=== PATIENT | female | born 1940 | race Caucasian/White ===

== ENCOUNTER 2017-06-06 07:25 | Observation (INO) ==
[2017-06-06] MEDS ORDERED: 0.9 % Sodium Chloride 1,000 ML IVC ONE (07:31)
[2017-06-06] MEDS ORDERED: Ondansetron 4 MG/2 ML VIAL IVP ONE (07:34)
--- NOTE | 2017-06-06 07:38 | Emergency Department Note ---
Disposition Clinical Impression: Seizure-like activity Vomiting Qualifiers: Vomiting type: unspecified Vomiting Intractability: non-intractable Nausea presence: unspecified Qualified Code(s): R11.10 - Vomiting, unspecified Disposition: Admitted As Inpatient Condition: Good Referrals: NONE,PCP [Primary Care Provider] - Forms: ED Satisfaction Letter Time of Disposition: 15:08 Syncope HPI - General Chief Complaint: ED Syncope Stated Complaint: fell off toilet, possible seizure Time Seen by Provider: 06/06/17 07:31 Nursing Notes Reviewed: Yes Vital Signs Reviewed: Yes - History of Present Illness HPI Narrative: Syncope this morning. Patient fell off the toilet. Check her head on the floor. Has had seizure-like activity by EMS. Episodic diarrhea today. Denies any pain. - Related Data Home Medications Medication Instructions Recorded Confirmed Cholecalciferol (Vitamin D3) 1,000 unit PO DAILY 11/05/14 06/06/17 [Vitamin D] Clopidogrel [Plavix] 75 mg PO DAILY 11/05/14 06/06/17 Magnesium Oxide [Magnesium] 400 mg PO DAILY 11/05/14 06/06/17 Carvedilol [Coreg] 25 mg PO BID 01/09/15 06/06/17 Insulin Glargine,Hum.rec.anlog 17 unit SQ HS 01/09/15 06/06/17 [Lantus Solostar] Nitroglycerin 0.4 mg SL Q5MIN PRN 01/09/15 06/06/17 Potassium Chloride [Klor-Con 10 meq PO DAILY 01/09/15 06/06/17 Sprinkle] Ropinirole HCl [Requip] 0.5 mg PO HS 01/09/15 06/06/17 TraZODone 50 mg PO HS 01/09/15 06/06/17 Acetaminophen [Pain Reliever] 500 mg PO TID PRN 06/06/17 06/06/17 CloNIDine HCl 0.3 mg PO TID 06/06/17 06/06/17 Fluticasone Propionate Nasal 1 spr NS DAILY 06/06/17 06/06/17 [Flonase] Gabapentin [Neurontin] 100 mg PO TID 06/06/17 06/06/17 Guaifenesin [Mucinex] 600 mg PO BID PRN 06/06/17 06/06/17 Insulin Glargine,Hum.rec.anlog 30 unit SQ QAM 06/06/17 06/06/17 [Lantus Solostar] Insulin LISPRO [Humalog Kwikpen 10 unit SQ TID 06/06/17 06/06/17 U-100] Lactobacillus Acidophilus 1 cap PO BID 06/06/17 06/06/17 [Acidophilus] Levothyroxine Sodium [Levoxyl] 50 mcg PO DAILY 06/06/17 06/06/17 Liothyronine Sodium [Cytomel] 25 mcg PO DAILY 06/06/17 06/06/17 Loratadine [Allergy Relief] 10 mg PO DAILY 06/06/17 06/06/17 Montelukast [Singulair] 10 mg PO DAILY 06/06/17 06/06/17 Nitroglycerin [Nitrostat] 0.4 mg SL Q5M PRN 06/06/17 06/06/17 Warfarin [Coumadin] 3.5 mg PO DAILY 06/06/17 06/06/17 hydrALAZINE [HydrALAZINE] 25 mg PO QID 06/06/17 06/06/17 Previous Rx's Medication Instructions Recorded Amlodipine [Norvasc] 10 mg PO DAILY #30 tablet 11/17/14 Atorvastatin [Lipitor] 80 mg PO HS #30 tablet 11/17/14 Furosemide [Lasix] 40 mg PO BID 30 Days tab 01/14/15 Lisinopril [Zestril] 40 mg PO DAILY tablet 01/14/15 Albuterol Sulfate [Albuterol 2 puff IH Q4HR #1 hfa.aer.ad 11/27/16 Inhaler] Allergies Allergy/AdvReac Type Severity Reaction Status Date / Time codeine Allergy Congested Verified 11/27/16 06:45 Penicillins [PCN] AdvReac Congested Verified 11/27/16 06:45 tape AdvReac Itching Uncoded 11/27/16 06:45 All systems ED: reviewed and negative except as stated. Constitutional: Reports: chills. Denies: fever Cardiovascular: Reports: syncope. Denies: chest pain, palpitations Respiratory: Denies: cough, dyspnea, wheezes Gastrointestinal: Reports: nausea, vomiting, diarrhea. Denies: abdominal pain, hematemesis, melena, hematochezia Genitourinary: Denies: urgency, dysuria, frequency Musculoskeletal: Denies: back pain, neck pain Integumentary: Denies: rash, abrasion Neurological: Denies: headache, weakness Past Medical History - Past Medical History Attestation: Yes The following information was validated with the patient. 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 - Social History Smoking Status: Never smoker Smokeless Tobacco Status: No Alcohol use: Reports: none Drug use: Reports: none Physical Exam - General General appearance: alert, other (Holding a vomit bag.) - Head Head exam: atraumatic, normocephalic, normal inspection - Eye Eye exam: Present: normal appearance, PERRL, EOMI - ENT ENT exam: normal exam, normal oropharynx, mucous membranes moist - Neck Neck exam: Present: normal inspection, full ROM, trachea midline - Chest Chest inspection: Present: normal inspection, symmetric chest wall rise - Respiratory Respiratory exam: Present: normal lung sounds bilaterally. Absent: respiratory distress, accessory muscle use - Cardiovascular Cardiovascular exam: Present: regular rate, normal rhythm, normal heart sounds - Abdominal Exam Abdominal exam: Present: soft, Non-Tender. Absent: distention, guarding, rebound, rigidity, organomegaly - Extremities Exam Extremities exam: Present: normal inspection, full ROM. Absent: tenderness, pedal edema - Back Exam Back exam: Present: normal inspection, full ROM. Absent: tenderness - Neurological Exam Neurological exam: Present: alert, oriented X3 - Psychiatric Psychiatric exam: Present: normal affect, normal mood - Skin Skin exam: Present: warm, dry, intact, normal color. Absent: rash Course Course Narrative: Female patient presenting to the emergency department by EMS. She does live at an assisted living facility. She states that she got up this morning and was going to the bathroom she began to have diarrhea. She then had a syncopal event. She fell forward off the toilet striking her head. She denies any head pain at this time. She is on Coumadin. She reports that she then began to vomit. EMS was called. EMS reports that the patient had a seizure-like activity while on their cot. They reported that his shaking all over. They reported a less than two-minute transport. Patient is not postictal on arrival here. She is mentating appropriately. She complains of some back pain. Her lung sounds are clear heart tones are normal abdomen is soft and nontender. We will get a CT of patient's head and neck due to the syncope. As well as an EKG and a basic lab workup. I do not believe that this was a seizure-like activity however I believe that she had some tremors after syncope. - Reevaluation(s) Reevaluation #1: Patient IV access is poor. PICC Was placed. After the PICC was in patient had seizure-like activity. This was consistent with staring off. Also shaking about her arms and legs. Does not appear to be a typical tonic-clonic seizure. However we will consult neurology and Keppra load her give her Ativan as well. Patient has episodic vomiting with these seizures. It was reported she also had an episode of this in the CT scanner. Time: 09:13 Reevaluation #2: We will admit patient to the hospital for seizure-like activity. We have scheduled the MRI as well as we will defer the LP until patient's INR has corrected. - Consultations Consultation #1: I spoke with Dr. Sood. I described the patient's seizure-like activity. He suggests we with 1 g of Keppra and get an MRI with and without contrast. He is also suggesting a possible LP. Patient's body habitus will be a challenge for her LP. Time: 09:23 Consultation #2: Dr ISAAC accepted Pt in stable condition. Time: 10:57 Vital Signs Temperature 97.4 F L 06/06/17 07:32 Pulse Rate 71 06/06/17 07:32 Respiratory Rate 15 06/06/17 07:32 Blood Pressure 177/57 06/06/17 07:32 O2 Sat by Pulse Oximetry 97 06/06/17 07:32 Temperature 97.4 F L 06/06/17 07:47 Pulse Rate 79 06/06/17 14:32 Respiratory Rate 15 06/06/17 14:32 Blood Pressure 195/57 06/06/17 14:32 O2 Sat by Pulse Oximetry 100 06/06/17 14:32 Oxygen Delivery Oxygen Delivery Nasal Cannula Syncope - Medical Records Medical records reviewed: Yes I reviewed the patient's medical records. - Lab Data Lab results reviewed: Yes I reviewed the patient's lab results. Result diagrams: 06/06/17 07:31 06/06/17 07:31 Lab Results 06/06/17 06/06/17 06/06/17 Range/Units 07:31 07:31 07:32 WBC 13.3 H (4.3-11.1) K/mcL RBC 3.56 L (3.82-4.97) M/mcL Hgb 10.3 L (11.5-15.4) g/dL Hct 32.1 L (35.3-44.9) % MCV 90.2 (83.0-100.0) fL MCH 28.9 (28.0-33.3) pg MCHC 32.1 (31.6-35.5) g/dL RDW 12.5 (11.5-14.5) % Plt Count 245 (140-400) K/mcL MPV 11.4 (9.4-12.4) fL Immature Gran % 0.4 (0-4) % Seg Neutrophils % 89.3 % Lymphocytes % 3.6 % Monocytes % 6.0 % Eosinophils % 0.6 % Basophils % 0.1 % Neutrophils # 11.9 H (1.6-8.9) K/mcL Lymphocytes # 0.5 L (0.6-4.6) K/mcL Monocytes # 0.8 (0.0-1.3) K/mcL Eosinophils # 0.1 (0.0-0.6) K/mcL Basophils # 0.0 (0.0-0.2) K/mcL PT (9.4-12.1) Seconds INR Sodium 142 (136-145) mEq/L Potassium 5.1 (3.5-5.1) mEq/L Chloride 108 H (98-107) mEq/L Carbon Dioxide 27 (23-29) mEq/L BUN 49 H (8-23) mg/dL Creatinine 1.31 H (0.60-1.20) mg/dL Est GFR ( Amer) 48 L (> 60) Est GFR (Non-Af Amer) 40 L (> 60) BUN/Creatinine Ratio 37 H (6-26) Glucose 163 H (70-105) mg/dL POC Glucose 130 H (58-89) mg/dL Calculated Osmolality 311 H (280-300) Lactic Acid (0.5-2.2) mmol/L Calcium 9.5 (8.6-10.3) mg/dL Total Bilirubin 0.4 (0.3-1.0) mg/dL AST 13 (13-39) Units/L ALT 12 (7-52) Units/L Alkaline Phosphatase 104 (34-104) Units/L Troponin I < 0.03 (< 0.04) ng/mL Serum Total Protein 6.7 (6.4-8.9) g/dL Albumin 3.9 (3.5-5.7) g/dL Globulin 2.8 (2.4-3.5) g/dL Albumin/Globulin Ratio 1.4 (1.1-2.2) Urine Color (Yellow) Urine Clarity (Clear) Urine pH (5.0-8.0) pH Units Ur Specific [place] (1.010-1.025) Urine Protein (Neg-Trace) mg/dL Urine Glucose (UA) (Normal) mg/dL Urine Ketones (Negative) mg/dL Urine Blood (Negative) Urine Nitrite (Negative) Urine Bilirubin (Negative) Urine Urobilinogen (Normal) mg/dL Ur Leukocyte Esterase (Negative) Urine Microscopic RBC (0-3) per hpf Urine Microscopic WBC (0-3) per hpf Ur Squamous Epith Cells (None-Few) per lpf Urine Bacteria (None-Few) per hpf Hyaline Casts (None-Few) per lpf Ur Culture Indicated? (NO) 06/06/17 06/06/17 06/06/17 Range/Units 07:34 09:15 09:40 WBC (4.3-11.1) K/mcL RBC (3.82-4.97) M/mcL Hgb (11.5-15.4) g/dL Hct (35.3-44.9) % MCV (83.0-100.0) fL MCH (28.0-33.3) pg MCHC (31.6-35.5) g/dL RDW (11.5-14.5) % Plt Count (140-400) K/mcL MPV (9.4-12.4) fL Immature Gran % (0-4) % Seg Neutrophils % % Lymphocytes % % Monocytes % % Eosinophils % % Basophils % % Neutrophils # (1.6-8.9) K/mcL Lymphocytes # (0.6-4.6) K/mcL Monocytes # (0.0-1.3) K/mcL Eosinophils # (0.0-0.6) K/mcL Basophils # (0.0-0.2) K/mcL PT 17.6 H (9.4-12.1) Seconds INR 1.6 Sodium (136-145) mEq/L Potassium (3.5-5.1) mEq/L Chloride (98-107) mEq/L Carbon Dioxide (23-29) mEq/L BUN (8-23) mg/dL Creatinine (0.60-1.20) mg/dL Est GFR ( Amer) (> 60) Est GFR (Non-Af Amer) (> 60) BUN/Creatinine Ratio (6-26) Glucose (70-105) mg/dL POC Glucose (58-89) mg/dL Calculated Osmolality (280-300) Lactic Acid 0.8 (0.5-2.2) mmol/L Calcium (8.6-10.3) mg/dL Total Bilirubin (0.3-1.0) mg/dL AST (13-39) Units/L ALT (7-52) Units/L Alkaline Phosphatase (34-104) Units/L Troponin I (< 0.04) ng/mL Serum Total Protein (6.4-8.9) g/dL Albumin (3.5-5.7) g/dL Globulin (2.4-3.5) g/dL Albumin/Globulin Ratio (1.1-2.2) Urine Color Yellow (Yellow) Urine Clarity Cloudy A (Clear) Urine pH 5.0 (5.0-8.0) pH Units Ur Specific [place] 1.026 H (1.010-1.025) Urine Protein 100 H (Neg-Trace) mg/dL Urine Glucose (UA) Normal (Normal) mg/dL Urine Ketones Negative (Negative) mg/dL Urine Blood Negative (Negative) Urine Nitrite Negative (Negative) Urine Bilirubin Negative (Negative) Urine Urobilinogen Normal (Normal) mg/dL Ur Leukocyte Esterase Negative (Negative) Urine Microscopic RBC 0-3 (0-3) per hpf Urine Microscopic WBC 0-3 (0-3) per hpf Ur Squamous Epith Cells Many H (None-Few) per lpf Urine Bacteria None Seen (None-Few) per hpf Hyaline Casts Few (None-Few) per lpf Ur Culture Indicated? NO (NO) - Radiology Data Radiology results reviewed: Yes I reviewed the patient's radiology results. Chest X-Ray 06/06/17 07:31 IMPRESSION: Probable minimal right basilar atelectasis. Slight cardiomegaly. D/ / Gwyn Tejeda MD / Gwyn Tejeda MD Interpreting Provider: Gwyn Tejeda MD Head CT 06/06/17 07:32 IMPRESSION: No acute intracranial abnormality. D/ / Van Haider MD / Van Haider MD Interpreting Provider: Van Haider MD Cervical Spine CT 06/06/17 07:43 IMPRESSION: No acute abnormality of the cervical spine. Mild cervical spondylosis. No change from the prior study. D/ / Gwyn Tejeda MD / Gwyn Tejeda MD Interpreting Provider: Gwyn Tejeda MD Brain MRI 06/06/17 09:21 IMPRESSION: 1. No evidence of acute infarct. 2. There is a large chronic infarct noted in the right frontal lobe with surrounding areas of gliosis. 3. Cerebral and cerebellar parenchymal volume loss with chronic microvascular white matter ischemic disease noted both supra- and infratentorially. 4. Small chronic infarcts are noted in the right centrum semiovale, right periventricular white matter, bilateral thalami, and left cerebellar hemisphere. D/ / 06/06/2017 14:46:24 Gary Lopez MD / [email or web address] Interpreting Provider: Gary Lopez MD - EKG Data EKG attestation: Yes I reviewed and interpreted this EKG. EKG results narrative: Normal sinus rhythm at a rate of 70. HI intervals 191. Castration is 89. QT is 371. QTC is 391. No signs of acute ischemia. No significant change from previous EKG dated 11/27/2016.
--- NOTE | 2017-06-06 07:45 | Emergency Department Note ---
Disposition Clinical Impression: Seizure-like activity Vomiting Qualifiers: Vomiting type: unspecified Vomiting Intractability: non-intractable Nausea presence: unspecified Qualified Code(s): R11.10 - Vomiting, unspecified Disposition: Admitted As Inpatient Condition: Fair Referrals: NONE,PCP [Primary Care Provider] - Forms: ED Satisfaction Letter General Adult HPI - General Chief complaint: ED Fall Stated complaint: fell off toilet, possible seizure Time Seen by Provider: 06/06/17 07:31 Source: patient Limitations: no limitations Nursing Notes Reviewed: Yes Vital Signs Reviewed: Yes - History of Present Illness Pain Scale: 0 - Related Data Home Medications Medication Instructions Recorded Confirmed Cholecalciferol (Vitamin D3) 1,000 unit PO DAILY 11/05/14 06/06/17 [Vitamin D] Clopidogrel [Plavix] 75 mg PO DAILY 11/05/14 06/06/17 Magnesium Oxide [Magnesium] 400 mg PO DAILY 11/05/14 06/06/17 Carvedilol [Coreg] 25 mg PO BID 01/09/15 06/06/17 Insulin Glargine,Hum.rec.anlog 17 unit SQ HS 01/09/15 06/06/17 [Lantus Solostar] Nitroglycerin 0.4 mg SL Q5MIN PRN 01/09/15 06/06/17 Potassium Chloride [Klor-Con 10 meq PO DAILY 01/09/15 06/06/17 Sprinkle] Ropinirole HCl [Requip] 0.5 mg PO HS 01/09/15 06/06/17 TraZODone 50 mg PO HS 01/09/15 06/06/17 Acetaminophen [Pain Reliever] 500 mg PO TID PRN 06/06/17 06/06/17 CloNIDine HCl 0.3 mg PO TID 06/06/17 06/06/17 Fluticasone Propionate Nasal 1 spr NS DAILY 06/06/17 06/06/17 [Flonase] Gabapentin [Neurontin] 100 mg PO TID 06/06/17 06/06/17 Guaifenesin [Mucinex] 600 mg PO BID PRN 06/06/17 06/06/17 Insulin Glargine,Hum.rec.anlog 30 unit SQ QAM 06/06/17 06/06/17 [Lantus Solostar] Insulin LISPRO [Humalog Kwikpen 10 unit SQ TID 06/06/17 06/06/17 U-100] Lactobacillus Acidophilus 1 cap PO BID 06/06/17 06/06/17 [Acidophilus] Levothyroxine Sodium [Levoxyl] 50 mcg PO DAILY 06/06/17 06/06/17 Liothyronine Sodium [Cytomel] 25 mcg PO DAILY 06/06/17 06/06/17 Loratadine [Allergy Relief] 10 mg PO DAILY 06/06/17 06/06/17 Montelukast [Singulair] 10 mg PO DAILY 06/06/17 06/06/17 Nitroglycerin [Nitrostat] 0.4 mg SL Q5M PRN 06/06/17 06/06/17 Warfarin [Coumadin] 3.5 mg PO DAILY 06/06/17 06/06/17 hydrALAZINE [HydrALAZINE] 25 mg PO QID 06/06/17 06/06/17 Previous Rx's Medication Instructions Recorded Amlodipine [Norvasc] 10 mg PO DAILY #30 tablet 11/17/14 Atorvastatin [Lipitor] 80 mg PO HS #30 tablet 11/17/14 Furosemide [Lasix] 40 mg PO BID 30 Days tab 01/14/15 Lisinopril [Zestril] 40 mg PO DAILY tablet 01/14/15 Albuterol Sulfate [Albuterol 2 puff IH Q4HR #1 hfa.aer.ad 11/27/16 Inhaler] Allergies Allergy/AdvReac Type Severity Reaction Status Date / Time codeine Allergy Congested Verified 11/27/16 06:45 Penicillins [PCN] AdvReac Congested Verified 11/27/16 06:45 tape AdvReac Itching Uncoded 11/27/16 06:45 Past Medical History - Past Medical History Medical history: Reports: atrial fibrillation, coronary artery disease, CVA, diabetes, hyperlipidemia, hypertension, thyroid disease, other Surgical history: Reports: , cataract, cholecystectomy, coronary bypass (CABG) Psychiatric history: Reports: depression 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 - Social History Smoking Status: Never smoker Smokeless Tobacco Status: No Alcohol use: Reports: none Drug use: Reports: none Physical Exam - General Limitations: no limitations General appearance: alert, other (Holding a vomit bag.) Course Vital Signs Temperature 97.4 F L 06/06/17 07:32 Pulse Rate 71 06/06/17 07:32 Respiratory Rate 15 06/06/17 07:32 Blood Pressure 177/57 06/06/17 07:32 O2 Sat by Pulse Oximetry 97 06/06/17 07:32 Temperature 97.4 F L 06/06/17 07:47 Pulse Rate 79 06/06/17 14:32 Respiratory Rate 15 06/06/17 15:05 Blood Pressure 213/101 06/06/17 15:05 O2 Sat by Pulse Oximetry 100 06/06/17 14:32 Oxygen Delivery Oxygen Delivery Nasal Cannula Medical Decision Making - MDM Narrative Medical decision making narrative: This documentation is done with the assistance of Dragon dictation. Despite efforts made to ensure accuracy, there may be inaccuracies in inspector poising or spelling and typographical errors. I examined this patient and my medical decision-making was reviewed with the Resident Physician. I agree with the documented findings, disposition and treatment plan as described except to the extent set forth below. patient seen and evaluate by myself and Dr. Guzman on arrival with EMS. Patient was at the nursing facility. Poor history but it sounds like she was sitting on the toilet had nausea vomiting and some diarrhea. Had a near-syncope or syncope episode fell forward struck her head crush whether she lost consciousness or not and then was shaking all over power the medics and her eyes rolled when this happened. No history of seizure. She is not postictal so I doubt she had a seizure at this time. No blood sugar was checked no IV was established we will go and start this thinks here and workup CT her head neck and reassess. She is in agreement with this plan. 0850 hrs.: Patient has no good IV access. We will do a consult to the IV access team to place the midline. 0910 hrs.: Patient did have a seizure. Was witnessed by us and she had an episode of vomiting. She was suctioned. Were in a give her some Zofran started on Keppra. And give her a dose of Ativan. And then we will discuss admission. Chest X-Ray 06/06/17 07:31 IMPRESSION: Probable minimal right basilar atelectasis. Slight cardiomegaly. D/ / Gwyn Tejeda MD / Gwyn Tejeda MD Interpreting Provider: Gwyn Tejeda MD Head CT 06/06/17 07:32 IMPRESSION: No acute intracranial abnormality. D/ / Van Haider MD / Van Haider MD Interpreting Provider: Van Haider MD Cervical Spine CT 06/06/17 07:43 IMPRESSION: No acute abnormality of the cervical spine. Mild cervical spondylosis. No change from the prior study. D/ / Gwyn Tejeda MD / Gwyn Tejeda MD Interpreting Provider: Gwyn Tejeda MD 1030 hrs.: Spoke with neurology do recommend MRI and LP. Spoke with interventional radiology because her INR is 1.6 they did not feel comfortable doing this this time. I do not think she is encephalopathic she does not have a fever. We will bring her into the hospital neurology consult N patient's got relief of her nausea and vomiting here. She has no focal neuro deficits this time no more seizure activity. She did get Ativan and Keppra here. She will be admitted. - Lab Data Result diagrams: 06/06/17 07:31 06/06/17 07:31 Lab Results 06/06/17 06/06/17 06/06/17 Range/Units 07:31 07:31 07:32 WBC 13.3 H (4.3-11.1) K/mcL RBC 3.56 L (3.82-4.97) M/mcL Hgb 10.3 L (11.5-15.4) g/dL Hct 32.1 L (35.3-44.9) % MCV 90.2 (83.0-100.0) fL MCH 28.9 (28.0-33.3) pg MCHC 32.1 (31.6-35.5) g/dL RDW 12.5 (11.5-14.5) % Plt Count 245 (140-400) K/mcL MPV 11.4 (9.4-12.4) fL Immature Gran % 0.4 (0-4) % Seg Neutrophils % 89.3 % Lymphocytes % 3.6 % Monocytes % 6.0 % Eosinophils % 0.6 % Basophils % 0.1 % Neutrophils # 11.9 H (1.6-8.9) K/mcL Lymphocytes # 0.5 L (0.6-4.6) K/mcL Monocytes # 0.8 (0.0-1.3) K/mcL Eosinophils # 0.1 (0.0-0.6) K/mcL Basophils # 0.0 (0.0-0.2) K/mcL PT (9.4-12.1) Seconds INR Sodium 142 (136-145) mEq/L Potassium 5.1 (3.5-5.1) mEq/L Chloride 108 H (98-107) mEq/L Carbon Dioxide 27 (23-29) mEq/L BUN 49 H (8-23) mg/dL Creatinine 1.31 H (0.60-1.20) mg/dL Est GFR ( Amer) 48 L (> 60) Est GFR (Non-Af Amer) 40 L (> 60) BUN/Creatinine Ratio 37 H (6-26) Glucose 163 H (70-105) mg/dL POC Glucose 130 H (58-89) mg/dL Calculated Osmolality 311 H (280-300) Lactic Acid (0.5-2.2) mmol/L Calcium 9.5 (8.6-10.3) mg/dL Total Bilirubin 0.4 (0.3-1.0) mg/dL AST 13 (13-39) Units/L ALT 12 (7-52) Units/L Alkaline Phosphatase 104 (34-104) Units/L Troponin I < 0.03 (< 0.04) ng/mL Serum Total Protein 6.7 (6.4-8.9) g/dL Albumin 3.9 (3.5-5.7) g/dL Globulin 2.8 (2.4-3.5) g/dL Albumin/Globulin Ratio 1.4 (1.1-2.2) Urine Color (Yellow) Urine Clarity (Clear) Urine pH (5.0-8.0) pH Units Ur Specific [place] (1.010-1.025) Urine Protein (Neg-Trace) mg/dL Urine Glucose (UA) (Normal) mg/dL Urine Ketones (Negative) mg/dL Urine Blood (Negative) Urine Nitrite (Negative) Urine Bilirubin (Negative) Urine Urobilinogen (Normal) mg/dL Ur Leukocyte Esterase (Negative) Urine Microscopic RBC (0-3) per hpf Urine Microscopic WBC (0-3) per hpf Ur Squamous Epith Cells (None-Few) per lpf Urine Bacteria (None-Few) per hpf Hyaline Casts (None-Few) per lpf Ur Culture Indicated? (NO) 06/06/17 06/06/17 06/06/17 Range/Units 07:34 09:15 09:40 WBC (4.3-11.1) K/mcL RBC (3.82-4.97) M/mcL Hgb (11.5-15.4) g/dL Hct (35.3-44.9) % MCV (83.0-100.0) fL MCH (28.0-33.3) pg MCHC (31.6-35.5) g/dL RDW (11.5-14.5) % Plt Count (140-400) K/mcL MPV (9.4-12.4) fL Immature Gran % (0-4) % Seg Neutrophils % % Lymphocytes % % Monocytes % % Eosinophils % % Basophils % % Neutrophils # (1.6-8.9) K/mcL Lymphocytes # (0.6-4.6) K/mcL Monocytes # (0.0-1.3) K/mcL Eosinophils # (0.0-0.6) K/mcL Basophils # (0.0-0.2) K/mcL PT 17.6 H (9.4-12.1) Seconds INR 1.6 Sodium (136-145) mEq/L Potassium (3.5-5.1) mEq/L Chloride (98-107) mEq/L Carbon Dioxide (23-29) mEq/L BUN (8-23) mg/dL Creatinine (0.60-1.20) mg/dL Est GFR ( Amer) (> 60) Est GFR (Non-Af Amer) (> 60) BUN/Creatinine Ratio (6-26) Glucose (70-105) mg/dL POC Glucose (58-89) mg/dL Calculated Osmolality (280-300) Lactic Acid 0.8 (0.5-2.2) mmol/L Calcium (8.6-10.3) mg/dL Total Bilirubin (0.3-1.0) mg/dL AST (13-39) Units/L ALT (7-52) Units/L Alkaline Phosphatase (34-104) Units/L Troponin I (< 0.04) ng/mL Serum Total Protein (6.4-8.9) g/dL Albumin (3.5-5.7) g/dL Globulin (2.4-3.5) g/dL Albumin/Globulin Ratio (1.1-2.2) Urine Color Yellow (Yellow) Urine Clarity Cloudy A (Clear) Urine pH 5.0 (5.0-8.0) pH Units Ur Specific [place] 1.026 H (1.010-1.025) Urine Protein 100 H (Neg-Trace) mg/dL Urine Glucose (UA) Normal (Normal) mg/dL Urine Ketones Negative (Negative) mg/dL Urine Blood Negative (Negative) Urine Nitrite Negative (Negative) Urine Bilirubin Negative (Negative) Urine Urobilinogen Normal (Normal) mg/dL Ur Leukocyte Esterase Negative (Negative) Urine Microscopic RBC 0-3 (0-3) per hpf Urine Microscopic WBC 0-3 (0-3) per hpf Ur Squamous Epith Cells Many H (None-Few) per lpf Urine Bacteria None Seen (None-Few) per hpf Hyaline Casts Few (None-Few) per lpf Ur Culture Indicated? NO (NO) 06/06/17 Range/Units 14:40 WBC (4.3-11.1) K/mcL RBC (3.82-4.97) M/mcL Hgb (11.5-15.4) g/dL Hct (35.3-44.9) % MCV (83.0-100.0) fL MCH (28.0-33.3) pg MCHC (31.6-35.5) g/dL RDW (11.5-14.5) % Plt Count (140-400) K/mcL MPV (9.4-12.4) fL Immature Gran % (0-4) % Seg Neutrophils % % Lymphocytes % % Monocytes % % Eosinophils % % Basophils % % Neutrophils # (1.6-8.9) K/mcL Lymphocytes # (0.6-4.6) K/mcL Monocytes # (0.0-1.3) K/mcL Eosinophils # (0.0-0.6) K/mcL Basophils # (0.0-0.2) K/mcL PT (9.4-12.1) Seconds INR Sodium (136-145) mEq/L Potassium (3.5-5.1) mEq/L Chloride (98-107) mEq/L Carbon Dioxide (23-29) mEq/L BUN (8-23) mg/dL Creatinine (0.60-1.20) mg/dL Est GFR ( Amer) (> 60) Est GFR (Non-Af Amer) (> 60) BUN/Creatinine Ratio (6-26) Glucose (70-105) mg/dL POC Glucose (58-89) mg/dL Calculated Osmolality (280-300) Lactic Acid (0.5-2.2) mmol/L Calcium (8.6-10.3) mg/dL Total Bilirubin (0.3-1.0) mg/dL AST (13-39) Units/L ALT (7-52) Units/L Alkaline Phosphatase (34-104) Units/L Troponin I < 0.03 (< 0.04) ng/mL Serum Total Protein (6.4-8.9) g/dL Albumin (3.5-5.7) g/dL Globulin (2.4-3.5) g/dL Albumin/Globulin Ratio (1.1-2.2) Urine Color (Yellow) Urine Clarity (Clear) Urine pH (5.0-8.0) pH Units Ur Specific [place] (1.010-1.025) Urine Protein (Neg-Trace) mg/dL Urine Glucose (UA) (Normal) mg/dL Urine Ketones (Negative) mg/dL Urine Blood (Negative) Urine Nitrite (Negative) Urine Bilirubin (Negative) Urine Urobilinogen (Normal) mg/dL Ur Leukocyte Esterase (Negative) Urine Microscopic RBC (0-3) per hpf Urine Microscopic WBC (0-3) per hpf Ur Squamous Epith Cells (None-Few) per lpf Urine Bacteria (None-Few) per hpf Hyaline Casts (None-Few) per lpf Ur Culture Indicated? (NO) Critical Care Time Critical Care Time: Yes Total Critical Care Time: 40 Attestation: Critical care time was done excluding any separately billable procedures
[2017-06-06] MEDS ORDERED: Ondansetron 4 MG/2 ML VIAL IVP STA (09:11)
[2017-06-06] MEDS ORDERED: *HR* LORazepam 2 MG/ML VIAL IVP ONE (09:11)
[2017-06-06] MEDS ORDERED: levETIRAcetam 1,000 MG in 0.9 % Sodium Chloride 100 ML IVPB ONE (09:12)
[2017-06-06 09:26] LABS: Basophils % 0.1 %; Eosinophils # 0.1 K/mcL (0.0-0.6); Eosinophils % 0.6 %; Hematocrit 32.1 % (35.3-44.9); Hemoglobin 10.3 g/dL (11.5-15.4); Immature Granulocytes % 0.4 % (0-4); Lymphocytes # 0.5 K/mcL (0.6-4.6); Lymphocytes % 3.6 %; Mean Corpuscular HGB Conc 32.1 g/dL (31.6-35.5); Mean Corpuscular Hemoglobin 28.9 pg (28.0-33.3); Mean Corpuscular Volume 90.2 fL (83.0-100.0); Mean Platelet Volume 11.4 fL (9.4-12.4); Monocytes # 0.8 K/mcL (0.0-1.3); Neutrophils # 11.9 K/mcL (1.6-8.9); Platelet Count 245 K/mcL (140-400); Red Blood Count 3.56 M/mcL (3.82-4.97); Red Cell Distribution Width 12.5 % (11.5-14.5); Segmented Neutrophils % 89.3 %
[2017-06-06 09:31] LABS: INR 1.6; Prothrombin Time 17.6 Seconds (9.4-12.1)
[2017-06-06 09:47] LABS: Troponin I < 0.03 ng/mL (< 0.04)
[2017-06-06 09:52] LABS: Bilirubin,Urine Negative (Negative); Blood,Urine Negative (Negative); Clarity,Urine Cloudy (Clear); Color,Urine Yellow (Yellow); Glucose,Urine (UA) Normal (Normal); Ketones,Urine Negative (Negative); Leukocyte Esterase,Urine Negative (Negative); Nitrite,Urine Negative (Negative); Protein,Urine 100 mg/dL (Neg-Trace); Specific Gravity,Urine 1.026 (1.010-1.025); Urobilinogen,Urine Normal (Normal)
[2017-06-06 09:53] LABS: Bacteria,Urine None Seen per hpf (None-Few); Hyaline Casts,Urine Few per lpf (None-Few); RBC,Urine 0-3 per hpf (0-3); Squamous Epithelial Cell,Urine Many per lpf (None-Few); WBC,Urine 0-3 per hpf (0-3)
[2017-06-06 10:30] LABS: Alanine Aminotransferase 12 Units/L (7-52); Albumin 3.9 g/dL (3.5-5.7); Albumin/Globulin Ratio 1.4 (1.1-2.2); Alkaline Phosphatase 104 Units/L (34-104); Aspartate Amino Transferase 13 Units/L (13-39); BUN/Creatinine Ratio 37 (6-26); Bilirubin,Total 0.4 mg/dL (0.3-1.0); Blood Urea Nitrogen 49 mg/dL (8-23); Calcium 9.5 mg/dL (8.6-10.3); Carbon Dioxide 27 mEq/L (23-29); Chloride 108 mEq/L (98-107); Globulin 2.8 g/dL (2.4-3.5); Glucose 163 mg/dL (70-105); Osmolality,Calculated 311 (280-300); Potassium 5.1 mEq/L (3.5-5.1); Sodium 142 mEq/L (136-145); Total Protein 6.7 g/dL (6.4-8.9); eGFR For African Americans 48 (> 60); eGFR For Non-African Americans 40 (> 60)
--- NOTE | 2017-06-06 11:52 | Internal Med History&Physical ---
Date of Encounter: 06/06/17 Time of Encounter: 11:47 Assessment and Plan (1) Syncope Current visit: Yes Status: Acute Patient is likely had episode of syncope, will place tele, consult neurologist, MRI of brain Qualifiers: Syncope type: unspecified Qualified Code(s): R55 - Syncope and collapse (2) Hypertension Current visit: Yes Status: Chronic Qualifiers: Hypertension type: essential hypertension Qualified Code(s): I10 - Essential (primary) hypertension (3) Hypothyroidism Current visit: Yes Status: Chronic Qualifiers: Hypothyroidism type: acquired Qualified Code(s): E03.9 - Hypothyroidism, unspecified (4) Hyperlipidemia Current visit: Yes Status: Chronic Qualifiers: Hyperlipidemia type: other hyperlipidemia Qualified Code(s): E78.4 - Other hyperlipidemia (5) CAD (coronary artery disease) Current visit: Yes Status: Chronic CAD state of post CABG continue home meds Qualifiers: Coronary Disease-Associated Artery/Lesion type: ione artery [place] vs. 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 use: with jail use Diabetes mellitus complication status: with kidney complications Diabetes mellitus complication detail: with chronic kidney disease Chronic kidney disease stage : stage 3 (moderate) Qualified Code(s): E11.22 - Type 2 diabetes mellitus with diabetic chronic kidney disease; N18.3 - Chronic kidney disease, stage 3 ( moderate); N18.3 - Chronic kidney disease, stage 3 (moderate); 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 She is alert oriented she understand why she is here, she understands the her medical conditions and the treatment plan. Internal Medicine - H&P: HPI Chief complaint: syncope Admitted From: Long-term Nursing Facility Plans for Post Hospital Care: [facility] History of present illness: Ms. Lala is a 76 year old female who has hx of atrial fibrillation, coronary artery disease, CVA, diabetes, hyperlipidemia, hypertension, thyroid disease an assisted living facility presneted to ER for syncope. She states that she did not feel well yesterday, had nausea and vomited a few times, this morning at 4: 00 she woke up and went to bathroom due to multiple diarrhea, she had 4 times of diarrhea since 4:00. She fell off from toilet. Staff called the EMS. Patient was a little confused at that time. She denies any head pain at this time. She is on Coumadin. When I saw the patient she is alert, oriented 3. I discussed the code a statin was her, she wants to be DNR CCA. 8 year WBC 13.3 hemoglobin 10.3 INR 1.6 creatinine 1.31, UA is negative for infections. ER physician was concerned for seizure activity. they did a head CT scan which is negative. they called neurologist Dr. Sood who started her on keppra. Patient is on Coumadin. INR is elevated. Patient is going to be admitted for syncopal episode, diarrhea nausea, will check C. difficile, give IV fluids Past Med Surg Social Fam HX - Past Medical History Medical history: atrial fibrillation, coronary artery disease, CVA, diabetes, hyperlipidemia, hypertension, thyroid disease, other Psychiatric history: depression - Past Surgical History Surgical History: , cataract, cholecystectomy, coronary bypass (CABG) - Social History Smoking Status: Never smoker Smokeless Tobacco Status: No Alcohol use: none Drug use: none - Family History Sister Living Status: Hx Family Cancer: Yes (Breast Cancer) Hx Family Endocrine Disorder: Yes (Diabetes) Brother Adopted: No Family Member Ethnicity: Non- Living Status: Still Living Hx Family Cancer: Yes (Lung Cancer) Hx Family Endocrine Disorder: Yes (Diabetes) Internal Medicine - H&P: Meds Cholecalciferol (Vitamin D3) [Vitamin D] 1,000 unit PO DAILY 11/05/14 [History] Clopidogrel [Plavix] 75 mg PO DAILY 11/05/14 [History] Magnesium Oxide [Magnesium] 400 mg PO DAILY 11/05/14 [History] Amlodipine [Norvasc] 10 mg PO DAILY #30 tablet 11/17/14 [Rx] Atorvastatin [Lipitor] 80 mg PO HS #30 tablet 11/17/14 [Rx] Carvedilol [Coreg] 25 mg PO BID 01/09/15 [History] Insulin Glargine,Hum.rec.anlog [Lantus Solostar] 17 unit SQ HS 01/09/15 [History ] Nitroglycerin 0.4 mg SL Q5MIN PRN 01/09/15 [History] Potassium Chloride [Klor-Con Sprinkle] 10 meq PO DAILY 01/09/15 [History] Ropinirole HCl [Requip] 0.5 mg PO HS 01/09/15 [History] TraZODone 50 mg PO HS 01/09/15 [History] Furosemide [Lasix] 40 mg PO BID 30 Days tab 01/14/15 [Rx] Lisinopril [Zestril] 40 mg PO DAILY tablet 01/14/15 [Rx] Albuterol Sulfate [Albuterol Inhaler] 2 puff IH Q4HR #1 hfa.aer.ad 11/27/16 [Rx] Acetaminophen [Pain Reliever] 500 mg PO TID PRN 06/06/17 [History] CloNIDine HCl 0.3 mg PO TID 06/06/17 [History] Fluticasone Propionate Nasal [Flonase] 1 spr NS DAILY 06/06/17 [History] Gabapentin [Neurontin] 100 mg PO TID 06/06/17 [History] Guaifenesin [Mucinex] 600 mg PO BID PRN 06/06/17 [History] Insulin Glargine,Hum.rec.anlog [Lantus Solostar] 30 unit SQ QAM 06/06/17 [ History] Insulin LISPRO [Humalog Kwikpen U-100] 10 unit SQ TID 06/06/17 [History] Lactobacillus Acidophilus [Acidophilus] 1 cap PO BID 06/06/17 [History] Levothyroxine Sodium [Levoxyl] 50 mcg PO DAILY 06/06/17 [History] Liothyronine Sodium [Cytomel] 25 mcg PO DAILY 06/06/17 [History] Loratadine [Allergy Relief] 10 mg PO DAILY 06/06/17 [History] Montelukast [Singulair] 10 mg PO DAILY 06/06/17 [History] Nitroglycerin [Nitrostat] 0.4 mg SL Q5M PRN 06/06/17 [History] Warfarin [Coumadin] 3.5 mg PO DAILY 06/06/17 [History] hydrALAZINE [HydrALAZINE] 25 mg PO QID 06/06/17 [History] 3 Allergy/AdvReac Type Severity Reaction Status Date / Time codeine Allergy Congested Verified 11/27/16 06:45 Penicillins [PCN] AdvReac Congested Verified 11/27/16 06:45 tape AdvReac Itching Uncoded 11/27/16 06:45 All Systems PM: A 10-system review of systems was performed and is negative for pertinent findings except as documented above in the HPI. - Constitutional Vitals: Temp Pulse Resp BP Pulse Ox 97.4 F L 71 15 139/91 98 06/06/17 07:47 06/06/17 11:02 06/06/17 11:02 06/06/17 11:02 06/06/17 11:02 General appearance: Present: cooperative, A&O X 3, pleasant Internal Med - H&P Results - Labs CBC & Chem 7: 06/06/17 07:31 06/06/17 07:31 Labs: Short CBC 06/06/17 Range/Units 07:31 WBC 13.3 H (4.3-11.1) K/mcL Hgb 10.3 L (11.5-15.4) g/dL Hct 32.1 L (35.3-44.9) % Plt Count 245 (140-400) K/mcL Neutrophils # 11.9 H (1.6-8.9) K/mcL BMP 06/06/17 07:31 Sodium 142 Potassium 5.1 Chloride 108 H Carbon Dioxide 27 BUN 49 H Creatinine 1.31 H Glucose 163 H Calcium 9.5 Cardiac Enzymes 06/06/17 Range/Units 07:31 Troponin I < 0.03 (< 0.04) ng/mL Liver Function 06/06/17 Range/Units 07:31 Total Bilirubin 0.4 (0.3-1.0) mg/dL AST 13 (13-39) Units/L ALT 12 (7-52) Units/L Alkaline Phosphatase 104 (34-104) Units/L Albumin 3.9 (3.5-5.7) g/dL Urine 06/06/17 Range/Units 09:40 Urine Color Yellow (Yellow) Urine Clarity Cloudy A (Clear) Urine pH 5.0 (5.0-8.0) pH Units Ur Specific [place] 1.026 H (1.010-1.025) Urine Protein 100 H (Neg-Trace) mg/dL Urine Glucose (UA) Normal (Normal) mg/dL - Impressions ITS Impressions Chest X-Ray 06/06/17 07:31 IMPRESSION: Probable minimal right basilar atelectasis. Slight cardiomegaly. D/ / Gwyn Tejeda MD / Gwyn Tejeda MD Interpreting Provider: Gwyn Tejeda MD Head CT 06/06/17 07:32 IMPRESSION: No acute intracranial abnormality. D/ / Van Haider MD / Van Haider MD Interpreting Provider: Van Haider MD Cervical Spine CT 06/06/17 07:43 IMPRESSION: No acute abnormality of the cervical spine. Mild cervical spondylosis. No change from the prior study. D/ / Gwyn Tejeda MD / Gwyn Tejeda MD Interpreting Provider: Gwyn Tejeda MD
[2017-06-06] MEDS ORDERED: Acetaminophen 325 MG TABLET PO ONE (12:53)
[2017-06-06] MEDS ORDERED: Naloxone 0.4 MG/ML INJ IVP PRN (13:32)
[2017-06-06] MEDS ORDERED: Nitroglycerin 0.4 MG TAB.SUBL SL PRN (13:35)
[2017-06-06] MEDS ORDERED: Dextrose Gel 15 GM/37.5 ML TUBE PO PRN ×2 (14:16)
[2017-06-06] MEDS ORDERED: *HR* Dextrose 50 % in Water (Syg) 50 ML SYRINGE IVP PRN (14:16)
[2017-06-06] MEDS ORDERED: D5% in Water 1,000 ML IVC PRN (14:16)
--- NOTE | 2017-06-06 16:02 | Neurology - Consult Note ---
Date of Encounter: 06/06/17 Time of Encounter: 15:54 Assessment and Plan (1) Vasovagal near syncope Current Visit: Yes Status: Acute It is my suspicion that this patient management experiencing near syncopal events. She did not have postictal state associated with the altered sensorium. She did not suffer any tongue trauma. She is currently alert and oriented him back to her normal baseline neurologic function. Perhaps she may have had cardiac arrhythmia associated with the GI distress or perhaps she may have become near syncopal due to volume depletion. Perhaps she may be experienced some vagal effect of the repeated Valsalva resulting in bradycardia. It is not uncommon for individuals to sometimes experience what appeared to be generalized tonic-clonic movements associated with syncope. I will obtain an EEG however I will recommend holding off on antiepileptic medications for now. I will reevaluate her tomorrow. MRI scan does reveal severe chronic deep white matter ischemic change and her blood pressure has been greater than 200 systolic at times during this admission. Recommend aggressive management of her stroke risk factors. However there is no evidence of acute ischemia associated with this admission. History of Present Illness HPI: Ms. Lala is a 76 year old female seen for neurologic consultation secondary to episodes of altered mental status with associated tremulousness questionable seizure activity. She has multiple medical problems including atrial fibrillation and coronary artery disease previous strokes diabetes hyperlipidemia and morbid obesity hypertension and currently lives in an assisted living facility because of cognitive decline. In regard she states that she did not feel well yesterday and earlier today had multiple episodes of diarrhea as well as emesis. Apparently she fell off the toilet at the nursing care facility and was noted to have been a little confused at that time. She is currently back to her normal baseline mental status. However, she has had multiple episodes consisting of altered mental status with associated tremors. She denies headache currently, denies confusion, denies any visual changes, denies any numbness tingling or weakness. Past Med Surg Social Fam HX - Past Medical History Medical history: atrial fibrillation, coronary artery disease, CVA, diabetes, hyperlipidemia, hypertension, thyroid disease, other Psychiatric history: depression - Past Surgical History Surgical History: , cataract, cholecystectomy, coronary bypass (CABG) - Social History Smoking Status: Never smoker Smokeless Tobacco Status: No Alcohol use: none Drug use: none - Family History Sister Living Status: Hx Family Cancer: Yes (Breast Cancer) Hx Family Endocrine Disorder: Yes (Diabetes) Brother Adopted: No Family Member Ethnicity: Non- Living Status: Still Living Hx Family Cancer: Yes (Lung Cancer) Hx Family Endocrine Disorder: Yes (Diabetes) Medications and Allergies Cholecalciferol (Vitamin D3) [Vitamin D] 1,000 unit PO DAILY 11/05/14 [History] Clopidogrel [Plavix] 75 mg PO DAILY 11/05/14 [History] Magnesium Oxide [Magnesium] 400 mg PO DAILY 11/05/14 [History] Amlodipine [Norvasc] 10 mg PO DAILY #30 tablet 11/17/14 [Rx] Atorvastatin [Lipitor] 80 mg PO HS #30 tablet 11/17/14 [Rx] Carvedilol [Coreg] 25 mg PO BID 01/09/15 [History] Insulin Glargine,Hum.rec.anlog [Lantus Solostar] 17 unit SQ HS 01/09/15 [History ] Nitroglycerin 0.4 mg SL Q5MIN PRN 01/09/15 [History] Potassium Chloride [Klor-Con Sprinkle] 10 meq PO DAILY 01/09/15 [History] Ropinirole HCl [Requip] 0.5 mg PO HS 01/09/15 [History] TraZODone 50 mg PO HS 01/09/15 [History] Furosemide [Lasix] 40 mg PO BID 30 Days tab 01/14/15 [Rx] Lisinopril [Zestril] 40 mg PO DAILY tablet 01/14/15 [Rx] Albuterol Sulfate [Albuterol Inhaler] 2 puff IH Q4HR #1 hfa.aer.ad 11/27/16 [Rx] Acetaminophen [Pain Reliever] 500 mg PO TID PRN 06/06/17 [History] CloNIDine HCl 0.3 mg PO TID 06/06/17 [History] Fluticasone Propionate Nasal [Flonase] 1 spr NS DAILY 06/06/17 [History] Gabapentin [Neurontin] 100 mg PO TID 06/06/17 [History] Guaifenesin [Mucinex] 600 mg PO BID PRN 06/06/17 [History] Insulin Glargine,Hum.rec.anlog [Lantus Solostar] 30 unit SQ QAM 06/06/17 [ History] Insulin LISPRO [Humalog Kwikpen U-100] 10 unit SQ TID 06/06/17 [History] Lactobacillus Acidophilus [Acidophilus] 1 cap PO BID 06/06/17 [History] Levothyroxine Sodium [Levoxyl] 50 mcg PO DAILY 06/06/17 [History] Liothyronine Sodium [Cytomel] 25 mcg PO DAILY 06/06/17 [History] Loratadine [Allergy Relief] 10 mg PO DAILY 06/06/17 [History] Montelukast [Singulair] 10 mg PO DAILY 06/06/17 [History] Nitroglycerin [Nitrostat] 0.4 mg SL Q5M PRN 06/06/17 [History] Warfarin [Coumadin] 3.5 mg PO DAILY 06/06/17 [History] hydrALAZINE [HydrALAZINE] 25 mg PO QID 06/06/17 [History] 3 Allergy/AdvReac Type Severity Reaction Status Date / Time codeine Allergy Congested Verified 11/27/16 06:45 Penicillins [PCN] AdvReac Congested Verified 11/27/16 06:45 tape AdvReac Itching Uncoded 11/27/16 06:45 All Systems: The remainder of the systems were reviewed and are negative Review of Systems: Temporal review of systems is consistent with a history of present illness and otherwise negative. Physical Examination - Vital Signs Vital Signs: Initial Vital Signs Temp Pulse Resp BP Pulse Ox 97.4 F L 71 15 177/57 97 06/06/17 07:32 06/06/17 07:32 06/06/17 07:32 06/06/17 07:32 06/06/17 07:32 - Neurologic Detailed motor examination: full strength in all major muscle groups Motor examination - right side: 5/5: deltoids, biceps, triceps, wrist flexion, wrist extension, sample patternmaker, hip flexors, tibialis Anterior, quadriceps, toe extension (EHL), plantarflexion Motor examination - left side: 5/5: deltoids, biceps, triceps, wrist flexion, wrist extension, hip flexors, sample patternmaker, quadriceps, tibialis Anterior, toe extension (EHL), plantarflexion Mental Status Examination: awake, alert, oriented to person, oriented to place, oriented to time, follows commands appropriately, answers questions appropriately, no agnosia, no aphasia, no aproxia Cranial nerve examination: PERRL, EOMI, visual rodriguez intact, corneal reflexes brisk symmetrically, sensory to face intact, mastication intact, no facial asymmetry is present, no dysarthria, hearing is intact symmetrically, soft palate elevates bilaterally upon phonation, gag reflex intact, flexes SCM and trapezius muscles symmetrically with full power, tongue protrudes midline, no atrophy or facial fasiculations present Cerebellar examination: no dysmetria, no truncal ataxia, no difficulty with rapid alternating movements Results - Laboratory Findings CBC and BMP: 06/06/17 07:31 06/06/17 07:31 Abnormal lab findings: Abnormal lab results WBC 13.3 K/mcL (4.3-11.1) H 06/06/17 07:31 RBC 3.56 M/mcL (3.82-4.97) L 06/06/17 07:31 Hgb 10.3 g/dL (11.5-15.4) L 06/06/17 07:31 Hct 32.1 % (35.3-44.9) L 06/06/17 07:31 Neutrophils # 11.9 K/mcL (1.6-8.9) H 06/06/17 07:31 Lymphocytes # 0.5 K/mcL (0.6-4.6) L 06/06/17 07:31 PT 17.6 Seconds (9.4-12.1) H 06/06/17 07:34 Chloride 108 mEq/L (98-107) H 06/06/17 07:31 BUN 49 mg/dL (8-23) H 06/06/17 07:31 Creatinine 1.31 mg/dL (0.60-1.20) H 06/06/17 07:31 Est GFR ( Amer) 48 (> 60) L 06/06/17 07:31 Est GFR (Non-Af Amer) 40 (> 60) L 06/06/17 07:31 BUN/Creatinine Ratio 37 (6-26) H 06/06/17 07:31 Glucose 163 mg/dL (70-105) H 06/06/17 07:31 POC Glucose 130 mg/dL (58-89) H 06/06/17 07:32 Calculated Osmolality 311 (280-300) H 06/06/17 07:31 Urine Clarity Cloudy (Clear) A 04/02/18 09:40 Ur Specific [place] 1.026 (1.010-1.025) H 06/06/17 09:40 Urine Protein 100 mg/dL (Neg-Trace) H 06/06/17 09:40 Ur Squamous Epith Cells Many per lpf (None-Few) H 06/06/17 09:40 Consult Discharge Plan - Plan Referrals: NONE,PCP [Primary Care Provider] -
[2017-06-06] MEDS: cloNIDine HCl 0.1 MG TABLET PO SCH ×2 (16:04→20:09)
[2017-06-06] MEDS: hydrALAZINE 25 MG TABLET PO SCH ×2 (16:05→20:10)
[2017-06-06] MEDS: Gabapentin 100 MG CAPSULE PO SCH ×2 (16:05→20:10)
[2017-06-06] MEDS: Insulin LISPRO 300 UNITS/3 ML VIAL SQ SCH (17:02)
[2017-06-06 18:34] LABS: Adenovirus F 40/41 PCR Not detected (Not detect); Astrovirus PCR Not detected (Not detect); C.difficile Toxin A/B by PCR Not detected (Not detect); Campylobacter by PCR Not detected (Not detect); Cryptosporidium by PCR Not detected (Not detect); Cyclospora cayetanensis PCR Not detected (Not detect); E. coli O157 by PCR Not detected (Not detect); Entamoeba histolytica PCR Not detected (Not detect); Enteroaggregative E.coli(EAEC) Not detected (Not detect); Enteropathogenic E.coli(EPEC) Not detected (Not detect); Enterotoxigenic E.coli (ETEC) Not detected (Not detect); Giardia lamblia PCR Not detected (Not detect); Plesiomonas shigelloides PCR Not detected (Not detect); Salmonella PCR Not detected (Not detect); Shig/EnteroinvasiveE coli EIEC Not detected (Not detect); Shigalike tox-prod E coli STEC Not detected (Not detect); Vibrio PCR Not detected (Not detect); Vibrio cholerae PCR Not detected (Not detect); Yersinia enterocolitica PCR Not detected (Not detect)
[2017-06-06 18:35] LABS: Norovirus GI/GII PCR ***DETECTED*** (Not detect); Rotavirus A PCR Not detected (Not detect); Sapovirus PCR Not detected (Not detect)
[2017-06-06] MEDS: Lactobacillus 1 EACH CAP.SPRINK PO SCH (20:07)
[2017-06-06] MEDS: rOPINIRole 0.25 MG TABLET PO SCH (20:08)
[2017-06-06] MEDS: traZODone 50 MG TABLET PO SCH (20:09)
[2017-06-06] MEDS ORDERED: Furosemide 20 MG TABLET PO SCH (21:00)
[2017-06-07] MEDS: Insulin DETEMIR 100 UNIT/ML X5UNITS SQ SCH ×2 (01:29→20:02)
[2017-06-07] MEDS: Insulin LISPRO 300 UNITS/3 ML VIAL SQ SCH ×5 (01:29→20:02)
[2017-06-07 01:45] LABS: Hematocrit 26.6 % (35.3-44.9); Hemoglobin 8.6 g/dL (11.5-15.4); Immature Platelets 3.6 % (1.1-6.1); Mean Corpuscular HGB Conc 32.3 g/dL (31.6-35.5); Mean Corpuscular Hemoglobin 29.2 pg (28.0-33.3); Mean Corpuscular Volume 90.2 fL (83.0-100.0); Mean Platelet Volume 11.7 fL (9.4-12.4); Red Blood Count 2.95 M/mcL (3.82-4.97); Red Cell Distribution Width 12.8 % (11.5-14.5)
[2017-06-07 01:52] LABS: Prothrombin Time 21.6 Seconds (9.4-12.1)
[2017-06-07 02:37] LABS: Calcium 8.4 mg/dL (8.6-10.3); Magnesium 1.8 mg/dL (1.6-2.6); Potassium 4.7 mEq/L (3.5-5.1)
--- NOTE | 2017-06-07 06:47 | Electrocardiograph Report ---
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
[2017-06-07] MEDS: Loratadine 10 MG TABLET PO SCH (08:36)
[2017-06-07] MEDS: Lactobacillus 1 EACH CAP.SPRINK PO SCH ×2 (08:36→20:00)
[2017-06-07] MEDS: amLODIPine 5 MG TABLET PO SCH (08:36)
[2017-06-07] MEDS: Gabapentin 100 MG CAPSULE PO SCH ×3 (08:36→20:00)
[2017-06-07] MEDS: Cholecalciferol (D-3) 1,000 UNIT TABLET PO SCH (08:36)
[2017-06-07] MEDS: hydrALAZINE 25 MG TABLET PO SCH ×4 (08:36→20:00)
[2017-06-07] MEDS: cloNIDine HCl 0.1 MG TABLET PO SCH ×3 (08:36→19:59)
[2017-06-07] MEDS: Magnesium Oxide 400 MG TABLET PO SCH (08:37)
[2017-06-07] MEDS: Fluticasone Propionate Nasal 50 MCG/SPRAY BOTTLE NS SCH (08:55)
[2017-06-07] MEDS ORDERED: Lisinopril 20 MG TABLET PO SCH (09:00)
--- NOTE | 2017-06-07 09:40 | EEG/EMG/Oth Biometrics Report ---
EEG Procedure Report Date of procedure: 06/07/17 EEG Procedure: Routine EEG Procedure Note: This is a report of a 21 channel bipolar and referential montage EEG. Posterior dominant rhythm of 10 Hz moderate voltage alpha frequencies identified symmetrically in the posterior head regions. This rhythm attenuates symmetrically with eye opening. Hyperventilation is not performed during the recording. Periods of drowsiness are identified as reference by dropout of posterior dominant rhythm and emergence of spindle like activity. The patient does not fully reach stage II sleep. Photic stimulation is not performed then the recording. EKG rhythm strip reveals normal sinus rhythm at 66 bpm. Impressions: This EEG recording is within normal limits. There is no evidence of epileptiform activity identified during the study. Comment: A normal EEG does not preclude a diagnosis of seizure or epilepsy. If the clinical suspicion for seizure activity is high, serial EEGs or perhaps a prolonged recording may increase the yield. Please correlate clinically.
--- NOTE | 2017-06-07 16:14 | Neurology Progress Note ---
Date of Encounter: 06/07/17 Time of Encounter: 16:12 Assessment and Plan (1) Vasovagal near syncope Current Visit: Yes Status: Acute I suspect that the patient may have had an episode of convulsive syncope. Her EEG was normal, she is back to her normal neurologic baseline. I will reevaluate her at your request. Subjective Interval history: The chart was reviewed, patient was seen and examined. EEG was interpreted by myself. The EEG was normal. Patient has had no further episodes of altered mental status. No further episodes of seizure activity. I did review the lab results and the PCR was positive for norovirus. She has no headaches no further neurologic complaints. She follows commands and answers questions appropriately. Objective - Constitutional Vitals: Temp Pulse Resp BP Pulse Ox 100.2 F H 64 17 184/72 99 06/07/17 14:23 06/07/17 14:23 06/07/17 14:23 06/07/17 14:23 06/07/17 14:23 - Neurological Exam Motor Examination: Present: full strength in all major muscle groups Motor examination - right side: 5/5: deltoids, biceps, triceps, panel machine tender, hip flexors, tibialis Anterior, quadriceps, toe extension (EHL), plantarflexion Motor examination - left side: 5/5: deltoids, biceps, triceps, hip flexors, panel machine tender , quadriceps, tibialis Anterior, toe extension (EHL), plantarflexion Sensation intact: Present: intact Mental Status Examination: Present: awake, alert, oriented to person, oriented to place, oriented to time, follows commands appropriately, answers questions appropriately, no agnosia, no aphasia, no aproxia Cranial nerve examination: Present: PERRL, EOMI, visual rodriguez intact, corneal reflexes brisk symmetrically, sensory to face intact, mastication intact, no facial asymmetry is present, no dysarthria, hearing is intact symmetrically, soft palate elevates bilaterally upon phonation, gag reflex intact, flexes SCM and trapezius muscles symmetrically with full power, tongue protrudes midline, no atrophy or facial fasiculations present Cerebellar examination: Present: no dysmetria, no truncal ataxia, no difficulty with rapid alternating movements Results - Laboratory Findings CBC and BMP: 06/07/17 01:36 06/07/17 01:36 Abnormal lab findings: Abnormal lab results RBC 2.95 M/mcL (3.82-4.97) L 06/07/17 01:36 Hgb 8.6 g/dL (11.5-15.4) L D 06/07/17 01:36 Hct 26.6 % (35.3-44.9) L 06/07/17 01:36 Neutrophils # 11.9 K/mcL (1.6-8.9) H 06/06/17 07:31 Lymphocytes # 0.5 K/mcL (0.6-4.6) L 06/06/17 07:31 PT 21.6 Seconds (9.4-12.1) H 06/07/17 01:36 Chloride 111 mEq/L (98-107) H 06/07/17 01:36 BUN 49 mg/dL (8-23) H 06/07/17 01:36 Creatinine 1.42 mg/dL (0.60-1.20) H 06/07/17 01:36 Est GFR ( Amer) 44 (> 60) L 06/07/17 01:36 Est GFR (Non-Af Amer) 36 (> 60) L 06/07/17 01:36 BUN/Creatinine Ratio 35 (6-26) H 06/07/17 01:36 Glucose 176 mg/dL (70-105) H 06/07/17 01:36 POC Glucose 233 mg/dL (58-89) H 06/06/17 19:05 Calculated Osmolality 309 (280-300) H 06/07/17 01:36 Calcium 8.4 mg/dL (8.6-10.3) L 06/07/17 01:36 B-Natriuretic Peptide 206 pg/mL (Less than 100) H 06/07/17 01:36 Urine Clarity Cloudy (Clear) A 06/06/17 09:40 Ur Specific [place] 1.026 (1.010-1.025) H 06/06/17 09:40 Urine Protein 100 mg/dL (Neg-Trace) H 06/06/17 09:40 Ur Squamous Epith Cells Many per lpf (None-Few) H 06/06/17 09:40 Stl Norovirus GI/GII PCR DETECTED (Not detect) A 06/06/17 15:35 Consult Discharge Plan - Plan Referrals: NONE,PCP [Primary Care Provider] - Aquilino Rivera DO [Non-Partnered Physician] - 06/22/17 1:15 pm
--- NOTE | 2017-06-07 16:35 | Event Note ---
Date of Encounter: 06/07/17 Time of Encounter: 10:00 Please see progress note performed by Dr. Guerrier, internal medicine resident. I am in agreement with his findings, assessment and plan we discussed the case. I suspect patient's near syncope episode was due to dehydration from diarrhea from Norovirus infection, dehydration. Patient is improved. She is now taking oral hydration. She is weak and we will continue to monitor her overnight and provide supportive care. We did dose adjust her Coumadin. Otherwise patient is hemodynamically stable. Anticipate discharge tomorrow if she continues to show improvement. Her diarrhea is resolving. All else as per note.
--- NOTE | 2017-06-07 16:50 | Internal Med Progress Note ---
Date of Encounter: 06/07/17 Time of Encounter: 16:48 - Assessment and plan (1) Norovirus Current Visit: Yes Status: Acute Assessment and plan: GI panel reveals norovirus. Patient is currently on contact precautions as his viral illness fecal-orally. Continue supportive care. (2) Hypertension Current Visit: Yes Status: Chronic Assessment and plan: Patient has a systolic blood pressure in the 180s. Patient probably has poor absorption secondary to her nor a virus. She is also not been tolerating as much by mouth intake. We will provide medications orally as patient can tolerate. We will continue to monitor her blood pressure as patient is currently on 5 medications. Qualifiers: Hypertension type: essential hypertension Qualified Code(s): I10 - Essential (primary) hypertension (3) Hypothyroidism Current Visit: Yes Status: Chronic Assessment and plan: Patient currently on Synthroid 50 g daily. Qualifiers: Hypothyroidism type: acquired Qualified Code(s): E03.9 - Hypothyroidism, unspecified (4) Hyperlipidemia Current Visit: Yes Status: Chronic Assessment and plan: Patient currently on atorvastatin 80 mg. Qualifiers: Hyperlipidemia type: other hyperlipidemia Qualified Code(s): E78.4 - Other hyperlipidemia (5) CAD (coronary artery disease) Current Visit: No Status: Chronic Qualifiers: Coronary Disease-Associated Artery/Lesion type: [place] artery [place] vs. transplanted heart: [place] heart Associated angina: without angina Qualified Code(s): I25.10 - Atherosclerotic heart disease of [place] coronary artery without angina pectoris (6) Hx of CABG Current Visit: No Status: Acute (7) DM type 2 (diabetes mellitus, type 2) Current Visit: Yes Status: Chronic Assessment and plan: Hyperglycemia currently being managed by insulin. Qualifiers: Diabetes mellitus fdc insulin use: with fdc use Diabetes mellitus complication status: with kidney complications Diabetes mellitus complication detail: with chronic kidney disease Chronic kidney disease stage : stage 3 (moderate) Qualified Code(s): E11.22 - Type 2 diabetes mellitus with diabetic chronic kidney disease; N18.3 - Chronic kidney disease, stage 3 ( moderate); N18.3 - Chronic kidney disease, stage 3 (moderate); Z79.4 - remote computer terminal operator (current) use of insulin; Z79.4 - penitentiary (current) use of insulin; Z79.4 - remote computer terminal operator (current) use of insulin; Z79.4 - penitentiary (current) use of insulin (8) CKD (chronic kidney disease) stage 3, GFR 30-59 ml/min Current Visit: Yes Status: Chronic Assessment and plan: Creatinine today of 1.42. This is within her normal range. (9) History of CVA (cerebrovascular accident) Current Visit: Yes Status: Acute Assessment and plan: Patient at risk for stroke. We will restart Coumadin today. (10) Syncope Current Visit: Yes Status: Acute Assessment and plan: Most likely secondary to dehydration as patient has normal virus. Neurology recommends strict control of high blood pressure. Qualifiers: Syncope type: unspecified Qualified Code(s): R55 - Syncope and collapse (11) DVT prophylaxis Current Visit: Yes Status: Acute Assessment and plan: We will restart Coumadin today. - Subjective Interval history: GI infection panel reveals nor virus. Patient has been evaluated by neurology. They recommended more extensive blood pressure control this patient's high risk. Patient has been hypertensive here, however, she also has not been taking all of her medications as she was having issues with nausea vomiting. - Constitutional Vitals: Temp Pulse Resp BP Pulse Ox 100.2 F H 64 18 184/72 97 06/07/17 14:23 06/07/17 14:23 06/07/17 16:39 06/07/17 14:23 06/07/17 16:39 General appearance: Present: cooperative, A&O X 3, pleasant - Head Head exam: Present: atraumatic, normal inspection - ENT ENT exam: Present: mucous membranes moist - Neck Neck exam general surgery: Present: supple, trachea midline - Respiratory Respiratory exam: Present: CTAB. Absent: rales, rhonchi - Cardiovascular Cardiovascular exam: Present: RRR, +S1, +S2. Absent: JVD - GI/Abdominal GI/Abdominal exam: Present: soft, no peritoneal signs. Absent: rebound, rigid - Extremities Exam Extremities exam: Absent: pedal edema Internal Medicine: Result - Labs CBC & Chem 7: 06/07/17 01:36 06/07/17 01:36 Labs: Short CBC 06/07/17 Range/Units 01:36 WBC 6.9 (4.3-11.1) K/mcL Hgb 8.6 L D (11.5-15.4) g/dL Hct 26.6 L (35.3-44.9) % Plt Count 181 (140-400) K/mcL BMP 06/07/17 01:36 Sodium 141 Potassium 4.7 Chloride 111 H Carbon Dioxide 23 BUN 49 H Creatinine 1.42 H Glucose 176 H Calcium 8.4 L Cardiac Enzymes 06/06/17 06/07/17 Range/Units 19:45 01:36 Troponin I < 0.03 < 0.03 (< 0.04) ng/mL - ABG Interpretation ABG results: PT/INR, D-dimer PT 21.6 Seconds (9.4-12.1) H 06/07/17 01:36 Consult Discharge Plan - Plan Referrals: NONE,PCP [Primary Care Provider] - Aquilino Rivera DO [Non-Partnered Physician] - 06/22/17 1:15 pm
[2017-06-07] MEDS: *HR* Warfarin 2 MG TABLET PO SCH (17:22)
[2017-06-07] MEDS: rOPINIRole 0.25 MG TABLET PO SCH (19:58)
[2017-06-07] MEDS: traZODone 50 MG TABLET PO SCH (20:00)
[2017-06-08 05:23] LABS: Eosinophils # 0.1 K/mcL (0.0-0.6); Eosinophils % 2.6 %; Hematocrit 26.8 % (35.3-44.9); Immature Granulocytes % 0.2 % (0-4); Lymphocytes % 23.9 %; Mean Corpuscular HGB Conc 31.7 g/dL (31.6-35.5); Mean Corpuscular Volume 91.5 fL (83.0-100.0); Mean Platelet Volume 11.8 fL (9.4-12.4); Monocytes # 0.8 K/mcL (0.0-1.3); Neutrophils # 2.2 K/mcL (1.6-8.9); Platelet Count 196 K/mcL (140-400); Red Blood Count 2.93 M/mcL (3.82-4.97); Red Cell Distribution Width 12.4 % (11.5-14.5); Segmented Neutrophils % 53.3 %
[2017-06-08 05:25] LABS: Hemoglobin 8.5 g/dL (11.5-15.4)
[2017-06-08 05:43] LABS: Potassium 4.4 mEq/L (3.5-5.1)
[2017-06-08 05:54] LABS: Platelet Estimate Normal (Normal)
[2017-06-08] MEDS: hydrALAZINE 25 MG TABLET PO SCH ×4 (07:54→22:11)
[2017-06-08] MEDS: amLODIPine 5 MG TABLET PO SCH (07:54)
[2017-06-08] MEDS: Magnesium Oxide 400 MG TABLET PO SCH (07:54)
[2017-06-08] MEDS: Lactobacillus 1 EACH CAP.SPRINK PO SCH ×2 (07:54→22:11)
[2017-06-08] MEDS: Fluticasone Propionate Nasal 50 MCG/SPRAY BOTTLE NS SCH (07:54)
[2017-06-08] MEDS: Cholecalciferol (D-3) 1,000 UNIT TABLET PO SCH (07:54)
[2017-06-08] MEDS: Gabapentin 100 MG CAPSULE PO SCH ×3 (07:54→22:11)
[2017-06-08] MEDS: cloNIDine HCl 0.1 MG TABLET PO SCH ×3 (07:54→22:11)
[2017-06-08] MEDS: Loratadine 10 MG TABLET PO SCH (07:54)
[2017-06-08] MEDS: Insulin LISPRO 300 UNITS/3 ML VIAL SQ SCH ×4 (07:55→22:12)
--- NOTE | 2017-06-08 10:37 | Internal Med Progress Note ---
<Ezekiel Adams - Last Filed: 06/08/17 14:49> Date of Encounter: 06/08/17 Time of Encounter: 09:00 - Assessment and plan (1) Norovirus Current Visit: Yes Status: Acute Assessment and plan: GI panel reveals norovirus. Patient is currently on contact precautions as his viral illness fecal-orally. Continue supportive care. Plan is for outpatient rehabilitation and either a jail facility or extended care facility. Currently awaiting bed placement at this time. Clinically, patient has improved significantly. No diarrhea today. (2) Hypertension Current Visit: Yes Status: Chronic Assessment and plan: Patient has a systolic blood pressure in the 180s. Patient probably has poor absorption secondary to her norovirus. Restarting all oral medications today. We will provide medications orally as patient can tolerate. We will continue to monitor her blood pressure as patient is currently on 5 medications. Qualifiers: Hypertension type: essential hypertension Qualified Code(s): I10 - Essential (primary) hypertension (3) Hypothyroidism Current Visit: Yes Status: Chronic Assessment and plan: Patient currently on Synthroid 50 g daily. Qualifiers: Hypothyroidism type: acquired Qualified Code(s): E03.9 - Hypothyroidism, unspecified (4) Hyperlipidemia Current Visit: Yes Status: Chronic Assessment and plan: Patient currently on atorvastatin 80 mg. Qualifiers: Hyperlipidemia type: other hyperlipidemia Qualified Code(s): E78.4 - Other hyperlipidemia (5) CAD (coronary artery disease) Current Visit: No Status: Chronic Qualifiers: Coronary Disease-Associated Artery/Lesion type: [place] artery [place] vs. transplanted heart: [place] heart Associated angina: without angina Qualified Code(s): I25.10 - Atherosclerotic heart disease of [place] coronary artery without angina pectoris (6) Hx of CABG Current Visit: No Status: Acute (7) DM type 2 (diabetes mellitus, type 2) Current Visit: Yes Status: Chronic Assessment and plan: Hyperglycemia currently being managed by insulin. Qualifiers: Diabetes mellitus intermodal dispatcher insulin use: with intermodal dispatcher use Diabetes mellitus complication status: with kidney complications Diabetes mellitus complication detail: with chronic kidney disease Chronic kidney disease stage : stage 3 (moderate) Qualified Code(s): E11.22 - Type 2 diabetes mellitus with diabetic chronic kidney disease; N18.3 - Chronic kidney disease, stage 3 ( moderate); N18.3 - Chronic kidney disease, stage 3 (moderate); Z79.4 - ad terminal makeup operator (current) use of insulin; Z79.4 - retirement (current) use of insulin; Z79.4 - ad terminal makeup operator (current) use of insulin; Z79.4 - ad terminal makeup operator (current) use of insulin (8) CKD (chronic kidney disease) stage 3, GFR 30-59 ml/min Current Visit: Yes Status: Chronic Assessment and plan: Creatinine today of 1.26. Improved from yesterday. This is within her normal range. (9) History of CVA (cerebrovascular accident) Current Visit: Yes Status: Acute Assessment and plan: Patient at risk for stroke. We will restart Coumadin today. (10) Syncope Current Visit: Yes Status: Acute Assessment and plan: Most likely secondary to dehydration as patient has normal virus. Neurology recommends strict control of high blood pressure. Qualifiers: Syncope type: unspecified Qualified Code(s): R55 - Syncope and collapse (11) DVT prophylaxis Current Visit: Yes Status: Acute Assessment and plan: continue coumadin - Subjective Interval history: Patient had no events overnight. Started to tolerate oral intake. Had episode of hypertension last night. Patient had not been administered all of her medications prior to. Diarrhea free today. Currently awaiting placement in an extended care facility or jail facility. - Constitutional Vitals: Temp Pulse Resp BP Pulse Ox 98.9 F 65 16 185/68 96 06/08/17 06:48 06/08/17 08:09 06/08/17 07:57 06/08/17 06:48 06/08/17 07:57 General appearance: Present: cooperative, A&O X 3, pleasant - Head Head exam: Present: atraumatic, normal inspection - ENT ENT exam: Present: mucous membranes moist - Neck Neck exam general surgery: Present: supple, trachea midline - Respiratory Respiratory exam: Present: CTAB. Absent: accessory muscle use, respiratory distress - Cardiovascular Cardiovascular exam: Present: RRR. Absent: JVD - GI/Abdominal GI/Abdominal exam: Present: soft, no peritoneal signs. Absent: firm, guarding, rebound, rigid - Extremities Exam Extremities exam: Absent: pedal edema Internal Medicine: Result - Labs CBC & Chem 7: 06/08/17 04:00 06/08/17 04:00 Labs: Short CBC 06/08/17 Range/Units 04:00 WBC 4.2 L (4.3-11.1) K/mcL Hgb 8.5 L (11.5-15.4) g/dL Hct 26.8 L (35.3-44.9) % Plt Count 196 (140-400) K/mcL Neutrophils # 2.2 (1.6-8.9) K/mcL BMP 06/08/17 04:00 Sodium 142 Potassium 4.4 Chloride 112 H Carbon Dioxide 25 BUN 45 H Creatinine 1.26 H Glucose 199 H Calcium 8.0 L - ABG Interpretation ABG results: PT/INR, D-dimer PT 21.6 Seconds (9.4-12.1) H 06/07/17 01:36 Consult Discharge Plan - Plan Referrals: NONE,PCP [Primary Care Provider] - Aquilino Rivera DO [Non-Partnered Physician] - 06/22/17 1:15 pm <Andrey Amin - Last Filed: 06/08/17 15:40> Date of Encounter: 06/08/17 - Constitutional Vitals: Temp Pulse Resp BP Pulse Ox 98.6 F 64 18 176/64 98 06/08/17 11:00 06/08/17 14:51 06/08/17 11:00 06/08/17 14:51 06/08/17 11:00 Internal Medicine: Result - Labs CBC & Chem 7: 06/08/17 04:00 06/08/17 04:00 Labs: Short CBC 06/08/17 Range/Units 04:00 WBC 4.2 L (4.3-11.1) K/mcL Hgb 8.5 L (11.5-15.4) g/dL Hct 26.8 L (35.3-44.9) % Plt Count 196 (140-400) K/mcL Neutrophils # 2.2 (1.6-8.9) K/mcL [facility] 06/08/17 04:00 Sodium 142 Potassium 4.4 Chloride 112 H Carbon Dioxide 25 BUN 45 H Creatinine 1.26 H Glucose 199 H Calcium 8.0 L - ABG Interpretation ABG results: PT/INR, D-dimer PT 21.6 Seconds (9.4-12.1) H 06/07/17 01:36 - Attending Attestation I performed an independent interview and examine this patient. I agree with the findings, assessment, and plan of Dr. Guerrier, internal medicine administration intern. We discussed the case in detail and my input is reflected in his note. Patient is improved but very weak and deconditioned. We are waiting possible placement. Her diarrhea is resolving and her volume status is improved. As indicated, her syncope was likely due to dehydration as a result of fluid loss from her noravirus infection. Patient will be stable for discharge when arranged. All else as outlined above. Exam: Gen. no acute distress, soft spoken Skin is warm and dry Neck is supple Lungs show diminished breath sounds at the bases Regular rate and rhythm Abdomen is soft nontender with normal active bowel sounds Extremeties show trace edema Neurological no gross focal deficits
[2017-06-08] MEDS: *HR* Warfarin 2 MG TABLET PO SCH (17:52)
[2017-06-08] MEDS: Insulin DETEMIR 100 UNIT/ML X5UNITS SQ SCH (22:10)
[2017-06-08] MEDS: traZODone 50 MG TABLET PO SCH (22:11)
[2017-06-08] MEDS: rOPINIRole 0.25 MG TABLET PO SCH (22:11)
[2017-06-09 05:25] LABS: INR 1.3; Prothrombin Time 14.6 Seconds (9.4-12.1)
[2017-06-09] MEDS: hydrALAZINE 25 MG TABLET PO SCH ×4 (08:32→20:55)
[2017-06-09] MEDS: Gabapentin 100 MG CAPSULE PO SCH ×3 (08:32→20:56)
[2017-06-09] MEDS: Loratadine 10 MG TABLET PO SCH (08:32)
[2017-06-09] MEDS: Magnesium Oxide 400 MG TABLET PO SCH (08:32)
[2017-06-09] MEDS: Cholecalciferol (D-3) 1,000 UNIT TABLET PO SCH (08:32)
[2017-06-09] MEDS: Lactobacillus 1 EACH CAP.SPRINK PO SCH ×2 (08:32→20:56)
[2017-06-09] MEDS: amLODIPine 5 MG TABLET PO SCH (08:32)
[2017-06-09] MEDS: cloNIDine HCl 0.1 MG TABLET PO SCH ×3 (08:32→20:53)
[2017-06-09] MEDS: Insulin LISPRO 300 UNITS/3 ML VIAL SQ SCH ×4 (08:33→21:06)
[2017-06-09] MEDS: Fluticasone Propionate Nasal 50 MCG/SPRAY BOTTLE NS SCH (08:33)
--- NOTE | 2017-06-09 14:50 | Internal Med Progress Note ---
<Maggie Adamsd - Last Filed: 06/09/17 15:02> Date of Encounter: 06/09/17 Time of Encounter: 10:15 - Assessment and plan (1) Norovirus Current Visit: Yes Status: Acute Assessment and plan: GI panel reveals norovirus. Patient is currently on contact precautions as his viral illness fecal-orally. Continue supportive care. Plan is for outpatient rehabilitation and either a [facility] facility or extended care facility. Currently awaiting bed placement at this time. Clinically, patient has improved significantly. No diarrhea for the last 2 days. Will transfer patient to a lesser acuity unit with no requirement for telemetry. (2) Hypertension Current Visit: Yes Status: Chronic Assessment and plan: Patient has a systolic blood pressure in the 170s. Continue home medications today. Lisinopril has been held secondary to the patient's diarrhea. We will restart that tomorrow. Patient will need outpatient follow-up for more strict blood pressure management. Qualifiers: Hypertension type: essential hypertension Qualified Code(s): I10 - Essential (primary) hypertension (3) Hypothyroidism Current Visit: Yes Status: Chronic Assessment and plan: Patient currently on Synthroid 50 g daily. Qualifiers: Hypothyroidism type: acquired Qualified Code(s): E03.9 - Hypothyroidism, unspecified (4) Hyperlipidemia Current Visit: Yes Status: Chronic Assessment and plan: Patient currently on atorvastatin 80 mg. Qualifiers: Hyperlipidemia type: other hyperlipidemia Qualified Code(s): E78.4 - Other hyperlipidemia (5) CAD (coronary artery disease) Current Visit: No Status: Chronic Qualifiers: Coronary Disease-Associated Artery/Lesion type: [place] artery [place] vs. transplanted heart: [place] heart Associated angina: without angina Qualified Code(s): I25.10 - Atherosclerotic heart disease of [place] coronary artery without angina pectoris (6) Hx of CABG Current Visit: No Status: Acute (7) DM type 2 (diabetes mellitus, type 2) Current Visit: Yes Status: Chronic Assessment and plan: Hyperglycemia currently being managed by insulin. Qualifiers: Diabetes mellitus retirement insulin use: with retirement use Diabetes mellitus complication status: with kidney complications Diabetes mellitus complication detail: with chronic kidney disease Chronic kidney disease stage : stage 3 (moderate) Qualified Code(s): E11.22 - Type 2 diabetes mellitus with diabetic chronic kidney disease; N18.3 - Chronic kidney disease, stage 3 ( moderate); N18.3 - Chronic kidney disease, stage 3 (moderate); Z79.4 - nursing home (current) use of insulin; Z79.4 - ct mri technologist (current) use of insulin; Z79.4 - ct mri technologist (current) use of insulin; Z79.4 - ct mri technologist (current) use of insulin (8) CKD (chronic kidney disease) stage 3, GFR 30-59 ml/min Current Visit: Yes Status: Chronic Assessment and plan: Creatinine improved to 1.26 on 06/08/2017. (9) History of CVA (cerebrovascular accident) Current Visit: Yes Status: Acute Assessment and plan: Patient at risk for stroke. Patient currently on Coumadin. We will have pharmacy to dose. (10) Syncope Current Visit: Yes Status: Acute Assessment and plan: Most likely secondary to dehydration as patient has normal virus. Neurology recommends strict control of high blood pressure. Qualifiers: Syncope type: unspecified Qualified Code(s): R55 - Syncope and collapse (11) DVT prophylaxis Current Visit: Yes Status: Acute Assessment and plan: continue coumadin - Subjective Interval history: Patient had no events overnight. Has been taking all of her oral medications and eating well. No episodes of diarrhea for the last 2 days. Currently awaiting placement in a facility with a swing bed. Patient has no complaints at this time. - Constitutional Vitals: Temp Pulse Resp BP Pulse Ox 97.8 F 64 18 173/63 99 06/09/17 11:46 06/09/17 12:38 06/09/17 11:46 06/09/17 11:46 06/09/17 11:46 General appearance: Present: cooperative, A&O X 3, pleasant - Head Head exam: Present: atraumatic, normal inspection - ENT ENT exam: Present: mucous membranes moist - Neck Neck exam general surgery: Present: supple, trachea midline - Respiratory Respiratory exam: Present: CTAB - Cardiovascular Cardiovascular exam: Present: RRR, +S1, +S2. Absent: JVD - GI/Abdominal GI/Abdominal exam: Present: soft, no peritoneal signs. Absent: rigid, tenderness - Extremities Exam Extremities exam: Absent: calf tenderness, pedal edema Internal Medicine: Result - Labs CBC & Chem 7: 06/08/17 04:00 06/08/17 04:00 - ABG Interpretation ABG results: PT/INR, D-dimer PT 14.6 Seconds (9.4-12.1) H 06/09/17 05:07 Consult Discharge Plan - Plan Referrals: NONE,PCP [Primary Care Provider] - Aquilino Rivera DO [Non-Partnered Physician] - 06/22/17 1:15 pm <Andrey Amin - Last Filed: 06/09/17 16:51> Date of Encounter: 06/09/17 - Constitutional Vitals: Temp Pulse Resp BP Pulse Ox 97.8 F 66 16 173/63 100 06/09/17 11:46 06/09/17 15:35 06/09/17 15:55 06/09/17 11:46 06/09/17 15:55 Internal Medicine: Result - Labs CBC & Chem 7: 06/08/17 04:00 06/08/17 04:00 - ABG Interpretation ABG results: PT/INR, D-dimer PT 14.6 Seconds (9.4-12.1) H 06/09/17 05:07 - Attending Attestation I performed an independent interview and exam of this patient. I agree with the findings, assessment, and plan of Dr. Giordano, internal medicine general internist and physician leader. Patient is improved. We are basically waiting placement. We will check with infection control regarding any restrictions for placement. All else as outlined above. Pt is doing well.
[2017-06-09] MEDS ORDERED: Warfarin perPT PO PRN (18:00)
[2017-06-09] MEDS: rOPINIRole 0.25 MG TABLET PO SCH (20:54)
[2017-06-09] MEDS: traZODone 50 MG TABLET PO SCH (20:55)
[2017-06-09] MEDS: Insulin DETEMIR 100 UNIT/ML X5UNITS SQ SCH (23:15)
[2017-06-10 04:43] LABS: INR 1.4; Prothrombin Time 14.9 Seconds (9.4-12.1)
[2017-06-10] MEDS: Loratadine 10 MG TABLET PO SCH (07:45)
[2017-06-10] MEDS: Gabapentin 100 MG CAPSULE PO SCH ×2 (07:45→14:06)
[2017-06-10] MEDS: hydrALAZINE 25 MG TABLET PO SCH ×3 (07:46→16:46)
[2017-06-10] MEDS: Lactobacillus 1 EACH CAP.SPRINK PO SCH (07:46)
[2017-06-10] MEDS: Fluticasone Propionate Nasal 50 MCG/SPRAY BOTTLE NS SCH (07:46)
[2017-06-10] MEDS: cloNIDine HCl 0.1 MG TABLET PO SCH ×2 (07:46→14:06)
[2017-06-10] MEDS: Magnesium Oxide 400 MG TABLET PO SCH (07:46)
[2017-06-10] MEDS: Cholecalciferol (D-3) 1,000 UNIT TABLET PO SCH (07:47)
[2017-06-10] MEDS: amLODIPine 5 MG TABLET PO SCH (07:47)
[2017-06-10] MEDS: Insulin LISPRO 300 UNITS/3 ML VIAL SQ SCH ×3 (07:57→16:45)
[2017-06-10] MEDS ORDERED: Lisinopril 20 MG TABLET PO SCH (09:00)
[2017-06-10 11:24] VITALS: BP 166/68
--- NOTE | 2017-06-10 13:57 | Discharge Summary ---
<Ezekiel Adams - Last Filed: 06/10/17 14:42> Orders not resulted at time of discharge: Pending orders 06/11/17 04:00 INR/PT [Prothrombin Time INR] [COAG] AM 0400 06/12/17 04:00 INR/PT [Prothrombin Time INR] [COAG] AM 0400 06/13/17 04:00 INR/PT [Prothrombin Time INR] [COAG] AM 0400 Date of Encounter: 06/10/17 Time of Encounter: 13:53 - Discharge Diagnosis (1) Norovirus Priority: Primary Status: Acute (2) Hypertension Priority: Secondary Status: Chronic Qualifiers: Hypertension type: essential hypertension Qualified Code(s): I10 - Essential (primary) hypertension (3) Hypothyroidism Priority: Secondary Status: Chronic Qualifiers: Hypothyroidism type: acquired Qualified Code(s): E03.9 - Hypothyroidism, unspecified (4) Hyperlipidemia Priority: Secondary Status: Chronic Qualifiers: Hyperlipidemia type: other hyperlipidemia Qualified Code(s): E78.4 - Other hyperlipidemia (5) CAD (coronary artery disease) Priority: Secondary Status: Chronic Qualifiers: Coronary Disease-Associated Artery/Lesion type: [place] artery [place] vs. transplanted heart: [place] heart Associated angina: without angina Qualified Code(s): I25.10 - Atherosclerotic heart disease of [place] coronary artery without angina pectoris (6) Hx of CABG Priority: Secondary Status: Acute (7) DM type 2 (diabetes mellitus, type 2) Priority: Secondary Status: Chronic Qualifiers: Diabetes mellitus water purifier operator insulin use: with senior living use Diabetes mellitus complication status: with kidney complications Diabetes mellitus complication detail: with chronic kidney disease Chronic kidney disease stage : stage 3 (moderate) Qualified Code(s): E11.22 - Type 2 diabetes mellitus with diabetic chronic kidney disease; N18.3 - Chronic kidney disease, stage 3 ( moderate); N18.3 - Chronic kidney disease, stage 3 (moderate); Z79.4 - conduit helper (current) use of insulin; Z79.4 - penitentiary (current) use of insulin; Z79.4 - penitentiary (current) use of insulin; Z79.4 - conduit helper (current) use of insulin (8) CKD (chronic kidney disease) stage 3, GFR 30-59 ml/min Priority: Secondary Status: Chronic (9) History of CVA (cerebrovascular accident) Priority: Secondary Status: Acute (10) Syncope Priority: Secondary Status: Acute Qualifiers: Syncope type: unspecified Qualified Code(s): R55 - Syncope and collapse (11) DVT prophylaxis Priority: Secondary Status: Acute Hospital course: Ms. Lala is a 76 year old female who presented to the emergency department with nausea, vomiting, diarrhea. Patient was diagnosed with Norovirus. Patient was having syncopal episodes. This is probably all secondary to dehydration. However, patient received a neurologic evaluation here. Brain MRI that was obtained revealed chronic microvascular white matter ischemic disease. There are also small chronic infarcts that was noted throughout as well. Neurology recommended strict control of blood pressure medication. Patient was restarted on all of her home medications here when she could start tolerating more oral intake for control of her high blood pressure as patient was held nothing by mouth initially. Patient has had resolution of her symptoms of diarrhea for the last 72 hours. Social work has seen patient and has helped with placement into an extended care facility as patient needs more rehabilitation. CDC recommends keeping contact precautions at a minimum of 48 hours post diarrhea. I have placed in the discharge instructions recommendations to both keep a close eye on her high blood pressure as well as to keep contact precautions for the next couple days to prevent spread of Norovirus. Patient not in any acute distress and hemodynamically stable at time of discharge. Patient agreed with plan for placement in extent a care facility. Chest X-Ray 06/06/17 07:31 IMPRESSION: Probable minimal right basilar atelectasis. Slight cardiomegaly. D/ / Gwyn Tejeda MD / Gwyn Tejeda MD Interpreting Provider: Gwyn Tejeda MD Head CT 06/06/17 07:32 IMPRESSION: No acute intracranial abnormality. D/ / Van Haider MD / Van Haider MD Interpreting Provider: Van Haider MD Cervical Spine CT 06/06/17 07:43 IMPRESSION: No acute abnormality of the cervical spine. Mild cervical spondylosis. No change from the prior study. D/ / Gwyn Tejeda MD / Gwyn Tejeda MD Interpreting Provider: Gwyn Tejeda MD Brain MRI 06/06/17 09:21 IMPRESSION: 1. No evidence of acute infarct. 2. There is a large chronic infarct noted in the right frontal lobe with surrounding areas of gliosis. 3. Cerebral and cerebellar parenchymal volume loss with chronic microvascular white matter ischemic disease noted both supra- and infratentorially. 4. Small chronic infarcts are noted in the right centrum semiovale, right periventricular white matter, bilateral thalami, and left cerebellar hemisphere. D/ / 06/06/2017 14:46:24 Gary Lopez MD / [email or web address] Interpreting Provider: Gary Lopez MD - Time Spent with Patient Total time spent providing and/or coordinating discharge services: - Discharge Medications Prescriptions: Gabapentin [Neurontin] 100 mg PO TID #42 capsule Home Medications: Cholecalciferol (Vitamin D3) [Vitamin D] 1,000 unit PO DAILY 11/05/14 [History] Clopidogrel [Plavix] 75 mg PO DAILY 11/05/14 [History] Magnesium Oxide [Magnesium] 400 mg PO DAILY 11/05/14 [History] Amlodipine [Norvasc] 10 mg PO DAILY #30 tablet 11/17/14 [Rx] Atorvastatin [Lipitor] 80 mg PO HS #30 tablet 11/17/14 [Rx] Carvedilol [Coreg] 25 mg PO BID 01/09/15 [History] Insulin Glargine,Hum.rec.anlog [Lantus Solostar] 17 unit SQ HS 01/09/15 [History ] Nitroglycerin 0.4 mg SL Q5MIN PRN 01/09/15 [History] Potassium Chloride [Klor-Con Sprinkle] 10 meq PO DAILY 01/09/15 [History] Ropinirole HCl [Requip] 0.5 mg PO HS 01/09/15 [History] TraZODone 50 mg PO HS 01/09/15 [History] Furosemide [Lasix] 40 mg PO BID 30 Days tab 01/14/15 [Rx] Lisinopril [Zestril] 40 mg PO DAILY tablet 01/14/15 [Rx] Albuterol Sulfate [Albuterol Inhaler] 2 puff IH Q4HR #1 hfa.aer.ad 11/27/16 [Rx] Acetaminophen [Pain Reliever] 500 mg PO TID PRN 06/06/17 [History] CloNIDine HCl 0.3 mg PO TID 06/06/17 [History] Fluticasone Propionate Nasal [Flonase] 1 spr NS DAILY 06/06/17 [History] Gabapentin [Neurontin] 100 mg PO TID 06/06/17 [History] Guaifenesin [Mucinex] 600 mg PO BID PRN 06/06/17 [History] Insulin Glargine,Hum.rec.anlog [Lantus Solostar] 30 unit SQ QAM 06/06/17 [ History] Insulin LISPRO [Humalog Kwikpen U-100] 10 unit SQ TID 06/06/17 [History] Lactobacillus Acidophilus [Acidophilus] 1 cap PO BID 06/06/17 [History] Levothyroxine Sodium [Levoxyl] 50 mcg PO DAILY 06/06/17 [History] Liothyronine Sodium [Cytomel] 25 mcg PO DAILY 06/06/17 [History] Loratadine [Allergy Relief] 10 mg PO DAILY 06/06/17 [History] Montelukast [Singulair] 10 mg PO DAILY 06/06/17 [History] Nitroglycerin [Nitrostat] 0.4 mg SL Q5M PRN 06/06/17 [History] Warfarin [Coumadin] 3.5 mg PO DAILY 06/06/17 [History] hydrALAZINE [HydrALAZINE] 25 mg PO QID 06/06/17 [History] Gabapentin [Neurontin] 100 mg PO TID #42 capsule 06/10/17 [Rx] Allergies/Adverse Reactions: 3 Allergy/AdvReac Type Severity Reaction Status Date / Time codeine Allergy Congested Verified 11/27/16 06:45 Penicillins [PCN] AdvReac Congested Verified 11/27/16 06:45 tape AdvReac Itching Uncoded 11/27/16 06:45 Date of admission: 06/06/17 15:38 Primary care physician: PCP NONE Consults: 06/06/17 15:59 Consult to Jewelry Cutter [CONS] Routine Reason for SW Consult: d/c planning, pt resides at [facility] 06/07/17 10:24 Consult to Interpret Exam [CONS] Routine Consulting Provider: Valente Sood Consult to Interpret Exam: Interpret EEG 06/08/17 09:19 OT [Consult to Occupational Therapy] [CONS] Routine Comment: Evaluate, develop and implement POC Reason for Consult: Discharge planning Does patient have active BEDREST order?: No Is patient medically & hemodynamically stable?: Yes Patient assessed for mobility or mobilized this visit?: Yes - Constitutional Vitals: Temp Pulse Resp BP Pulse Ox 98.2 F 62 18 166/68 96 06/10/17 11:23 06/10/17 11:23 06/10/17 11:23 06/10/17 11:23 06/10/17 11:23 General appearance: Present: cooperative, A&O X 3, pleasant - Neck Neck exam general surgery: Present: supple, trachea midline - Respiratory Respiratory exam: Present: CTAB. Absent: accessory muscle use, respiratory distress, rhonchi - Cardiovascular Cardiovascular exam: Present: RRR, +S1, +S2. Absent: JVD - GI/Abdominal GI/Abdominal exam: Present: soft. Absent: rebound, rigid - Extremities Exam Extremities exam: Absent: pedal edema, tenderness - Patient Status Disposition: Transfer Other Condition: Fair Overall status at discharge: patient is progressing back to baseline - Discharge Instructions Instructions: Syncope (GEN), Gastroenteritis (DC), Chronic Hypertension (DC) Follow Up With: Aquilino Rivera DO [Non-Partnered Physician] - Additional Instructions: CDC recommends resolution of diarrhea for at least 48 hours prior to not being on contact precautions. Patient has been diarrhea free for 72 hours. I would recommend continuing this for at least 2 more days prior to stopping contact precautions for prevention of spread of Norovirus. Return to the emergency department if your current symptoms worsen or if you develop any new symptoms. Follow-up with your outpatient primary care physician regarding strict control of your high blood pressure. Continue all of your home medications as prescribed. Take your Coumadin 3.5 mg tablet orally today at 1800 (6PM). - Diet and Activity Activity: increase activity as tolerated Diet: diabetic diet <Andrey Amin - Last Filed: 06/10/17 16:13> Orders not resulted at time of discharge: Pending orders 06/11/17 04:00 INR/PT [Prothrombin Time INR] [COAG] AM 0400 06/12/17 04:00 INR/PT [Prothrombin Time INR] [COAG] AM 0400 06/13/17 04:00 INR/PT [Prothrombin Time INR] [COAG] AM 0400 Date of Encounter: 06/10/17 Hospital course: Ms. Lala is a 76 year old female - Time Spent with Patient Total time spent providing and/or coordinating discharge services: Date of admission: 06/06/17 15:38 Primary care physician: PCP NONE Consults: 06/06/17 15:59 Consult to Jewelry Cutter [CONS] Routine Reason for SW Consult: d/c planning, pt resides at [facility] 06/07/17 10:24 Consult to Interpret Exam [CONS] Routine Consulting Provider: Valente Sood Consult to Interpret Exam: Interpret EEG 06/08/17 09:19 OT [Consult to Occupational Therapy] [CONS] Routine Comment: Evaluate, develop and implement POC Reason for Consult: Discharge planning Does patient have active BEDREST order?: No Is patient medically & hemodynamically stable?: Yes Patient assessed for mobility or mobilized this visit?: Yes - Constitutional Vitals: Temp Pulse Resp BP Pulse Ox 98.2 F 62 18 166/68 96 06/10/17 11:23 06/10/17 11:23 06/10/17 11:23 06/10/17 11:23 06/10/17 11:23 - Attending Attestation I performed an independent interview and examine this patient. I agree with the findings, assessment, and plan of Dr. Adams, internal medicine human resource internship. Patient has improved. Symptoms likely the result of normal virus infection and subsequent hypovolemia. Management as outlined. My input is reflected in his note. Patient is stable for discharge. 32 minutes spent on discharge and coordination of care.
--- NOTE | 2017-06-10 16:29 | Physician Discharge Referral ---
ExtendedCare Referral Info Transfer To: ECF/SNF [facility] - Diagnosis (1) Norovirus Priority: Primary Status: Acute (2) Hypertension Priority: Primary Status: Chronic (3) Hypothyroidism Priority: Secondary Status: Chronic (4) Hyperlipidemia Priority: Secondary Status: Chronic (5) CAD (coronary artery disease) Priority: Secondary Status: Chronic (6) Hx of CABG Priority: Secondary Status: Acute (7) DM type 2 (diabetes mellitus, type 2) Priority: Secondary Status: Chronic (8) CKD (chronic kidney disease) stage 3, GFR 30-59 ml/min Priority: Secondary Status: Chronic (9) History of CVA (cerebrovascular accident) Priority: Secondary Status: Acute (10) Syncope Priority: Secondary Status: Acute (11) DVT prophylaxis Priority: Secondary Status: Acute - Transfer Medications Prescriptions: Gabapentin [Neurontin] 100 mg PO TID #42 capsule Home Medications: Cholecalciferol (Vitamin D3) [Vitamin D] 1,000 unit PO DAILY 11/05/14 [History] Clopidogrel [Plavix] 75 mg PO DAILY 11/05/14 [History] Magnesium Oxide [Magnesium] 400 mg PO DAILY 11/05/14 [History] Amlodipine [Norvasc] 10 mg PO DAILY #30 tablet 11/17/14 [Rx] Atorvastatin [Lipitor] 80 mg PO HS #30 tablet 11/17/14 [Rx] Carvedilol [Coreg] 25 mg PO BID 01/09/15 [History] Insulin Glargine,Hum.rec.anlog [Lantus Solostar] 17 unit SQ HS 01/09/15 [History ] Nitroglycerin 0.4 mg SL Q5MIN PRN 01/09/15 [History] Potassium Chloride [Klor-Con Sprinkle] 10 meq PO DAILY 01/09/15 [History] Ropinirole HCl [Requip] 0.5 mg PO HS 01/09/15 [History] TraZODone 50 mg PO HS 01/09/15 [History] Furosemide [Lasix] 40 mg PO BID 30 Days tab 01/14/15 [Rx] Lisinopril [Zestril] 40 mg PO DAILY tablet 01/14/15 [Rx] Albuterol Sulfate [Albuterol Inhaler] 2 puff IH Q4HR #1 hfa.aer.ad 11/27/16 [Rx] Acetaminophen [Pain Reliever] 500 mg PO TID PRN 06/06/17 [History] CloNIDine HCl 0.3 mg PO TID 06/06/17 [History] Fluticasone Propionate Nasal [Flonase] 1 spr NS DAILY 06/06/17 [History] Gabapentin [Neurontin] 100 mg PO TID 06/06/17 [History] Guaifenesin [Mucinex] 600 mg PO BID PRN 06/06/17 [History] Insulin Glargine,Hum.rec.anlog [Lantus Solostar] 30 unit SQ QAM 06/06/17 [ History] Insulin LISPRO [Humalog Kwikpen U-100] 10 unit SQ TID 06/06/17 [History] Lactobacillus Acidophilus [Acidophilus] 1 cap PO BID 06/06/17 [History] Levothyroxine Sodium [Levoxyl] 50 mcg PO DAILY 06/06/17 [History] Liothyronine Sodium [Cytomel] 25 mcg PO DAILY 06/06/17 [History] Loratadine [Allergy Relief] 10 mg PO DAILY 06/06/17 [History] Montelukast [Singulair] 10 mg PO DAILY 06/06/17 [History] Nitroglycerin [Nitrostat] 0.4 mg SL Q5M PRN 06/06/17 [History] Warfarin [Coumadin] 3.5 mg PO DAILY 06/06/17 [History] hydrALAZINE [HydrALAZINE] 25 mg PO QID 06/06/17 [History] Gabapentin [Neurontin] 100 mg PO TID #42 capsule 06/10/17 [Rx] Allergies/Adverse Reactions: 3 Allergy/AdvReac Type Severity Reaction Status Date / Time codeine Allergy Congested Verified 11/27/16 06:45 Penicillins [PCN] AdvReac Congested Verified 11/27/16 06:45 tape AdvReac Itching Uncoded 11/27/16 06:45 - Respiratory Orders Smoking Cessation: Smoking cessation has been advised. For more information, call the [place] Tobacco Quit Line at 2-303-XUKJ-NOW. - Lab Orders Lab Orders: Other (include drug levels w/frequency) (Monitor PT and INR as patient is on Coumadin.) - Mobility Orders Other (As tolerated) - Rehabiliation Orders Rehab Potential: Fair - Diet Orders No Concentrated Sweets CERTIFICATION: I certify that the transfer of the above named patient to an Extended Care Facility is necessary for the continuing treatment of the diagnosis listed. The above information is true and accurate reflection of patient's current condition. Confidential - Redisclosure prohibited without a patient's written consent.
== END 2017-06-10 17:15 | disposition other institution (70) ==
LOC: 2NNU 07:25 → EMEROO 07:25 → 2NNU 15:06 → 3ANU 06-09 18:07
PROVIDERS: ADMIT Hospitalist; ATTEND Internal Medicine

== ENCOUNTER 2018-10-07 11:07 | Inpatient (IN) ==
[2018-10-07] MEDS ORDERED: 0.9 % Sodium Chloride 1,000 ML IVC ONE (11:31)
[2018-10-07 11:42] LABS: Basophils % 0.2 %; Eosinophils # 0.2 K/mcL (0.0-0.6); Eosinophils % 2.7 %; Hematocrit 28.5 % (35.3-44.9); Immature Granulocytes % 0.2 % (0-4); Lymphocytes # 0.9 K/mcL (0.6-4.6); Lymphocytes % 10.3 %; Mean Corpuscular HGB Conc 31.6 g/dL (31.6-35.5); Mean Corpuscular Hemoglobin 29.9 pg (28.0-33.3); Mean Corpuscular Volume 94.7 fL (83.0-100.0); Mean Platelet Volume 11.7 fL (9.4-12.4); Monocytes # 0.7 K/mcL (0.0-1.3); Monocytes % 8.5 %; Neutrophils # 6.7 K/mcL (1.6-8.9); Platelet Count 235 K/mcL (140-400); Red Blood Count 3.01 M/mcL (3.82-4.97); Red Cell Distribution Width 13.9 % (11.5-14.5); Segmented Neutrophils % 78.1 %; White Blood Count 8.6 K/mcL (4.3-11.1)
[2018-10-07 11:52] LABS: INR 2.2; Prothrombin Time 24.8 Seconds (9.4-12.1)
--- NOTE | 2018-10-07 11:55 | Emergency Department Note ---
Disposition Clinical Impression: Ventricular tachycardia, Near syncope, CKD (chronic kidney disease) stage 3, GFR 30-59 ml/min Hypothyroidism Qualifiers: Hypothyroidism type: unspecified Qualified Code(s): E03.9 - Hypothyroidism, unspecified Disposition: Admitted As Inpatient Condition: Fair Time of Disposition: 19:50 General Adult HPI - General Chief complaint: ED Weakness Stated complaint: Not feeling well Time Seen by Provider: 10/07/18 11:10 Source: EMS Nursing Notes Reviewed: Yes Vital Signs Reviewed: Yes - History of Present Illness Pain Scale: 0 - Related Data Home Medications Medication Instructions Recorded Confirmed Cholecalciferol (Vitamin D3) 1,000 unit PO DAILY 11/05/14 10/07/18 [Vitamin D] Clopidogrel [Plavix] 75 mg PO DAILY 11/05/14 10/07/18 Magnesium Oxide [Magnesium] 400 mg PO DAILY 11/05/14 10/07/18 Carvedilol [Coreg] 25 mg PO BID 01/09/15 10/07/18 Insulin Glargine,Hum.rec.anlog 17 unit SQ HS 01/09/15 10/07/18 [Lantus Solostar] Nitroglycerin 0.4 mg SL Q5MIN PRN 01/09/15 10/07/18 Potassium Chloride [Klor-Con 10 meq PO DAILY 01/09/15 10/07/18 Sprinkle] Ropinirole HCl [Requip] 0.5 mg PO HS 01/09/15 10/07/18 TraZODone 50 mg PO HS 01/09/15 10/07/18 Acetaminophen [Pain Reliever] 500 mg PO TID PRN 06/06/17 10/07/18 CloNIDine HCl 0.3 mg PO TID 06/06/17 10/07/18 Fluticasone Propionate Nasal 1 spr NS DAILY 06/06/17 10/07/18 [Flonase] Gabapentin [Neurontin] 100 mg PO TID 06/06/17 10/07/18 Guaifenesin [Mucinex] 600 mg PO BID PRN 06/06/17 10/07/18 Insulin Glargine,Hum.rec.anlog 30 unit SQ QAM 06/06/17 10/07/18 [Lantus Solostar] Insulin LISPRO [Humalog Kwikpen 10 unit SQ TID 06/06/17 10/07/18 U-100] Lactobacillus Acidophilus 1 cap PO BID 06/06/17 10/07/18 [Acidophilus] Levothyroxine Sodium [Levoxyl] 50 mcg PO DAILY 06/06/17 10/07/18 Liothyronine Sodium [Cytomel] 25 mcg PO DAILY 06/06/17 10/07/18 Montelukast [Singulair] 10 mg PO DAILY 06/06/17 10/07/18 hydrALAZINE [HydrALAZINE] 25 mg PO QID 06/06/17 10/07/18 Warfarin [Coumadin] 6 mg PO 1800 10/07/18 10/07/18 Previous Rx's Medication Instructions Recorded Amlodipine [Norvasc] 10 mg PO DAILY #30 tablet 11/17/14 Atorvastatin [Lipitor] 80 mg PO HS #30 tablet 11/17/14 Furosemide [Lasix] 40 mg PO BID 30 Days tab 01/14/15 Lisinopril [Zestril] 40 mg PO DAILY tablet 01/14/15 Allopurinol [Zyloprim 100 MG] 100 mg PO DAILY #30 tablet 06/16/17 Loratadine [Allergy Relief] 10 mg PO DAILY PRN #0 06/16/17 Ondansetron ODT [Zofran ODT] 4 mg SL Q6HR PRN #10 tab.rapdis 02/14/18 Allergies Allergy/AdvReac Type Severity Reaction Status Date / Time codeine Allergy Congested Verified 11/27/16 06:45 Penicillins [PCN] AdvReac Congested Verified 11/27/16 06:45 tape AdvReac Itching Uncoded 11/27/16 06:45 Past Medical History - Past Medical History Medical history: Reports: atrial fibrillation, coronary artery disease, CVA, diabetes, hyperlipidemia, hypertension, thyroid disease, other Surgical history: Reports: , cataract, cholecystectomy, coronary bypass (CABG) Psychiatric history: Reports: depression [employer] history: Reports: bilateral tubal ligation - Social History Smoking Status: Never smoker Smokeless Tobacco Status: No Alcohol use: Reports: none Drug use: Reports: none Physical Exam - General General appearance: alert Course Vital Signs Temperature 98.6 F 10/07/18 11:09 Pulse Rate 65 10/07/18 11:09 Respiratory Rate 13 10/07/18 11:09 Blood Pressure 196/73 10/07/18 11:09 O2 Sat by Pulse Oximetry 95 10/07/18 11:09 Temperature 98.6 F 10/07/18 11:09 Pulse Rate 63 10/07/18 15:00 Respiratory Rate 14 10/07/18 15:00 Blood Pressure 185/57 10/07/18 15:00 O2 Sat by Pulse Oximetry 99 10/07/18 15:00 Oxygen Delivery Oxygen Delivery Room Air Medical Decision Making - MDM Narrative Medical decision making narrative: Chest X-Ray 10/07/18 11:12 IMPRESSION: Stable cardiomegaly, without acute airspace consolidation or CHF. D/ / Faheem Howell MD / Faheem Howell MD Interpreting Provider: Faheem Howell MD 1257 hrs.: Patient's labs are back she does have a CK-MB. Her TSH is elevated. Nothing new on chest x-ray. Because of her episode of near-syncope and V. tach. We will bring her into the hospital. She is in agreement with plan. 1334 hrs.: Spoke with Dr. Miranda, he is on for cardiology, he said no difference in treatment at this time. Just monitor, follow her trops and would appreciate an inpatient echocardiogram and we will consult them. We will update hospitalist. And they accept admission. - Lab Data Result diagrams: 10/07/18 11:18 10/07/18 11:18 Lab Results 10/07/18 10/07/18 10/07/18 Range/Units 11:18 11:18 11:18 WBC 8.6 (4.3-11.1) K/mcL RBC 3.01 L (3.82-4.97) M/mcL Hgb 9.0 L (11.5-15.4) g/dL Hct 28.5 L (35.3-44.9) % MCV 94.7 (83.0-100.0) fL MCH 29.9 (28.0-33.3) pg MCHC 31.6 (31.6-35.5) g/dL RDW 13.9 (11.5-14.5) % Plt Count 235 (140-400) K/mcL MPV 11.7 (9.4-12.4) fL Immature Gran % 0.2 (0-4) % Seg Neutrophils % 78.1 % Lymphocytes % 10.3 % Monocytes % 8.5 % Eosinophils % 2.7 % Basophils % 0.2 % Neutrophils # 6.7 (1.6-8.9) K/mcL Lymphocytes # 0.9 (0.6-4.6) K/mcL Monocytes # 0.7 (0.0-1.3) K/mcL Eosinophils # 0.2 (0.0-0.6) K/mcL Basophils # 0.0 (0.0-0.2) K/mcL PT 24.8 H (9.4-12.1) Seconds INR 2.2 APTT 39.0 H (26.0-36.0) Seconds Sodium 140 (136-145) mEq/L Potassium 5.3 H (3.5-5.1) mEq/L Chloride 104 (98-107) mEq/L Carbon Dioxide 27 (23-29) mEq/L BUN 49 H (8-23) mg/dL Creatinine 1.78 H (0.60-1.20) mg/dL Est GFR ( Amer) 34 L (> 60) Est GFR (Non-Af Amer) 28 L (> 60) BUN/Creatinine Ratio 28 H (6-26) Glucose 278 H (70-105) mg/dL Calculated Osmolality 313 H (280-300) Calcium 8.9 (8.6-10.3) mg/dL Magnesium 1.9 (1.6-2.6) mg/dL Total Bilirubin 0.3 (0.3-1.0) mg/dL AST 13 (13-39) Units/L ALT 12 (7-52) Units/L Alkaline Phosphatase 116 H (34-104) Units/L Troponin I < 0.03 (< 0.04) ng/mL Serum Total Protein 6.1 L (6.4-8.9) g/dL Albumin 3.6 (3.5-5.7) g/dL Globulin 2.5 (2.4-3.5) g/dL Albumin/Globulin Ratio 1.4 (1.1-2.2) TSH 7.985 H (0.340-5.600) mcIU/mL Urine Color (Yellow) Urine Clarity (Clear) Urine pH (5.0-8.0) pH Units Ur Specific Jacobson (1.010-1.025) Urine Protein (Neg-Trace) mg/dL Urine Glucose (UA) (Normal) mg/dL Urine Ketones (Negative) mg/dL Urine Blood (Negative) Urine Nitrite (Negative) Urine Bilirubin (Negative) Urine Urobilinogen (Normal) mg/dL Ur Leukocyte Esterase (Negative) Urine Microscopic RBC (0-3) per hpf Urine Microscopic WBC (0-3) per hpf Ur Squamous Epith Cells (None-Few) per lpf Urine Bacteria (None-Few) per hpf Hyaline Casts (None-Few) per lpf Ur Culture Indicated? (NO) Blood Type Antibody Screen 10/07/18 10/07/18 Range/Units 11:40 11:50 WBC (4.3-11.1) K/mcL RBC (3.82-4.97) M/mcL Hgb (11.5-15.4) g/dL Hct (35.3-44.9) % MCV (83.0-100.0) fL MCH (28.0-33.3) pg MCHC (31.6-35.5) g/dL RDW (11.5-14.5) % Plt Count (140-400) K/mcL MPV (9.4-12.4) fL Immature Gran % (0-4) % Seg Neutrophils % % Lymphocytes % % Monocytes % % Eosinophils % % Basophils % % Neutrophils # (1.6-8.9) K/mcL Lymphocytes # (0.6-4.6) K/mcL Monocytes # (0.0-1.3) K/mcL Eosinophils # (0.0-0.6) K/mcL Basophils # (0.0-0.2) K/mcL PT (9.4-12.1) Seconds INR APTT (26.0-36.0) Seconds Sodium (136-145) mEq/L Potassium (3.5-5.1) mEq/L Chloride (98-107) mEq/L Carbon Dioxide (23-29) mEq/L BUN (8-23) mg/dL Creatinine (0.60-1.20) mg/dL Est GFR ( Amer) (> 60) Est GFR (Non-Af Amer) (> 60) BUN/Creatinine Ratio (6-26) Glucose (70-105) mg/dL Calculated Osmolality (280-300) Calcium (8.6-10.3) mg/dL Magnesium (1.6-2.6) mg/dL Total Bilirubin (0.3-1.0) mg/dL AST (13-39) Units/L ALT (7-52) Units/L Alkaline Phosphatase (34-104) Units/L Troponin I (< 0.04) ng/mL Serum Total Protein (6.4-8.9) g/dL Albumin (3.5-5.7) g/dL Globulin (2.4-3.5) g/dL Albumin/Globulin Ratio (1.1-2.2) TSH (0.340-5.600) mcIU/mL Urine Color Yellow (Yellow) Urine Clarity Cloudy A (Clear) Urine pH 6.5 (5.0-8.0) pH Units Ur Specific Jacobson 1.012 (1.010-1.025) Urine Protein 100 H (Neg-Trace) mg/dL Urine Glucose (UA) Normal (Normal) mg/dL Urine Ketones Negative (Negative) mg/dL Urine Blood Negative (Negative) Urine Nitrite Negative (Negative) Urine Bilirubin Negative (Negative) Urine Urobilinogen Normal (Normal) mg/dL Ur Leukocyte Esterase Small H (Negative) Urine Microscopic RBC 0-3 (0-3) per hpf Urine Microscopic WBC 5-15 H (0-3) per hpf Ur Squamous Epith Cells Many H (None-Few) per lpf Urine Bacteria Moderate H (None-Few) per hpf Hyaline Casts None Seen (None-Few) per lpf Ur Culture Indicated? YES A (NO) Blood Type O POSITIVE Antibody Screen NEGATIVE Attestation Statement - Attestation Attestation: This documentation is done with the assistance of Dragon dictation. Despite efforts made to ensure accuracy, there may be inaccuracies in machine grainer or spelling and typographical errors. I examined this patient and my medical decision-making was reviewed with the Resident Physician. I agree with the documented findings, disposition and treatment plan as described except to the extent set forth below. Patient was seen and evaluated by Dr. Guzman, I agree with their evaluation and management plan, I supervised care the patient's stay. Patient presents today with feeling faint at the nursing facility. She said she gets my and felt okay, walked to breakfast, ate her breakfast, and then she felt very faint coming back to her room. She states she had no chest pain shortness of breath or weakness. She did not have a syncopal episode. When she was here she had she had on the monitor strip about 6 beats of V. tach. She has never had that before but she has had a history of CAD with stents. We will order a workup on her and reassess. She has no pain at this time. No neuro deficits. She is in agreement with plan. I reviewed the residents documentation and agree with the residents assessment and plan of care. I have personally had face to face time with the patient. (Brief History, Brief Exam, and MDM) I personally supervised and was present for the dean/critical portions of the following procedures completed by the resident: EKG was interpreted by the resident under my supervision, I agree with their interpretation.
[2018-10-07 12:20] LABS: Bilirubin,Urine Negative (Negative); Blood,Urine Negative (Negative); Clarity,Urine Cloudy (Clear); Color,Urine Yellow (Yellow); Glucose,Urine (UA) Normal (Normal); Ketones,Urine Negative (Negative); Leukocyte Esterase,Urine Small (Negative); Nitrite,Urine Negative (Negative); PH,Urine 6.5 pH Units (5.0-8.0); Protein,Urine 100 mg/dL (Neg-Trace); Specific Gravity,Urine 1.012 (1.010-1.025); Urobilinogen,Urine Normal (Normal)
[2018-10-07 12:22] LABS: Thyroid Stimulating Hormone 7.985 mcIU/mL (0.340-5.600)
[2018-10-07 12:23] LABS: Bacteria,Urine Moderate per hpf (None-Few); Hyaline Casts,Urine None Seen per lpf (None-Few); Squamous Epithelial Cell,Urine Many per lpf (None-Few)
[2018-10-07 12:33] LABS: RBC,Urine 0-3 per hpf (0-3)
[2018-10-07 12:48] LABS: Alanine Aminotransferase 12 Units/L (7-52); Albumin 3.6 g/dL (3.5-5.7); Albumin/Globulin Ratio 1.4 (1.1-2.2); Alkaline Phosphatase 116 Units/L (34-104); Aspartate Amino Transferase 13 Units/L (13-39); BUN/Creatinine Ratio 28 (6-26); Bilirubin,Total 0.3 mg/dL (0.3-1.0); Blood Urea Nitrogen 49 mg/dL (8-23); Calcium 8.9 mg/dL (8.6-10.3); Carbon Dioxide 27 mEq/L (23-29); Chloride 104 mEq/L (98-107); Globulin 2.5 g/dL (2.4-3.5); Glucose 278 mg/dL (70-105); Osmolality,Calculated 313 (280-300); Potassium 5.3 mEq/L (3.5-5.1); Sodium 140 mEq/L (136-145); Total Protein 6.1 g/dL (6.4-8.9); eGFR For African Americans 34 (> 60); eGFR For Non-African Americans 28 (> 60)
--- NOTE | 2018-10-07 13:03 | Emergency Department Note ---
Disposition Clinical Impression: Ventricular tachycardia, Near syncope, CKD (chronic kidney disease) stage 3, GFR 30-59 ml/min Hypothyroidism Qualifiers: Hypothyroidism type: unspecified Qualified Code(s): E03.9 - Hypothyroidism, unspecified Disposition: Admitted As Inpatient Condition: Fair Referrals: Aquilino Rivera DO [Primary Care Provider] - Forms: ED Satisfaction Letter Time of Disposition: 13:13 General Adult HPI - General Chief complaint: ED Weakness Stated complaint: Not feeling well Time Seen by Provider: 10/07/18 11:10 Source: EMS - History of Present Illness HPI Narrative: Patient with a past medical history of coronary artery bypass as well as diabetes, CVA, CKD, hypothyroidism presenting to the emergency department complaining of generalized weakness. She does reside at a [facility]. She states that she has felt dizzy which she describes as feeling like she may pass out. She denies any chest pain or shortness of breath. She has no other complaints to me at this time. Has not tried anything to make this better or worse. No alleviating factors. She states that she does stand up and walks around it gets worse. Pain Scale: 0 - Related Data Home Medications Medication Instructions Recorded Confirmed Cholecalciferol (Vitamin D3) 1,000 unit PO DAILY 11/05/14 10/07/18 [Vitamin D] Clopidogrel [Plavix] 75 mg PO DAILY 11/05/14 10/07/18 Magnesium Oxide [Magnesium] 400 mg PO DAILY 11/05/14 10/07/18 Carvedilol [Coreg] 25 mg PO BID 01/09/15 10/07/18 Insulin Glargine,Hum.rec.anlog 17 unit SQ HS 01/09/15 10/07/18 [Lantus Solostar] Nitroglycerin 0.4 mg SL Q5MIN PRN 01/09/15 10/07/18 Potassium Chloride [Klor-Con 10 meq PO DAILY 01/09/15 10/07/18 Sprinkle] Ropinirole HCl [Requip] 0.5 mg PO HS 01/09/15 10/07/18 TraZODone 50 mg PO HS 01/09/15 10/07/18 Acetaminophen [Pain Reliever] 500 mg PO TID PRN 06/06/17 10/07/18 CloNIDine HCl 0.3 mg PO TID 06/06/17 10/07/18 Fluticasone Propionate Nasal 1 spr NS DAILY 06/06/17 10/07/18 [Flonase] Gabapentin [Neurontin] 100 mg PO TID 06/06/17 10/07/18 Guaifenesin [Mucinex] 600 mg PO BID PRN 06/06/17 10/07/18 Insulin Glargine,Hum.rec.anlog 30 unit SQ QAM 06/06/17 10/07/18 [Lantus Solostar] Insulin LISPRO [Humalog Kwikpen 10 unit SQ TID 06/06/17 10/07/18 U-100] Lactobacillus Acidophilus 1 cap PO BID 06/06/17 10/07/18 [Acidophilus] Levothyroxine Sodium [Levoxyl] 50 mcg PO DAILY 06/06/17 10/07/18 Liothyronine Sodium [Cytomel] 25 mcg PO DAILY 06/06/17 10/07/18 Montelukast [Singulair] 10 mg PO DAILY 06/06/17 10/07/18 hydrALAZINE [HydrALAZINE] 25 mg PO QID 06/06/17 10/07/18 Warfarin [Coumadin] 6 mg PO 1800 10/07/18 10/07/18 Previous Rx's Medication Instructions Recorded Amlodipine [Norvasc] 10 mg PO DAILY #30 tablet 11/17/14 Atorvastatin [Lipitor] 80 mg PO HS #30 tablet 11/17/14 Furosemide [Lasix] 40 mg PO BID 30 Days tab 01/14/15 Lisinopril [Zestril] 40 mg PO DAILY tablet 01/14/15 Allopurinol [Zyloprim 100 MG] 100 mg PO DAILY #30 tablet 06/16/17 Loratadine [Allergy Relief] 10 mg PO DAILY PRN #0 06/16/17 Ondansetron ODT [Zofran ODT] 4 mg SL Q6HR PRN #10 tab.rapdis 02/14/18 Allergies Allergy/AdvReac Type Severity Reaction Status Date / Time codeine Allergy Congested Verified 11/27/16 06:45 Penicillins [PCN] AdvReac Congested Verified 11/27/16 06:45 tape AdvReac Itching Uncoded 11/27/16 06:45 All systems ED: reviewed and negative except as stated. Review of Systems: As Per HPI Constitutional: Denies: fever, chills Cardiovascular: Denies: chest pain, syncope Respiratory: Denies: cough, dyspnea Gastrointestinal: Denies: abdominal pain, nausea, vomiting, diarrhea Genitourinary: Denies: urgency, dysuria, frequency, hematuria Musculoskeletal: Denies: back pain, neck pain Integumentary: Denies: rash Neurological: Reports: weakness. Denies: headache Past Medical History - Past Medical History Attestation: Yes The following information was validated with the patient. Source: patient Medical history: Reports: atrial fibrillation, coronary artery disease, CVA, diabetes, hyperlipidemia, hypertension, thyroid disease, other Surgical history: Reports: , cataract, cholecystectomy, coronary bypass (CABG) Psychiatric history: Reports: depression MASS SPEC history: Reports: bilateral tubal ligation - Social History Smoking Status: Never smoker Smokeless Tobacco Status: No Alcohol use: Reports: none Drug use: Reports: none Physical Exam - General Limitations: no limitations General appearance: alert, in no apparent distress - Head Head exam: atraumatic, normocephalic, normal inspection - Eye Eye exam: Present: normal appearance, PERRL, EOMI - ENT ENT exam: normal exam, normal oropharynx, mucous membranes moist - Neck Neck exam: Present: normal inspection, full ROM, trachea midline - Chest Chest inspection: Present: normal inspection, symmetric chest wall rise - Respiratory Respiratory exam: Present: normal lung sounds bilaterally. Absent: respiratory distress, accessory muscle use - Cardiovascular Cardiovascular exam: Present: regular rate, normal rhythm, normal heart sounds - Abdominal Exam Abdominal exam: Present: soft, Non-Tender. Absent: tenderness, distention, guarding, rebound, rigidity, organomegaly, Rae's sign, Rovsing's sign, tenderness at McBurney's Point - Extremities Exam Extremities exam: Present: normal inspection, full ROM, normal capillary refill. Absent: tenderness, pedal edema, calf tenderness - Back Exam Back exam: Present: normal inspection, full ROM. Absent: tenderness - Neurological Exam Neurological exam: Present: alert, oriented X3, CN II-XII intact, normal gait. Absent: motor sensory deficit - Psychiatric Psychiatric exam: Present: normal affect, normal mood - Skin Skin exam: Present: warm, dry, intact, normal color Course Course Narrative: Patient appears well and in no distress at this time. Lung sounds are clear heart tones are normal abdomen is soft nontender nondistended. No fluid wave appreciated. She is mentating appropriately. Her only complaint is that she feels weak. Feels like she may pass out whenever she stands up. Patient's lab workup is unremarkable. She does have a history of CAD and her creatinine appears to be at baseline. Her hemoglobin was also 9 which also appears to be at her baseline. No signs of acute ischemia on her EKG. She did however have a run of V. tach while she was here. She denies any chest pain or palpitations. States that this did reproduce the feeling she had at the [facility] This could be the reason for her generalized weakness and feeling like she may pass out however. She is hypertensive while here. We will admit patient to the hospital for further cardiac evaluation. - Reevaluation(s) Reevaluation #1: Patient had a pulse throughout the whole episode she was here. No previous episodes like this before. No history of any type of arrhythmias before. She was given no medication for the V. tach. Time: 13:12 - Consultations Consultation #1: Dr Michel accepted Pt in stable condition. Time: 13:12 Vital Signs Temperature 98.6 F 10/07/18 11:09 Pulse Rate 65 10/07/18 11:09 Respiratory Rate 13 10/07/18 11:09 Blood Pressure 196/73 10/07/18 11:09 O2 Sat by Pulse Oximetry 95 10/07/18 11:09 Temperature 98.6 F 10/07/18 11:09 Pulse Rate 63 10/07/18 12:54 Respiratory Rate 17 10/07/18 12:54 Blood Pressure 177/92 10/07/18 12:54 O2 Sat by Pulse Oximetry 98 10/07/18 12:54 Oxygen Delivery Oxygen Delivery Nasal Cannula Medical Decision Making - Medical Records Medical records reviewed: Yes I reviewed the patient's medical records. - Lab Data Lab results reviewed: Yes I reviewed the patient's lab results. Result diagrams: 10/07/18 11:18 10/07/18 11:18 Lab Results 10/07/18 10/07/18 10/07/18 Range/Units 11:18 11:18 11:18 WBC 8.6 (4.3-11.1) K/mcL RBC 3.01 L (3.82-4.97) M/mcL Hgb 9.0 L (11.5-15.4) g/dL Hct 28.5 L (35.3-44.9) % MCV 94.7 (83.0-100.0) fL MCH 29.9 (28.0-33.3) pg MCHC 31.6 (31.6-35.5) g/dL RDW 13.9 (11.5-14.5) % Plt Count 235 (140-400) K/mcL MPV 11.7 (9.4-12.4) fL Immature Gran % 0.2 (0-4) % Seg Neutrophils % 78.1 % Lymphocytes % 10.3 % Monocytes % 8.5 % Eosinophils % 2.7 % Basophils % 0.2 % Neutrophils # 6.7 (1.6-8.9) K/mcL Lymphocytes # 0.9 (0.6-4.6) K/mcL Monocytes # 0.7 (0.0-1.3) K/mcL Eosinophils # 0.2 (0.0-0.6) K/mcL Basophils # 0.0 (0.0-0.2) K/mcL PT 24.8 H (9.4-12.1) Seconds INR 2.2 APTT 39.0 H (26.0-36.0) Seconds Sodium 140 (136-145) mEq/L Potassium 5.3 H (3.5-5.1) mEq/L Chloride 104 (98-107) mEq/L Carbon Dioxide 27 (23-29) mEq/L BUN 49 H (8-23) mg/dL Creatinine 1.78 H (0.60-1.20) mg/dL Est GFR ( Amer) 34 L (> 60) Est GFR (Non-Af Amer) 28 L (> 60) BUN/Creatinine Ratio 28 H (6-26) Glucose 278 H (70-105) mg/dL Calculated Osmolality 313 H (280-300) Calcium 8.9 (8.6-10.3) mg/dL Total Bilirubin 0.3 (0.3-1.0) mg/dL AST 13 (13-39) Units/L ALT 12 (7-52) Units/L Alkaline Phosphatase 116 H (34-104) Units/L Serum Total Protein 6.1 L (6.4-8.9) g/dL Albumin 3.6 (3.5-5.7) g/dL Globulin 2.5 (2.4-3.5) g/dL Albumin/Globulin Ratio 1.4 (1.1-2.2) TSH 7.985 H (0.340-5.600) mcIU/mL Urine Color (Yellow) Urine Clarity (Clear) Urine pH (5.0-8.0) pH Units Ur Specific [place] (1.010-1.025) Urine Protein (Neg-Trace) mg/dL Urine Glucose (UA) (Normal) mg/dL Urine Ketones (Negative) mg/dL Urine Blood (Negative) Urine Nitrite (Negative) Urine Bilirubin (Negative) Urine Urobilinogen (Normal) mg/dL Ur Leukocyte Esterase (Negative) Urine Microscopic RBC (0-3) per hpf Urine Microscopic WBC (0-3) per hpf Ur Squamous Epith Cells (None-Few) per lpf Urine Bacteria (None-Few) per hpf Hyaline Casts (None-Few) per lpf Ur Culture Indicated? (NO) Blood Type Antibody Screen 10/07/18 10/07/18 Range/Units 11:40 11:50 WBC (4.3-11.1) K/mcL RBC (3.82-4.97) M/mcL Hgb (11.5-15.4) g/dL Hct (35.3-44.9) % MCV (83.0-100.0) fL MCH (28.0-33.3) pg MCHC (31.6-35.5) g/dL RDW (11.5-14.5) % Plt Count (140-400) K/mcL MPV (9.4-12.4) fL Immature Gran % (0-4) % Seg Neutrophils % % Lymphocytes % % Monocytes % % Eosinophils % % Basophils % % Neutrophils # (1.6-8.9) K/mcL Lymphocytes # (0.6-4.6) K/mcL Monocytes # (0.0-1.3) K/mcL Eosinophils # (0.0-0.6) K/mcL Basophils # (0.0-0.2) K/mcL PT (9.4-12.1) Seconds INR APTT (26.0-36.0) Seconds Sodium (136-145) mEq/L Potassium (3.5-5.1) mEq/L Chloride (98-107) mEq/L Carbon Dioxide (23-29) mEq/L BUN (8-23) mg/dL Creatinine (0.60-1.20) mg/dL Est GFR ( Amer) (> 60) Est GFR (Non-Af Amer) (> 60) BUN/Creatinine Ratio (6-26) Glucose (70-105) mg/dL Calculated Osmolality (280-300) Calcium (8.6-10.3) mg/dL Total Bilirubin (0.3-1.0) mg/dL AST (13-39) Units/L ALT (7-52) Units/L Alkaline Phosphatase (34-104) Units/L Serum Total Protein (6.4-8.9) g/dL Albumin (3.5-5.7) g/dL Globulin (2.4-3.5) g/dL Albumin/Globulin Ratio (1.1-2.2) TSH (0.340-5.600) mcIU/mL Urine Color Yellow (Yellow) Urine Clarity Cloudy A (Clear) Urine pH 6.5 (5.0-8.0) pH Units Ur Specific [place] 1.012 (1.010-1.025) Urine Protein 100 H (Neg-Trace) mg/dL Urine Glucose (UA) Normal (Normal) mg/dL Urine Ketones Negative (Negative) mg/dL Urine Blood Negative (Negative) Urine Nitrite Negative (Negative) Urine Bilirubin Negative (Negative) Urine Urobilinogen Normal (Normal) mg/dL Ur Leukocyte Esterase Small H (Negative) Urine Microscopic RBC 0-3 (0-3) per hpf Urine Microscopic WBC 5-15 H (0-3) per hpf Ur Squamous Epith Cells Many H (None-Few) per lpf Urine Bacteria Moderate H (None-Few) per hpf Hyaline Casts None Seen (None-Few) per lpf Ur Culture Indicated? YES A (NO) Blood Type O POSITIVE Antibody Screen NEGATIVE - Radiology Data Radiology results reviewed: Yes I reviewed the patient's radiology results. Normal sinus rhythm at a rate of 65. OK interval is 189. Your's duration is 96. QT is 394. QTC is 410. No signs of acute ischemia. Poor R-wave progression. Fine T waves throughout. No significant change from previous EKG dated 02/15/2018.
[2018-10-07 14:04] LABS: Magnesium 1.9 mg/dL (1.6-2.6)
[2018-10-07] MEDS ORDERED: Naloxone 0.4 MG/ML INJ IVP PRN (15:42)
--- NOTE | 2018-10-07 16:47 | Internal Med History&Physical ---
Date of Encounter: 10/07/18 Time of Encounter: 16:00 Internal Medicine - H&P: HPI Chief complaint: Weakness, lethargy and fatigue History of present illness: Ms. Lala is a 77 year old female with pmh of diabetes, hypertension, CAD, CVA presenting with complaints of weakness and fatigue of about a week's duration. Patient says she has been feeling dizzy like she is going to pass out for the past week and symptoms have gotten worse in the last 24hrs and that's why she was sent to the hospital from assisted living. She says the dizziness is particularly after activity and she felt fatigued after walking from the cafeteria home. She denies any fevers, chill,abdominal pain, coughing or any other acute symptoms. She also denies any palpitations In the ER, she had a run of v tach which was non sustained and also had a urinalysis showing multiple WBC and moderate bacteria and she is being admitted for further management Past Med Surg Social Fam HX - Past Medical History Medical history: atrial fibrillation, coronary artery disease, CVA, diabetes, hyperlipidemia, hypertension, thyroid disease, other Psychiatric history: depression - Past Surgical History Surgical History: , cataract, cholecystectomy, coronary bypass (CABG) Additional surgical history: 3 vessel CABG 10 years ago - Social History Smoking Status: Never smoker Smokeless Tobacco Status: No Alcohol use: none Drug use: none - Family History Sister Living Status: Hx Family Cancer: Yes (Breast Cancer) Hx Family Endocrine Disorder: Yes (Diabetes) Brother Adopted: No Family Member Ethnicity: Non- Living Status: Still Living Hx Family Cancer: Yes (Lung Cancer) Hx Family Endocrine Disorder: Yes (Diabetes) Internal Medicine - H&P: Meds Cholecalciferol (Vitamin D3) [Vitamin D] 1,000 unit PO DAILY 11/05/14 [History] Clopidogrel [Plavix] 75 mg PO DAILY 11/05/14 [History] Magnesium Oxide [Magnesium] 400 mg PO DAILY 11/05/14 [History] Amlodipine [Norvasc] 10 mg PO DAILY #30 tablet 11/17/14 [Rx] Atorvastatin [Lipitor] 80 mg PO HS #30 tablet 11/17/14 [Rx] Carvedilol [Coreg] 25 mg PO BID 01/09/15 [History] Insulin Glargine,Hum.rec.anlog [Lantus Solostar] 17 unit SQ HS 01/09/15 [History] Nitroglycerin 0.4 mg SL Q5MIN PRN 01/09/15 [History] Potassium Chloride [Klor-Con Sprinkle] 10 meq PO DAILY 01/09/15 [History] Ropinirole HCl [Requip] 0.5 mg PO HS 01/09/15 [History] TraZODone 50 mg PO HS 01/09/15 [History] Furosemide [Lasix] 40 mg PO BID 30 Days tab 01/14/15 [Rx] Lisinopril [Zestril] 40 mg PO DAILY tablet 01/14/15 [Rx] Acetaminophen [Pain Reliever] 500 mg PO TID PRN 06/06/17 [History] CloNIDine HCl 0.3 mg PO TID 06/06/17 [History] Fluticasone Propionate Nasal [Flonase] 1 spr NS DAILY 06/06/17 [History] Gabapentin [Neurontin] 100 mg PO TID 06/06/17 [History] Guaifenesin [Mucinex] 600 mg PO BID PRN 06/06/17 [History] Insulin Glargine,Hum.rec.anlog [Lantus Solostar] 30 unit SQ QAM 06/06/17 [History] Insulin LISPRO [Humalog Kwikpen U-100] 10 unit SQ TID 06/06/17 [History] Lactobacillus Acidophilus [Acidophilus] 1 cap PO BID 06/06/17 [History] Levothyroxine Sodium [Levoxyl] 50 mcg PO DAILY 06/06/17 [History] Liothyronine Sodium [Cytomel] 25 mcg PO DAILY 06/06/17 [History] Montelukast [Singulair] 10 mg PO DAILY 06/06/17 [History] hydrALAZINE [HydrALAZINE] 25 mg PO QID 06/06/17 [History] Allopurinol [Zyloprim 100 MG] 100 mg PO DAILY #30 tablet 06/16/17 [Rx] Loratadine [Allergy Relief] 10 mg PO DAILY PRN #0 06/16/17 [Rx] Ondansetron ODT [Zofran ODT] 4 mg SL Q6HR PRN #10 tab.rapdis 02/14/18 [Rx] Warfarin [Coumadin] 6 mg PO 1800 10/07/18 [History] Allergy/AdvReac Type Severity Reaction Status Date / Time codeine Allergy Congested Verified 11/27/16 06:45 Penicillins [PCN] AdvReac Congested Verified 11/27/16 06:45 tape AdvReac Itching Uncoded 11/27/16 06:45 All Systems PM: A 10-system review of systems was performed and is negative for pertinent findings except as documented above in the HPI. - Constitutional Constitutional: no chills, no fever(s), no night sweats - EENT Eyes: no change in vision, no discharge, no pain, no photophobia Ears: no ear discharge, no ear pain, no tinnitus Nose, mouth and throat: no dysphagia, no nasal discharge, no neck pain, no sore throat - Cardiovascular Cardiovascular ROS IM: no chest pain, no diaphoresis, no dyspnea, no lightheadedness, no palpitations, no syncope - Respiratory Respiratory: no cough, no dyspnea, no wheezing, no excessive phlegm production - Gastrointestinal Gastrointestinal: no abdominal pain, no diarrhea, no hematemesis, no hematochezia, no melena, no nausea, no vomiting - Genitourinary Genitourinary: no change in urinary stream, no dysuria, no flank pain, no hematuria - Musculoskeletal Musculoskeletal ROS IM: no numbness, no tingling - Integumentary Integumentary IM: no rash, no unusual bruising - Neurological Neurological ROS: dizziness, no confusion, no convulsions, no focal weakness, no numbness, no tingling, no tremor(s) - Hematologic/Lymphatic Hematologic/Lymphatic: no easy bruising - Constitutional Vitals: Temp Pulse Resp BP Pulse Ox 98.6 F 63 14 185/57 99 10/07/18 11:09 10/07/18 15:00 10/07/18 15:00 10/07/18 15:00 10/07/18 15:00 Exam: Morbidly obese elderly female NAD - Head Head exam: Present: atraumatic, normocephalic - Eye Eye exam: Present: PERRL, conjuntiva pink, sclera anicteric Pupils: Present: PERRL - Neck Neck exam general surgery: Present: supple, trachea midline. Absent: lymphadenopathy - Respiratory Respiratory exam: Present: CTAB. Absent: accessory muscle use, rales, rhonchi, wheezes - Cardiovascular Cardiovascular exam: Present: RRR, +S1, +S2. Absent: diastolic murmur, gallop, rubs, systolic murmur - GI/Abdominal GI/Abdominal exam: Present: normal bowel sounds, soft, no peritoneal signs. Absent: distended, tenderness - Extremities Exam Extremities exam: Present: warm, radial pulses palpable and symmetrical. Absent: calf tenderness, cyanotic, pedal edema - Neurological Exam Neurological exam: Present: CN II-XII intact, oriented X3, no focal deficits. Absent: pronater drift, facial droop, speech deficit - Skin Skin exam: Present: dry, intact Internal Med - H&P Results - Labs CBC & Chem 7: 10/07/18 11:18 10/07/18 11:18 Labs: Short CBC 10/07/18 Range/Units 11:18 WBC 8.6 (4.3-11.1) K/mcL Hgb 9.0 L (11.5-15.4) g/dL Hct 28.5 L (35.3-44.9) % Plt Count 235 (140-400) K/mcL Neutrophils # 6.7 (1.6-8.9) K/mcL BMP 10/07/18 11:18 Sodium 140 Potassium 5.3 H Chloride 104 Carbon Dioxide 27 BUN 49 H Creatinine 1.78 H Glucose 278 H Calcium 8.9 Liver Function 10/07/18 Range/Units 11:18 Total Bilirubin 0.3 (0.3-1.0) mg/dL AST 13 (13-39) Units/L ALT 12 (7-52) Units/L Alkaline Phosphatase 116 H (34-104) Units/L Albumin 3.6 (3.5-5.7) g/dL Urine 10/07/18 Range/Units 11:50 Urine Color Yellow (Yellow) Urine Clarity Cloudy A (Clear) Urine pH 6.5 (5.0-8.0) pH Units Ur Specific [place] 1.012 (1.010-1.025) Urine Protein 100 H (Neg-Trace) mg/dL Urine Glucose (UA) Normal (Normal) mg/dL - Impressions ITS Impressions Chest X-Ray 10/07/18 11:12 IMPRESSION: Stable cardiomegaly, without acute airspace consolidation or CHF. D/ / 10/07/2018 11:59:50 Faheem Howell MD / Emerald Mckenna Interpreting Provider: Faheem Howell MD - Assessment and Plan (1) Urinary tract infection Current Visit: Yes Status: Acute Assessment and plan: Pt comes in with vague symptoms of weakness and dizziness for a week. Will cover empirically for UTi with ceftriaxone. Obtain urine cultures. Urinalysis shows bacteria and WBC Qualifiers: Qualified Code(s): N39.0 - Urinary tract infection, site not specified (2) Near syncope Current Visit: Yes Status: Acute Assessment and plan: Possibly 2/2 to dehydration, UTI and arrhythmia Continue fluids and antibiotics. Had non sustained v tach in ER. (3) Ventricular tachycardia Current Visit: Yes Status: Acute Assessment and plan: She had a run of non sustained v tach in the ER. Discussed with cardiology , no acute intervention Continue beta blockers, monitor and correct electrolytes, IV fluid hydration Obtain echo and troponins, cardiology to evaluate in am (4) Hypothyroidism Current Visit: Yes Status: Chronic Assessment and plan: Continue levothyroxine Qualifiers: Hypothyroidism type: unspecified Qualified Code(s): E03.9 - Hypothyroidism, unspecified (5) CKD (chronic kidney disease) stage 3, GFR 30-59 ml/min Current Visit: Yes Status: Chronic Assessment and plan: Continue IV fluids (6) Uncontrolled hypertension Current Visit: Yes Status: Acute Assessment and plan: Resume home meds (7) Diabetes Current Visit: Yes Status: Acute Assessment and plan: Continue insulin and monitor fingersticks Qualifiers: Qualified Code(s): E11.9 - Type 2 diabetes mellitus without complications (8) Atrial fibrillation Current Visit: Yes Status: Acute Assessment and plan: Rate controlled. continue coreg and coumadin Qualifiers: Qualified Code(s): I48.91 - Unspecified atrial fibrillation (9) DVT prophylaxis Current Visit: Yes Status: Acute Assessment and plan: On coumadin - Time Spent With Patient Total time spent is greater than 50% in coordination of care (as documented) at patient's floor/unit and/or counseling patient:
[2018-10-07 17:00] LABS: Troponin I < 0.03 ng/mL (< 0.04)
[2018-10-07] MEDS: 0.9 % Sodium Chloride 1,000 ML IVC SCH (18:51)
[2018-10-07] MEDS: cefTRIAXone 1,000 MG in Water for inj. (sterile) 10 ML IVP SCH (18:51)
[2018-10-07] MEDS: *HR* Warfarin 3 MG TABLET PO SCH (18:53)
[2018-10-07] MEDS: hydrALAZINE 25 MG TABLET PO SCH ×3 (18:53→22:51)
[2018-10-07] MEDS: Lactobacillus 1 EACH CAP.SPRINK PO SCH (20:43)
[2018-10-07] MEDS: cloNIDine HCl 0.1 MG TABLET PO SCH (20:43)
[2018-10-07] MEDS: rOPINIRole 0.25 MG TABLET PO SCH (20:43)
[2018-10-07] MEDS: traZODone 50 MG TABLET PO SCH (20:43)
[2018-10-07] MEDS: Insulin DETEMIR 100 UNIT/ML X5UNITS SQ SCH (20:46)
[2018-10-08 00:54] LABS: Basophils % 0.1 %; Eosinophils # 0.3 K/mcL (0.0-0.6); Eosinophils % 2.9 %; Hematocrit 27.3 % (35.3-44.9); Hemoglobin 8.5 g/dL (11.5-15.4); Immature Granulocytes % 0.1 % (0-4); Lymphocytes # 1.8 K/mcL (0.6-4.6); Lymphocytes % 19.7 %; Mean Corpuscular HGB Conc 31.1 g/dL (31.6-35.5); Mean Corpuscular Hemoglobin 29.5 pg (28.0-33.3); Mean Corpuscular Volume 94.8 fL (83.0-100.0); Monocytes % 11.4 %; Neutrophils # 5.9 K/mcL (1.6-8.9); Platelet Count 227 K/mcL (140-400); Red Blood Count 2.88 M/mcL (3.82-4.97); Red Cell Distribution Width 13.8 % (11.5-14.5); Segmented Neutrophils % 65.8 %
[2018-10-08 01:14] LABS: Calcium 9.1 mg/dL (8.6-10.3); Magnesium 1.8 mg/dL (1.6-2.6); Phosphorous 3.8 mg/dL (2.7-4.5); Potassium 4.2 mEq/L (3.5-5.1)
--- NOTE | 2018-10-08 07:20 | Internal Med Progress Note ---
Hospitalist Progress Note - Encounter Date of Encounter: 10/08/18 Time of Encounter: 09:00 - Subjective Interval History: No acute events overnight - Exam Vitals: Temp Pulse Resp BP Pulse Ox 98.2 F 71 20 196/62 96 10/08/18 03:34 10/08/18 03:34 10/08/18 03:34 10/08/18 03:34 10/08/18 03:34 Exam: Gen. Morbidly obese elderly female.NAD CVS. S1 S2 WNL. Resp. CTAB Abd. 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 GCs 15/15 - Assessment and Plan (1) Uncontrolled hypertension Current Visit: Yes Status: Acute Assessment and Plan: Patient is on clonidine, coreg, lisinorpil, hydralazine and amlodipine BP still in the 190s. Will increase dose of hydralazine and monitor BP. Other antihypertensives at max doses (2) Urinary tract infection Current Visit: Yes Status: Acute Assessment and Plan: Pt comes in with vague symptoms of weakness and dizziness for a week. Will cover empirically for UTI with ceftriaxone. Obtain urine cultures. Urinalysis shows bacteria and WBC Continute Iv fluids. Obtain physical therapy (3) Near syncope Current Visit: Yes Status: Acute Assessment and Plan: Possibly 2/2 to dehydration, UTI and arrhythmia Continue fluids and antibiotics. Had non sustained v tach in ER. (4) Ventricular tachycardia Current Visit: Yes Status: Acute Assessment and Plan: She had a run of non sustained v tach in the ER. Discussed with cardiology , no acute intervention Continue beta blockers, monitor and correct electrolytes, IV fluid hydration Telemetry overnight showed no arrhythmia. Follow echo and troponins, cardiology on board (5) Hypothyroidism Current Visit: Yes Status: Chronic Assessment and Plan: Continue levothyroxine (6) CKD (chronic kidney disease) stage 3, GFR 30-59 ml/min Current Visit: Yes Status: Chronic Assessment and Plan: Continue IV fluids (7) Diabetes Current Visit: Yes Status: Acute Assessment and Plan: Continue insulin and monitor fingersticks (8) Atrial fibrillation Current Visit: Yes Status: Acute Assessment and Plan: Rate controlled. continue coreg and coumadin (9) DVT prophylaxis Current Visit: Yes Status: Acute Assessment and Plan: On coumadin - Time Spent with Patient Total time spent is greater than 50% in coordination of care (as documented) at patient's floor/unit and/or counseling patient: Internal Medicine: Result - Labs CBC & Chem 7: 10/08/18 00:10 10/08/18 00:10 Labs: Short CBC 10/07/18 10/08/18 Range/Units 11:18 00:10 WBC 8.6 9.0 (4.3-11.1) K/mcL Hgb 9.0 L 8.5 L (11.5-15.4) g/dL Hct 28.5 L 27.3 L (35.3-44.9) % Plt Count 235 227 (140-400) K/mcL Neutrophils # 6.7 5.9 (1.6-8.9) K/mcL BMP 10/07/18 10/08/18 11:18 00:10 Sodium 140 142 Potassium 5.3 H 4.2 Chloride 104 109 H Carbon Dioxide 27 30 H BUN 49 H 43 H Creatinine 1.78 H 1.64 H Glucose 278 H 206 H Calcium 8.9 9.1 Cardiac Enzymes 10/07/18 10/08/18 Range/Units 11:18 00:10 Troponin I < 0.03 < 0.03 (< 0.04) ng/mL Liver Function 10/07/18 Range/Units 11:18 Total Bilirubin 0.3 (0.3-1.0) mg/dL AST 13 (13-39) Units/L ALT 12 (7-52) Units/L Alkaline Phosphatase 116 H (34-104) Units/L Albumin 3.6 (3.5-5.7) g/dL Urine 10/07/18 Range/Units 11:50 Urine Color Yellow (Yellow) Urine Clarity Cloudy A (Clear) Urine pH 6.5 (5.0-8.0) pH Units Ur Specific [place] 1.012 (1.010-1.025) Urine Protein 100 H (Neg-Trace) mg/dL Urine Glucose (UA) Normal (Normal) mg/dL - ABG Interpretation ABG results: PT/INR, D-dimer PT 24.8 Seconds (9.4-12.1) H 10/07/18 11:18 - Impressions Impressions Chest X-Ray 10/07/18 11:12 IMPRESSION: Stable cardiomegaly, without acute airspace consolidation or CHF. D/ / 10/07/2018 11:59:50 Faheem Howell MD / Emerald thompson Interpreting Provider: Faheem Howell MD Consult Discharge Plan - Plan Referrals: Aquilino Rivera, DO [Primary Care Provider] - __ (2) Urinary tract infection Qualifiers: Qualified Code(s): N39.0 - Urinary tract infection, site not specified (5) Hypothyroidism Qualifiers: Hypothyroidism type: unspecified Qualified Code(s): E03.9 - Hypothyroidism, unspecified (7) Diabetes Qualifiers: Qualified Code(s): E11.9 - Type 2 diabetes mellitus without complications (8) Atrial fibrillation Qualifiers: Qualified Code(s): I48.91 - Unspecified atrial fibrillation
[2018-10-08] MEDS: 0.9 % Sodium Chloride 1,000 ML IVC SCH (08:17)
[2018-10-08] MEDS: cefTRIAXone 1,000 MG in Water for inj. (sterile) 10 ML IVP SCH (08:20)
[2018-10-08] MEDS: cloNIDine HCl 0.1 MG TABLET PO SCH ×3 (08:21→22:06)
[2018-10-08] MEDS: Lisinopril 20 MG TABLET PO SCH (08:21)
[2018-10-08] MEDS: Cholecalciferol (D-3) 1,000 UNIT (25MCG) TABLET PO SCH (08:22)
[2018-10-08] MEDS: hydrALAZINE 25 MG TABLET PO SCH ×4 (08:22→22:08)
[2018-10-08] MEDS: Lactobacillus 1 EACH CAP.SPRINK PO SCH ×2 (08:22→22:07)
[2018-10-08] MEDS: amLODIPine 5 MG TABLET PO SCH (08:22)
[2018-10-08] MEDS: Fluticasone Propionate Nasal 50 MCG/SPRAY BOTTLE NS SCH (08:23)
[2018-10-08] MEDS: Insulin DETEMIR 100 UNIT/ML X5UNITS SQ SCH ×2 (08:29→22:08)
[2018-10-08] MEDS ORDERED: Perflutren Lipid Microsphere 1.3 ML in 0.9 % Sodium Chloride 8.7 ML IVP ONE (08:58)
--- NOTE | 2018-10-08 09:19 | Cardiology Consult Note ---
Date of Encounter: 10/08/18 Time of Encounter: 09:13 Assessment and Plan (1) Lightheadedness Current Visit: Yes Status: Acute Patient reports having lightheadedness of unclear etiology. She denies syncope or near syncopal symptoms. In the ER, there was a reported brief episode of nonsustained ventricular tachycardia. Telemetry strip is not available. ECG from ER is not available. Since admission, telemetry demonstrates sinus rhythm, no PVCs, no ventricular arrhythmias. Recommend continue to monitor telemetry. Recommend repeat ECG. Recommend 2-D echocardiogram. Further recommendations to follow results of testing. (2) CAD in [place] artery Current Visit: Yes Status: Acute Patient reports a history of CAD, prior PCI. Currently, she is on Plavix, statin, beta maryam, and a standard therapy. Given time since last PCI, okay to change Plavix to low-dose aspirin. Of note, patient has chronic anemia, which seems stable. Patient denies recent or current chest pain or discomfort. Further recommendations pending results of TTE. (3) Uncontrolled hypertension Current Visit: Yes Status: Acute Blood pressure appears to be poorly controlled. We will defer management to internal medicine service. Low sodium diet and encouraged. Daily exercise and weight loss emphasized. Discussion w patient/family: The assessment and plan as outlined above was discussed with the patient and/or family members who expressed understanding and agreement. All questions were answered. Thank you for involving us in the care of your patient. Please call with any questions. History of Present Illness Consult date: 10/08/18 Requesting physician: Wale Woody Consult reason: Arrhythmia concern Chief complaint: Dizziness History of present illness: Ms. Lala is a 77 year old female with a reported history of essential hypertension, diabetes, and CAD. Patient states she has a total of 2 coronary stents, most recent 7 years ago. She reported to the ER with complaints of dizziness from an assisted living facility. She states she has had intermittent dizziness for the last week. She states it typically occurs upon standing. In the ER, lab work demonstrated anemia with hemoglobin levels similar to previous. CKD also noted. Mild elevation of potassium, which has improved since yesterday. She was diagnosed with a UTI. While being monitored in the ER, she reportedly had a brief episode of NSVT. Unfortunately, that rhythm strip is not available in the computer system or on the floor. Telemetry reviewed from overnight. Sinus rhythm noted. No events. No PVCs. Currently, heart rate 60s. Overnight, patient reports that she is feeling better. No further lightheadedness, near-syncope, or syncope reported. Previous cardiovascular testing reviewed. Carotid duplex 11/2014: Minimal plaque formation. TTE 11/10/2014: LVEF 65%. Normal LV, RV size and function. Mild to moderate aortic regurgitation. No pulmonary hypertension. Past Med Surg Social Fam HX - Past Medical History Medical history: atrial fibrillation, coronary artery disease, CVA, diabetes, hyperlipidemia, hypertension, thyroid disease, other Psychiatric history: depression - Past Surgical History Surgical History: , cataract, cholecystectomy, coronary bypass (CABG) Additional surgical history: 3 vessel CABG 10 years ago - Social History Smoking Status: Never smoker Smokeless Tobacco Status: No Alcohol use: none Drug use: none - Family History Sister Living Status: Hx Family Cancer: Yes (Breast Cancer) Hx Family Endocrine Disorder: Yes (Diabetes) Brother Adopted: No Family Member Ethnicity: Non- Living Status: Still Living Hx Family Cancer: Yes (Lung Cancer) Hx Family Endocrine Disorder: Yes (Diabetes) Medications and Allergies Cholecalciferol (Vitamin D3) [Vitamin D] 1,000 unit PO DAILY 11/05/14 [History] Clopidogrel [Plavix] 75 mg PO DAILY 11/05/14 [History] Magnesium Oxide [Magnesium] 400 mg PO DAILY 11/05/14 [History] Amlodipine [Norvasc] 10 mg PO DAILY #30 tablet 11/17/14 [Rx] Atorvastatin [Lipitor] 80 mg PO HS #30 tablet 11/17/14 [Rx] Carvedilol [Coreg] 25 mg PO BID 01/09/15 [History] Insulin Glargine,Hum.rec.anlog [Lantus Solostar] 17 unit SQ HS 01/09/15 [History] Nitroglycerin 0.4 mg SL Q5MIN PRN 01/09/15 [History] Potassium Chloride [Klor-Con Sprinkle] 10 meq PO DAILY 01/09/15 [History] Ropinirole HCl [Requip] 0.5 mg PO HS 01/09/15 [History] TraZODone 50 mg PO HS 01/09/15 [History] Furosemide [Lasix] 40 mg PO BID 30 Days tab 11/10/15 [Rx] Lisinopril [Zestril] 40 mg PO DAILY tablet 01/14/15 [Rx] Acetaminophen [Pain Reliever] 500 mg PO TID PRN 06/06/17 [History] CloNIDine HCl 0.3 mg PO TID 06/06/17 [History] Fluticasone Propionate Nasal [Flonase] 1 spr NS DAILY 06/06/17 [History] Gabapentin [Neurontin] 100 mg PO TID 06/06/17 [History] Guaifenesin [Mucinex] 600 mg PO BID PRN 06/06/17 [History] Insulin Glargine,Hum.rec.anlog [Lantus Solostar] 30 unit SQ QAM 06/06/17 [History] Insulin LISPRO [Humalog Kwikpen U-100] 10 unit SQ TID 06/06/17 [History] Lactobacillus Acidophilus [Acidophilus] 1 cap PO BID 06/06/17 [History] Levothyroxine Sodium [Levoxyl] 50 mcg PO DAILY 06/06/17 [History] Liothyronine Sodium [Cytomel] 25 mcg PO DAILY 06/06/17 [History] Montelukast [Singulair] 10 mg PO DAILY 06/06/17 [History] hydrALAZINE [HydrALAZINE] 25 mg PO QID 06/06/17 [History] Allopurinol [Zyloprim 100 MG] 100 mg PO DAILY #30 tablet 06/16/17 [Rx] Loratadine [Allergy Relief] 10 mg PO DAILY PRN #0 06/16/17 [Rx] Ondansetron ODT [Zofran ODT] 4 mg SL Q6HR PRN #10 tab.rapdis 02/14/18 [Rx] Warfarin [Coumadin] 6 mg PO 1800 10/07/18 [History] Allergy/AdvReac Type Severity Reaction Status Date / Time codeine Allergy Congested Verified 11/27/16 06:45 Penicillins [PCN] AdvReac Congested Verified 11/27/16 06:45 tape AdvReac Itching Uncoded 11/27/16 06:45 All Systems Review: The remainder of the systems were reviewed and are negative - Cardiovascular Cardiovascular: as per HPI Physical Examination Vital Signs, Last 4 Hours Temp Pulse Resp BP Pulse Ox 10/08/18 07:26 98.6 F 71 19 192/51 95 General: Conversant, No Apparent Distress, Other (somewhat disheveled.) HEENT: Atraumatic, Normocephaly, Mucus Membranes Moist Neck: No JVD, Normal carotid pulses Cardiac: Other (Distant, appears regular. No appreciable murmurs gallops or rubs.) Lungs: Normal Breath Sounds, Other (Shallow, but otherwise clear. No obvious rales or rhonchi. No wheezing appreciated.) Neuro: Alert and responsive, No focal deficits noted Abdomen: Soft, Non-Tender Skin: No rashes noted on visualized skin Musculoskeletal: No Chest Wall Tenderness Extremities: No Clubbing, No Cyanosis, Other (Mild edema bilaterally.) Results 10/08/18 00:10 10/08/18 00:10 Lab Results 10/07/18 10/07/18 10/07/18 11:18 11:18 11:18 WBC 8.6 Hgb 9.0 L Hct 28.5 L Plt Count 235 INR 2.2 APTT 39.0 H Sodium 140 Potassium 5.3 H Chloride 104 Carbon Dioxide 27 BUN 49 H Creatinine 1.78 H Glucose 278 H Calcium 8.9 Magnesium 1.9 Total Bilirubin 0.3 AST 13 ALT 12 Alkaline Phosphatase 116 H Troponin I < 0.03 TSH 7.985 H 10/08/18 10/08/18 10/08/18 00:10 00:10 00:10 WBC 9.0 Hgb 8.5 L Hct 27.3 L Plt Count 227 INR APTT Sodium 142 Potassium 4.2 Chloride 109 H Carbon Dioxide 30 H BUN 43 H Creatinine 1.64 H Glucose 206 H Calcium 9.1 Magnesium 1.8 Total Bilirubin AST ALT Alkaline Phosphatase Troponin I < 0.03 TSH 10/08/18 08:35 WBC Hgb Hct Plt Count INR APTT Sodium Potassium Chloride Carbon Dioxide BUN Creatinine Glucose Calcium Magnesium Total Bilirubin AST ALT Alkaline Phosphatase Troponin I < 0.03 TSH - Imaging and Cardiology Echo: report reviewed (ECG from 10/04 reviewed. Sinus rhythm. ECG from 's ER visit is not in [facility] nor is it on the floor.) Consult Discharge Plan - Plan Referrals: Aquilino Rivera DO [Primary Care Provider] -
[2018-10-08] MEDS: *HR* Warfarin 3 MG TABLET PO SCH (16:39)
[2018-10-08] MEDS: traZODone 50 MG TABLET PO SCH (22:06)
[2018-10-08] MEDS: rOPINIRole 0.25 MG TABLET PO SCH (22:07)
[2018-10-09 04:14] LABS: Basophils % 0.1 %; Eosinophils # 0.3 K/mcL (0.0-0.6); Eosinophils % 3.5 %; Hematocrit 27.1 % (35.3-44.9); Hemoglobin 8.2 g/dL (11.5-15.4); Immature Granulocytes % 0.2 % (0-4); Lymphocytes # 1.5 K/mcL (0.6-4.6); Lymphocytes % 17.5 %; Mean Corpuscular HGB Conc 30.3 g/dL (31.6-35.5); Mean Corpuscular Hemoglobin 29.2 pg (28.0-33.3); Mean Corpuscular Volume 96.4 fL (83.0-100.0); Mean Platelet Volume 11.6 fL (9.4-12.4); Monocytes % 11.8 %; Neutrophils # 5.5 K/mcL (1.6-8.9); Platelet Count 212 K/mcL (140-400); Red Blood Count 2.81 M/mcL (3.82-4.97); Segmented Neutrophils % 66.9 %; White Blood Count 8.3 K/mcL (4.3-11.1)
[2018-10-09 04:35] LABS: Magnesium 1.9 mg/dL (1.6-2.6); Potassium 3.9 mEq/L (3.5-5.1)
[2018-10-09] MEDS ORDERED: D5% in Water 1,000 ML IVC PRN (08:00)
[2018-10-09] MEDS ORDERED: *HR* Dextrose 50 % in Water (Syg) 50 ML SYRINGE IVP PRN (08:00)
[2018-10-09] MEDS ORDERED: Dextrose Gel 15 GM/37.5 ML TUBE PO PRN ×2 (08:00)
[2018-10-09 08:23] LABS: INR 2.7; Prothrombin Time 30.4 Seconds (9.4-12.1)
[2018-10-09] MEDS: cefTRIAXone 1,000 MG in Water for inj. (sterile) 10 ML IVP SCH (08:25)
[2018-10-09] MEDS: Insulin DETEMIR 100 UNIT/ML X5UNITS SQ SCH ×2 (08:25→21:33)
[2018-10-09] MEDS: amLODIPine 5 MG TABLET PO SCH (08:26)
[2018-10-09] MEDS: Cholecalciferol (D-3) 1,000 UNIT (25MCG) TABLET PO SCH (08:26)
[2018-10-09] MEDS: Lisinopril 20 MG TABLET PO SCH (08:26)
[2018-10-09] MEDS: Lactobacillus 1 EACH CAP.SPRINK PO SCH ×2 (08:26→20:22)
[2018-10-09] MEDS: cloNIDine HCl 0.1 MG TABLET PO SCH ×3 (08:26→20:23)
[2018-10-09] MEDS: Fluticasone Propionate Nasal 50 MCG/SPRAY BOTTLE NS SCH (08:27)
[2018-10-09] MEDS: hydrALAZINE 25 MG TABLET PO SCH ×4 (09:14→20:22)
--- NOTE | 2018-10-09 09:40 | Cardiology Progress Note ---
Date of Encounter: 10/09/18 Time of Encounter: 09:30 Assessment and Plan (1) Lightheadedness Current Visit: Yes Status: Acute Patient reports having lightheadedness of unclear etiology. She denies syncope or near syncopal symptoms. In the ER, there was a reported brief episode of nonsustained ventricular tachycardia. Telemetry strip is not available. ECG from ER is not available. Isolated episode of NSVT overnight, 4 beats. This is not a significant finding. Asymptomatic. Keep Mg >2.0, K >4.0 TTE shows preserved LVEF, 60-65%. NITISH improved this AM. Of note, positive orthostatics this AM from laying to standing. No further inpt recommendations; close follow-up with PCP. (2) Uncontrolled hypertension Current Visit: Yes Status: Acute Blood pressure appears to be poorly controlled; positive orthostatics. We will defer management to internal medicine service. Low sodium diet and encouraged. Daily exercise and weight loss emphasized. (3) CAD in [place] artery Current Visit: Yes Status: Acute Patient reports a history of CAD, prior PCI. Currently, she is on Plavix, statin, beta maryam, and a standard therapy. Given time since last PCI, okay to change Plavix to low-dose aspirin. Of note, patient has chronic anemia, which seems stable. On Coumadin for hx of recurrent CVA. Patient denies recent or current chest pain or discomfort. TTE shows preserved LVEF, 60-65% with normal wall motion. No further inpt. recommendations; Cardiology will sign-off. Discussion w patient/family: The assessment and plan as outlined above was discussed with the patient and/or family members who expressed understanding and agreement. All questions were answered. Thank you for involving us in the care of your patient. Please call with any questions. The patient will be discussed and reviewed with Dr. Pena; changes to be made accordingly. Subjective Principal diagnosis: UTI, lightheadedness Interval history: Seen and examined. No new CV complaints overnight. No chest pain/discomfort reported. No syncope. Reports episode of dizziness this AM with PT from laying to standing; orthostatics positive. Objective Vital Signs, Last 4 Hours Temp Pulse Resp BP Pulse Ox 10/09/18 06:42 98.2 F 66 16 174/51 96 General: Conversant, Other (morbidly obese) HEENT: Atraumatic, Normocephaly Cardiac: Reg Rate and Rhythm, Normal S1 and S2 Lungs: Normal Breath Sounds Neuro: Alert and responsive Abdomen: Soft Skin: No rashes noted on visualized skin Musculoskeletal: No Chest Wall Tenderness Extremities: Other (large extremities, no significant pitting edema) Results 10/09/18 03:37 10/09/18 03:37 Lab Results 10/09/18 10/09/18 10/09/18 03:37 03:37 08:01 WBC 8.3 Hgb 8.2 L Hct 27.1 L Plt Count 212 INR 2.7 Sodium 142 Potassium 3.9 Chloride 110 H Carbon Dioxide 27 BUN 41 H Creatinine 1.59 H Glucose 148 H Calcium 9.0 Magnesium 1.9 Active Medications Acetaminophen (Tylenol) 500 mg PO TID PRN PRN Reason: Pain Stop: 04/08/19 15:50 Allopurinol (Zyloprim) 100 mg PO DAILY [facility] Stop: 04/09/19 09:01 Last Admin: 10/09/18 08:26 Dose: 100 mg Documented by: Amlodipine Besylate (Norvasc) 10 mg PO DAILY [facility]; Protocol Stop: 04/09/19 09:01 Last Admin: 10/09/18 08:26 Dose: 10 mg Documented by: Atorvastatin Calcium (Lipitor) 80 mg PO HS [facility] Stop: 04/08/19 21:01 Last Admin: 10/08/18 22:08 Dose: 80 mg Documented by: Carvedilol (Coreg) 50 mg PO BIDWM [facility]; Protocol Stop: 04/10/19 17:01 Carvedilol (Coreg) 25 mg PO ONCE ONE; Protocol Stop: 10/09/18 09:46 Clonidine HCl (Clonidine Hcl) 0.3 mg PO TID [facility] Stop: 04/08/19 21:01 Last Admin: 10/09/18 08:26 Dose: 0.3 mg Documented by: Clopidogrel Bisulfate (Plavix) 75 mg PO DAILY [facility] Stop: 04/09/19 09:01 Last Admin: 10/09/18 08:25 Dose: 75 mg Documented by: Dextrose/Water (Dextrose 50% (Syg)) 25 ml IVP AD PRN PRN Reason: Hypoglycemia Stop: 04/10/19 08:01 Fluticasone Propionate (Flonase) 50 mcg NS DAILY [facility]; Protocol Stop: 04/09/19 09:01 Last Admin: 10/09/18 08:27 Dose: 50 mcg Documented by: Glucagon (Glucagen) 1 mg IM ONCE PRN PRN Reason: Hypoglycemia Stop: 04/10/19 08:01 Glucose (Gluctose) 15 gm PO ONCE PRN PRN Reason: Hypoglycemia Stop: 04/10/19 08:01 Glucose (Gluctose) 30 gm PO ONCE PRN PRN Reason: Hypoglycemia Stop: 04/10/19 08:01 Guaifenesin (Mucinex) 600 mg PO BID PRN PRN Reason: Congestion Stop: 04/08/19 15:50 Hydralazine HCl (Hydralazine) 75 mg PO QID [facility] Stop: 04/10/19 09:01 Last Admin: 10/09/18 09:14 Dose: 75 mg Documented by: Ceftriaxone Sodium 1,000 mg/ (Sterile Water) 10 mls @ 600 mls/hr IVP DAILY [facility] Stop: 04/08/19 16:34 Last Admin: 10/09/18 08:25 Dose: 600 mls/hr Documented by: Dextrose (Dextrose 5%) 1,000 mls @ 100 mls/hr IVC .Q10H PRN PRN Reason: HYPOGLYCEMIA Stop: 04/10/19 08:01 Insulin Detemir (Levemir) 30 unit SQ QAM [facility] Stop: 04/09/19 09:01 Last Admin: 10/09/18 08:25 Dose: 30 unit Documented by: Insulin Detemir (Levemir) 17 unit SQ HS [facility] Stop: 04/08/19 21:01 Last Admin: 10/08/18 22:08 Dose: 17 unit Documented by: Lactobacillus Acidophilus/Rhamnosus (Culturelle) 1 each PO BID [facility] Stop: 04/08/19 21:01 Last Admin: 10/09/18 08:26 Dose: 1 each Documented by: Levothyroxine Sodium (Synthroid) 50 mcg PO 0630 [facility] Stop: 04/09/19 06:31 Last Admin: 10/09/18 05:16 Dose: 50 mcg Documented by: Liothyronine Sodium (Cytomel) 25 mcg PO DAILY [facility] Stop: 04/09/19 09:01 Last Admin: 10/09/18 09:14 Dose: 25 mcg Documented by: Lisinopril (Zestril) 40 mg PO DAILY [facility]; Protocol Stop: 04/09/19 09:01 Last Admin: 10/09/18 08:26 Dose: 40 mg Documented by: Montelukast Sodium (Singulair) 10 mg PO QPM [facility] Stop: 04/09/19 18:01 Last Admin: 10/08/18 17:26 Dose: 10 mg Documented by: Naloxone HCl (Narcan) 0.4 mg IVP Q2MPRN PRN PRN Reason: SEE COMMENTS Stop: 04/08/19 15:43 Ropinirole HCl (Requip) 0.5 mg PO HS [facility] Stop: 04/08/19 21:01 Last Admin: 10/08/18 22:07 Dose: 0.5 mg Documented by: Trazodone HCl (Trazodone) 50 mg PO HS [facility] Stop: 04/08/19 21:01 Last Admin: 10/08/18 22:06 Dose: 50 mg Documented by: Vitamin D (Vitamin D) 1,000 unit PO DAILY [facility] Stop: 04/09/19 09:01 Last Admin: 10/09/18 08:26 Dose: 1,000 unit Documented by: Warfarin Sodium (Coumadin Perpt) 1 each PO DAILY@1800 PRN; Protocol PRN Reason: SEE COMMENTS Stop: 04/10/19 18:01 Warfarin Sodium (Coumadin) 2 mg PO 1800 ONE; Protocol Stop: 10/09/18 18:01 - Imaging and Cardiology Echo: report reviewed - EKG Interpretation EKG results cardiology: personally reviewed Consult Discharge Plan - Plan Referrals: Aquilino Rivera DO [Primary Care Provider] - HAS-BLED Score - Score Hypertension: Uncontrolled,>160 mmhg systolic Stroke: Prior history of stroke Elderly: Age>65 years Medication usage predisposing to bleeding: Antiplatelet agents, NSAIDs Score: 4
--- NOTE | 2018-10-09 13:28 | Internal Med Progress Note ---
Hospitalist Progress Note - Encounter Date of Encounter: 10/09/18 Time of Encounter: 13:00 - Subjective Interval History: No acute events overnight - Exam Vitals: Temp Pulse Resp BP Pulse Ox 98.9 F 75 18 163/52 97 10/09/18 11:23 10/09/18 11:23 10/09/18 11:23 10/09/18 11:23 10/09/18 11:23 Exam: Gen. Morbidly obese elderly female.NAD CVS. S1 S2 WNL. Resp. CTAB Abd. 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 2+ pulses [employer]. GCs 15/15 - Assessment and Plan (1) Uncontrolled hypertension Current Visit: Yes Status: Acute Assessment and Plan: Patient is on clonidine, coreg, lisinorpil, hydralazine and amlodipine BP still in the 190s. Will increase dose of hydralazine and monitor BP. Increase creg to 50mg BID. Other antihypertensives at max doses Discharge to SNF (2) Urinary tract infection Current Visit: Yes Status: Acute Assessment and Plan: Pt comes in with vague symptoms of weakness and dizziness for a week. Will cover empirically for UTI with ceftriaxone. Obtain urine cultures. Urinalysis shows bacteria and WBC Continute Iv fluids. Obtain physical therapy (3) Near syncope Current Visit: Yes Status: Acute Assessment and Plan: Possibly 2/2 to dehydration, UTI and arrhythmia Continue fluids and antibiotics. Had non sustained v tach in ER. (4) Ventricular tachycardia Current Visit: Yes Status: Acute Assessment and Plan: She had a run of non sustained v tach in the ER. Discussed with cardiology , no acute intervention Continue beta blockers, monitor and correct electrolytes, IV fluid hydration Telemetry overnight showed no arrhythmia. Follow echo and troponins, cardiology on board (5) Hypothyroidism Current Visit: Yes Status: Chronic Assessment and Plan: Continue levothyroxine (6) CKD (chronic kidney disease) stage 3, GFR 30-59 ml/min Current Visit: Yes Status: Chronic Assessment and Plan: Continue IV fluids (7) Diabetes Current Visit: Yes Status: Acute Assessment and Plan: Continue insulin and monitor fingersticks (8) Atrial fibrillation Current Visit: Yes Status: Acute Assessment and Plan: Rate controlled. continue coreg and coumadin (9) DVT prophylaxis Current Visit: Yes Status: Acute Assessment and Plan: On coumadin - Time Spent with Patient Total time spent is greater than 50% in coordination of care (as documented) at patient's floor/unit and/or counseling patient: Internal Medicine: Result - Labs CBC & Chem 7: 10/09/18 03:37 10/09/18 03:37 Labs: Short CBC 10/09/18 Range/Units 03:37 WBC 8.3 (4.3-11.1) K/mcL Hgb 8.2 L (11.5-15.4) g/dL Hct 27.1 L (35.3-44.9) % Plt Count 212 (140-400) K/mcL Neutrophils # 5.5 (1.6-8.9) K/mcL BMP 10/09/18 03:37 Sodium 142 Potassium 3.9 Chloride 110 H Carbon Dioxide 27 BUN 41 H Creatinine 1.59 H Glucose 148 H Calcium 9.0 - ABG Interpretation ABG results: PT/INR, D-dimer PT 30.4 Seconds (9.4-12.1) H 10/09/18 08:01 - Impressions Impressions Echocardiogram 10/07/18 15:53 Impressions: LVEF 60-65%. Normal LV chamber size and function. Asymmetric hypertrophy of the basal septum. Mild left ventricular diastolic dysfunction. Grossly normal right ventricular structure and function. Mild aortic regurgitation. Unable to estimate RVSP due to lack of TR jet. Left Ventricular Wall Motion: Rest Echo Findings All wall segments showed normal motion. Findings: Study Quality * Technically sub-optimal due to poor echocardiographic windows. ECG Findings * Normal sinus rhythm. Left Ventricle * LVEF 60-65%. * Normal LV chamber size and function. * Asymmetric hypertrophy of the basal septum. * Mild left ventricular diastolic dysfunction. Right Ventricle * Grossly normal right ventricular structure and function. Left Atrium * Moderately dilated left atrium. Right Atrium * Normal right atrial size. Interatrial Septum * Interatrial septum not well evaluated. Aortic Valve * Aortic valve not well visualized. * Mild aortic regurgitation. * No aortic stenosis. Mitral Valve * Mild mitral annular calcification * No mitral stenosis. * No mitral regurgitation. Tricuspid Valve * Normal tricuspid valve structure and function. * No tricuspid regurgitation. * Unable to estimate RVSP due to lack of TR jet. Pulmonic Valve * Pulmonic valve not well visualized. * No pulmonic regurgitation. Aorta * Normally sized aortic root. Pericardium * The pericardium appears normal. IVC * Normal IVC dimensions and inspiratory collapse. Pulmonary Artery * Pulmonary artery not well visualized. Consult Discharge Plan - Plan Referrals: Aquilino Rivera, DO [Primary Care Provider] - (2) Urinary tract infection Qualifiers: Qualified Code(s): N39.0 - Urinary tract infection, site not specified (5) Hypothyroidism Qualifiers: Hypothyroidism type: unspecified Qualified Code(s): E03.9 - Hypothyroidism, unspecified (7) Diabetes Qualifiers: Qualified Code(s): E11.9 - Type 2 diabetes mellitus without complications (8) Atrial fibrillation Qualifiers: Qualified Code(s): I48.91 - Unspecified atrial fibrillation
[2018-10-09] MEDS ORDERED: Warfarin perPT PO PRN (18:00)
[2018-10-09] MEDS ORDERED: *HR* Warfarin 2 MG TABLET PO ONE (18:00)
[2018-10-09] MEDS: rOPINIRole 0.25 MG TABLET PO SCH (20:22)
[2018-10-09] MEDS: traZODone 50 MG TABLET PO SCH (20:23)
[2018-10-10 06:18] LABS: Basophils % 0.2 %; Eosinophils # 0.2 K/mcL (0.0-0.6); Eosinophils % 1.9 %; Hemoglobin 8.4 g/dL (11.5-15.4); Immature Granulocytes % 0.4 % (0-4); Lymphocytes # 0.7 K/mcL (0.6-4.6); Lymphocytes % 6.4 %; Mean Corpuscular HGB Conc 31.1 g/dL (31.6-35.5); Mean Corpuscular Hemoglobin 29.7 pg (28.0-33.3); Mean Corpuscular Volume 95.4 fL (83.0-100.0); Mean Platelet Volume 11.7 fL (9.4-12.4); Monocytes # 1.1 K/mcL (0.0-1.3); Monocytes % 10.2 %; Neutrophils # 8.5 K/mcL (1.6-8.9); Platelet Count 201 K/mcL (140-400); Red Blood Count 2.83 M/mcL (3.82-4.97); Red Cell Distribution Width 13.6 % (11.5-14.5); Segmented Neutrophils % 80.9 %; White Blood Count 10.5 K/mcL (4.3-11.1)
--- NOTE | 2018-10-10 06:24 | Electrocardiograph Report ---
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
[2018-10-10 06:27] LABS: INR 2.8; Prothrombin Time 31.9 Seconds (9.4-12.1)
[2018-10-10 06:33] LABS: Calcium 8.9 mg/dL (8.6-10.3); Magnesium 1.9 mg/dL (1.6-2.6); Phosphorous 3.7 mg/dL (2.7-4.5); Potassium 4.1 mEq/L (3.5-5.1)
--- NOTE | 2018-10-10 08:34 | Internal Med Progress Note ---
Hospitalist Progress Note - Encounter Date of Encounter: 10/10/18 Time of Encounter: 08:00 - Subjective Interval History: No acute events overnight - Exam Vitals: Temp Pulse Resp BP Pulse Ox 98.6 F 73 20 180/63 96 10/10/18 06:42 10/10/18 06:42 10/10/18 06:42 10/10/18 06:42 10/10/18 06:42 Exam: Gen. Morbidly obese elderly female. Mild resp distress CVS. S1 S2 WNL. Resp. diminished lung sounds Abd. 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 monitor creatinine CXR showed worsening vascular congestion (2) Uncontrolled hypertension Current Visit: Yes Status: Acute Assessment and Plan: Patient is on clonidine, coreg, lisinorpil, hydralazine and amlodipine BP still in the 190s. Will increase dose of hydralazine and monitor BP. Increase creg to 50mg BID. Other antihypertensives at max doses (3) Urinary tract infection Current Visit: Yes Status: Acute Assessment and Plan: Pt comes in with vague symptoms of weakness and dizziness for a week. Will cover empirically for UTI with ceftriaxone. Obtain urine cultures. Urinalysis shows bacteria and WBC Continute Iv fluids. Obtain physical therapy (4) Near syncope Current Visit: Yes Status: Acute Assessment and Plan: Possibly 2/2 to dehydration, UTI and arrhythmia Continue fluids and antibiotics. Had non sustained v tach in ER. (5) Ventricular tachycardia Current Visit: Yes Status: Acute Assessment and Plan: She had a run of non sustained v tach in the ER. Discussed with cardiology , no acute intervention Continue beta blockers, monitor and correct electrolytes, IV fluid hydration Telemetry overnight showed no arrhythmia. Follow echo and troponins, cardiology on board (6) Hypothyroidism Current Visit: Yes Status: Chronic Assessment and Plan: Continue levothyroxine (7) CKD (chronic kidney disease) stage 3, GFR 30-59 ml/min Current Visit: Yes Status: Chronic Assessment and Plan: Continue IV fluids (8) Diabetes Current Visit: Yes Status: Acute Assessment and Plan: Continue insulin and monitor fingersticks (9) Atrial fibrillation Current Visit: Yes Status: Acute Assessment and Plan: Rate controlled. continue coreg and coumadin (10) DVT prophylaxis Current Visit: Yes Status: Acute Assessment and Plan: On coumadin - Time Spent with Patient Total time spent is greater than 50% in coordination of care (as documented) at patient's floor/unit and/or counseling patient: Internal Medicine: Result - Labs CBC & Chem 7: 10/10/18 05:55 10/10/18 05:55 Labs: Short CBC 10/10/18 Range/Units 05:55 WBC 10.5 (4.3-11.1) K/mcL Hgb 8.4 L (11.5-15.4) g/dL Hct 27.0 L (35.3-44.9) % Plt Count 201 (140-400) K/mcL Neutrophils # 8.5 (1.6-8.9) K/mcL BMP 10/10/18 05:55 Sodium 140 Potassium 4.1 Chloride 105 Carbon Dioxide 28 BUN 44 H Creatinine 1.55 H Glucose 183 H Calcium 8.9 - ABG Interpretation ABG results: PT/INR, D-dimer PT 31.9 Seconds (9.4-12.1) H 10/10/18 05:55 Consult Discharge Plan - Plan Referrals: Aquilino Rivera, [Primary Care Provider] - (3) Urinary tract infection Qualifiers: Qualified Code(s): N39.0 - Urinary tract infection, site not specified (6) Hypothyroidism Qualifiers: Hypothyroidism type: unspecified Qualified Code(s): E03.9 - Hypothyroidism, unspecified (8) Diabetes Qualifiers: Qualified Code(s): E11.9 - Type 2 diabetes mellitus without complications (9) Atrial fibrillation Qualifiers: Qualified Code(s): I48.91 - Unspecified atrial fibrillation
[2018-10-10] MEDS: hydrALAZINE 25 MG TABLET PO SCH ×4 (09:33→20:58)
[2018-10-10] MEDS: Cholecalciferol (D-3) 1,000 UNIT (25MCG) TABLET PO SCH (09:34)
[2018-10-10] MEDS: cefTRIAXone 1,000 MG in Water for inj. (sterile) 10 ML IVP SCH (09:34)
[2018-10-10] MEDS: Lisinopril 20 MG TABLET PO SCH (09:34)
[2018-10-10] MEDS: cloNIDine HCl 0.1 MG TABLET PO SCH ×3 (09:34→20:35)
[2018-10-10] MEDS: Lactobacillus 1 EACH CAP.SPRINK PO SCH ×2 (09:34→20:37)
[2018-10-10] MEDS: amLODIPine 5 MG TABLET PO SCH (09:34)
[2018-10-10] MEDS: Fluticasone Propionate Nasal 50 MCG/SPRAY BOTTLE NS SCH (09:35)
[2018-10-10] MEDS: Ondansetron 4 MG/2 ML VIAL IVP PRN ×2 (11:35→19:05)
[2018-10-10] MEDS: Insulin DETEMIR 100 UNIT/ML X5UNITS SQ SCH ×2 (11:36→20:56)
[2018-10-10] MEDS: Furosemide 20 MG/2 ML VIAL IVP SCH ×2 (13:37→19:05)
[2018-10-10] MEDS ORDERED: *HR* Warfarin 2 MG TABLET PO ONE (18:00)
[2018-10-10] MEDS: traZODone 50 MG TABLET PO SCH (20:58)
[2018-10-10] MEDS: rOPINIRole 0.25 MG TABLET PO SCH (20:58)
--- NOTE | 2018-10-11 08:16 | Internal Med Progress Note ---
Hospitalist Progress Note - Encounter Date of Encounter: 10/11/18 Time of Encounter: 13:30 - Subjective Interval History: Patient seen and examined today. She is not feeling well. She denies any burning urination. She denies any diarrhea or abdominal pain. There is no chest pain or shortness of breath. She does have a cough for the last few days with colored sputum.. - Exam Vitals: Temp Pulse Resp BP Pulse Ox 99.5 F 73 18 158/62 97 10/11/18 06:43 10/11/18 06:43 10/11/18 06:43 10/11/18 06:43 10/11/18 06:43 Exam: Gen. Morbidly obese elderly female. No resp distress CVS. S1 S2 WNL. Resp. diminished lung sounds Abd. Soft, NT, ND, +BS. Negative CVA tenderness. Ext. trace edema. 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 Pt had worsening shortness of breath this am s/p hydration for NITISH Will start on gentle diuresis with lasix 20mg IV BID. monitor creatinine. (2) Uncontrolled hypertension Current Visit: Yes Status: Acute Assessment and Plan: Better controlled. Patient is on clonidine, coreg, lisinorpil, hydralazine and amlodipine monitor BP. Increased creg to 50mg BID. (3) Urinary tract infection Current Visit: Yes Status: Acute Assessment and Plan: Patient currently on ceftriaxone. Urine culture showed mixed chaya. Patient still has leukocytosis and would like to repeat the urine culture and a urine analysis. Would consider CT of the abdomen if the urinalysis still shows pyuria. (4) Near syncope Current Visit: Yes Status: Acute Assessment and Plan: Possibly 2/2 to dehydration, UTI and arrhythmia Continue fluids and antibiotics. Had non sustained v tach in ER. (5) Ventricular tachycardia Current Visit: Yes Status: Acute Assessment and Plan: She had a run of non sustained v tach in the ER. Discussed with cardiology , no acute intervention Continue beta blockers, monitor and correct electrolytes, IV fluid hydration Telemetry overnight showed no arrhythmia. Follow echo and troponins, cardiology on board (6) Hypothyroidism Current Visit: Yes Status: Chronic Assessment and Plan: Continue levothyroxine (7) CKD (chronic kidney disease) stage 3, GFR 30-59 ml/min Current Visit: Yes Status: Chronic Assessment and Plan: Continue IV fluids (8) Diabetes Current Visit: Yes Status: Acute Assessment and Plan: Continue insulin and monitor fingersticks (9) Atrial fibrillation Current Visit: Yes Status: Acute Assessment and Plan: Rate controlled. continue coreg and coumadin (10) DVT prophylaxis Current Visit: Yes Status: Acute Assessment and Plan: On coumadin - Summary of Assessment and Plan Summary of Assessment and Plan: (1) Acute on chronic diastolic (congestive) heart failure Current Visit: Yes Status: Acute Assessment and Plan: Pt had worsening shortness of breath this am s/p hydration for NITISH Will start on gentle diuresis with lasix 20mg IV BID. monitor creatinine CXR showed worsening vascular congestion (2) Uncontrolled hypertension Current Visit: Yes Status: Acute Assessment and Plan: Patient is on clonidine, coreg, lisinorpil, hydralazine and amlodipine BP still in the 190s. Will increase dose of hydralazine and monitor BP. Increase creg to 50mg BID. Other antihypertensives at max doses (3) Urinary tract infection Current Visit: Yes Status: Acute Assessment and Plan: Pt comes in with vague symptoms of weakness and dizziness for a week. Will cover empirically for UTI with ceftriaxone. Obtain urine cultures. Urinalysis shows bacteria and WBC Continute Iv fluids. Obtain physical therapy (4) Near syncope Current Visit: Yes Status: Acute Assessment and Plan: Possibly 2/2 to dehydration, UTI and arrhythmia Continue fluids and antibiotics. Had non sustained v tach in ER. (5) Ventricular tachycardia Current Visit: Yes Status: Acute Assessment and Plan: She had a run of non sustained v tach in the ER. Discussed with cardiology , no acute intervention Continue beta blockers, monitor and correct electrolytes, IV fluid hydration Telemetry overnight showed no arrhythmia. Follow echo and troponins, cardiology on board (6) Hypothyroidism Current Visit: Yes Status: Chronic Assessment and Plan: Continue levothyroxine (7) CKD (chronic kidney disease) stage 3, GFR 30-59 ml/min Current Visit: Yes Status: Chronic Assessment and Plan: Continue IV fluids (8) Diabetes Current Visit: Yes Status: Acute Assessment and Plan: Continue insulin and monitor fingersticks (9) Atrial fibrillation Current Visit: Yes Status: Acute Assessment and Plan: Rate controlled. continue coreg and coumadin (10) DVT prophylaxis Current Visit: Yes Status: Acute Assessment and Plan: On coumadin - Time Spent with Patient Total time spent is greater than 50% in coordination of care (as documented) at patient's floor/unit and/or counseling patient: 25 - 35 minutes Plan of Care Discussed with: patient Internal Medicine: Result - Labs CBC & Chem 7: 10/12/18 04:10 10/12/18 04:10 - ABG Interpretation ABG results: PT/INR, D-dimer PT 31.9 Seconds (9.4-12.1) H 10/10/18 05:55 - Impressions Impressions Chest X-Ray 10/10/18 08:27 IMPRESSION: 1. Increased pulmonary vascular congestion. 2. Low lung volumes. D/ / 10/10/2018 13:01:40 Gary Lopez MD / Emerald Mckenna Interpreting Provider: Gary Lopez MD Consult Discharge Plan - Plan Referrals: Aquilino Rivera DO [Primary Care Provider] -
[2018-10-11] MEDS: Furosemide 20 MG/2 ML VIAL IVP SCH ×2 (08:44→16:03)
[2018-10-11] MEDS: amLODIPine 5 MG TABLET PO SCH (08:44)
[2018-10-11] MEDS: Cholecalciferol (D-3) 1,000 UNIT (25MCG) TABLET PO SCH (08:44)
[2018-10-11] MEDS: cloNIDine HCl 0.1 MG TABLET PO SCH ×3 (08:45→21:51)
[2018-10-11] MEDS: Lactobacillus 1 EACH CAP.SPRINK PO SCH ×2 (08:45→21:50)
[2018-10-11] MEDS: Lisinopril 20 MG TABLET PO SCH (08:46)
[2018-10-11] MEDS: cefTRIAXone 1,000 MG in Water for inj. (sterile) 10 ML IVP SCH (08:49)
[2018-10-11] MEDS: Insulin DETEMIR 100 UNIT/ML X5UNITS SQ SCH ×2 (08:53→21:51)
[2018-10-11] MEDS: hydrALAZINE 25 MG TABLET PO SCH ×4 (08:54→21:50)
[2018-10-11] MEDS: Fluticasone Propionate Nasal 50 MCG/SPRAY BOTTLE NS SCH (08:55)
[2018-10-11 09:20] LABS: Basophils % 0.1 %; Eosinophils # 0.1 K/mcL (0.0-0.6); Eosinophils % 0.4 %; Hematocrit 28.2 % (35.3-44.9); Hemoglobin 8.6 g/dL (11.5-15.4); Immature Granulocytes % 0.7 % (0-4); Lymphocytes # 0.7 K/mcL (0.6-4.6); Lymphocytes % 5.2 %; Mean Corpuscular HGB Conc 30.5 g/dL (31.6-35.5); Mean Corpuscular Hemoglobin 28.9 pg (28.0-33.3); Mean Corpuscular Volume 94.6 fL (83.0-100.0); Mean Platelet Volume 11.3 fL (9.4-12.4); Monocytes # 1.2 K/mcL (0.0-1.3); Monocytes % 8.5 %; Neutrophils # 11.7 K/mcL (1.6-8.9); Platelet Count 195 K/mcL (140-400); Red Blood Count 2.98 M/mcL (3.82-4.97); Red Cell Distribution Width 13.7 % (11.5-14.5); Segmented Neutrophils % 85.1 %; White Blood Count 13.7 K/mcL (4.3-11.1)
[2018-10-11 09:30] LABS: INR 2.2; Prothrombin Time 24.8 Seconds (9.4-12.1)
[2018-10-11 09:36] LABS: Magnesium 1.8 mg/dL (1.6-2.6); Phosphorous 3.4 mg/dL (2.7-4.5)
[2018-10-11] MEDS ORDERED: *HR* Warfarin 4 MG TABLET PO ONE (18:00)
[2018-10-11] MEDS: traZODone 50 MG TABLET PO SCH (21:51)
[2018-10-11] MEDS: rOPINIRole 0.25 MG TABLET PO SCH (21:51)
[2018-10-12 04:46] LABS: Basophils % 0.1 %; Eosinophils # 0.1 K/mcL (0.0-0.6); Eosinophils % 0.8 %; Hematocrit 24.1 % (35.3-44.9); Hemoglobin 7.6 g/dL (11.5-15.4); Immature Granulocytes % 0.4 % (0-4); Lymphocytes # 0.8 K/mcL (0.6-4.6); Lymphocytes % 6.7 %; Mean Corpuscular HGB Conc 31.5 g/dL (31.6-35.5); Mean Corpuscular Hemoglobin 29.7 pg (28.0-33.3); Mean Corpuscular Volume 94.1 fL (83.0-100.0); Mean Platelet Volume 12.1 fL (9.4-12.4); Monocytes # 1.4 K/mcL (0.0-1.3); Monocytes % 12.6 %; Platelet Count 177 K/mcL (140-400); Red Blood Count 2.56 M/mcL (3.82-4.97); Red Cell Distribution Width 13.6 % (11.5-14.5); Segmented Neutrophils % 79.4 %; White Blood Count 11.3 K/mcL (4.3-11.1)
[2018-10-12 04:55] LABS: INR 2.5; Prothrombin Time 28.7 Seconds (9.4-12.1)
[2018-10-12 05:05] LABS: Calcium 8.4 mg/dL (8.6-10.3); Magnesium 1.9 mg/dL (1.6-2.6); Phosphorous 3.3 mg/dL (2.7-4.5); Potassium 3.8 mEq/L (3.5-5.1)
[2018-10-12] MEDS: Lactobacillus 1 EACH CAP.SPRINK PO SCH ×2 (09:06→21:48)
[2018-10-12] MEDS: Lisinopril 20 MG TABLET PO SCH (09:06)
[2018-10-12] MEDS: Cholecalciferol (D-3) 1,000 UNIT (25MCG) TABLET PO SCH (09:06)
[2018-10-12] MEDS: hydrALAZINE 25 MG TABLET PO SCH ×4 (09:07→21:48)
[2018-10-12] MEDS: cloNIDine HCl 0.1 MG TABLET PO SCH ×3 (09:07→21:48)
[2018-10-12] MEDS: amLODIPine 5 MG TABLET PO SCH (09:07)
[2018-10-12] MEDS: cefTRIAXone 1,000 MG in Water for inj. (sterile) 10 ML IVP SCH (09:08)
[2018-10-12] MEDS: Fluticasone Propionate Nasal 50 MCG/SPRAY BOTTLE NS SCH (09:10)
[2018-10-12] MEDS: Furosemide 20 MG/2 ML VIAL IVP SCH ×2 (09:10→17:26)
[2018-10-12] MEDS: Insulin DETEMIR 100 UNIT/ML X5UNITS SQ SCH ×2 (09:30→21:48)
[2018-10-12] MEDS ORDERED: cefTRIAXone 1,000 MG in Water for inj. (sterile) 10 ML IVP ONE (16:40)
--- NOTE | 2018-10-12 17:11 | Internal Med Progress Note ---
Hospitalist Progress Note - Encounter Date of Encounter: 10/12/18 Time of Encounter: 11:00 - Subjective Interval History: Patient seen and examined today. She feels a little better. Leukocytosis has improved but white count is still high. She is not able to provide a urine sample so far due to contamination with pieces. I will go ahead and order the CT of the abdomen. - Exam Vitals: Temp Pulse Resp BP Pulse Ox 99.1 F 65 22 179/53 98 10/12/18 15:33 10/12/18 15:33 10/12/18 15:33 10/12/18 15:33 10/12/18 15:33 Exam: Gen. Morbidly obese elderly female. No resp distress CVS. S1 S2 WNL. Resp. diminished lung sounds Abd. Soft, NT, ND, +BS. Negative CVA tenderness. 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 Pt had worsening shortness of breath this am s/p hydration for NITISH Will start on gentle diuresis with lasix 20mg IV BID. monitor creatinine. (2) Uncontrolled hypertension Current Visit: Yes Status: Acute Assessment and Plan: Better controlled. Patient is on clonidine, coreg, lisinorpil, hydralazine and amlodipine monitor BP. Increased creg to 50mg BID. (3) Urinary tract infection Current Visit: Yes Status: Acute Assessment and Plan: Patient currently on ceftriaxone. Urine culture showed mixed chaya. Patient s till has leukocytosis and would like to repeat the urine culture and a urine analysis. Would consider CT of the abdomen if the urinalysis still shows pyuria. (4) Acute Diverticulitis Current Visit: Yes Status: Acute Assessment and Plan: Increase and continue ceftriaxone at 2 g IV to 24 hours. Add metronidazole IV. Monitor CBC.. (5) Ventricular tachycardia Current Visit: Yes Status: Acute Assessment and Plan: She had a run of non sustained v tach in the ER. Discussed with cardiology , no acute intervention Continue beta blockers, monitor and correct electrolytes, IV fluid hydration Telemetry overnight showed no arrhythmia. Follow echo and troponins, cardiology on board (6) Hypothyroidism Current Visit: Yes Status: Chronic Assessment and Plan: Continue levothyroxine (7) CKD (chronic kidney disease) stage 3, GFR 30-59 ml/min Current Visit: Yes Status: Chronic Assessment and Plan: Continue IV fluids (8) Diabetes Current Visit: Yes Status: Acute Assessment and Plan: Continue insulin and monitor fingersticks (9) Atrial fibrillation Current Visit: Yes Status: Acute Assessment and Plan: Rate controlled. continue coreg and coumadin (10) DVT prophylaxis Current Visit: Yes Status: Acute Assessment and Plan: On coumadin - Time Spent with Patient Total time spent is greater than 50% in coordination of care (as documented) at patient's floor/unit and/or counseling patient: Internal Medicine: Result - Labs CBC & Chem 7: 10/12/18 04:10 10/12/18 04:10 Labs: Short CBC 10/12/18 Range/Units 04:10 WBC 11.3 H (4.3-11.1) K/mcL Hgb 7.6 L (11.5-15.4) g/dL Hct 24.1 L (35.3-44.9) % Plt Count 177 (140-400) K/mcL Neutrophils # 9.0 H (1.6-8.9) K/mcL BMP 10/12/18 04:10 Sodium 140 Potassium 3.8 Chloride 107 Carbon Dioxide 27 BUN 53 H Creatinine 1.69 H Glucose 160 H Calcium 8.4 L - ABG Interpretation ABG results: PT/INR, D-dimer PT 28.7 Seconds (9.4-12.1) H 10/12/18 04:10 - Impressions Impressions Chest X-Ray 10/11/18 15:30 IMPRESSION: Mild central pulmonary edema and bilateral pleural effusions with cardiomegaly suggesting CHF. D/ / Brenton Busch MD / Brenton Busch MD Interpreting Provider: Brenton Busch MD Abdomen/Pelvis CT 10/12/18 00:00 IMPRESSION: No evidence of acute obstructive uropathy. No evidence of hydronephrosis. No specific evidence of pyelonephritis. Mild left perinephric asymmetric fat stranding is stable since 2018 examination. Extensive diverticulosis of the sigmoid colon with mild wall thickening and surrounding inflammatory changes suggesting mild acute diverticulitis. No abscess or free air. Inflammatory fluid noted in the left pelvis and left lower quadrant and also in the bilateral retroperitoneum. Bilateral pleural effusions with bibasilar atelectasis. D/ / 10/12/2018 16:57:42 Brenton Busch MD / donato Interpreting Provider: Brenton Busch MD Consult Discharge Plan - Plan Referrals: Aquilino Rivera DO [Primary Care Provider] -
[2018-10-12] MEDS: MetroNIDAZOLE 500 MG/100 ML 500 MG/100 ML BAG IVPB SCH ×2 (17:26→23:44)
[2018-10-12] MEDS ORDERED: *HR* Warfarin 2 MG TABLET PO ONE (18:00)
[2018-10-12] MEDS ORDERED: *HR* Warfarin 4 MG TABLET PO ONE (18:00)
[2018-10-12 18:08] LABS: Bilirubin,Urine Negative (Negative); Blood,Urine Negative (Negative); Clarity,Urine Cloudy (Clear); Color,Urine Yellow (Yellow); Glucose,Urine (UA) Normal (Normal); Ketones,Urine Negative (Negative); Leukocyte Esterase,Urine Large (Negative); Nitrite,Urine Negative (Negative); PH,Urine 5.5 pH Units (5.0-8.0); Protein,Urine 100 mg/dL (Neg-Trace); Specific Gravity,Urine 1.016 (1.010-1.025); Urobilinogen,Urine Normal (Normal)
[2018-10-12] MEDS: traZODone 50 MG TABLET PO SCH (21:48)
[2018-10-12] MEDS: rOPINIRole 0.25 MG TABLET PO SCH (21:48)
[2018-10-13 05:02] LABS: Basophils % 0.1 %; Eosinophils # 0.3 K/mcL (0.0-0.6); Eosinophils % 2.7 %; Hematocrit 24.7 % (35.3-44.9); Hemoglobin 7.8 g/dL (11.5-15.4); Immature Granulocytes % 0.6 % (0-4); Lymphocytes # 0.9 K/mcL (0.6-4.6); Lymphocytes % 9.2 %; Mean Corpuscular HGB Conc 31.6 g/dL (31.6-35.5); Mean Corpuscular Hemoglobin 29.7 pg (28.0-33.3); Mean Corpuscular Volume 93.9 fL (83.0-100.0); Mean Platelet Volume 11.5 fL (9.4-12.4); Monocytes # 1.3 K/mcL (0.0-1.3); Monocytes % 12.6 %; Neutrophils # 7.5 K/mcL (1.6-8.9); Platelet Count 188 K/mcL (140-400); Red Blood Count 2.63 M/mcL (3.82-4.97); Red Cell Distribution Width 13.5 % (11.5-14.5); Segmented Neutrophils % 74.8 %; White Blood Count 10.1 K/mcL (4.3-11.1)
[2018-10-13 05:19] LABS: Prothrombin Time 33.9 Seconds (9.4-12.1)
[2018-10-13 05:21] LABS: Calcium 8.6 mg/dL (8.6-10.3); Magnesium 1.9 mg/dL (1.6-2.6); Phosphorous 3.3 mg/dL (2.7-4.5); Potassium 3.3 mEq/L (3.5-5.1)
[2018-10-13] MEDS: MetroNIDAZOLE 500 MG/100 ML 500 MG/100 ML BAG IVPB SCH ×2 (06:21→11:08)
[2018-10-13] MEDS: Furosemide 20 MG/2 ML VIAL IVP SCH (07:43)
[2018-10-13] MEDS: Lisinopril 20 MG TABLET PO SCH (07:43)
[2018-10-13] MEDS: Fluticasone Propionate Nasal 50 MCG/SPRAY BOTTLE NS SCH (07:43)
[2018-10-13] MEDS: hydrALAZINE 25 MG TABLET PO SCH ×2 (07:44→12:33)
[2018-10-13] MEDS: cloNIDine HCl 0.1 MG TABLET PO SCH (07:44)
[2018-10-13] MEDS: Cholecalciferol (D-3) 1,000 UNIT (25MCG) TABLET PO SCH (07:44)
[2018-10-13] MEDS: Lactobacillus 1 EACH CAP.SPRINK PO SCH (07:44)
[2018-10-13] MEDS: amLODIPine 5 MG TABLET PO SCH (07:44)
[2018-10-13] MEDS: Insulin DETEMIR 100 UNIT/ML X5UNITS SQ SCH (07:52)
[2018-10-13] MEDS ORDERED: cefTRIAXone 2,000 MG in 0.9 % Sodium Chloride Mini Bag 100 ML IVPB SCH (09:00)
[2018-10-13 11:07] VITALS: BP 160/65
[2018-10-13] MEDS: Ondansetron 4 MG/2 ML VIAL IVP PRN (11:08)
--- NOTE | 2018-10-13 11:13 | Discharge Summary ---
- NOTES TO OUTPATIENT PROVIDER Notes to Outpatient Provider: Mild acute diverticulits and UTI. Orders not resulted at time of discharge: Pending orders 10/11/18 17:40 Culture,Urine [RM] Stat Date of Encounter: 10/13/18 Time of Encounter: 09:45 - Discharge Diagnosis (1) Urinary tract infection Priority: Primary Status: Acute Qualifiers: Urinary tract infection type: acute cystitis Qualified Code(s): N30.00 - Acute cystitis without hematuria (2) Hypothyroidism Priority: Secondary Status: Chronic Qualifiers: Hypothyroidism type: unspecified Qualified Code(s): E03.9 - Hypothyroidism, unspecified (3) CKD (chronic kidney disease) stage 3, GFR 30-59 ml/min Priority: Secondary Status: Chronic (4) Ventricular tachycardia Priority: Primary Status: Resolved (5) Near syncope Priority: Primary Status: Acute (6) Uncontrolled hypertension Priority: Primary Status: Acute (7) Diabetes Priority: Secondary Status: Chronic Qualifiers: Diabetes mellitus type: type 2 Qualified Code(s): E11.9 - Type 2 diabetes mellitus without complications (8) Atrial fibrillation Priority: Secondary Status: Chronic Qualifiers: Qualified Code(s): I48.91 - Unspecified atrial fibrillation (9) Acute on chronic diastolic (congestive) heart failure Priority: Primary Status: Acute Hospital course: History of present illness: Ms. Lala is a 77 year old female with pmh of diabetes, hypertension, CAD, CVA presenting with complaints of weakness and fatigue of about a week's duration. Patient says she has been feeling dizzy like she is going to pass out for the past week and symptoms have gotten worse in the last 24hrs and that's why she was sent to the hospital from assisted living. She says the dizziness is particularly after activity and she felt fatigued after walking from the cafeteria home. She denies any fevers, chill,abdominal pain, coughing or any other acute symptoms. She also denies any palpitations In the ER, she had a run of v tach which was non sustained and also had a urinalysis showing multiple WBC and moderate bacteria and she is being admitted for further management Hospital Course: Patient was admitted and treated with IV ceftriaxone as a UTI. She seemed to improve initially but then had onset of leukocytosis as high as 13.7 K. The urine culture was inconclusive. The patient did not feel well. An abdominal CT was performed and showed mild acute diverticulitis. The patient was started on IV Flagyl in addition to IV ceftriaxone and improved. The patient was also treated for acute on chronic diastolic congestive heart failure, uncontrolled hypertension and a run of nonsustained V. tach. For chronic conditions her chronic medications were continued and titrated as needed. Her A. fib remained stable and she was continued on Coreg and Coumadin. Once patient was stable and improved, she was discharged on a regimen of Omnicef and metronidazole. Discharge discussed with: patient, social work - Time Spent with Patient Total time spent providing and/or coordinating discharge services: - Discharge Medications Prescriptions: New metroNIDAZOLE [Metronidazole] 500 mg PO TID #27 tablet Cefdinir [Omnicef] 300 mg PO BID 9 Days #18 capsule No Action Ropinirole HCl [Requip] 0.5 mg PO HS Insulin Glargine,Hum.rec.anlog [Lantus Solostar] 17 unit SQ HS Furosemide [Lasix] 40 mg PO BID 30 Days tab Levothyroxine Sodium [Levoxyl] 50 mcg PO DAILY Montelukast [Singulair] 10 mg PO DAILY Gabapentin [Neurontin] 100 mg PO TID hydrALAZINE [HydrALAZINE] 75 mg PO QID Liothyronine Sodium [Cytomel] 25 mcg PO DAILY Insulin LISPRO [Humalog Kwikpen U-100] 10 unit SQ TID Acetaminophen [Pain Reliever] 500 mg PO TID PRN PRN Reason: Pain Fluticasone Propionate Nasal [Flonase] 1 spr NS DAILY Guaifenesin [Mucinex] 600 mg PO BID PRN PRN Reason: Congestion Insulin Glargine,Hum.rec.anlog [Lantus Solostar] 30 unit SQ QAM Lactobacillus Acidophilus [Acidophilus] 1 cap PO BID Ondansetron ODT [Zofran ODT] 4 mg SL Q6HR PRN #10 tab.rapdis PRN Reason: Nausea And Vomiting Albuterol Sulfate [Proair Hfa] 2 puff IH Q6H PRN PRN Reason: Shortness Of Breath Amlodipine Besylate 10 mg PO DAILY Atorvastatin Calcium [Lipitor] 80 mg PO DAILY Carvedilol [Coreg] 25 mg PO BID Celecoxib [Celebrex] 200 mg PO DAILY Cholecalciferol (D-3) [Vitamin D] 1,000 unit PO DAILY cloNIDine HCl [Clonidine HCl] 0.3 mg PO TID Clopidogrel Bisulfate [Plavix] 75 mg PO DAILY HYDROcodone/Acet 5/325 mg [[place] 5-325 mg] 1 tab PO Q6H PRN PRN Reason: Pain Lisinopril [Zestril] 40 mg PO DAILY Nitroglycerin [Nitrostat] 0.4 mg SL Q5MIN PRN MDD 3x PRN Reason: Chest Pain Potassium Chloride [Klor-Con 10] 10 meq PO DAILY traZODone [TraZODone] 50 mg PO 2100 Warfarin [Coumadin] 2 mg PO MOWEFR Warfarin [Coumadin] 4 mg PO SUTUTHSA Magnesium Oxide [Magnesium] 400 mg PO DAILY Allopurinol [Zyloprim 100 MG] 100 mg PO DAILY #30 tablet Loratadine [Allergy Relief] 10 mg PO DAILY PRN #0 PRN Reason: Allergy Symptoms Home Medications: Magnesium Oxide [Magnesium] 400 mg PO DAILY 11/05/14 [History] Insulin Glargine,Hum.rec.anlog [Lantus Solostar] 17 unit SQ HS 01/09/15 [History] Ropinirole HCl [Requip] 0.5 mg PO HS 01/09/15 [History] Furosemide [Lasix] 40 mg PO BID 30 Days tab 01/14/15 [Rx] Acetaminophen [Pain Reliever] 500 mg PO TID PRN 06/06/17 [History] Fluticasone Propionate Nasal [Flonase] 1 spr NS DAILY 06/06/17 [History] Gabapentin [Neurontin] 100 mg PO TID 06/06/17 [History] Guaifenesin [Mucinex] 600 mg PO BID PRN 06/06/17 [History] Insulin Glargine,Hum.rec.anlog [Lantus Solostar] 30 unit SQ QAM 06/06/17 [History] Insulin LISPRO [Humalog Kwikpen U-100] 10 unit SQ TID 06/06/17 [History] Lactobacillus Acidophilus [Acidophilus] 1 cap PO BID 06/06/17 [History] Levothyroxine Sodium [Levoxyl] 50 mcg PO DAILY 06/06/17 [History] Liothyronine Sodium [Cytomel] 25 mcg PO DAILY 06/06/17 [History] Montelukast [Singulair] 10 mg PO DAILY 06/06/17 [History] hydrALAZINE [HydrALAZINE] 75 mg PO QID 06/06/17 [History] Allopurinol [Zyloprim 100 MG] 100 mg PO DAILY #30 tablet 06/16/17 [Rx] Loratadine [Allergy Relief] 10 mg PO DAILY PRN #0 06/16/17 [Rx] Ondansetron ODT [Zofran ODT] 4 mg SL Q6HR PRN #10 tab.rapdis 02/14/18 [Rx] Albuterol Sulfate [Proair Hfa] 2 puff IH Q6H PRN 10/08/18 [History] Amlodipine Besylate 10 mg PO DAILY 10/08/18 [History] Atorvastatin Calcium [Lipitor] 80 mg PO DAILY 10/08/18 [History] Carvedilol [Coreg] 25 mg PO BID 10/08/18 [History] Celecoxib [Celebrex] 200 mg PO DAILY 10/08/18 [History] Cholecalciferol (D-3) [Vitamin D] 1,000 unit PO DAILY 10/08/18 [History] Clopidogrel Bisulfate [Plavix] 75 mg PO DAILY 10/08/18 [History] HYDROcodone/Acet 5/325 mg [[place] 5-325 mg] 1 tab PO Q6H PRN 10/08/18 [History] Lisinopril [Zestril] 40 mg PO DAILY 10/08/18 [History] Nitroglycerin [Nitrostat] 0.4 mg SL Q5MIN PRN MDD 3x 10/08/18 [History] Potassium Chloride [Klor-Con 10] 10 meq PO DAILY 10/08/18 [History] Warfarin [Coumadin] 2 mg PO MOWEFR 10/08/18 [History] Warfarin [Coumadin] 4 mg PO SUTUTHSA 10/08/18 [History] cloNIDine HCl [Clonidine HCl] 0.3 mg PO TID 10/08/18 [History] traZODone [TraZODone] 50 mg PO 2100 10/08/18 [History] Cefdinir [Omnicef] 300 mg PO BID 9 Days #18 capsule 10/13/18 [Rx] metroNIDAZOLE [Metronidazole] 500 mg PO TID #27 tablet 10/13/18 [Rx] Allergies/Adverse Reactions: Allergy/AdvReac Type Severity Reaction Status Date / Time codeine Allergy Congested Verified 11/27/16 06:45 Penicillins [PCN] AdvReac Congested Verified 11/27/16 06:45 tape AdvReac Itching Uncoded 11/27/16 06:45 Date of admission: 10/08/18 11:45 Primary care physician: Aquilino Rivera DO Consults: 10/07/18 13:36 Consult to Cardiology [CONS] Stat Comment: Consulting Provider: Cardiology Julianne Reason for Consult: V-tach Call Completed: Yes 10/08/18 10:58 Consult to Occupational Therapy [CONS] Routine Comment: Evaluate, develop and implement POC Reason for Consult: weakness Does patient have active BEDREST order?: No Is patient medically & hemodynamically stable?: Yes Patient assessed for mobility or mobilized this visit?: No Consult to Physical Therapy [CONS] Routine Comment: Evaluate, develop and implement POC Reason for Consult: weakness Does patient have active BEDREST order?: No Is patient medically & hemodynamically stable?: Yes Patient assessed for mobility or mobilized this visit?: No 10/09/18 15:36 Consult to Export Documents Clerk [CONS] Routine Reason for SW Consult: pt needs ECF 10/10/18 18:54 Consult to Speech Therapy [CONS] Routine Comment: Evaluate, develop and implement POC Reason for Consult: Coughing and choking on food. Call Completed: No Discharging clinician: Sergio Glynn Anticipated date of discharge: 10/14/18 - Constitutional Vitals: Temp Pulse Resp BP Pulse Ox 98.7 F 65 16 160/65 99 10/13/18 11:06 10/13/18 11:06 10/13/18 11:06 10/13/18 11:06 10/13/18 11:06 Exam: Patient lying in bed in no acute distress. - Head Head exam: Present: atraumatic, normocephalic - Eye Eye exam: Present: PERRL, conjuntiva pink, sclera anicteric Pupils: Present: PERRL - Neck Neck exam general surgery: Present: supple, trachea midline. Absent: lymphadenopathy - Respiratory Respiratory exam: Present: CTAB. Absent: accessory muscle use, rales, rhonchi, wheezes - Cardiovascular Cardiovascular exam: Present: RRR, +S1, +S2. Absent: diastolic murmur, gallop, rubs, systolic murmur - GI/Abdominal GI/Abdominal exam: Present: normal bowel sounds, soft, no peritoneal signs. Absent: distended, tenderness - Extremities Exam Extremities exam: Present: warm, radial pulses palpable and symmetrical. Absent: calf tenderness, cyanotic, pedal edema - Neurological Exam Neurological exam: Present: CN II-XII intact, oriented X3, no focal deficits. Absent: pronater drift, facial droop, speech deficit - Skin Skin exam: Present: dry, intact - Patient Status Disposition: Transfer SNF Condition: Fair Overall status at discharge: patient is progressing back to baseline - Discharge Instructions Follow Up With: Aquilino Rivera DO [Primary Care Provider] - (ecf) Edson Lee MD [Partnered Physician] - (Web requested) - Diet and Activity Activity: increase activity as tolerated Diet: advance to your usual diet
--- NOTE | 2018-10-13 12:10 | Physician Discharge Referral ---
ExtendedCare Referral Info Transfer To: [facility] Provider in Charge after Transfer: PCP Institutional Level of Care: Skilled - Diagnosis (1) Urinary tract infection Status: Acute (2) Hypothyroidism Status: Chronic (3) CKD (chronic kidney disease) stage 3, GFR 30-59 ml/min Status: Chronic (4) Ventricular tachycardia Status: Resolved (5) Near syncope Status: Acute (6) Uncontrolled hypertension Status: Acute (7) Diabetes Status: Chronic (8) Atrial fibrillation Status: Chronic (9) Acute on chronic diastolic (congestive) heart failure Status: Acute - Transfer Medications Prescriptions: metroNIDAZOLE [Metronidazole] 500 mg PO TID #27 tablet Cefdinir [Omnicef] 300 mg PO BID 9 Days #18 capsule Home Medications: Magnesium Oxide [Magnesium] 400 mg PO DAILY 11/05/14 [History] Insulin Glargine,Hum.rec.anlog [Lantus Solostar] 17 unit SQ HS 01/09/15 [History] Ropinirole HCl [Requip] 0.5 mg PO HS 01/09/15 [History] Furosemide [Lasix] 40 mg PO BID 30 Days tab 01/14/15 [Rx] Acetaminophen [Pain Reliever] 500 mg PO TID PRN 06/06/17 [History] Fluticasone Propionate Nasal [Flonase] 1 spr NS DAILY 06/06/17 [History] Gabapentin [Neurontin] 100 mg PO TID 06/06/17 [History] Guaifenesin [Mucinex] 600 mg PO BID PRN 06/06/17 [History] Insulin Glargine,Hum.rec.anlog [Lantus Solostar] 30 unit SQ QAM 06/06/17 [History] Insulin LISPRO [Humalog Kwikpen U-100] 10 unit SQ TID 06/06/17 [History] Lactobacillus Acidophilus [Acidophilus] 1 cap PO BID 06/06/17 [History] Levothyroxine Sodium [Levoxyl] 50 mcg PO DAILY 06/06/17 [History] Liothyronine Sodium [Cytomel] 25 mcg PO DAILY 06/06/17 [History] Montelukast [Singulair] 10 mg PO DAILY 06/06/17 [History] hydrALAZINE [HydrALAZINE] 75 mg PO QID 06/06/17 [History] Allopurinol [Zyloprim 100 MG] 100 mg PO DAILY #30 tablet 06/16/17 [Rx] Loratadine [Allergy Relief] 10 mg PO DAILY PRN #0 06/16/17 [Rx] Ondansetron ODT [Zofran ODT] 4 mg SL Q6HR PRN #10 tab.rapdis 02/14/18 [Rx] Albuterol Sulfate [Proair Hfa] 2 puff IH Q6H PRN 10/08/18 [History] Amlodipine Besylate 10 mg PO DAILY 10/08/18 [History] Atorvastatin Calcium [Lipitor] 80 mg PO DAILY 10/08/18 [History] Carvedilol [Coreg] 25 mg PO BID 10/08/18 [History] Celecoxib [Celebrex] 200 mg PO DAILY 10/08/18 [History] Cholecalciferol (D-3) [Vitamin D] 1,000 unit PO DAILY 10/08/18 [History] Clopidogrel Bisulfate [Plavix] 75 mg PO DAILY 10/08/18 [History] HYDROcodone/Acet 5/325 mg [[place] 5-325 mg] 1 tab PO Q6H PRN 10/08/18 [History] Lisinopril [Zestril] 40 mg PO DAILY 10/08/18 [History] Nitroglycerin [Nitrostat] 0.4 mg SL Q5MIN PRN MDD 3x 10/08/18 [History] Potassium Chloride [Klor-Con 10] 10 meq PO DAILY 10/08/18 [History] Warfarin [Coumadin] 2 mg PO MOWEFR 10/08/18 [History] Warfarin [Coumadin] 4 mg PO SUTUTHSA 10/08/18 [History] cloNIDine HCl [Clonidine HCl] 0.3 mg PO TID 10/08/18 [History] traZODone [TraZODone] 50 mg PO 2100 10/08/18 [History] Cefdinir [Omnicef] 300 mg PO BID 9 Days #18 capsule 10/13/18 [Rx] metroNIDAZOLE [Metronidazole] 500 mg PO TID #27 tablet 10/13/18 [Rx] Allergies/Adverse Reactions: Allergy/AdvReac Type Severity Reaction Status Date / Time codeine Allergy Congested Verified 11/27/16 06:45 Penicillins [PCN] AdvReac Congested Verified 11/27/16 06:45 tape AdvReac Itching Uncoded 11/27/16 06:45 - Respiratory Orders Smoking Cessation: Smoking cessation has been advised. For more information, call the [place] Tobacco Quit Line at 2-374-EBDQ-NOW. - Rehabiliation Orders Rehab Potential: Fair Rehab Orders: Evaluation for Physical Therapy, Evaluation for Occupational Therapy Other: see PT noteds from [place] - Diet Orders No Concentrated Sweets CERTIFICATION: I certify that the transfer of the above named patient to an Extended Care Facility is necessary for the continuing treatment of the diagnosis listed. The above information is true and accurate reflection of patient's current condition. Confidential - Redisclosure prohibited without a patient's written consent.
--- NOTE | 2018-10-13 13:27 | Event Note ---
Date of Encounter: 10/13/18 Time of Encounter: 13:[address] Lee. Will schedule patient for follow up of diverticulitis as outpatient.
[2018-10-13] MEDS ORDERED: *HR* Warfarin 1 MG TABLET PO ONE (18:00)
== END 2018-10-13 14:20 | DRG 689 ==
LOC: 2ANU 11:07 → EMEROOARM 11:07 → 2ANU 16:52
PROVIDERS: ADMIT Student in an Organized Health Care Education/Training Program; ATTEND Student in an Organized Health Care Education/Training Program

== ENCOUNTER 2018-10-20 14:47 | Inpatient (IN) ==
[2018-10-20] MEDS ORDERED: Ipratropium/Albuterol Neb 3 ML IH ONE (14:57)
[2018-10-20 15:19] LABS: White Blood Count 10.8 K/mcL (4.3-11.1)
[2018-10-20 15:20] LABS: Basophils % 0.2 %; Eosinophils # 0.3 K/mcL (0.0-0.6); Eosinophils % 3.1 %; Hematocrit 27.5 % (35.3-44.9); Hemoglobin 8.4 g/dL (11.5-15.4); Immature Granulocytes % 0.7 % (0-4); Lymphocytes # 1.2 K/mcL (0.6-4.6); Lymphocytes % 10.8 %; Mean Corpuscular HGB Conc 30.5 g/dL (31.6-35.5); Mean Corpuscular Hemoglobin 29.5 pg (28.0-33.3); Mean Corpuscular Volume 96.5 fL (83.0-100.0); Mean Platelet Volume 11.6 fL (9.4-12.4); Monocytes # 0.9 K/mcL (0.0-1.3); Monocytes % 8.2 %; Neutrophils # 8.3 K/mcL (1.6-8.9); Platelet Count 252 K/mcL (140-400); Red Blood Count 2.85 M/mcL (3.82-4.97); Red Cell Distribution Width 13.8 % (11.5-14.5)
--- NOTE | 2018-10-20 15:33 | Emergency Department Note ---
Disposition Clinical Impression: Hyperkalemia, Supratherapeutic INR Congestive heart failure Qualifiers: Heart failure type: other Qualified Code(s): I50.9 - Heart failure, unspecified Disposition: Admitted As Inpatient Condition: Fair Referrals: Aquilino Rivera DO [Primary Care Provider] - Forms: ED Satisfaction Letter Time of Disposition: 17:46 SOB HPI - General Chief Complaint: ED Shortness of Breath/Dyspnea Stated Complaint: SOB Time Seen by Provider: 10/20/18 14:51 Source: patient, EMS Mode of arrival: EMS Limitations: no limitations Nursing Notes Reviewed: Yes Vital Signs Reviewed: Yes - History of Present Illness The history, physical exam, and medical decision making was performed by the medical student either while I was physically present and actively involved or I personally re-performed the exam and medical decision making. I have verified the accuracy of the medical student's documentation with regards to the history, physical exam findings, and medical decision making. - Related Data Home Medications Medication Instructions Recorded Confirmed Magnesium Oxide [Magnesium] 400 mg PO DAILY 11/05/14 10/08/18 Insulin Glargine,Hum.rec.anlog 17 unit SQ HS 01/09/15 10/08/18 [Lantus Solostar] Ropinirole HCl [Requip] 0.5 mg PO HS 01/09/15 10/08/18 Acetaminophen [Pain Reliever] 500 mg PO TID PRN 06/06/17 10/08/18 Fluticasone Propionate Nasal 1 spr NS DAILY 06/06/17 10/08/18 [Flonase] Gabapentin [Neurontin] 100 mg PO TID 06/06/17 10/08/18 Guaifenesin [Mucinex] 600 mg PO BID PRN 06/06/17 10/08/18 Insulin Glargine,Hum.rec.anlog 30 unit SQ QAM 06/06/17 10/08/18 [Lantus Solostar] Insulin LISPRO [Humalog Kwikpen 10 unit SQ TID 06/06/17 10/08/18 U-100] Lactobacillus Acidophilus 1 cap PO BID 06/06/17 10/08/18 [Acidophilus] Levothyroxine Sodium [Levoxyl] 50 mcg PO DAILY 06/06/17 10/08/18 Liothyronine Sodium [Cytomel] 25 mcg PO DAILY 06/06/17 10/08/18 Montelukast [Singulair] 10 mg PO DAILY 06/06/17 10/08/18 hydrALAZINE [HydrALAZINE] 75 mg PO QID 06/06/17 10/13/18 Albuterol Sulfate [Proair Hfa] 2 puff IH Q6H PRN 10/08/18 10/08/18 Amlodipine Besylate 10 mg PO DAILY 10/08/18 10/08/18 Atorvastatin Calcium [Lipitor] 80 mg PO DAILY 10/08/18 10/08/18 Carvedilol [Coreg] 25 mg PO BID 10/08/18 10/08/18 Celecoxib [Celebrex] 200 mg PO DAILY 10/08/18 10/08/18 Cholecalciferol (D-3) [Vitamin D] 1,000 unit PO DAILY 10/08/18 10/08/18 Clopidogrel Bisulfate [Plavix] 75 mg PO DAILY 10/08/18 10/08/18 HYDROcodone/Acet 5/325 mg [[place] 1 tab PO Q6H PRN 10/08/18 10/08/18 5-325 mg] Lisinopril [Zestril] 40 mg PO DAILY 10/08/18 10/08/18 Nitroglycerin [Nitrostat] 0.4 mg SL Q5MIN PRN MDD 3x 10/08/18 10/08/18 Potassium Chloride [Klor-Con 10] 10 meq PO DAILY 10/08/18 10/08/18 Warfarin [Coumadin] 2 mg PO MOWEFR 10/08/18 10/08/18 Warfarin [Coumadin] 4 mg PO SUTUTHSA 10/08/18 10/08/18 cloNIDine HCl [Clonidine HCl] 0.3 mg PO TID 10/08/18 10/08/18 traZODone [TraZODone] 50 mg PO 2100 10/08/18 10/08/18 Previous Rx's Medication Instructions Recorded Furosemide [Lasix] 40 mg PO BID 30 Days tab 01/14/15 Allopurinol [Zyloprim 100 MG] 100 mg PO DAILY #30 tablet 06/16/17 Loratadine [Allergy Relief] 10 mg PO DAILY PRN #0 06/16/17 Ondansetron ODT [Zofran ODT] 4 mg SL Q6HR PRN #10 tab.rapdis 02/14/18 Cefdinir [Omnicef] 300 mg PO BID 9 Days #18 capsule 10/13/18 metroNIDAZOLE [Metronidazole] 500 mg PO TID #27 tablet 10/13/18 Allergies Allergy/AdvReac Type Severity Reaction Status Date / Time codeine Allergy Congested Verified 11/27/16 06:45 Penicillins [PCN] AdvReac Congested Verified 11/27/16 06:45 tape AdvReac Itching Uncoded 11/27/16 06:45 Past Medical History - Past Medical History Medical history: Reports: atrial fibrillation, CHF, coronary artery disease, CVA, diabetes, hyperlipidemia, hypertension, renal disease, thyroid disease, other Surgical history: Reports: , cataract, cholecystectomy, coronary bypass (CABG) Psychiatric history: Reports: depression [employer] history: Reports: bilateral tubal ligation - Social History Smoking Status: Never smoker Smokeless Tobacco Status: No Alcohol use: Reports: none Drug use: Reports: none Physical Exam - General Limitations: no limitations General appearance: alert, in no apparent distress - Head Head exam: atraumatic, normocephalic, normal inspection - Eye Eye exam: Present: normal appearance, PERRL, EOMI - ENT ENT exam: normal exam, normal oropharynx, mucous membranes moist - Neck Neck exam: Present: normal inspection, full ROM, trachea midline - Chest Chest inspection: Present: normal inspection, symmetric chest wall rise - Respiratory Respiratory exam: Present: prolonged expiratory phase ( crackles at bases, no wheezing) - Cardiovascular Cardiovascular exam: Present: regular rate, normal rhythm, normal heart sounds - Abdominal Exam Abdominal exam: Present: soft, Non-Tender. Absent: tenderness, distention, guarding, rebound, rigidity - Extremities Exam Extremities exam: Present: normal capillary refill, pedal edema (1+ pitting edema to the bilateral lower extremities). Absent: calf tenderness - Expanded Lower Extremity Exam Neurovascular/Tendon exam: Absent: motor deficit, sensory deficit, tendon deficit - Neurological Exam Neurological exam: Present: alert, oriented X3 - Psychiatric Psychiatric exam: Present: normal affect, normal mood - Skin Skin exam: Present: warm, dry, intact, normal color Course Vital Signs Temperature 98.7 F 10/20/18 14:53 Pulse Rate 60 10/20/18 14:53 Respiratory Rate 24 10/20/18 14:53 Blood Pressure 168/78 10/20/18 14:53 O2 Sat by Pulse Oximetry 99 10/20/18 14:53 Temperature 98.7 F 10/20/18 14:53 Pulse Rate 60 10/20/18 14:53 Respiratory Rate 20 10/20/18 15:31 Blood Pressure 168/78 10/20/18 14:53 O2 Sat by Pulse Oximetry 97 10/20/18 15:31 Oxygen Delivery Oxygen Delivery Nasal Cannula Shortness of Breath/Dyspnea - [facility] Narrative Medical decision making narrative: Patient is a 77-year-old female presenting with shortness of breath. Patient with known history of diabetes type 2, hypertension, hyperlipidemia, CVA, CAD status post CABG and CHF. On arrival, patient is in no acute distress, she does have decreased breath sounds throughout with crackles to the bases, otherwise vital signs are within normal limits. Patient is chronically on 2 L nasal cannula at [facility]. Patient was discharged from the hospital on 10/13/2018 for urinary tract infection as well as mild diverticulitis, she was treated with IV Rocephin as well as IV Flagyl. Patient was given a DuoNeb as well as Lasix on arrival, patient does appear fluid overloaded at this time. Unknown if this is patient's baseline. CBC is unremarkable. Hemoglobin is patient's baseline. No active bleeding per patient. As patient is on Coumadin and PT INR as well as PTT was monitored and evaluated, her INR is currently supratherapeutic at 4.7, we will hold off on Coumadin for 2 days at this time. BMP does reveal that the patient is hyperkalemic, she is on a potassium supplementation, denies any recent increase in use, as her no EKG changes, we will just give the patient Kayexalate. Do not feel as though further medication management is required at this time. Laboratory work including troponin is unremarkable, EKG shows no acute ischemic changes. Chest x-ray is unchanged from baseline. BNP is in the low 200s, appears to be at patient's baseline. Serum creatinine is slightly elevated at 1.7, patient's baseline appears to be 1.3-1.5. As the patient has continued shortness of breath, as well as hyperkalemia and supratherapeutic INR and the patient will be admitted for further evaluation and treatment. Patient has been admitted by the hospitalist, Dr. Michel. Patient agrees with di sposition of admission. - Medical Records Medical records reviewed: Yes I reviewed the patient's medical records. - Lab Data Lab results reviewed: Yes I reviewed the patient's lab results. Result diagrams: 10/20/18 15:10 10/20/18 15:10 Lab Results 10/20/18 10/20/18 10/20/18 Range/Units 15:10 15:10 15:28 WBC 10.8 (4.3-11.1) K/mcL RBC 2.85 L (3.82-4.97) M/mcL Hgb 8.4 L (11.5-15.4) g/dL Hct 27.5 L (35.3-44.9) % MCV 96.5 (83.0-100.0) fL MCH 29.5 (28.0-33.3) pg MCHC 30.5 L (31.6-35.5) g/dL RDW 13.8 (11.5-14.5) % Plt Count 252 (140-400) K/mcL MPV 11.6 (9.4-12.4) fL Immature Gran % 0.7 (0-4) % Seg Neutrophils % 77.0 % Lymphocytes % 10.8 % Monocytes % 8.2 % Eosinophils % 3.1 % Basophils % 0.2 % Neutrophils # 8.3 (1.6-8.9) K/mcL Lymphocytes # 1.2 (0.6-4.6) K/mcL Monocytes # 0.9 (0.0-1.3) K/mcL Eosinophils # 0.3 (0.0-0.6) K/mcL Basophils # 0.0 (0.0-0.2) K/mcL PT (9.4-12.1) Seconds INR APTT (26.0-36.0) Seconds Sodium 137 (136-145) mEq/L Potassium 5.9 H (3.5-5.1) mEq/L Chloride 104 (98-107) mEq/L Carbon Dioxide 28 (23-29) mEq/L BUN 52 H (8-23) mg/dL Creatinine 1.70 H (0.60-1.20) mg/dL Est GFR ( Amer) 36 L (> 60) Est GFR (Non-Af Amer) 29 L (> 60) BUN/Creatinine Ratio 31 H (6-26) Glucose 325 H (70-105) mg/dL Calculated Osmolality 311 H (280-300) Calcium 8.6 (8.6-10.3) mg/dL Troponin I < 0.03 (< 0.04) ng/mL B-Natriuretic Peptide (Less than 100) pg/mL 10/20/18 10/20/18 Range/Units 15:28 15:28 WBC (4.3-11.1) K/mcL RBC (3.82-4.97) M/mcL Hgb (11.5-15.4) g/dL Hct (35.3-44.9) % MCV (83.0-100.0) fL MCH (28.0-33.3) pg MCHC (31.6-35.5) g/dL RDW (11.5-14.5) % Plt Count (140-400) K/mcL MPV (9.4-12.4) fL Immature Gran % (0-4) % Seg Neutrophils % % Lymphocytes % % Monocytes % % Eosinophils % % Basophils % % Neutrophils # (1.6-8.9) K/mcL Lymphocytes # (0.6-4.6) K/mcL Monocytes # (0.0-1.3) K/mcL Eosinophils # (0.0-0.6) K/mcL Basophils # (0.0-0.2) K/mcL PT 52.8 H* D (9.4-12.1) Seconds INR 4.6 H* D APTT 51.4 H (26.0-36.0) Seconds Sodium (136-145) mEq/L Potassium (3.5-5.1) mEq/L Chloride (98-107) mEq/L Carbon Dioxide (23-29) mEq/L BUN (8-23) mg/dL Creatinine (0.60-1.20) mg/dL Est GFR ( Amer) (> 60) Est GFR (Non-Af Amer) (> 60) BUN/Creatinine Ratio (6-26) Glucose (70-105) mg/dL Calculated Osmolality (280-300) Calcium (8.6-10.3) mg/dL Troponin I (< 0.04) ng/mL B-Natriuretic Peptide 219 H (Less than 100) pg/mL - Radiology Data Radiology results reviewed: Yes I reviewed the patient's radiology results. Chest X-Ray 10/20/18 00:00 IMPRESSION: No change. D/ / Van Haider MD / Van Haider MD Interpreting Provider: Van Haider MD - EKG Data EKG attestation: Yes I reviewed and interpreted this EKG. EKG results narrative: EKG performed at 1456 with ventricular rate of 59, regular rhythm, left axis deviation without ST segment elevation or depression, there is T-wave changes in the lead V5 and V6, when compared to old EKG performed on 2018, T-wave inversion in V6 is new.
[2018-10-20 15:39] LABS: Calcium 8.6 mg/dL (8.6-10.3); Potassium 5.9 mEq/L (3.5-5.1)
[2018-10-20] MEDS ORDERED: Furosemide 40 MG/4 ML VIAL IVP ONE (15:48)
--- NOTE | 2018-10-20 15:52 | Emergency Department Note ---
Disposition Clinical Impression: Congestive heart failure Qualifiers: Heart failure type: other Qualified Code(s): I50.9 - Heart failure, unspecified Disposition: Still a Patient Forms: ED Satisfaction Letter Time of Disposition: 15:51 General Adult HPI - General Chief complaint: ED Shortness of Breath/Dyspnea Stated complaint: SOB Time Seen by Provider: 10/20/18 14:51 Source: patient, EMS Mode of arrival: EMS Limitations: no limitations Nursing Notes Reviewed: Yes Vital Signs Reviewed: Yes - History of Present Illness HPI Narrative: ED attending attestation note: I examined this patient and my medical decision-making was reviewed with the emergency medicine resident DANIEL CABRERA. I agree with the documented findings, disposition and treatment plan as described except to the extent set forth below. For any procedures performed I was present for the critical portions, and for any EKGs performed and reviewed I have looked over the EKG and interpretations and discussed with provider Briefly: 77-year-old female history of CHF consume increasing shortness of breath not home O2 dependent. He has bibasilar crackles and edema. EKG shows nonspecific ST-T changes patient will get 2 nebs as well as parenteral diuretics chest x-ray screening labs. Disposition pending. Pain Scale: 0 - Related Data Home Medications Medication Instructions Recorded Confirmed Magnesium Oxide [Magnesium] 400 mg PO DAILY 11/05/14 10/08/18 Insulin Glargine,Hum.rec.anlog 17 unit SQ HS 01/09/15 10/08/18 [Lantus Solostar] Ropinirole HCl [Requip] 0.5 mg PO HS 01/09/15 10/08/18 Acetaminophen [Pain Reliever] 500 mg PO TID PRN 06/06/17 10/08/18 Fluticasone Propionate Nasal 1 spr NS DAILY 06/06/17 10/08/18 [Flonase] Gabapentin [Neurontin] 100 mg PO TID 06/06/17 10/08/18 Guaifenesin [Mucinex] 600 mg PO BID PRN 06/06/17 10/08/18 Insulin Glargine,Hum.rec.anlog 30 unit SQ QAM 06/06/17 10/08/18 [Lantus Solostar] Insulin LISPRO [Humalog Kwikpen 10 unit SQ TID 06/06/17 10/08/18 U-100] Lactobacillus Acidophilus 1 cap PO BID 06/06/17 10/08/18 [Acidophilus] Levothyroxine Sodium [Levoxyl] 50 mcg PO DAILY 06/06/17 10/08/18 Liothyronine Sodium [Cytomel] 25 mcg PO DAILY 06/06/17 10/08/18 Montelukast [Singulair] 10 mg PO DAILY 06/06/17 10/08/18 hydrALAZINE [HydrALAZINE] 75 mg PO QID 06/06/17 10/13/18 Albuterol Sulfate [Proair Hfa] 2 puff IH Q6H PRN 10/08/18 10/08/18 Amlodipine Besylate 10 mg PO DAILY 10/08/18 10/08/18 Atorvastatin Calcium [Lipitor] 80 mg PO DAILY 10/08/18 10/08/18 Carvedilol [Coreg] 25 mg PO BID 10/08/18 10/08/18 Celecoxib [Celebrex] 200 mg PO DAILY 10/08/18 10/08/18 Cholecalciferol (D-3) [Vitamin D] 1,000 unit PO DAILY 10/08/18 10/08/18 Clopidogrel Bisulfate [Plavix] 75 mg PO DAILY 10/08/18 10/08/18 HYDROcodone/Acet 5/325 mg [[place] 1 tab PO Q6H PRN 10/08/18 10/08/18 5-325 mg] Lisinopril [Zestril] 40 mg PO DAILY 10/08/18 10/08/18 Nitroglycerin [Nitrostat] 0.4 mg SL Q5MIN PRN MDD 3x 10/08/18 10/08/18 Potassium Chloride [Klor-Con 10] 10 meq PO DAILY 10/08/18 10/08/18 Warfarin [Coumadin] 2 mg PO MOWEFR 10/08/18 10/08/18 Warfarin [Coumadin] 4 mg PO SUTUTHSA 10/08/18 10/08/18 cloNIDine HCl [Clonidine HCl] 0.3 mg PO TID 10/08/18 10/08/18 traZODone [TraZODone] 50 mg PO 2100 10/08/18 10/08/18 Previous Rx's Medication Instructions Recorded Furosemide [Lasix] 40 mg PO BID 30 Days tab 01/14/15 Allopurinol [Zyloprim 100 MG] 100 mg PO DAILY #30 tablet 06/16/17 Loratadine [Allergy Relief] 10 mg PO DAILY PRN #0 06/16/17 Ondansetron ODT [Zofran ODT] 4 mg SL Q6HR PRN #10 tab.rapdis 02/14/18 Cefdinir [Omnicef] 300 mg PO BID 9 Days #18 capsule 10/13/18 metroNIDAZOLE [Metronidazole] 500 mg PO TID #27 tablet 10/13/18 Allergies Allergy/AdvReac Type Severity Reaction Status Date / Time codeine Allergy Congested Verified 11/27/16 06:45 Penicillins [PCN] AdvReac Congested Verified 11/27/16 06:45 tape AdvReac Itching Uncoded 11/27/16 06:45 Past Medical History - Past Medical History Medical history: Reports: atrial fibrillation, CHF, coronary artery disease, CVA, diabetes, hyperlipidemia, hypertension, renal disease, thyroid disease, other Surgical history: Reports: , cataract, cholecystectomy, coronary bypass (CABG) Psychiatric history: Reports: depression [employer] history: Reports: bilateral tubal ligation - Social History Smoking Status: Never smoker Smokeless Tobacco Status: No Alcohol use: Reports: none Drug use: Reports: none Physical Exam - General Limitations: no limitations General appearance: alert, in no apparent distress Course Vital Signs Temperature 98.7 F 10/20/18 14:53 Pulse Rate 60 10/20/18 14:53 Respiratory Rate 24 10/20/18 14:53 Blood Pressure 168/78 10/20/18 14:53 O2 Sat by Pulse Oximetry 99 10/20/18 14:53 Temperature 98.7 F 10/20/18 14:53 Pulse Rate 60 10/20/18 14:53 Respiratory Rate 20 10/20/18 15:31 Blood Pressure 168/78 10/20/18 14:53 O2 Sat by Pulse Oximetry 97 10/20/18 15:31 Oxygen Delivery Oxygen Delivery Nasal Cannula Medical Decision Making - Lab Data Result diagrams: 10/20/18 15:10 10/20/18 15:10 Lab Results 10/20/18 10/20/18 Range/Units 15:10 15:10 WBC 10.8 (4.3-11.1) K/mcL RBC 2.85 L (3.82-4.97) M/mcL Hgb 8.4 L (11.5-15.4) g/dL Hct 27.5 L (35.3-44.9) % MCV 96.5 (83.0-100.0) fL MCH 29.5 (28.0-33.3) pg MCHC 30.5 L (31.6-35.5) g/dL RDW 13.8 (11.5-14.5) % Plt Count 252 (140-400) K/mcL MPV 11.6 (9.4-12.4) fL Immature Gran % 0.7 (0-4) % Seg Neutrophils % 77.0 % Lymphocytes % 10.8 % Monocytes % 8.2 % Eosinophils % 3.1 % Basophils % 0.2 % Neutrophils # 8.3 (1.6-8.9) K/mcL Lymphocytes # 1.2 (0.6-4.6) K/mcL Monocytes # 0.9 (0.0-1.3) K/mcL Eosinophils # 0.3 (0.0-0.6) K/mcL Basophils # 0.0 (0.0-0.2) K/mcL Sodium 137 (136-145) mEq/L Potassium 5.9 H (3.5-5.1) mEq/L Chloride 104 (98-107) mEq/L Carbon Dioxide 28 (23-29) mEq/L BUN 52 H (8-23) mg/dL Creatinine 1.70 H (0.60-1.20) mg/dL Est GFR ( Amer) 36 L (> 60) Est GFR (Non-Af Amer) 29 L (> 60) BUN/Creatinine Ratio 31 H (6-26) Glucose 325 H (70-105) mg/dL Calculated Osmolality 311 H (280-300) Calcium 8.6 (8.6-10.3) mg/dL
[2018-10-20 16:12] LABS: Activated Partial Thrombo Time 51.4 Seconds (26.0-36.0)
--- NOTE | 2018-10-20 16:17 | Emergency Department Note ---
Disposition Clinical Impression: Congestive heart failure, Hyperkalemia, Supratherapeutic INR Disposition: Admitted As Inpatient Condition: Fair Time of Disposition: 21:45 SOB HPI - General Chief Complaint: ED Shortness of Breath/Dyspnea Stated Complaint: SOB Time Seen by Provider: 10/20/18 14:51 Source: patient, EMS Mode of arrival: EMS Limitations: no limitations Nursing Notes Reviewed: Yes Vital Signs Reviewed: Yes - History of Present Illness Pt is a 77 yr old female with hx of CAD, CHF, COPD, A-fib currently on coumadin who presents to ED complaining of dyspnea x 2 days. Pt states she has been short of breath even while at rest which is a change from her baseline. Previously, pt would require activity around the house prior to feeling sob. She does report increasing orthopnea as well as a feeling of fullness in her abdomen and increased pedal edema. Pt does also report productive cough of yellow/greenish sputum which has increased over past couple days. She currently resides at [facility] rehab facility and wears 2L O2 at home. Pt denies any chest pain, abdominal brewster, nausea vomiting, hematuria, dysuria Pt Subjective Complaint: shortness of breath Onset (ago): day(s) Context: occurred during exertion Severity: moderate Consistency/Duration: constant Worsens with: lying flat, other (sitting upright) Known history of: COPD, congestive heart failure, diabetes Associated symptoms: Reports: cough, sputum production, orthopnea Treatment prior to arrival: oxygen Cough present: Yes Cough Description: Productive Cough Frequency: Intermittent Sputum production: Yes Sputum Amount: Moderate Sputum Color: Yellow, Green - Related Data Home oxygen amount: 2 liters Home Medications Medication Instructions Recorded Confirmed Magnesium Oxide [Magnesium] 400 mg PO DAILY 11/05/14 10/20/18 Insulin Glargine,Hum.rec.anlog 17 unit SQ HS 01/09/15 10/20/18 [Lantus Solostar] Ropinirole HCl [Requip] 0.5 mg PO HS 01/09/15 10/20/18 Acetaminophen [Pain Reliever] 500 mg PO TID PRN 06/06/17 10/20/18 Fluticasone Propionate Nasal 1 spr NS DAILY 06/06/17 10/20/18 [Flonase] Gabapentin [Neurontin] 100 mg PO TID 06/06/17 10/20/18 Guaifenesin [Mucinex] 600 mg PO BID PRN 06/06/17 10/20/18 Insulin Glargine,Hum.rec.anlog 30 unit SQ QAM 06/06/17 10/20/18 [Lantus Solostar] Insulin LISPRO [Humalog Kwikpen 10 unit SQ TIDWM 06/06/17 10/20/18 U-100] Lactobacillus Acidophilus 1 cap PO BID 06/06/17 10/20/18 [Acidophilus] Levothyroxine Sodium [Levoxyl] 75 mcg PO DAILY 06/06/17 10/20/18 Liothyronine Sodium [Cytomel] 25 mcg PO DAILY 06/06/17 10/20/18 Montelukast [Singulair] 10 mg PO DAILY 06/06/17 10/20/18 hydrALAZINE [HydrALAZINE] 75 mg PO QID 06/06/17 10/20/18 Albuterol Sulfate [Proair Hfa] 2 puff IH Q6H PRN 10/08/18 10/20/18 Amlodipine Besylate 10 mg PO DAILY 10/08/18 10/20/18 Atorvastatin Calcium [Lipitor] 80 mg PO HS 10/08/18 10/20/18 Carvedilol [Coreg] 25 mg PO BID 10/08/18 10/20/18 Celecoxib [Celebrex] 200 mg PO DAILY 10/08/18 10/20/18 Cholecalciferol (D-3) [Vitamin D] 1,000 unit PO DAILY 10/08/18 10/20/18 Clopidogrel Bisulfate [Plavix] 75 mg PO DAILY 10/08/18 10/20/18 HYDROcodone/Acet 5/325 mg [[place] 1 tab PO Q6H PRN 10/08/18 10/20/18 5-325 mg] Lisinopril [Zestril] 40 mg PO DAILY 10/08/18 10/20/18 Nitroglycerin [Nitrostat] 0.4 mg SL Q5MIN PRN MDD 3x 10/08/18 10/20/18 Potassium Chloride [Klor-Con 10] 10 meq PO DAILY 10/08/18 10/20/18 Warfarin [Coumadin] 2 mg PO MOWE 10/08/18 10/20/18 Warfarin [Coumadin] 4 mg PO SUTUTHFRSA 10/08/18 10/20/18 cloNIDine HCl [Clonidine HCl] 0.3 mg PO TID 10/08/18 10/20/18 traZODone [TraZODone] 50 mg PO 2100 10/08/18 10/20/18 Previous Rx's Medication Instructions Recorded Furosemide [Lasix] 40 mg PO BID 30 Days tab 01/14/15 Allopurinol [Zyloprim 100 MG] 100 mg PO DAILY #30 tablet 06/16/17 Loratadine [Allergy Relief] 10 mg PO DAILY PRN #0 06/16/17 Ondansetron ODT [Zofran ODT] 4 mg SL Q6HR PRN #10 tab.rapdis 02/14/18 Cefdinir [Omnicef] 300 mg PO BID 9 Days #18 capsule 10/13/18 metroNIDAZOLE [Metronidazole] 500 mg PO TID #27 tablet 10/13/18 Allergies Allergy/AdvReac Type Severity Reaction Status Date / Time codeine Allergy Congested Verified 11/27/16 06:45 Penicillins [PCN] AdvReac Congested Verified 11/27/16 06:45 tape AdvReac Itching Uncoded 11/27/16 06:45 Constitutional: Denies: fever, chills Eyes: Denies: vision change ENT ED: Denies: congestion, dysphagia Cardiovascular: Reports: dyspnea on exertion, orthopnea. Denies: chest pain, s yncope Respiratory: Reports: cough, sputum production Gastrointestinal: Denies: abdominal pain, nausea, vomiting Genitourinary: Denies: urgency, dysuria, frequency Musculoskeletal: Denies: back pain, neck pain Integumentary: Denies: rash, abrasion Neurological: Denies: headache, numbness, paresthesias Endocrine: Denies: fatigue Hematological/Lymphatic: Denies: easy bleeding, easy bruising Past Medical History - Past Medical History Medical history: Reports: atrial fibrillation, CHF, coronary artery disease, CVA, diabetes, hyperlipidemia, hypertension, renal disease, thyroid disease, other Surgical history: Reports: , cataract, cholecystectomy, coronary bypass (CABG) Psychiatric history: Reports: depression 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: bilateral tubal ligation - Social History Smoking Status: Never smoker Smokeless Tobacco Status: No Alcohol use: Reports: none Drug use: Reports: none Physical Exam - General Limitations: physical limitation General appearance: alert, in no apparent distress - Head Head exam: atraumatic, normocephalic - Eye Eye exam: Present: normal appearance, PERRL, EOMI - ENT ENT exam: mucous membranes moist - Neck Neck exam: Absent: lymphadenopathy - Chest Chest inspection: Present: normal inspection, symmetric chest wall rise - Expanded Respiratory Exam Location: rales: Left, Right, Lower - Cardiovascular Cardiovascular exam: Present: regular rate, normal rhythm, +S1, +S2 - Abdominal Exam Abdominal exam: Present: soft, distention. Absent: tenderness, guarding, rebound - Extremities Exam Extremities exam: Present: tenderness, pedal edema - Neurological Exam Neurological exam: Present: alert, oriented X3 - Psychiatric Psychiatric exam: Present: normal affect, normal mood - Skin Skin exam: Present: warm, dry, normal color Course Vital Signs Temperature 98.7 F 10/20/18 14:53 Pulse Rate 60 10/20/18 14:53 Respiratory Rate 24 10/20/18 14:53 Blood Pressure 168/78 10/20/18 14:53 O2 Sat by Pulse Oximetry 99 10/20/18 14:53 Temperature 98.4 F 10/20/18 20:41 Pulse Rate 63 10/20/18 20:41 Respiratory Rate 14 10/20/18 20:41 Blood Pressure 184/64 10/20/18 21:18 O2 Sat by Pulse Oximetry 96 10/20/18 20:41 Oxygen Delivery Oxygen Delivery Nasal Cannula Shortness of Breath/Dyspnea - Lab Data Result diagrams: 10/20/18 15:10 10/20/18 15:10 Lab Results 10/20/18 10/20/18 10/20/18 Range/Units 15:10 15:10 15:28 WBC 10.8 (4.3-11.1) K/mcL RBC 2.85 L (3.82-4.97) M/mcL Hgb 8.4 L (11.5-15.4) g/dL Hct 27.5 L (35.3-44.9) % MCV 96.5 (83.0-100.0) fL MCH 29.5 (28.0-33.3) pg MCHC 30.5 L (31.6-35.5) g/dL RDW 13.8 (11.5-14.5) % Plt Count 252 (140-400) K/mcL MPV 11.6 (9.4-12.4) fL Immature Gran % 0.7 (0-4) % Seg Neutrophils % 77.0 % Lymphocytes % 10.8 % Monocytes % 8.2 % Eosinophils % 3.1 % Basophils % 0.2 % Neutrophils # 8.3 (1.6-8.9) K/mcL Lymphocytes # 1.2 (0.6-4.6) K/mcL Monocytes # 0.9 (0.0-1.3) K/mcL Eosinophils # 0.3 (0.0-0.6) K/mcL Basophils # 0.0 (0.0-0.2) K/mcL PT (9.4-12.1) Seconds INR APTT (26.0-36.0) Seconds Sodium 137 (136-145) mEq/L Potassium 5.9 H (3.5-5.1) mEq/L Chloride 104 (98-107) mEq/L Carbon Dioxide 28 (23-29) mEq/L BUN 52 H (8-23) mg/dL Creatinine 1.70 H (0.60-1.20) mg/dL Est GFR ( Amer) 36 L (> 60) Est GFR (Non-Af Amer) 29 L (> 60) BUN/Creatinine Ratio 31 H (6-26) Glucose 325 H (70-105) mg/dL Calculated Osmolality 311 H (280-300) Calcium 8.6 (8.6-10.3) mg/dL Troponin I < 0.03 (< 0.04) ng/mL B-Natriuretic Peptide (Less than 100) pg/mL 10/20/18 10/20/18 Range/Units 15:28 15:28 WBC (4.3-11.1) K/mcL RBC (3.82-4.97) M/mcL Hgb (11.5-15.4) g/dL Hct (35.3-44.9) % MCV (83.0-100.0) fL MCH (28.0-33.3) pg MCHC (31.6-35.5) g/dL RDW (11.5-14.5) % Plt Count (140-400) K/mcL MPV (9.4-12.4) fL Immature Gran % (0-4) % Seg Neutrophils % % Lymphocytes % % Monocytes % % Eosinophils % % Basophils % % Neutrophils # (1.6-8.9) K/mcL Lymphocytes # (0.6-4.6) K/mcL Monocytes # (0.0-1.3) K/mcL Eosinophils # (0.0-0.6) K/mcL Basophils # (0.0-0.2) K/mcL PT 52.8 H* D (9.4-12.1) Seconds INR 4.6 H* D APTT 51.4 H (26.0-36.0) Seconds Sodium (136-145) mEq/L Potassium (3.5-5.1) mEq/L Chloride (98-107) mEq/L Carbon Dioxide (23-29) mEq/L BUN (8-23) mg/dL Creatinine (0.60-1.20) mg/dL Est GFR ( Amer) (> 60) Est GFR (Non-Af Amer) (> 60) BUN/Creatinine Ratio (6-26) Glucose (70-105) mg/dL Calculated Osmolality (280-300) Calcium (8.6-10.3) mg/dL Troponin I (< 0.04) ng/mL B-Natriuretic Peptide 219 H (Less than 100) pg/mL
[2018-10-20 16:20] LABS: INR 4.6; Prothrombin Time 52.8 Seconds (9.4-12.1)
[2018-10-20] MEDS ORDERED: Ondansetron 4 MG/2 ML VIAL IVP PRN (17:25)
[2018-10-20] MEDS ORDERED: Naloxone 0.4 MG/ML INJ IVP PRN (17:25)
--- NOTE | 2018-10-20 17:41 | Internal Med History&Physical ---
Date of Encounter: 10/20/18 Time of Encounter: 17:20 Internal Medicine - H&P: HPI Chief complaint: SOB Admitted From: Long-term Nursing Facility History of present illness: Ms. Lala is a 77 year old female with PMHx of afib on Coumadin, HFpEF, chronic respiratory failure, diabetes, hypertension, CAD s/p CABG, CKD, who presented to the ED with progressive worsening SOB over the last 2 days. OF note, pt was recently discharged on 10/13 after being treated for UTI and uncomplicated diverticulitis. She also reports increasing orthopnea, abdominal distension, and increased LE edema. She also endorses intermittent cough but no significant sputum production. Pt denies any chest pain, palpitation, fever/chills, or N/V. No abdominal pain, change in bowel habits, dysuria, or hematuria. No joint pain or rash. Patient is not sure how much Lasix she is taking at the nursing facility but denies missing any doses. In the ED, she was afebrile and hemodynamically stable. Saturating well on 1.5L of O2. Labwork showed normal WBC and troponin, BNP 219, INR elevated at 4.3, and potassium of 5.9. Cr 1.7 which is at her baseline. Although CXR was reported as unchanged from 10/08, it does seem to show more prominent pulmonary vascular congestion at the hilar regions. She was given 1 dose of Lasix, duoneb, Kayexalate, and admitted for further management. Past Med Surg Social Fam HX - Past Medical History Attestation: Yes The following information was validated with the patient. Medical history: atrial fibrillation, CHF, coronary artery disease, CVA, abigail betes, hyperlipidemia, hypertension, renal disease, thyroid disease, other Psychiatric history: depression - Past Surgical History Surgical History: , cataract, cholecystectomy, coronary bypass (CABG) Additional surgical history: 3 vessel CABG 10 years ago - Social History Smoking Status: Never smoker Smokeless Tobacco Status: No Alcohol use: none Drug use: none - Family History Sister Living Status: Hx Family Cancer: Yes (Breast Cancer) Hx Family Endocrine Disorder: Yes (Diabetes) Brother Adopted: No Family Member Ethnicity: Non- Living Status: Still Living Hx Family Cancer: Yes (Lung Cancer) Hx Family Endocrine Disorder: Yes (Diabetes) Internal Medicine - H&P: Meds Magnesium Oxide [Magnesium] 400 mg PO DAILY 11/05/14 [History] Insulin Glargine,Hum.rec.anlog [Lantus Solostar] 17 unit SQ HS 01/09/15 [History] Ropinirole HCl [Requip] 0.5 mg PO HS 01/09/15 [History] Furosemide [Lasix] 40 mg PO BID 30 Days tab 01/14/15 [Rx] Acetaminophen [Pain Reliever] 500 mg PO TID PRN 06/06/17 [History] Fluticasone Propionate Nasal [Flonase] 1 spr NS DAILY 06/06/17 [History] Gabapentin [Neurontin] 100 mg PO TID 06/06/17 [History] Guaifenesin [Mucinex] 600 mg PO BID PRN 06/06/17 [History] Insulin Glargine,Hum.rec.anlog [Lantus Solostar] 30 unit SQ QAM 06/06/17 [History] Insulin LISPRO [Humalog Kwikpen U-100] 10 unit SQ TID 06/06/17 [History] Lactobacillus Acidophilus [Acidophilus] 1 cap PO BID 06/06/17 [History] Levothyroxine Sodium [Levoxyl] 50 mcg PO DAILY 06/06/17 [History] Liothyronine Sodium [Cytomel] 25 mcg PO DAILY 06/06/17 [History] Montelukast [Singulair] 10 mg PO DAILY 06/06/17 [History] hydrALAZINE [HydrALAZINE] 75 mg PO QID 06/06/17 [History] Allopurinol [Zyloprim 100 MG] 100 mg PO DAILY #30 tablet 06/16/17 [Rx] Loratadine [Allergy Relief] 10 mg PO DAILY PRN #0 06/16/17 [Rx] Ondansetron ODT [Zofran ODT] 4 mg SL Q6HR PRN #10 tab.rapdis 02/14/18 [Rx] Albuterol Sulfate [Proair Hfa] 2 puff IH Q6H PRN 10/08/18 [History] Amlodipine Besylate 10 mg PO DAILY 10/08/18 [History] Atorvastatin Calcium [Lipitor] 80 mg PO DAILY 10/08/18 [History] Carvedilol [Coreg] 25 mg PO BID 10/08/18 [History] Celecoxib [Celebrex] 200 mg PO DAILY 10/08/18 [History] Cholecalciferol (D-3) [Vitamin D] 1,000 unit PO DAILY 10/08/18 [History] Clopidogrel Bisulfate [Plavix] 75 mg PO DAILY 10/08/18 [History] HYDROcodone/Acet 5/325 mg [[place] 5-325 mg] 1 tab PO Q6H PRN 10/08/18 [History] Lisinopril [Zestril] 40 mg PO DAILY 10/08/18 [History] Nitroglycerin [Nitrostat] 0.4 mg SL Q5MIN PRN MDD 3x 10/08/18 [History] Potassium Chloride [Klor-Con 10] 10 meq PO DAILY 10/08/18 [History] Warfarin [Coumadin] 2 mg PO MOWEFR 10/08/18 [History] Warfarin [Coumadin] 4 mg PO SUTUTHSA 10/08/18 [History] cloNIDine HCl [Clonidine HCl] 0.3 mg PO TID 10/08/18 [History] traZODone [TraZODone] 50 mg PO 2100 10/08/18 [History] Cefdinir [Omnicef] 300 mg PO BID 9 Days #18 capsule 10/13/18 [Rx] metroNIDAZOLE [Metronidazole] 500 mg PO TID #27 tablet 10/13/18 [Rx] Allergy/AdvReac Type Severity Reaction Status Date / Time codeine Allergy Congested Verified 11/27/16 06:45 Penicillins [PCN] AdvReac Congested Verified 11/27/16 06:45 tape AdvReac Itching Uncoded 11/27/16 06:45 All Systems PM: A 10-system review of systems was performed and is negative for pertinent findings except as documented above in the HPI. - Constitutional Vitals: Temp Pulse Resp BP Pulse Ox 98.7 F 60 20 168/78 97 10/20/18 14:53 10/20/18 14:53 10/20/18 15:31 10/20/18 14:53 10/20/18 15:31 Exam: General: Alert and oriented, not in acute distress. HEENT:EOMI, pupils equal, round and reactive. Cardiovascular:Normal S1 & S2, No JVD. Pulse regular. Pitting edema up to mids hins bilaterally Lungs: Bibasilar crackles Abdomen:Soft, non-tender, no rigidity. Extremities:No joint deformity or effusion Neurological:Normal cognition and motor skills. Non-focal Skin:Normal color, no rash, no lesions. Pulses:Carotid and radial pulses normal +2. Rest of the physical exam is non contributory Internal Med - H&P Results - Labs CBC & Chem 7: 10/20/18 15:10 10/20/18 15:10 Labs: Short CBC 10/20/18 Range/Units 15:10 WBC 10.8 (4.3-11.1) K/mcL Hgb 8.4 L (11.5-15.4) g/dL Hct 27.5 L (35.3-44.9) % Plt Count 252 (140-400) K/mcL Neutrophils # 8.3 (1.6-8.9) K/mcL BMP 10/20/18 15:10 Sodium 137 Potassium 5.9 H Chloride 104 Carbon Dioxide 28 BUN 52 H Creatinine 1.70 H Glucose 325 H Calcium 8.6 Cardiac Enzymes 10/20/18 Range/Units 15:28 Troponin I < 0.03 (< 0.04) ng/mL - Impressions ITS Impressions Chest X-Ray 10/20/18 00:00 IMPRESSION: No change. D/ / Van Haider MD / Van Haider MD Interpreting Provider: Van Haider MD - Assessment and Plan (1) Acute on chronic diastolic (congestive) heart failure Current Visit: Yes Status: Acute Assessment and plan: Presented with progressive dyspnea associated with orthopnea and leg swelling. CXR showing more prominent pulmonary vascular congestion. BNP elevated at 219 troponin -ve, EKG showing NSR without ischemic changes. given IV lasix 40mg in the ED, continue 40mg BID monitor I&O and electrolytes while on IV diuresis keep on telemetry, trend troponin echocardiogram was done recently on 10/08 which showed preserved EF and mild diastolic dysfunction. Will not repeat another one unless troponin is elevated (2) Hyperkalemia Current Visit: Yes Status: Acute Assessment and plan: ?Represents ineffective diuresis, no EKG changes 1 dose of Kayexalate given in the ED Daily BMP (3) Supratherapeutic INR Current Visit: Yes Status: Acute Assessment and plan: INR 4.3, no signs and symptoms of bleeding. Hb also stable hold off on coumadin daily INR (4) CAD in [place] artery Current Visit: Yes Status: Chronic Assessment and plan: resume home meds once reconciled (5) Atrial fibrillation Current Visit: No Status: Chronic Assessment and plan: INR is supratherapeutic, hold off on Coumadin resume home meds once reconciled Qualifiers: Atrial fibrillation type: paroxysmal Qualified Code(s): I48.0 - Paroxysmal atrial fibrillation (6) CKD (chronic kidney disease) stage 3, GFR 30-59 ml/min Current Visit: No Status: Chronic Assessment and plan: Cr close to her baseline, monitor while on diuresis (7) DM type 2 (diabetes mellitus, type 2) Current Visit: No Status: Chronic Assessment and plan: Medium dose sliding scale Qualifiers: 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 insulin use: with prison use Diabetes mellitus complication status: with kidney complications Diabetes mellitus complication detail: with chronic kidney disease Chronic kidney disease stage: stage 3 (moderate) Qualified Code(s): E11.22 - Type 2 diabetes mellitus with diabetic chronic kidney disease; N18.3 - Chronic kidney disease, stage 3 (moderate); N18.3 - Chronic kidney disease, stage 3 (moderate); Z79.4 - extermination supervisor (current) use of insulin; Z79.4 - extermination supervisor (current) use of insulin; Z79.4 - assisted (current) use of insulin; Z79.4 - assisted (current) use of insulin (8) Hypertension Current Visit: No Status: Chronic Assessment and plan: resume home meds once reconciled PRN labetalol for BP > 180/110 Qualifiers: Hypertension type: essential hypertension Qualified Code(s): I10 - Essential (primary) hypertension (9) Hypothyroidism Current Visit: No Status: Chronic Assessment and plan: resume home meds once reconciled Qualifiers: Hypothyroidism type: unspecified Qualified Code(s): E03.9 - Hypothyroidism, unspecified (10) MALATHI (obstructive sleep apnea) Current Visit: No Status: Chronic Assessment and plan: CPAP at HS (11) DVT prophylaxis Current Visit: No Status: Chronic Assessment and plan: supratherapeutic INR - Time Spent With Patient Total time spent is greater than 50% in coordination of care (as documented) at patient's floor/unit and/or counseling patient: Greater than 35 minutes
[2018-10-20] MEDS ORDERED: Dextrose Gel 15 GM/37.5 ML TUBE PO PRN ×2 (17:47)
[2018-10-20] MEDS ORDERED: D5% in Water 1,000 ML IVC PRN (17:47)
[2018-10-20] MEDS ORDERED: *HR* Dextrose 50 % in Water (Syg) 50 ML SYRINGE IVP PRN (17:47)
[2018-10-20] MEDS ORDERED: *HR* Labetalol 20 MG/4 ML SYRINGE IVP PRN (17:48)
[2018-10-20] MEDS: Ipratropium/Albuterol Neb 3 ML IH SCH ×2 (19:31→23:54)
[2018-10-20] MEDS: cloNIDine HCl 0.1 MG TABLET PO SCH ×2 (19:35→22:03)
[2018-10-20] MEDS ORDERED: Furosemide 40 MG/4 ML VIAL IVP SCH (21:00)
[2018-10-20] MEDS: Insulin LISPRO 300 UNITS/3 ML VIAL SQ SCH (22:02)
[2018-10-20] MEDS ORDERED: Furosemide 20 MG/2 ML VIAL IVP ONE (22:05)
[2018-10-21] MEDS: Ipratropium/Albuterol Neb 3 ML IH SCH ×6 (04:09→23:03)
[2018-10-21] MEDS ORDERED: *HR* HYDROcodone/Acet 5/325 mg TABLET PO PRN (08:02)
[2018-10-21] MEDS ORDERED: Nitroglycerin 0.4 MG TAB.SUBL SL PRN (08:02)
[2018-10-21] MEDS ORDERED: Celecoxib 200 MG CAPSULE PO SCH (09:00)
[2018-10-21] MEDS: Insulin LISPRO 300 UNITS/3 ML VIAL SQ SCH ×4 (10:27→20:25)
[2018-10-21] MEDS: amLODIPine 5 MG TABLET PO SCH (10:38)
[2018-10-21] MEDS: Gabapentin 100 MG CAPSULE PO SCH ×3 (10:38→19:59)
[2018-10-21] MEDS: Magnesium Oxide 400 MG TABLET PO SCH (10:39)
[2018-10-21] MEDS: cloNIDine HCl 0.1 MG TABLET PO SCH ×3 (10:39→19:59)
[2018-10-21] MEDS: Lisinopril 20 MG TABLET PO SCH (10:39)
[2018-10-21] MEDS: Cefdinir 300 MG CAPSULE PO SCH ×2 (10:41→19:59)
[2018-10-21 10:52] LABS: Basophils % 0.2 %; Eosinophils # 0.3 K/mcL (0.0-0.6); Eosinophils % 2.3 %; Hematocrit 25.8 % (35.3-44.9); Hemoglobin 7.9 g/dL (11.5-15.4); Immature Granulocytes % 0.6 % (0-4); Lymphocytes % 8.2 %; Mean Corpuscular HGB Conc 30.6 g/dL (31.6-35.5); Mean Corpuscular Hemoglobin 28.9 pg (28.0-33.3); Mean Corpuscular Volume 94.5 fL (83.0-100.0); Neutrophils # 9.9 K/mcL (1.6-8.9); Platelet Count 248 K/mcL (140-400); Red Blood Count 2.73 M/mcL (3.82-4.97); Red Cell Distribution Width 13.9 % (11.5-14.5); Segmented Neutrophils % 80.7 %; White Blood Count 12.3 K/mcL (4.3-11.1)
[2018-10-21 11:08] LABS: Calcium 8.7 mg/dL (8.6-10.3); Magnesium 1.8 mg/dL (1.6-2.6); Potassium 5.6 mEq/L (3.5-5.1)
[2018-10-21 11:09] LABS: INR 4.7; Prothrombin Time 53.3 Seconds (9.4-12.1)
--- NOTE | 2018-10-21 11:40 | Internal Med Progress Note ---
Hospitalist Progress Note - Encounter Date of Encounter: 10/21/18 Time of Encounter: 10:00 - Subjective Interval History: Noticed mild improvement in her symptoms but continues to remain dyspneic. Denies any cough, sputum production, or fever/chills. Continues to have significant leg swelling. - Exam Vitals: Temp Pulse Resp BP Pulse Ox 97.9 F 71 16 191/64 94 10/21/18 11:04 10/21/18 11:04 10/21/18 11:04 10/21/18 11:04 10/21/18 11:04 Exam: General: Alert and oriented, not in acute distress. Cardiovascular:Normal S1 & S2, No JVD. Pulse regular. Pitting edema up to midshins bilaterally Lungs: Bibasilar crackles Abdomen:Soft, non-tender, no rigidity. Extremities:No joint deformity or effusion Neurological:Normal cognition and motor skills. Non-focal - Assessment and Plan (1) Acute on chronic diastolic (congestive) heart failure Current Visit: Yes Status: Acute Assessment and Plan: Presented with progressive dyspnea associated with orthopnea and leg swelling. CXR showing more prominent pulmonary vascular congestion. BNP elevated at 219 serial troponins -ve, EKG showing NSR without ischemic changes. continue IV lasix 40mg BID, Cr improving as well as downtrending potassium monitor I&O and electrolytes echocardiogram was done recently on 10/08 which showed preserved EF and mild diastolic dysfunction. (2) Hyperkalemia Current Visit: Yes Status: Acute Assessment and Plan: ?Represents ineffective diuresis, no EKG changes 1 dose of Kayexalate given in the ED, improved from 5.9 - 5.6 monitor on IV diuretics today (3) Supratherapeutic INR Current Visit: Yes Status: Acute Assessment and Plan: INR 4.6-4.7, no signs and symptoms of bleeding. Hb also stable hold off on coumadin daily INR (4) CAD in [place] artery Current Visit: Yes Status: Chronic Assessment and Plan: resume home meds (5) Atrial fibrillation Current Visit: No Status: Chronic Assessment and Plan: INR is supratherapeutic, hold off on Coumadin resume coreg (6) CKD (chronic kidney disease) stage 3, GFR 30-59 ml/min Current Visit: No Status: Chronic Assessment and Plan: Cr close to her baseline, monitor while on diuresis (7) DM type 2 (diabetes mellitus, type 2) Current Visit: No Status: Chronic Assessment and Plan: Medium dose sliding scale (8) Hypertension Current Visit: No Status: Chronic Assessment and Plan: resume home meds PRN labetalol (9) Hypothyroidism Current Visit: No Status: Chronic Assessment and Plan: resume home medS (10) MALATHI (obstructive sleep apnea) Current Visit: No Status: Chronic Assessment and Plan: CPAP at HS (11) Hx of diverticulitis of colon Current Visit: Yes Status: Acute Assessment and Plan: Was discharged on 10/13 on 9 additional days of Omnicef and Flagyl complete abx tomorrow (12) DVT prophylaxis Current Visit: No Status: Chronic Assessment and Plan: supratherapeutic INR - Time Spent with Patient Total time spent is greater than 50% in coordination of care (as documented) at patient's floor/unit and/or counseling patient: 25 - 35 minutes Plan of Care Discussed with: patient Internal Medicine: Result - Labs CBC & Chem 7: 10/21/18 10:33 10/21/18 10:33 Labs: Short CBC 10/20/18 10/21/18 Range/Units 15:10 10:33 WBC 10.8 12.3 H (4.3-11.1) K/mcL Hgb 8.4 L 7.9 L (11.5-15.4) g/dL Hct 27.5 L 25.8 L (35.3-44.9) % Plt Count 252 248 (140-400) K/mcL Neutrophils # 8.3 9.9 H (1.6-8.9) K/mcL BMP 10/20/18 10/21/18 15:10 10:33 Sodium 137 140 Potassium 5.9 H 5.6 H Chloride 104 105 Carbon Dioxide 28 30 H BUN 52 H 45 H Creatinine 1.70 H 1.56 H Glucose 325 H 223 H Calcium 8.6 8.7 Cardiac Enzymes 10/20/18 10/20/18 Range/Units 15:28 20:36 Troponin I < 0.03 < 0.03 (< 0.04) ng/mL - ABG Interpretation ABG results: PT/INR, D-dimer PT 53.3 Seconds (9.4-12.1) H* 10/21/18 10:33 - Impressions Impressions Chest X-Ray 10/20/18 00:00 IMPRESSION: No change. D/ / Van Haider MD / Van Haider MD Interpreting Provider: Van Haider MD Consult Discharge Plan - Plan Referrals: Aquilino Rivera, DO [Primary Care Provider] - (5) Atrial fibrillation Qualifiers: Atrial fibrillation type: paroxysmal Qualified Code(s): I48.0 - Paroxysmal atrial fibrillation (7) DM type 2 (diabetes mellitus, type 2) Qualifiers: Diabetes mellitus buttermaker continuous churn insulin use: with buttermaker continuous churn use Diabetes mellitus complication status: with kidney complications Diabetes mellitus complication detail: with chronic kidney disease Chronic kidney disease stage: stage 3 (moderate) Qualified Code(s): E11.22 - Type 2 diabetes mellitus with diabetic chronic kidney disease; N18.3 - Chronic kidney disease, stage 3 (moderate); N18.3 - Chronic kidney disease, stage 3 (moderate); Z79.4 - custodial (current) use of insulin; Z79.4 - custodial (current) use of insulin; Z79.4 - custodial (current) use of insulin; Z79.4 - tank terminal gauger (current) use of insulin (8) Hypertension Qualifiers: Hypertension type: essential hypertension Qualified Code(s): I10 - Essential (primary) hypertension (9) Hypothyroidism Qualifiers: Hypothyroidism type: unspecified Qualified Code(s): E03.9 - Hypothyroidism, u nspecified
[2018-10-21] MEDS: hydrALAZINE 25 MG TABLET PO SCH ×4 (12:47→19:59)
[2018-10-21] MEDS: metroNIDAZOLE 500 MG TABLET PO SCH ×3 (12:53→19:59)
[2018-10-21] MEDS: Fluticasone Propionate Nasal 50 MCG/SPRAY BOTTLE NS SCH (12:53)
[2018-10-21] MEDS: traZODone 50 MG TABLET PO SCH (19:59)
[2018-10-21] MEDS: rOPINIRole 0.25 MG TABLET PO SCH (19:59)
[2018-10-21] MEDS: Furosemide 40 MG/4 ML VIAL IVP SCH (20:25)
[2018-10-22 03:00] LABS: Basophils % 0.1 %; Eosinophils # 0.3 K/mcL (0.0-0.6); Eosinophils % 2.5 %; Hematocrit 25.2 % (35.3-44.9); Hemoglobin 7.5 g/dL (11.5-15.4); Immature Granulocytes % 0.6 % (0-4); Lymphocytes # 1.2 K/mcL (0.6-4.6); Lymphocytes % 11.8 %; Mean Corpuscular HGB Conc 29.8 g/dL (31.6-35.5); Mean Corpuscular Hemoglobin 28.5 pg (28.0-33.3); Mean Corpuscular Volume 95.8 fL (83.0-100.0); Mean Platelet Volume 12.1 fL (9.4-12.4); Monocytes # 1.1 K/mcL (0.0-1.3); Monocytes % 10.7 %; Neutrophils # 7.6 K/mcL (1.6-8.9); Platelet Count 242 K/mcL (140-400); Red Blood Count 2.63 M/mcL (3.82-4.97); Red Cell Distribution Width 13.9 % (11.5-14.5); Segmented Neutrophils % 74.3 %; White Blood Count 10.2 K/mcL (4.3-11.1)
[2018-10-22 03:13] LABS: INR 3.8; Prothrombin Time 42.8 Seconds (9.4-12.1)
[2018-10-22 03:20] LABS: Calcium 8.9 mg/dL (8.6-10.3); Potassium 5.8 mEq/L (3.5-5.1)
[2018-10-22] MEDS: Ipratropium/Albuterol Neb 3 ML IH SCH ×6 (03:49→23:45)
[2018-10-22] MEDS: metroNIDAZOLE 500 MG TABLET PO SCH ×3 (08:28→21:09)
[2018-10-22] MEDS: Magnesium Oxide 400 MG TABLET PO SCH (08:28)
[2018-10-22] MEDS: amLODIPine 5 MG TABLET PO SCH (08:28)
[2018-10-22] MEDS: hydrALAZINE 25 MG TABLET PO SCH ×4 (08:28→21:09)
[2018-10-22] MEDS: Lisinopril 20 MG TABLET PO SCH (08:29)
[2018-10-22] MEDS: cloNIDine HCl 0.1 MG TABLET PO SCH ×3 (08:29→21:09)
[2018-10-22] MEDS: Gabapentin 100 MG CAPSULE PO SCH ×3 (08:29→21:09)
[2018-10-22] MEDS: Cefdinir 300 MG CAPSULE PO SCH ×2 (08:29→21:09)
[2018-10-22] MEDS: Furosemide 40 MG/4 ML VIAL IVP SCH ×2 (08:38→17:02)
[2018-10-22] MEDS: Insulin LISPRO 300 UNITS/3 ML VIAL SQ SCH ×4 (08:38→21:05)
[2018-10-22] MEDS: Insulin DETEMIR 100 UNIT/ML X5UNITS SQ SCH ×2 (10:04→21:10)
[2018-10-22] MEDS: Fluticasone Propionate Nasal 50 MCG/SPRAY BOTTLE NS SCH (11:02)
--- NOTE | 2018-10-22 11:14 | Internal Med Progress Note ---
Hospitalist Progress Note - Encounter Date of Encounter: 10/22/18 Time of Encounter: 10:00 - Subjective Interval History: Continues to report significant leg swelling but orthopnea improved. Denies any chest pain, palpitation, abdominal pain, diarrhea, or lightheadedness. No fever overnight. - Exam Vitals: Temp Pulse Resp BP Pulse Ox 97.9 F 61 16 169/58 100 10/22/18 07:46 10/22/18 07:46 10/22/18 07:46 10/22/18 07:46 10/22/18 07:46 Exam: General: Alert and oriented, not in acute distress. Cardiovascular:Normal S1 & S2, No JVD. Pulse regular. Pitting edema up to midshins bilaterally Lungs: Scattered crackles Abdomen:Soft, non-tender, no rigidity. Extremities:No joint deformity or effusion Neurological:Normal cognition and motor skills. Non-focal - Assessment and Plan (1) Acute on chronic diastolic (congestive) heart failure Current Visit: Yes Status: Acute Assessment and Plan: Presented with progressive dyspnea associated with orthopnea and leg swelling. CXR showing more prominent pulmonary vascular congestion. BNP elevated at 219 serial troponins -ve, EKG showing NSR without ischemic changes. there was an issue with obtaining IV access and she only received 1 dose of IV lasix will give IV lasix 40mg BID while monitoring her Cr and K echocardiogram was done recently on 10/08 which showed preserved EF and mild diastolic dysfunction. (2) Hyperkalemia Current Visit: Yes Status: Acute Assessment and Plan: ?Represents ineffective diuresis, no EKG changes 1 dose of Kayexalate given in the ED on presentation, continues to remain elevated at 5.8 1 more dose of Kayexalate today monitor on IV diuretics (3) Supratherapeutic INR Current Visit: Yes Status: Acute Assessment and Plan: INR 4.6-4.7-3.8, no signs and symptoms of bleeding. Hb is 7.5 which is within her usual range hold off on coumadin daily INR (4) CAD in [place] artery Current Visit: Yes Status: Chronic Assessment and Plan: resume home meds (5) Atrial fibrillation Current Visit: No Status: Chronic Assessment and Plan: INR is supratherapeutic, hold off on Coumadin resume coreg (6) CKD (chronic kidney disease) stage 3, GFR 30-59 ml/min Current Visit: No Status: Chronic Assessment and Plan: Cr close to her baseline, monitor while on diuresis (7) DM type 2 (diabetes mellitus, type 2) Current Visit: No Status: Chronic Assessment and Plan: Medium dose sliding scale, will add basal insulin (8) Hypertension Current Visit: No Status: Chronic Assessment and Plan: resume home meds PRN labetalol (9) Hypothyroidism Current Visit: No Status: Chronic Assessment and Plan: resume home medS (10) MALATHI (obstructive sleep apnea) Current Visit: No Status: Chronic Assessment and Plan: CPAP at HS (11) Hx of diverticulitis of colon Current Visit: Yes Status: Acute Assessment and Plan: Was discharged on 10/13 on 9 additional days of Omnicef and Flagyl complete abx today (12) DVT prophylaxis Current Visit: No Status: Chronic Assessment and Plan: supratherapeutic INR - Time Spent with Patient Total time spent is greater than 50% in coordination of care (as documented) at patient's floor/unit and/or counseling patient: 25 - 35 minutes Plan of Care Discussed with: patient Internal Medicine: Result - Labs CBC & Chem 7: 10/22/18 01:32 10/22/18 01:32 Labs: Short CBC 10/22/18 Range/Units 01:32 WBC 10.2 (4.3-11.1) K/mcL Hgb 7.5 L (11.5-15.4) g/dL Hct 25.2 L (35.3-44.9) % Plt Count 242 (140-400) K/mcL Neutrophils # 7.6 (1.6-8.9) K/mcL BMP 10/22/18 01:32 Sodium 142 Potassium 5.8 H Chloride 104 Carbon Dioxide 33 H BUN 48 H Creatinine 1.66 H Glucose 132 H Calcium 8.9 - ABG Interpretation ABG results: PT/INR, D-dimer PT 42.8 Seconds (9.4-12.1) H 10/22/18 01:32 Consult Discharge Plan - Plan Referrals: Aquilino Rivera, DO [Primary Care Provider] - (5) Atrial fibrillation Qualifiers: Atrial fibrillation type: paroxysmal Qualified Code(s): I48.0 - Paroxysmal atrial fibrillation (7) DM type 2 (diabetes mellitus, type 2) Qualifiers: Diabetes mellitus snf insulin use: with roasterman use Diabetes mellitus complication status: with kidney complications Diabetes mellitus complication detail: with chronic kidney disease Chronic kidney disease stage: stage 3 (moderate) Qualified Code(s): E11.22 - Type 2 diabetes mellitus with diabetic chronic kidney disease; N18.3 - Chronic kidney disease, stage 3 (moderate); N18.3 - Chronic kidney disease, stage 3 (moderate); Z79.4 - ocean transportation intermediary (current) use of insulin; Z79.4 - senior care (current) use of insulin; Z79.4 - senior care (current) use of insulin; Z79.4 - ocean transportation intermediary (current) use of insulin (8) Hypertension Qualifiers: Hypertension type: essential hypertension Qualified Code(s): I10 - Essential (primary) hypertension (9) Hypothyroidism Qualifiers: Hypothyroidism type: unspecified Qualified Code(s): E03.9 - Hypothyroidism, unspecified
[2018-10-22] MEDS: traZODone 50 MG TABLET PO SCH (21:09)
[2018-10-22] MEDS: rOPINIRole 0.25 MG TABLET PO SCH (21:09)
[2018-10-23] MEDS: Ipratropium/Albuterol Neb 3 ML IH SCH ×5 (04:38→20:27)
[2018-10-23 05:10] LABS: Basophils % 0.1 %; Eosinophils # 0.3 K/mcL (0.0-0.6); Eosinophils % 3.8 %; Hemoglobin 7.3 g/dL (11.5-15.4); Immature Granulocytes % 0.3 % (0-4); Lymphocytes % 13.5 %; Mean Corpuscular HGB Conc 30.4 g/dL (31.6-35.5); Mean Corpuscular Hemoglobin 29.3 pg (28.0-33.3); Mean Corpuscular Volume 96.4 fL (83.0-100.0); Mean Platelet Volume 11.5 fL (9.4-12.4); Monocytes # 0.9 K/mcL (0.0-1.3); Monocytes % 12.1 %; Neutrophils # 5.2 K/mcL (1.6-8.9); Platelet Count 223 K/mcL (140-400); Red Blood Count 2.49 M/mcL (3.82-4.97); Red Cell Distribution Width 13.9 % (11.5-14.5); Segmented Neutrophils % 70.2 %; White Blood Count 7.3 K/mcL (4.3-11.1)
[2018-10-23 05:32] LABS: Calcium 8.6 mg/dL (8.6-10.3); Potassium 5.2 mEq/L (3.5-5.1)
[2018-10-23] MEDS: cloNIDine HCl 0.1 MG TABLET PO SCH ×3 (07:47→20:37)
[2018-10-23] MEDS: amLODIPine 5 MG TABLET PO SCH (07:47)
[2018-10-23] MEDS: hydrALAZINE 25 MG TABLET PO SCH ×4 (07:47→20:37)
[2018-10-23] MEDS: Gabapentin 100 MG CAPSULE PO SCH ×3 (07:48→20:42)
[2018-10-23] MEDS: Lisinopril 20 MG TABLET PO SCH (07:48)
[2018-10-23] MEDS: Magnesium Oxide 400 MG TABLET PO SCH (07:48)
[2018-10-23] MEDS: Insulin DETEMIR 100 UNIT/ML X5UNITS SQ SCH ×2 (07:48→20:42)
[2018-10-23] MEDS: Furosemide 40 MG/4 ML VIAL IVP SCH ×2 (07:48→17:24)
[2018-10-23] MEDS: Fluticasone Propionate Nasal 50 MCG/SPRAY BOTTLE NS SCH (07:49)
[2018-10-23] MEDS: Insulin LISPRO 300 UNITS/3 ML VIAL SQ SCH ×4 (07:49→20:43)
[2018-10-23 08:49] LABS: INR 2.5; Prothrombin Time 28.6 Seconds (9.4-12.1)
--- NOTE | 2018-10-23 11:30 | Internal Med Progress Note ---
Hospitalist Progress Note - Encounter Date of Encounter: 10/23/18 Time of Encounter: 10:00 - Subjective Interval History: States that her leg swelling started to improve. Denies any chest pain, worsening SOB, palpitation, abdominal pain, diarrhea, or lightheadedness. No fever overnight. - Exam Vitals: Temp Pulse Resp BP Pulse Ox 98.3 F 64 18 176/70 96 10/23/18 07:40 10/23/18 07:40 10/23/18 07:47 10/23/18 07:40 10/23/18 07:47 Exam: General: Alert and oriented, not in acute distress. Cardiovascular:Normal S1 & S2, No JVD. Pulse regular. Pitting edema up to midshins bilaterally but less prominent Lungs: Scattered crackles Abdomen:Soft, non-tender, no rigidity. Extremities:No joint deformity or effusion Neurological:Normal cognition and motor skills. Non-focal - Assessment and Plan (1) Acute on chronic diastolic (congestive) heart failure Current Visit: Yes Status: Acute Assessment and Plan: Presented with progressive dyspnea associated with orthopnea and leg swelling. CXR showing more prominent pulmonary vascular congestion. BNP elevated at 219 serial troponins -ve, EKG showing NSR without ischemic changes. continue IV lasix 40mg BID while monitoring her Cr and K which are trending down echocardiogram was done recently on 10/08 which showed preserved EF and mild diastolic dysfunction. (2) Hyperkalemia Current Visit: Yes Status: Acute Assessment and Plan: ?Represents ineffective diuresis, no EKG changes 1 dose of Kayexalate given in the ED on presentation, continues to remain elevated at 5.8 yesterday and required another dose of Kayexalate 5.2 today, continue to monitor on IV diuretics (3) Supratherapeutic INR Current Visit: Yes Status: Acute Assessment and Plan: INR 2.5 today, no signs and symptoms of bleeding. Had been off Coumadin since the admission will resume today, pharmacy to dose daily INR (4) CAD in [place] artery Current Visit: Yes Status: Chronic Assessment and Plan: resume home meds (5) Atrial fibrillation Current Visit: No Status: Chronic Assessment and Plan: INR is therapeutic today, resume Coumadin (pharmacy to dose) resume coreg (6) CKD (chronic kidney disease) stage 3, GFR 30-59 ml/min Current Visit: No Status: Chronic Assessment and Plan: Cr close to her baseline, monitor while on diuresis (7) DM type 2 (diabetes mellitus, type 2) Current Visit: No Status: Chronic Assessment and Plan: continue basal bolus insulin with medium dose sliding scale (8) Hypertension Current Visit: No Status: Chronic Assessment and Plan: continues to remain elevated despite resuming her home meds including norvasc, coreg, clonidine, hydralazine, and lisinopril Will add 25 mg of Aldactone PRN labetalol (9) Hypothyroidism Current Visit: No Status: Chronic Assessment and Plan: resume home medS (10) MALATHI (obstructive sleep apnea) Current Visit: No Status: Chronic (11) Hx of diverticulitis of colon Current Visit: Yes Status: Acute Assessment and Plan: Was discharged on 10/13 on 9 additional days of Omnicef and Flagyl completed abx on 10/22 (12) DVT prophylaxis Current Visit: No Status: Chronic Assessment and Plan: therapeutic INR - Time Spent with Patient Total time spent is greater than 50% in coordination of care (as documented) at patient's floor/unit and/or counseling patient: 25 - 35 minutes Plan of Care Discussed with: patient (discussed with social media manager and case management) Internal Medicine: Result - Labs CBC & Chem 7: 10/23/18 04:13 10/23/18 04:13 Labs: Short CBC 10/23/18 Range/Units 04:13 WBC 7.3 (4.3-11.1) K/mcL Hgb 7.3 L (11.5-15.4) g/dL Hct 24.0 L (35.3-44.9) % Plt Count 223 (140-400) K/mcL Neutrophils # 5.2 (1.6-8.9) K/mcL BMP 10/23/18 04:13 Sodium 143 Potassium 5.2 H Chloride 104 Carbon Dioxide 31 H BUN 42 H Creatinine 1.51 H Glucose 114 H Calcium 8.6 - ABG Interpretation ABG results: PT/INR, D-dimer PT 28.6 Seconds (9.4-12.1) H 10/23/18 08:19 Consult Discharge Plan - Plan Referrals: Aquilino Rivera, DO [Primary Care Provider] - (5) Atrial fibrillation Qualifiers: Atrial fibrillation type: paroxysmal Qualified Code(s): I48.0 - Paroxysmal atrial fibrillation (7) DM type 2 (diabetes mellitus, type 2) Qualifiers: Diabetes mellitus longterm insulin use: with superintendent container terminal use Diabetes mellitus complication status: with kidney complications Diabetes mellitus complication detail: with chronic kidney disease Chronic kidney disease stage: stage 3 (moderate) Qualified Code(s): E11.22 - Type 2 diabetes mellitus with diabetic chronic kidney disease; N18.3 - Chronic kidney disease, stage 3 (moderate); N18.3 - Chronic kidney disease, stage 3 (moderate); Z79.4 - penitentiary (current) use of insulin; Z79.4 - penitentiary (current) use of insulin; Z79.4 - adjunct faculty for medical terminology (c urrent) use of insulin; Z79.4 - adjunct faculty for medical terminology (current) use of insulin (8) Hypertension Qualifiers: Hypertension type: essential hypertension Qualified Code(s): I10 - Essential (primary) hypertension (9) Hypothyroidism Qualifiers: Hypothyroidism type: unspecified Qualified Code(s): E03.9 - Hypothyroidism, unspecified
[2018-10-23] MEDS: Spironolactone 25 MG TABLET PO SCH (12:59)
[2018-10-23] MEDS ORDERED: *HR* Warfarin 2 MG TABLET PO ONE (18:00)
[2018-10-23] MEDS ORDERED: Warfarin perPT PO PRN (18:00)
[2018-10-23] MEDS: rOPINIRole 0.25 MG TABLET PO SCH (20:42)
[2018-10-23] MEDS: traZODone 50 MG TABLET PO SCH (20:42)
[2018-10-24] MEDS: Ipratropium/Albuterol Neb 3 ML IH SCH ×6 (00:34→20:10)
[2018-10-24 05:25] LABS: Calcium 8.7 mg/dL (8.6-10.3); Magnesium 1.8 mg/dL (1.6-2.6); Potassium 5.9 mEq/L (3.5-5.1)
[2018-10-24 06:00] LABS: Prothrombin Time 22.5 Seconds (9.4-12.1)
--- NOTE | 2018-10-24 07:32 | Electrocardiograph Report ---
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
[2018-10-24] MEDS: Furosemide 40 MG/4 ML VIAL IVP SCH ×2 (07:43→16:10)
[2018-10-24] MEDS: Insulin DETEMIR 100 UNIT/ML X5UNITS SQ SCH ×2 (07:43→21:12)
[2018-10-24] MEDS: hydrALAZINE 25 MG TABLET PO SCH ×4 (07:44→21:10)
[2018-10-24] MEDS: Magnesium Oxide 400 MG TABLET PO SCH (07:44)
[2018-10-24] MEDS: Spironolactone 25 MG TABLET PO SCH (07:44)
[2018-10-24] MEDS: cloNIDine HCl 0.1 MG TABLET PO SCH ×3 (07:44→21:09)
[2018-10-24] MEDS: Gabapentin 100 MG CAPSULE PO SCH ×3 (07:44→21:10)
[2018-10-24] MEDS: Lisinopril 20 MG TABLET PO SCH (07:44)
[2018-10-24] MEDS: amLODIPine 5 MG TABLET PO SCH (07:44)
[2018-10-24] MEDS: Fluticasone Propionate Nasal 50 MCG/SPRAY BOTTLE NS SCH (07:45)
[2018-10-24] MEDS: Insulin LISPRO 300 UNITS/3 ML VIAL SQ SCH ×4 (07:45→21:14)
--- NOTE | 2018-10-24 12:23 | Internal Med Progress Note ---
Hospitalist Progress Note - Encounter Date of Encounter: 10/24/18 Time of Encounter: 09:45 - Subjective Interval History: Reports improvement in her breathing and leg swelling. Denies any chest pain or palpitation. No fever overnight. Potassium continues to remain elevated at 5.9 however. - Exam Vitals: Temp Pulse Resp BP Pulse Ox 98.2 F 61 18 190/68 98 10/24/18 07:16 10/24/18 07:16 10/24/18 11:52 10/24/18 07:16 10/24/18 11:52 Exam: General: Alert and oriented, not in acute distress. Cardiovascular:Normal S1 & S2, No JVD. Pulse regular. Pitting edema up to midshins bilaterally which is improving Lungs: Scattered crackles Abdomen:Soft, non-tender, no rigidity. Extremities:No joint deformity or effusion Neurological:Normal cognition and motor skills. Non-focal - Assessment and Plan (1) Acute on chronic diastolic (congestive) heart failure Current Visit: Yes Status: Acute Assessment and Plan: Presented with progressive dyspnea associated with orthopnea and leg swelling. CXR showing more prominent pulmonary vascular congestion. BNP elevated at 219 serial troponins -ve, EKG showing NSR without ischemic changes. diuresing well on IV lasix 40mg BID but potassium continues to remain elevated Nephrology consult. echocardiogram was done recently on 10/08 which showed preserved EF and mild diastolic dysfunction. (2) Hyperkalemia Current Visit: Yes Status: Acute Assessment and Plan: ?Represents ineffective diuresis, no EKG changes 2 doses of Kayexalate given so far and also diuresing well on IV lasix 40mg BID. Cr remains stable but potassium persistently elevated at 5.9 on lisinopril 40mg at home which I initially considered discontinuing. However, pt was on the medications for a long period of time and BP continues to remain poorly controlled nephrology consulted (3) Supratherapeutic INR Current Visit: Yes Status: Resolved Assessment and Plan: INR 2.0 today, coumadin resumed yesterday. Pharmacy to dose daily INR (4) Hypertension Current Visit: No Status: Chronic Assessment and Plan: continues to remain elevated despite resuming her home meds including norvasc, coreg, clonidine, hydralazine, and lisinopril unable to do aldactone due to persistent hyperkalemia nephrology consult ?may consider minoxidil PRN labetalol (5) CAD in [place] artery Current Visit: Yes Status: Chronic Assessment and Plan: resume home meds (6) Atrial fibrillation Current Visit: No Status: Chronic Assessment and Plan: INR is therapeutic x 2 days, Coumadin resumed (pharmacy to dose) resume coreg (7) CKD (chronic kidney disease) stage 3, GFR 30-59 ml/min Current Visit: No Status: Chronic Assessment and Plan: Cr close to her baseline, monitor while on diuresis (8) DM type 2 (diabetes mellitus, type 2) Current Visit: No Status: Chronic Assessment and Plan: continue basal bolus insulin with medium dose sliding scale (9) Hypothyroidism Current Visit: No Status: Chronic Assessment and Plan: resume home medS (10) MALATHI (obstructive sleep apnea) Current Visit: No Status: Chronic Assessment and Plan: CPAP at HS (11) Hx of diverticulitis of colon Current Visit: Yes Status: Acute Assessment and Plan: Was discharged on 10/13 on 9 additional days of Omnicef and Flagyl completed abx on 10/22 (12) DVT prophylaxis Current Visit: No Status: Chronic Assessment and Plan: therapeutic INR - Time Spent with Patient Total time spent is greater than 50% in coordination of care (as documented) at patient's floor/unit and/or counseling patient: 25 - 35 minutes Plan of Care Discussed with: sustainability consultant Internal Medicine: Result - Labs CBC & Chem 7: 10/23/18 04:13 10/24/18 04:53 Labs: BMP 10/24/18 04:53 Sodium 139 Potassium 5.9 H Chloride 105 Carbon Dioxide 31 H BUN 42 H Creatinine 1.52 H Glucose 141 H Calcium 8.7 - ABG Interpretation ABG results: PT/INR, D-dimer PT 22.5 Seconds (9.4-12.1) H 10/24/18 04:59 Consult Discharge Plan - Plan Referrals: Aquilino Rivera, DO [Primary Care Provider] - (4) Hypertension Qualifiers: Hypertension type: essential hypertension Qualified Code(s): I10 - Essential (primary) hypertension (6) Atrial fibrillation Qualifiers: Atrial fibrillation type: paroxysmal Qualified Code(s): I48.0 - Paroxysmal atrial fibrillation (8) DM type 2 (diabetes mellitus, type 2) Qualifiers: Diabetes mellitus skilled nursing insulin use: with skilled nursing use Diabetes mellitus complication status: with kidney complications Diabetes mellitus complication detail: with chronic kidney disease Chronic kidney disease stage: stage 3 (moderate) Qualified Code(s): E11.22 - Type 2 diabetes mellitus with diabetic chronic kidney disease; N18.3 - Chronic kidney disease, stage 3 (moderate); N18.3 - Chronic kidney disease, stage 3 (moderate); Z79.4 - terminologist (current) use of insulin; Z79.4 - jail (current) use of insulin; Z79.4 - terminologist (current) use of insulin; Z79.4 - jail (current) use of insulin (9) Hypothyroidism Qualifiers: Hypothyroidism type: unspecified Qualified Code(s): E03.9 - Hypothyroidism, unspecified
--- NOTE | 2018-10-24 13:25 | Nephrology Consult Note ---
Date of Encounter: 10/24/18 Time of Encounter: 13:23 Assessment and Plan (1) CKD (chronic kidney disease) stage 3, GFR 30-59 ml/min Current Visit: Yes Status: Acute Appears to be CKD 3, not seen a launch steward in the past. Referred to Dr. Dai in 2015, but did not show up for appointment. GFR is 33 today, stable. D/C celebrex upon discharge. Avoid nephrotoxins and renal dose. Strict I/O Hyperkalemia K is 5.9, 15 mg PO Kayexalate ordered for a total of 30 mg. Renal diet ordered. Lisinopril d/batool, Diovan started, less likely to cause Hyperkalemia. PO Potassium held on admission, consider holding on discharge, depending on how it trends inpatient. (2) Congestive heart failure Current Visit: Yes Status: Acute Strict I/O 1.5 liter fluid restriction. Low sodium/renal diet. Qualifiers: Qualified Code(s): I50.9 - Heart failure, unspecified (3) Hyperkalemia Current Visit: Yes Status: Acute see above. History of Present Illness - Reason for Consult Consult date: 10/24/18 Chronic Kidney Disease, hyperkalemia Requesting physician: Stiven Michel - Chief Complaint difficulty in breathing, abdominal bloating - History of Present Illness Ms. Lala is a 77 year old female who presented to ED with difficulty in breathing and abdominal bloating that started yesterday. PMH: atrial fibrillation, CHF, coronary artery disease, CVA, diabetes, hyperlipidemia, hypertension, and CKD. Patient has never seen a launch steward in the past. It appears she is CKD 3, however when asked about kidney function, she is unsure what I am talking about. Denies nausea, vomiting, diarrhea. Admit to shortness of breath, is currently on supplemental oxygen, does not wear oxygen at home. She currently resides at [facility] for rehab, and would like to return there. She denies etoh, illicit drug use, or tobacco use. Per EMR home medications include scheduled Celbrex daily, this should be discontinued. Pt's Potassium is 5.9 today. She states she has never had trouble with her electrolytes in the past. She is unsure of FH of CKD or HD, again she is a poor historian, most information was obtained from medical records. 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, 3 c-sections - Social History Smoking Status: Never smoker Smokeless Tobacco Status: No Alcohol use: none Drug use: none - Family History Mother Living Status: Cause of : COPD Hx Family Cardiac Disorders: No Hx Family Respiratory Disorders: Yes (COPD) Hx Family Cancer: Yes (Lung Cancer) Father Living Status: Hx Family Cancer: Yes ("Mouth cancer") Hx Family Endocrine Disorder: Yes (Diabetes) Sister Living Status: Hx Family Cardiac Disorders: No Hx Family Respiratory Disorders: No Hx Family Cancer: Yes (Breast Cancer) Hx Family Endocrine Disorder: Yes (Diabetes) Brother Adopted: No Family Member Ethnicity: Non- Living Status: Hx Family Cardiac Disorders: No Hx Family Respiratory Disorders: No Hx Family Cancer: Yes (Lung Cancer) Hx Family Endocrine Disorder: Yes (Diabetes) Hx Family Neurologic Disorders: Yes (CVA) Medications and Allergies Magnesium Oxide [Magnesium] 400 mg PO DAILY 11/05/14 [History] Insulin Glargine,Hum.rec.anlog [Lantus Solostar] 17 unit SQ HS 01/09/15 [History] Ropinirole HCl [Requip] 0.5 mg PO HS 01/09/15 [History] Furosemide [Lasix] 40 mg PO BID 30 Days tab 01/14/15 [Rx] Acetaminophen [Pain Reliever] 500 mg PO TID PRN 06/06/17 [History] Fluticasone Propionate Nasal [Flonase] 1 spr NS DAILY 06/06/17 [History] Gabapentin [Neurontin] 100 mg PO TID 06/06/17 [History] Guaifenesin [Mucinex] 600 mg PO BID PRN 06/06/17 [History] Insulin Glargine,Hum.rec.anlog [Lantus Solostar] 30 unit SQ QAM 06/06/17 [History] Insulin LISPRO [Humalog Kwikpen U-100] 10 unit SQ TIDWM 06/06/17 [History] Lactobacillus Acidophilus [Acidophilus] 1 cap PO BID 06/06/17 [History] Levothyroxine Sodium [Levoxyl] 75 mcg PO DAILY 06/06/17 [History] Liothyronine Sodium [Cytomel] 25 mcg PO DAILY 06/06/17 [History] Montelukast [Singulair] 10 mg PO DAILY 06/06/17 [History] hydrALAZINE [HydrALAZINE] 75 mg PO QID 06/06/17 [History] Allopurinol [Zyloprim 100 MG] 100 mg PO DAILY #30 tablet 06/16/17 [Rx] Loratadine [Allergy Relief] 10 mg PO DAILY PRN #0 06/16/17 [Rx] Ondansetron ODT [Zofran ODT] 4 mg SL Q6HR PRN #10 tab.rapdis 02/14/18 [Rx] Albuterol Sulfate [Proair Hfa] 2 puff IH Q6H PRN 10/08/18 [History] Amlodipine Besylate 10 mg PO DAILY 10/08/18 [History] Atorvastatin Calcium [Lipitor] 80 mg PO HS 10/08/18 [History] Carvedilol [Coreg] 25 mg PO BID 10/08/18 [History] Celecoxib [Celebrex] 200 mg PO DAILY 10/08/18 [History] Cholecalciferol (D-3) [Vitamin D] 1,000 unit PO DAILY 10/08/18 [History] Clopidogrel Bisulfate [Plavix] 75 mg PO DAILY 10/08/18 [History] HYDROcodone/Acet 5/325 mg [[place] 5-325 mg] 1 tab PO Q6H PRN 10/08/18 [History] Lisinopril [Zestril] 40 mg PO DAILY 10/08/18 [History] Nitroglycerin [Nitrostat] 0.4 mg SL Q5MIN PRN MDD 3x 10/08/18 [History] Potassium Chloride [Klor-Con 10] 10 meq PO DAILY 10/08/18 [History] Warfarin [Coumadin] 2 mg PO MOWE 10/08/18 [History] Warfarin [Coumadin] 4 mg PO SUTUTHFRSA 10/08/18 [History] cloNIDine HCl [Clonidine HCl] 0.3 mg PO TID 10/08/18 [History] traZODone [TraZODone] 50 mg PO 2100 10/08/18 [History] Cefdinir [Omnicef] 300 mg PO BID 9 Days #18 capsule 10/13/18 [Rx] metroNIDAZOLE [Metronidazole] 500 mg PO TID #27 tablet 10/13/18 [Rx] Allergy/AdvReac Type Severity Reaction Status Date / Time codeine Allergy Congested Verified 11/27/16 06:45 Penicillins [PCN] AdvReac Congested Verified 11/27/16 06:45 tape AdvReac Itching Uncoded 11/27/16 06:45 Review of Systems All Systems review (narrative): The remainder of the systems are negative. Constitutional: fatigue, no chills, no fever(s) Cardiovascular: dyspnea, dyspnea on exertion, no chest pain at rest, no edema Respiratory: dyspnea, dyspnea on exertion, no hemoptysis, no wheezing Gastrointestinal: diarrhea, nausea, vomiting Genitourinary Female: no hematuria, no urinary frequency, no urinary hesitancy, no urinary urgency Exam - Vital Signs Vital signs: Initial Vital Signs Temp Pulse Resp BP Pulse Ox 98.7 F 60 24 168/78 99 10/20/18 14:53 10/20/18 14:53 10/20/18 14:53 10/20/18 14:53 10/20/18 14:53 Vital Signs - Last 8 Hours Temp Pulse Resp BP Pulse Ox 10/24/18 12:36 98.1 F 59 16 171/62 96 10/24/18 11:52 18 98 10/24/18 07:29 16 96 10/24/18 07:16 98.2 F 61 16 190/68 96 Intake and Output 10/23/18 10/24/18 10/24/18 23:59 07:59 15:59 Intake Total 480 / 480 Output Total 400 / 1500 800 / 1200 400 / 1200 Balance -400 / -1260 -800 / -720 80 / -720 Intake: Oral 480 / 480 Output: Urine 400 / 1500 800 / 1200 400 / 1200 Other: # Voids 0 # Urine Diapers 1 Blood Glucose* 169 139 293 - General Appearance General appearance: well-developed, well-nourished EENT: ATNC, hearing intact, vision intact Neck: supple Respiratory: clear Cardiology: edema (+1 pitting edema noted to bilat lower extremities.), normal S1, normal S2 Gastrointestinal: normoactive bowel sounds, no tenderness, no guarding Integumentary: no rash, warm and dry Neurologic: alert and oriented x3 Musculoskeletal: no deformities, no erythema Psychiatric: mood/affect appropriate, cooperative Results - Lab Results 10/23/18 04:13 10/24/18 04:53 Most recent lab results 10/24/18 04:53 Calcium 8.7 Magnesium 1.8 Consult Discharge Plan - Plan Referrals: Aquilino Rivera DO [Primary Care Provider] -
[2018-10-24] MEDS: Valsartan 160 MG TABLET PO SCH (13:34)
[2018-10-24] MEDS ORDERED: *HR* Warfarin 4 MG TABLET PO ONE (18:00)
[2018-10-24] MEDS: traZODone 50 MG TABLET PO SCH (21:09)
[2018-10-24] MEDS: rOPINIRole 0.25 MG TABLET PO SCH (21:09)
[2018-10-25] MEDS: Ipratropium/Albuterol Neb 3 ML IH SCH ×6 (00:11→20:07)
[2018-10-25 04:20] LABS: INR 1.5; Prothrombin Time 17.1 Seconds (9.4-12.1)
[2018-10-25] MEDS: amLODIPine 5 MG TABLET PO SCH (07:27)
[2018-10-25] MEDS: Furosemide 40 MG/4 ML VIAL IVP SCH ×2 (07:27→17:33)
[2018-10-25] MEDS: Valsartan 160 MG TABLET PO SCH (07:28)
[2018-10-25] MEDS: Gabapentin 100 MG CAPSULE PO SCH ×3 (07:28→21:39)
[2018-10-25] MEDS: cloNIDine HCl 0.1 MG TABLET PO SCH ×3 (07:28→21:38)
[2018-10-25] MEDS: Magnesium Oxide 400 MG TABLET PO SCH (07:28)
[2018-10-25] MEDS: hydrALAZINE 25 MG TABLET PO SCH ×4 (07:28→21:39)
[2018-10-25] MEDS: Fluticasone Propionate Nasal 50 MCG/SPRAY BOTTLE NS SCH (07:29)
[2018-10-25] MEDS: Insulin LISPRO 300 UNITS/3 ML VIAL SQ SCH ×5 (07:29→21:39)
[2018-10-25] MEDS: Insulin DETEMIR 100 UNIT/ML X5UNITS SQ SCH ×2 (07:30→21:40)
[2018-10-25 09:05] LABS: Calcium 8.8 mg/dL (8.6-10.3); Potassium 5.2 mEq/L (3.5-5.1)
--- NOTE | 2018-10-25 12:07 | Nephrology Progress Note ---
Date of Encounter: 10/25/18 Time of Encounter: 12:05 - Assessment and Plan (1) CKD (chronic kidney disease) stage 3, GFR 30-59 ml/min Current Visit: Yes Status: Acute Continue IV lasix for today, check Scr and GFR tomorrow, if continues to decline, consider holding. Appears to be CKD 3, not seen a state highway police officer in the past. Referred to Dr. Dai in 2015, but did not show up for appointment. GFR is 29 today, stable. D/C celebrex upon discharge. Avoid nephrotoxins and renal dose. Strict I/O Hyperkalemia K is 5.2,improved, 15 mg PO Kayexalate ordered for today. Renal diet ordered. Continue Diovan. PO Potassium held on admission, consider holding on discharge, depending on how it trends inpatient. Consider manager flight operations to career guidance counselor low k diet for discharge. (2) Congestive heart failure Current Visit: Yes Status: Acute Strict I/O 1.5 liter fluid restriction. Low sodium/renal diet. Qualifiers: Qualified Code(s): I50.9 - Heart failure, unspecified (3) Hyperkalemia Current Visit: Yes Status: Acute see above. Subjective Principal diagnosis: difficulty in breathing Interval history: Seen and examined. Denies chest pain. Admits to feeling chronically short of breath. Denies nausea vomiting or diarrhea. Objective - Vital Signs Vital signs: Vital Signs Temp Pulse Resp BP Pulse Ox 10/25/18 11:56 98.2 F 61 16 170/61 100 10/25/18 11:18 18 95 10/25/18 07:47 18 96 10/25/18 07:17 97.9 F 63 16 172/60 97 10/25/18 04:00 15 179/67 97 10/25/18 03:56 97.6 F 63 16 179/67 97 10/25/18 00:12 16 191/70 98 10/24/18 20:10 16 98 10/24/18 18:36 98.2 F 63 14 191/70 97 10/24/18 15:56 18 97 10/24/18 14:56 97.9 F 61 16 159/59 99 10/24/18 12:36 98.1 F 59 16 171/62 96 Intake and Output 10/24/18 10/25/18 10/25/18 23:59 07:59 15:59 Intake Total 120 / 600 840 / 840 Output Total 1500 / 2700 650 / 950 300 / 950 Balance -1380 / -2100 -650 / -110 540 / -110 Intake: Oral 120 / 600 840 / 840 Output: Urine 1500 / 2700 650 / 950 300 / 950 Other: Meal Dinner Breakfast Percent of Meal Consumed 50% 100% Stool Size Moderate Stool Consistency loose Stool Color Brown Black # Voids 1 # Urine Diapers 1 # Bowel Movements 1 Weight 104 kg Blood Glucose* 252 61 304 Patient Weight 10/25/18 23:59 Weight 104 kg - General Appearance General appearance: Present: well-developed, well-nourished EENT: Present: ATNC, hearing intact, vision intact Neck: Present: supple Respiratory: Present: clear Cardiology: Present: edema, normal S1, normal S2 Gastrointestinal: Present: normoactive bowel sounds, no tenderness, no guarding Integumentary: Present: no rash, warm and dry Neurologic: Present: alert and oriented x3 Musculoskeletal: Present: no deformities, no erythema Psychiatric: Present: mood/affect appropriate, cooperative - Lab 10/23/18 04:13 10/25/18 08:29 Most recent lab results 10/25/18 08:29 Calcium 8.8 Consult Discharge Plan - Plan Referrals: Aquilino Rivera DO [Primary Care Provider] -
--- NOTE | 2018-10-25 13:46 | Internal Med Progress Note ---
Hospitalist Progress Note - Encounter Date of Encounter: 10/25/18 Time of Encounter: 10:30 - Subjective Interval History: She was seen at bedside. Denies chest pain, shortness of breath, palpitations, dyspnea. Feeling better than yesterday. Denies any pain. Is feeling comfortable. No acute overnight events. - Exam Vitals: Temp Pulse Resp BP Pulse Ox 98.2 F 61 16 170/61 100 10/25/18 11:56 10/25/18 11:56 10/25/18 11:56 10/25/18 11:56 10/25/18 11:56 Exam: General: Alert and oriented, not in acute distress. Cardiovascular:Normal S1 & S2, No JVD. Pulse regular. Pitting edema appreciated on both sides. Lungs: Scattered crackles Abdomen:Soft, non-tender, no rigidity. Extremities:No joint deformity or effusion Neurological:Normal cognition and motor skills. Non-focal - Assessment and Plan (1) Acute on chronic diastolic (congestive) heart failure Current Visit: Yes Status: Acute Assessment and Plan: -Presented with progressive dyspnea associated with orthopnea and leg swelling. -CXR showing more prominent pulmonary vascular congestion. BNP elevated at 219 -serial troponins -ve, EKG showing NSR without ischemic changes. -diuresing well on IV lasix 40mg BID but potassium continues to remain elevated -Nephrology on board, defer diuretic management to surgery -Echocardiogram was done recently on 10/08 which showed preserved EF and mild abigail stolic dysfunction. (2) Hypertension Current Visit: No Status: Chronic Assessment and Plan: -continues to remain elevated despite resuming her home meds including norvasc, coreg, clonidine, hydralazine, and lisinopril -unable to do aldactone due to persistent hyperkalemia -nephrology consult -PRN labetalol (3) Hypothyroidism Current Visit: No Status: Chronic Assessment and Plan: -resume home medS (4) MALATHI (obstructive sleep apnea) Current Visit: No Status: Chronic Assessment and Plan: -CPAP at HS (5) DM type 2 (diabetes mellitus, type 2) Current Visit: No Status: Chronic Assessment and Plan: -BG levels have been variable -Will add insulin lispro with meals. -Continue detemir at the curent dose -COntinue medium dose sliding scale (6) CKD (chronic kidney disease) stage 3, GFR 30-59 ml/min Current Visit: No Status: Chronic Assessment and Plan: Cr increased today -Renal on baord -Defer diuretoc management to renal, (7) DVT prophylaxis Current Visit: No Status: Chronic Assessment and Plan: -on coumadin (8) Atrial fibrillation Current Visit: No Status: Chronic Assessment and Plan: -INR subtherapeutic -Pharmact adjusting warfarin dose resume coreg (9) CAD in [place] artery Current Visit: Yes Status: Chronic Assessment and Plan: resume home meds (10) Hyperkalemia Current Visit: Yes Status: Acute Assessment and Plan: -K continues to imprve -5.2 today -Lisinopril stopped by the renal services -Kexylate stopped -COntinue to monitor (11) Supratherapeutic INR Current Visit: Yes Status: Resolved Assessment and Plan: -INT subtherapeutic now -Phrmacy adjusting warfarin dose (12) Hx of diverticulitis of colon Current Visit: Yes Status: Acute Assessment and Plan: Was discharged on 10/13 on 9 additional days of Omnicef and Flagyl completed abx on 10/22 - Time Spent with Patient Total time spent is greater than 50% in coordination of care (as documented) at patient's floor/unit and/or counseling patient: Internal Medicine: Result - Labs CBC & Chem 7: 10/23/18 04:13 10/25/18 08:29 Labs: BMP 10/25/18 08:29 Sodium 142 Potassium 5.2 H Chloride 103 Carbon Dioxide 31 H BUN 38 H Creatinine 1.70 H Glucose 155 H Calcium 8.8 - ABG Interpretation ABG results: PT/INR, D-dimer PT 17.1 Seconds (9.4-12.1) H 10/25/18 03:27 Consult Discharge Plan - Plan Referrals: Aquilino Rivera, DO [Primary Care Provider] - _ (2) Hypertension Qualifiers: Hypertension type: essential hypertension Qualified Code(s): I10 - Essential (primary) hypertension (3) Hypothyroidism Qualifiers: Hypothyroidism type: unspecified Qualified Code(s): E03.9 - Hypothyroidism, unspecified (5) DM type 2 (diabetes mellitus, type 2) Qualifiers: Diabetes mellitus [facility] insulin use: with buttermaker helper use Diabetes mellitus complication status: with kidney complications Diabetes mellitus complication detail: with chronic kidney disease Chronic kidney disease stage: stage 3 (moderate) Qualified Code(s): E11.22 - Type 2 diabetes mellitus with diabetic chronic kidney disease; N18.3 - Chronic kidney disease, stage 3 (moderate); N18.3 - Chronic kidney disease, stage 3 (moderate); Z79.4 - [facility] (current) use of insulin; Z79.4 - exterminator helper termite (current) use of insulin; Z79.4 - exterminator helper termite (current) use of insulin; Z79.4 - exterminator helper termite (current) use of insulin (8) Atrial fibrillation Qualifiers: Atrial fibrillation type: paroxysmal Qualified Code(s): I48.0 - Paroxysmal atrial fibrillation
[2018-10-25] MEDS ORDERED: *HR* Warfarin 4 MG TABLET PO ONE (18:00)
[2018-10-25] MEDS: traZODone 50 MG TABLET PO SCH (21:39)
[2018-10-25] MEDS: rOPINIRole 0.25 MG TABLET PO SCH (21:39)
[2018-10-26] MEDS: Ipratropium/Albuterol Neb 3 ML IH SCH ×4 (00:12→11:20)
[2018-10-26 02:13] LABS: Basophils % 0.1 %; Eosinophils # 0.2 K/mcL (0.0-0.6); Eosinophils % 2.4 %; Hematocrit 24.3 % (35.3-44.9); Hemoglobin 7.6 g/dL (11.5-15.4); Immature Granulocytes % 0.3 % (0-4); Lymphocytes # 1.2 K/mcL (0.6-4.6); Lymphocytes % 12.7 %; Mean Corpuscular HGB Conc 31.3 g/dL (31.6-35.5); Mean Corpuscular Hemoglobin 29.2 pg (28.0-33.3); Mean Corpuscular Volume 93.5 fL (83.0-100.0); Mean Platelet Volume 11.6 fL (9.4-12.4); Monocytes # 0.8 K/mcL (0.0-1.3); Monocytes % 8.5 %; Neutrophils # 7.3 K/mcL (1.6-8.9); Platelet Count 238 K/mcL (140-400); Red Cell Distribution Width 13.6 % (11.5-14.5); White Blood Count 9.6 K/mcL (4.3-11.1)
[2018-10-26 02:25] LABS: INR 1.6; Prothrombin Time 18.5 Seconds (9.4-12.1)
[2018-10-26 02:32] LABS: Albumin 3.1 g/dL (3.5-5.7); Calcium 8.4 mg/dL (8.6-10.3); Phosphorous 4.2 mg/dL (2.7-4.5); Potassium 4.7 mEq/L (3.5-5.1)
[2018-10-26 07:55] VITALS: BP 172/69
[2018-10-26] MEDS: Furosemide 40 MG/4 ML VIAL IVP SCH (08:14)
[2018-10-26] MEDS: Insulin LISPRO 300 UNITS/3 ML VIAL SQ SCH ×2 (08:15)
[2018-10-26] MEDS: hydrALAZINE 25 MG TABLET PO SCH (08:16)
[2018-10-26] MEDS: Magnesium Oxide 400 MG TABLET PO SCH (08:16)
[2018-10-26] MEDS: Gabapentin 100 MG CAPSULE PO SCH (08:16)
[2018-10-26] MEDS: cloNIDine HCl 0.1 MG TABLET PO SCH (08:16)
[2018-10-26] MEDS: amLODIPine 5 MG TABLET PO SCH (08:16)
[2018-10-26] MEDS: Valsartan 160 MG TABLET PO SCH (08:16)
[2018-10-26] MEDS: Fluticasone Propionate Nasal 50 MCG/SPRAY BOTTLE NS SCH (08:21)
[2018-10-26] MEDS: Insulin DETEMIR 100 UNIT/ML X5UNITS SQ SCH (08:25)
[2018-10-26] MEDS ORDERED: Valsartan 160 MG TABLET PO SCH (09:00)
--- NOTE | 2018-10-26 09:59 | Discharge Summary ---
- NOTES TO OUTPATIENT PROVIDER Notes to Outpatient Provider: Came with the SOB, found to be in diastolic heart failure, and hyperkalemia. Srarted on diuretics and improved. Changed the lisinopril to diovan as casues less hyperkalemia. Please repeat labs in 1 week for the potassium levels. Date of Encounter: 10/26/18 Time of Encounter: 08:10 - Discharge Diagnosis (1) Acute on chronic diastolic (congestive) heart failure Priority: Primary Status: Acute (2) Hypertension Priority: Secondary Status: Chronic Qualifiers: Hypertension type: essential hypertension Qualified Code(s): I10 - Essential (primary) hypertension (3) Hypothyroidism Priority: Secondary Status: Chronic Qualifiers: Hypothyroidism type: unspecified Qualified Code(s): E03.9 - Hypothyroidism, unspecified (4) MALATHI (obstructive sleep apnea) Priority: Secondary Status: Chronic (5) DM type 2 (diabetes mellitus, type 2) Priority: Secondary Status: Chronic Qualifiers: Diabetes mellitus prison insulin use: with terminal make up operator use Diabetes mellitus complication status: with kidney complications Diabetes mellitus complication detail: with chronic kidney disease Chronic kidney disease stage: stage 3 (moderate) Qualified Code(s): E11.22 - Type 2 diabetes mellitus with diabetic chronic kidney disease; N18.3 - Chronic kidney disease, stage 3 (moderate); N18.3 - Chronic kidney disease, stage 3 (moderate); Z79.4 - penitentiary (current) use of insulin; Z79.4 - penitentiary (current) use of insulin; Z79.4 - terminal superintendent (current) use of insulin; Z79.4 - penitentiary (current) use of insulin (6) CKD (chronic kidney disease) stage 3, GFR 30-59 ml/min Priority: Secondary Status: Chronic (7) DVT prophylaxis Priority: Secondary Status: Chronic (8) Atrial fibrillation Priority: Secondary Status: Chronic Qualifiers: Atrial fibrillation type: paroxysmal Qualified Code(s): I48.0 - Paroxysmal atrial fibrillation (9) CAD in [place] artery Priority: Secondary Status: Chronic (10) Hyperkalemia Priority: Secondary Status: Acute (11) Supratherapeutic INR Priority: Secondary Status: Resolved (12) Hx of diverticulitis of colon Priority: Secondary Status: Acute Hospital course: Ms. Lala is a 77 year old female with a past medical history significant for atrial fibrillation, heart failure with preserved ejection fraction, respiratory failure, diabetes mellitus, hypertension, CAD, presented to the emergency department because of the progressive worsening shortness of breath for the last 2-3 days. Patient was found to have increased lower leg extremity edema, orthopnea. Patient was diagnosed with acute congestive diastolic heart failure and started on IV Lasix. Shortness of breath improved with IV Lasix and she got better. Likely etiology for the shortness of breath and heart failure seems to be uncontrolled blood pressure. Patient's blood pressure still remains to be on the higher side but she is getting better today. Denies chest pain, increased shortness of breath, fever, chills, rigors today. Of note, lisinopril was switched to Diovan because of the concern of hyperkalemia. Patient potassium levels levels were elevated when she presented. She was given kexylate and potassium levels came down to normal. At 4.7 today. As mentioned above lisinopril was switched to Diovan. Patient was taking potassium chloride at home which was stopped. She was also taking Celexa which was also stopped because of kidney functions. Patient is advised to be compliant with the medications and allow for diet. Note left for the PCP to repeat potassium level in one week. Patient INR was also supratherapeutic when she presented. INR is subtherapeutic today, she will be discharged back on her home dose of Coumadin. INR will be monitored at the nursing facility where she is going. Patient is being discharged in stable condition. - Time Spent with Patient Total time spent providing and/or coordinating discharge services: 40 minutes - Discharge Medications Prescriptions: New Valsartan [Diovan] 320 mg PO DAILY tablet Continued Ropinirole HCl [Requip] 0.5 mg PO HS Insulin Glargine,Hum.rec.anlog [Lantus Solostar] 17 unit SQ HS Furosemide [Lasix] 40 mg PO BID 30 Days tab Levothyroxine Sodium [Levoxyl] 75 mcg PO DAILY Montelukast [Singulair] 10 mg PO DAILY Gabapentin [Neurontin] 100 mg PO TID hydrALAZINE [HydrALAZINE] 75 mg PO QID Liothyronine Sodium [Cytomel] 25 mcg PO DAILY Insulin LISPRO [Humalog Kwikpen U-100] 10 unit SQ TIDWM Acetaminophen [Pain Reliever] 500 mg PO TID PRN PRN Reason: Pain Fluticasone Propionate Nasal [Flonase] 1 spr NS DAILY Guaifenesin [Mucinex] 600 mg PO BID PRN PRN Reason: Congestion Insulin Glargine,Hum.rec.anlog [Lantus Solostar] 30 unit SQ QAM Lactobacillus Acidophilus [Acidophilus] 1 cap PO BID Ondansetron ODT [Zofran ODT] 4 mg SL Q6HR PRN #10 tab.rapdis PRN Reason: Nausea And Vomiting Albuterol Sulfate [Proair Hfa] 2 puff IH Q6H PRN PRN Reason: Shortness Of Breath Amlodipine Besylate 10 mg PO DAILY Atorvastatin Calcium [Lipitor] 80 mg PO HS Carvedilol [Coreg] 25 mg PO BID Cholecalciferol (D-3) [Vitamin D] 1,000 unit PO DAILY cloNIDine HCl [Clonidine HCl] 0.3 mg PO TID Clopidogrel Bisulfate [Plavix] 75 mg PO DAILY HYDROcodone/Acet 5/325 mg [[place] 5-325 mg] 1 tab PO Q6H PRN PRN Reason: Pain Nitroglycerin [Nitrostat] 0.4 mg SL Q5MIN PRN MDD 3x PRN Reason: Chest Pain traZODone [TraZODone] 50 mg PO 2100 Warfarin [Coumadin] 2 mg PO MOWE Warfarin [Coumadin] 4 mg PO SUTUTHFR Magnesium Oxide [Magnesium] 400 mg PO DAILY Allopurinol [Zyloprim 100 MG] 100 mg PO DAILY #30 tablet Loratadine [Allergy Relief] 10 mg PO DAILY PRN #0 PRN Reason: Allergy Symptoms Discontinued Celecoxib [Celebrex] 200 mg PO DAILY Lisinopril [Zestril] 40 mg PO DAILY Potassium Chloride [Klor-Con 10] 10 meq PO DAILY metroNIDAZOLE [Metronidazole] 500 mg PO TID #27 tablet Cefdinir [Omnicef] 300 mg PO BID 9 Days #18 capsule Home Medications: Magnesium Oxide [Magnesium] 400 mg PO DAILY 11/05/14 [History] Insulin Glargine,Hum.rec.anlog [Lantus Solostar] 17 unit SQ HS 01/09/15 [History] Ropinirole HCl [Requip] 0.5 mg PO HS 01/09/15 [History] Furosemide [Lasix] 40 mg PO BID 30 Days tab 01/14/15 [Rx] Acetaminophen [Pain Reliever] 500 mg PO TID PRN 06/06/17 [History] Fluticasone Propionate Nasal [Flonase] 1 spr NS DAILY 06/06/17 [History] Gabapentin [Neurontin] 100 mg PO TID 06/06/17 [History] Guaifenesin [Mucinex] 600 mg PO BID PRN 06/06/17 [History] Insulin Glargine,Hum.rec.anlog [Lantus Solostar] 30 unit SQ QAM 06/06/17 [History] Insulin LISPRO [Humalog Kwikpen U-100] 10 unit SQ TIDWM 06/06/17 [History] Lactobacillus Acidophilus [Acidophilus] 1 cap PO BID 06/06/17 [History] Levothyroxine Sodium [Levoxyl] 75 mcg PO DAILY 06/06/17 [History] Liothyronine Sodium [Cytomel] 25 mcg PO DAILY 06/06/17 [History] Montelukast [Singulair] 10 mg PO DAILY 06/06/17 [History] hydrALAZINE [HydrALAZINE] 75 mg PO QID 06/06/17 [History] Allopurinol [Zyloprim 100 MG] 100 mg PO DAILY #30 tablet 06/16/17 [Rx] Loratadine [Allergy Relief] 10 mg PO DAILY PRN #0 06/16/17 [Rx] Ondansetron ODT [Zofran ODT] 4 mg SL Q6HR PRN #10 tab.rapdis 02/14/18 [Rx] Albuterol Sulfate [Proair Hfa] 2 puff IH Q6H PRN 10/08/18 [History] Amlodipine Besylate 10 mg PO DAILY 10/08/18 [History] Atorvastatin Calcium [Lipitor] 80 mg PO HS 10/08/18 [History] Carvedilol [Coreg] 25 mg PO BID 10/08/18 [History] Cholecalciferol (D-3) [Vitamin D] 1,000 unit PO DAILY 10/08/18 [History] Clopidogrel Bisulfate [Plavix] 75 mg PO DAILY 10/08/18 [History] HYDROcodone/Acet 5/325 mg [[place] 5-325 mg] 1 tab PO Q6H PRN 10/08/18 [History] Nitroglycerin [Nitrostat] 0.4 mg SL Q5MIN PRN MDD 3x 10/08/18 [History] Warfarin [Coumadin] 2 mg PO MOWE 10/08/18 [History] Warfarin [Coumadin] 4 mg PO SUTUTHFRSA 10/08/18 [History] cloNIDine HCl [Clonidine HCl] 0.3 mg PO TID 10/08/18 [History] traZODone [TraZODone] 50 mg PO 2100 10/08/18 [History] Valsartan [Diovan] 320 mg PO DAILY tablet 10/26/18 [Rx] Allergies/Adverse Reactions: Allergy/AdvReac Type Severity Reaction Status Date / Time codeine Allergy Congested Verified 11/27/16 06:45 Penicillins [PCN] AdvReac Congested Verified 11/27/16 06:45 tape AdvReac Itching Uncoded 11/27/16 06:45 Date of admission: 10/21/18 15:51 Primary care physician: Aquilino Rivera DO Consults: 10/23/18 07:46 Consult to Nurse Navigator [CONS] Routine Comment: CHF 10/23/18 07:47 Consult to [employer] [CONS] Routine Reason for SW Consult: PATIENT FROM [facility] 10/24/18 09:30 Consult to Nephrology [CONS] Routine Consulting Provider: Kidney Julianne/GRAEME/JAY JAY/JOSE FRANCISCO Reason for Consult: persistent hyperkalemia and poorly controlled HTN Call Completed: Yes - Constitutional Vitals: Temp Pulse Resp BP Pulse Ox 98.2 F 59 16 172/69 98 10/26/18 07:54 10/26/18 07:54 10/26/18 07:54 10/26/18 07:54 10/26/18 07:54 Exam: General: Alert and oriented, not in acute distress. Cardiovascular:Normal S1 & S2, No JVD. Pulse regular. Pitting edema appreciated on both sides. Lungs: Lungs clear to auscultation, no wheezing no crackles appreciated today. Abdomen:Soft, non-tender, no rigidity. Extremities:No joint deformity or effusion Neurological:Normal cognition and motor skills. Non-focal - Patient Status Disposition: Transfer SNF Condition: Fair Functional capacity at discharge: uses cane/walker Overall status at discharge: patient is progressing back to baseline - Discharge Instructions Follow Up With: Aquilino Rivera, DO [Primary Care Provider] - 11/02/18 1:15 pm (You will see Will Avila) - Diet and Activity Activity: as per physical therapy, increase activity as tolerated Diet: advance to your usual diet, low salt diet
--- NOTE | 2018-10-26 10:12 | Physician Discharge Referral ---
ExtendedCare Referral Info Institutional Level of Care: Skilled - Diagnosis (1) Acute on chronic diastolic (congestive) heart failure Priority: Primary Status: Acute (2) Hypertension Priority: Secondary Status: Chronic (3) Hypothyroidism Priority: Secondary Status: Chronic (4) MALATHI (obstructive sleep apnea) Priority: Secondary Status: Chronic (5) DM type 2 (diabetes mellitus, type 2) Priority: Secondary Status: Chronic (6) CKD (chronic kidney disease) stage 3, GFR 30-59 ml/min Priority: Secondary Status: Chronic (7) DVT prophylaxis Priority: Secondary Status: Chronic (8) Atrial fibrillation Priority: Secondary Status: Chronic (9) CAD in [place] artery Priority: Secondary Status: Chronic (10) Hyperkalemia Priority: Secondary Status: Acute (11) Supratherapeutic INR Priority: Secondary Status: Resolved (12) Hx of diverticulitis of colon Priority: Secondary Status: Acute - Transfer Medications Home Medications: Magnesium Oxide [Magnesium] 400 mg PO DAILY 11/05/14 [History] Insulin Glargine,Hum.rec.anlog [Lantus Solostar] 17 unit SQ HS 01/09/15 [History] Ropinirole HCl [Requip] 0.5 mg PO HS 01/09/15 [History] Furosemide [Lasix] 40 mg PO BID 30 Days tab 01/14/15 [Rx] Acetaminophen [Pain Reliever] 500 mg PO TID PRN 06/06/17 [History] Fluticasone Propionate Nasal [Flonase] 1 spr NS DAILY 06/06/17 [History] Gabapentin [Neurontin] 100 mg PO TID 06/06/17 [History] Guaifenesin [Mucinex] 600 mg PO BID PRN 06/06/17 [History] Insulin Glargine,Hum.rec.anlog [Lantus Solostar] 30 unit SQ QAM 06/06/17 [History] Insulin LISPRO [Humalog Kwikpen U-100] 10 unit SQ TIDWM 06/06/17 [History] Lactobacillus Acidophilus [Acidophilus] 1 cap PO BID 06/06/17 [History] Levothyroxine Sodium [Levoxyl] 75 mcg PO DAILY 06/06/17 [History] Liothyronine Sodium [Cytomel] 25 mcg PO DAILY 06/06/17 [History] Montelukast [Singulair] 10 mg PO DAILY 06/06/17 [History] hydrALAZINE [HydrALAZINE] 75 mg PO QID 06/06/17 [History] Allopurinol [Zyloprim 100 MG] 100 mg PO DAILY #30 tablet 06/16/17 [Rx] Loratadine [Allergy Relief] 10 mg PO DAILY PRN #0 06/16/17 [Rx] Ondansetron ODT [Zofran ODT] 4 mg SL Q6HR PRN #10 tab.rapdis 02/14/18 [Rx] Albuterol Sulfate [Proair Hfa] 2 puff IH Q6H PRN 10/08/18 [History] Amlodipine Besylate 10 mg PO DAILY 10/08/18 [History] Atorvastatin Calcium [Lipitor] 80 mg PO HS 10/08/18 [History] Carvedilol [Coreg] 25 mg PO BID 10/08/18 [History] Cholecalciferol (D-3) [Vitamin D] 1,000 unit PO DAILY 10/08/18 [History] Clopidogrel Bisulfate [Plavix] 75 mg PO DAILY 10/08/18 [History] HYDROcodone/Acet 5/325 mg [[place] 5-325 mg] 1 tab PO Q6H PRN 10/08/18 [History] Nitroglycerin [Nitrostat] 0.4 mg SL Q5MIN PRN MDD 3x 10/08/18 [History] Warfarin [Coumadin] 2 mg PO MOWE 10/08/18 [History] Warfarin [Coumadin] 4 mg PO SUTUTHFRSA 10/08/18 [History] cloNIDine HCl [Clonidine HCl] 0.3 mg PO TID 10/08/18 [History] traZODone [TraZODone] 50 mg PO 2100 10/08/18 [History] Valsartan [Diovan] 320 mg PO DAILY tablet 10/26/18 [Rx] Allergies/Adverse Reactions: Allergy/AdvReac Type Severity Reaction Status Date / Time codeine Allergy Congested Verified 11/27/16 06:45 Penicillins [PCN] AdvReac Congested Verified 11/27/16 06:45 tape AdvReac Itching Uncoded 11/27/16 06:45 - Respiratory Orders Smoking Cessation: Smoking cessation has been advised. For more information, call the [place] Tobacco Quit Line at 9-785-KIXO-NOW. CERTIFICATION: I certify that the transfer of the above named patient to an Extended Care Facility is necessary for the continuing treatment of the diagnosis listed. The above information is true and accurate reflection of patient's current condition. Confidential - Redisclosure prohibited without a patient's written consent.
== END 2018-10-26 12:08 | DRG 291 ==
LOC: 3BNU 14:47 → EMEROOARM 14:47 → 3BNU 20:08 → SUATTDRO 10-21 15:51
PROVIDERS: ADMIT Internal Medicine; ATTEND Internal Medicine

== ENCOUNTER 2018-10-29 16:47 | Inpatient (IN) ==
--- NOTE | 2018-10-29 16:58 | Emergency Department Note ---
Disposition Clinical Impression: Healthcare-associated pneumonia Disposition: Admitted As Inpatient Condition: Fair Time of Disposition: 19:45 General Adult HPI - General Stated complaint: fever, weakness Time Seen by Provider: 10/29/18 16:52 - Related Data Home Medications Medication Instructions Recorded Confirmed Magnesium Oxide [Magnesium] 400 mg PO DAILY 11/05/14 10/20/18 Insulin Glargine,Hum.rec.anlog 17 unit SQ HS 01/09/15 10/20/18 [Lantus Solostar] Ropinirole HCl [Requip] 0.5 mg PO HS 01/09/15 10/20/18 Acetaminophen [Pain Reliever] 500 mg PO TID PRN 06/06/17 10/20/18 Fluticasone Propionate Nasal 1 spr NS DAILY 06/06/17 10/20/18 [Flonase] Guaifenesin [Mucinex] 600 mg PO BID PRN 06/06/17 10/20/18 Insulin Glargine,Hum.rec.anlog 30 unit SQ QAM 06/06/17 10/20/18 [Lantus Solostar] Insulin LISPRO [Humalog Kwikpen 10 unit SQ TIDWM 06/06/17 10/20/18 U-100] Lactobacillus Acidophilus 1 cap PO BID 06/06/17 10/20/18 [Acidophilus] Levothyroxine Sodium [Levoxyl] 75 mcg PO DAILY 06/06/17 10/20/18 Liothyronine Sodium [Cytomel] 25 mcg PO DAILY 06/06/17 10/20/18 Montelukast [Singulair] 10 mg PO DAILY 06/06/17 10/20/18 hydrALAZINE [HydrALAZINE] 75 mg PO QID 06/06/17 10/20/18 Albuterol Sulfate [Proair Hfa] 2 puff IH Q6H PRN 10/08/18 10/20/18 Amlodipine Besylate 10 mg PO DAILY 10/08/18 10/20/18 Atorvastatin Calcium [Lipitor] 80 mg PO HS 10/08/18 10/20/18 Carvedilol [Coreg] 25 mg PO BID 10/08/18 10/20/18 Cholecalciferol (D-3) [Vitamin D] 1,000 unit PO DAILY 10/08/18 10/20/18 Clopidogrel Bisulfate [Plavix] 75 mg PO DAILY 10/08/18 10/20/18 Nitroglycerin [Nitrostat] 0.4 mg SL Q5MIN PRN MDD 3x 10/08/18 10/20/18 Warfarin [Coumadin] 2 mg PO MOWE 10/08/18 10/20/18 Warfarin [Coumadin] 4 mg PO SUTUTHFRSA 10/08/18 10/20/18 cloNIDine HCl [Clonidine HCl] 0.3 mg PO TID 10/08/18 10/20/18 traZODone [TraZODone] 50 mg PO 2100 10/08/18 10/20/18 Previous Rx's Medication Instructions Recorded Furosemide [Lasix] 40 mg PO BID 30 Days tab 01/14/15 Allopurinol [Zyloprim 100 MG] 100 mg PO DAILY #30 tablet 06/16/17 Loratadine [Allergy Relief] 10 mg PO DAILY PRN #0 06/16/17 Ondansetron ODT [Zofran ODT] 4 mg SL Q6HR PRN #10 tab.rapdis 02/14/18 Gabapentin [Neurontin] 100 mg PO TID #21 capsule 10/26/18 HYDROcodone/Acet 5/325 mg [[place] 1 tab PO Q6H PRN 7 Days #20 tablet 10/26/18 5-325 mg] Valsartan [Diovan] 320 mg PO DAILY tablet 10/26/18 Allergies Allergy/AdvReac Type Severity Reaction Status Date / Time codeine Allergy Congested Verified 11/27/16 06:45 Penicillins [PCN] AdvReac Congested Verified 11/27/16 06:45 tape AdvReac Itching Uncoded 11/27/16 06:45 Past Medical History - Past Medical History Medical history: Reports: atrial fibrillation, CHF, coronary artery disease, CVA, diabetes, hyperlipidemia, hypertension, thyroid disease Surgical history: Reports: , cholecystectomy Psychiatric history: Reports: no psych 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 - Social History Smoking Status: Never smoker Smokeless Tobacco Status: No Alcohol use: Reports: none Drug use: Reports: none Course Vital Signs Temperature 99.5 F 10/29/18 16:56 Pulse Rate 76 10/29/18 16:56 Respiratory Rate 22 10/29/18 16:56 Blood Pressure 182/58 10/29/18 16:56 O2 Sat by Pulse Oximetry 97 10/29/18 16:56 Temperature 99.5 F 10/29/18 16:56 Pulse Rate 78 10/29/18 19:29 Respiratory Rate 22 10/29/18 19:29 Blood Pressure 184/96 10/29/18 19:29 O2 Sat by Pulse Oximetry 98 10/29/18 19:29 Oxygen Delivery Oxygen Delivery Room Air Medical Decision Making - Lab Data Result diagrams: 10/29/18 17:21 10/29/18 17:21 Lab Results 10/29/18 10/29/18 10/29/18 Range/Units 17:21 17:21 17:21 WBC 11.6 H D (4.3-11.1) K/mcL RBC 2.55 L (3.82-4.97) M/mcL Hgb 7.5 L (11.5-15.4) g/dL Hct 24.1 L (35.3-44.9) % MCV 94.5 (83.0-100.0) fL MCH 29.4 (28.0-33.3) pg MCHC 31.1 L (31.6-35.5) g/dL RDW 13.6 (11.5-14.5) % Plt Count 224 (140-400) K/mcL MPV 11.2 (9.4-12.4) fL Immature Gran % 0.5 (0-4) % Seg Neutrophils % 78.5 % Lymphocytes % 6.3 % Monocytes % 14.3 % Eosinophils % 0.3 % Basophils % 0.1 % Neutrophils # 9.1 H (1.6-8.9) K/mcL Lymphocytes # 0.7 (0.6-4.6) K/mcL Monocytes # 1.7 H (0.0-1.3) K/mcL Eosinophils # 0.0 (0.0-0.6) K/mcL Basophils # 0.0 (0.0-0.2) K/mcL Sodium 138 (136-145) mEq/L Potassium 4.0 (3.5-5.1) mEq/L Chloride 100 (98-107) mEq/L Carbon Dioxide 31 H (23-29) mEq/L BUN 38 H (8-23) mg/dL Creatinine 1.69 H (0.60-1.20) mg/dL Est GFR ( Amer) 36 L (> 60) Est GFR (Non-Af Amer) 30 L (> 60) BUN/Creatinine Ratio 22 (6-26) Glucose 105 (70-105) mg/dL Calculated Osmolality 295 (280-300) Lactic Acid 0.7 (0.5-2.2) mmol/L Calcium 8.6 (8.6-10.3) mg/dL Phosphorus 2.7 (2.7-4.5) mg/dL Magnesium 1.7 (1.6-2.6) mg/dL Total Bilirubin 0.3 (0.3-1.0) mg/dL Direct Bilirubin 0.0 (0.0-0.2) mg/dL Indirect Bilirubin 0.3 (0.0-1.2) mg/dL AST 12 L (13-39) Units/L ALT 12 (7-52) Units/L Alkaline Phosphatase 85 (34-104) Units/L Troponin I < 0.03 (< 0.04) ng/mL Serum Total Protein 6.1 L (6.4-8.9) g/dL Albumin 3.3 L (3.5-5.7) g/dL Globulin 2.8 (2.4-3.5) g/dL Albumin/Globulin Ratio 1.2 (1.1-2.2) Lipase 12 (11-82) Units/L Urine Color (Yellow) Urine Clarity (Clear) Urine pH (5.0-8.0) pH Units Ur Specific [place] (1.010-1.025) Urine Protein (Neg-Trace) mg/dL Urine Glucose (UA) (Normal) mg/dL Urine Ketones (Negative) mg/dL Urine Blood (Negative) Urine Nitrite (Negative) Urine Bilirubin (Negative) Urine Urobilinogen (Normal) mg/dL Ur Leukocyte Esterase (Negative) Urine Microscopic RBC (0-3) per hpf Urine Microscopic WBC (0-3) per hpf Ur Squamous Epith Cells (None-Few) per lpf Ur Renal Epithelial Cell (None-Few) per hpf Urine Bacteria (None-Few) per hpf Hyaline Casts (None-Few) per lpf Ur Culture Indicated? (NO) 10/29/18 Range/Units 18:15 WBC (4.3-11.1) K/mcL RBC (3.82-4.97) M/mcL Hgb (11.5-15.4) g/dL Hct (35.3-44.9) % MCV (83.0-100.0) fL MCH (28.0-33.3) pg MCHC (31.6-35.5) g/dL RDW (11.5-14.5) % Plt Count (140-400) K/mcL MPV (9.4-12.4) fL Immature Gran % (0-4) % Seg Neutrophils % % Lymphocytes % % Monocytes % % Eosinophils % % Basophils % % Neutrophils # (1.6-8.9) K/mcL Lymphocytes # (0.6-4.6) K/mcL Monocytes # (0.0-1.3) K/mcL Eosinophils # (0.0-0.6) K/mcL Basophils # (0.0-0.2) K/mcL Sodium (136-145) mEq/L Potassium (3.5-5.1) mEq/L Chloride (98-107) mEq/L Carbon Dioxide (23-29) mEq/L BUN (8-23) mg/dL Creatinine (0.60-1.20) mg/dL Est GFR ( Amer) (> 60) Est GFR (Non-Af Amer) (> 60) BUN/Creatinine Ratio (6-26) Glucose (70-105) mg/dL Calculated Osmolality (280-300) Lactic Acid (0.5-2.2) mmol/L Calcium (8.6-10.3) mg/dL Phosphorus (2.7-4.5) mg/dL Magnesium (1.6-2.6) mg/dL Total Bilirubin (0.3-1.0) mg/dL Direct Bilirubin (0.0-0.2) mg/dL Indirect Bilirubin (0.0-1.2) mg/dL AST (13-39) Units/L ALT (7-52) Units/L Alkaline Phosphatase (34-104) Units/L Troponin I (< 0.04) ng/mL Serum Total Protein (6.4-8.9) g/dL Albumin (3.5-5.7) g/dL Globulin (2.4-3.5) g/dL Albumin/Globulin Ratio (1.1-2.2) Lipase (11-82) Units/L Urine Color Yellow (Yellow) Urine Clarity Cloudy A (Clear) Urine pH 5.0 (5.0-8.0) pH Units Ur Specific [place] 1.019 (1.010-1.025) Urine Protein 100 H (Neg-Trace) mg/dL Urine Glucose (UA) Normal (Normal) mg/dL Urine Ketones Negative (Negative) mg/dL Urine Blood Negative (Negative) Urine Nitrite Negative (Negative) Urine Bilirubin Negative (Negative) Urine Urobilinogen Normal (Normal) mg/dL Ur Leukocyte Esterase Large H (Negative) Urine Microscopic RBC 0-3 (0-3) per hpf Urine Microscopic WBC 5-15 H (0-3) per hpf Ur Squamous Epith Cells Moderate H (None-Few) per lpf Ur Renal Epithelial Cell Few (None-Few) per hpf Urine Bacteria Moderate H (None-Few) per hpf Hyaline Casts Moderate H (None-Few) per lpf Ur Culture Indicated? YES A (NO) Attestation Statement - Attestation Attestation: I examined this patient and my medical decision-making was reviewed with the Resident Physician. I agree with the documented findings, disposition and treatment plan as described except to the extent set forth below. Patient presents to the ED as a transfer from her [facility] facility with chief complaint of a fever of 101. She had some diarrhea, but she is attributin g this to something they gave her for a low calcium yesterday. She also complains of some weakness in her left side that started yesterday. On exam she is awake alert and appropriate. Moving all extremities. She does have some mild weakness of the left leg. Abdomen is soft. Plan. Septic workup. CT head and abdomen. CT scan of the abdomen pelvis shows infiltrates and effusions in the lung bases. Likely the cause of her fever. Patient will be provided broad-spectrum anabiotic and admitted to the hospital. EKG reviewed with the resident. Unchanged from baseline. Abdomen/Pelvis CT 10/29/18 16:53 IMPRESSION: 1. Bibasilar consolidation and block bilateral pleural effusion may be related to pneumonia or sequela from congestive heart failure. 2. Mild cardiomegaly. 3. Small hiatal hernia. 4. Diverticulosis coli without CT evidence of acute diverticulitis. 5. No CT evidence of an acute intra-abdominal or intrapelvic process. 6. Uterine fibroid or fibroids. 7. Calcific atherosclerosis aorta and coronary arteries. 8. Benign intraluminal lipoma ascending colon requires no additional evaluation or follow-up. D/ / Bennie Gonzalez / Bennie Gonzalez Interpreting Provider: Bennie Gonzalez Chest X-Ray 10/29/18 16:53 IMPRESSION: Findings suggest mild congestive heart failure D/ / Valente Laird MD / Valente Laird MD Interpreting Provider: Valente Laird MD Head CT 10/29/18 16:53 IMPRESSION: No acute intracranial abnormality. White matter hypoattenuation described is typical of microvascular ischemic disease or as sequela of dysmyelinating/demyelinating processes. Remote right frontal stroke. Stable lacunar stroke posterior right caudate lobe and left thalamus. D/ / Bennie Gonzalez / Bennie Gonzalez Interpreting Provider: Bennie Gonzalez
--- NOTE | 2018-10-29 17:16 | Emergency Department Note ---
Disposition Clinical Impression: Healthcare-associated pneumonia Disposition: Admitted As Inpatient Condition: Fair Time of Disposition: 20:00 General Adult HPI - General Stated complaint: fever, weakness Time Seen by Provider: 10/29/18 16:52 Source: patient, EMS Limitations: no limitations Nursing Notes Reviewed: Yes Vital Signs Reviewed: Yes - History of Present Illness HPI Narrative: 77-year-old female presents from [facility] via EMS for evaluation of fever 101.2 at their facility. Patient has had loose stools today. [facility] staff was concerned for sepsis. Patient notes that she was given calcium oral supplementation after which she began having loose stools. She has had this before and expected to loose stools. She has no abdominal cramping or abdominal pain. Patient's concern is left-sided arm and leg tingling onset yesterday however EMS was relatively by [facility] nursing staff that this is not new. Patient is in assisted for PT OT for recovery of generalized weakness. Patient does have a history of TIA which presented with headache and weakness. ROS: positive: Fever, left side of her lower extremity tingling Negative: Fever, chills, nausea, vomiting, chest pains, palpitations, dyspnea, diaphoresis, changes in vision, confusion, headache, falls Pain Scale: 0 - Related Data Home Medications Medication Instructions Recorded Confirmed Magnesium Oxide [Magnesium] 400 mg PO DAILY 11/05/14 10/20/18 Insulin Glargine,Hum.rec.anlog 17 unit SQ HS 01/09/15 10/20/18 [Lantus Solostar] Ropinirole HCl [Requip] 0.5 mg PO HS 01/09/15 10/20/18 Acetaminophen [Pain Reliever] 500 mg PO TID PRN 06/06/17 10/20/18 Fluticasone Propionate Nasal 1 spr NS DAILY 06/06/17 10/20/18 [Flonase] Guaifenesin [Mucinex] 600 mg PO BID PRN 06/06/17 10/20/18 Insulin Glargine,Hum.rec.anlog 30 unit SQ QAM 06/06/17 10/20/18 [Lantus Solostar] Insulin LISPRO [Humalog Kwikpen 10 unit SQ TIDWM 06/06/17 10/20/18 U-100] Lactobacillus Acidophilus 1 cap PO BID 06/06/17 10/20/18 [Acidophilus] Levothyroxine Sodium [Levoxyl] 75 mcg PO DAILY 06/06/17 10/20/18 Liothyronine Sodium [Cytomel] 25 mcg PO DAILY 06/06/17 10/20/18 Montelukast [Singulair] 10 mg PO DAILY 06/06/17 10/20/18 hydrALAZINE [HydrALAZINE] 75 mg PO QID 06/06/17 10/20/18 Albuterol Sulfate [Proair Hfa] 2 puff IH Q6H PRN 10/08/18 10/20/18 Amlodipine Besylate 10 mg PO DAILY 10/08/18 10/20/18 Atorvastatin Calcium [Lipitor] 80 mg PO HS 10/08/18 10/20/18 Carvedilol [Coreg] 25 mg PO BID 10/08/18 10/20/18 Cholecalciferol (D-3) [Vitamin D] 1,000 unit PO DAILY 10/08/18 10/20/18 Clopidogrel Bisulfate [Plavix] 75 mg PO DAILY 10/08/18 10/20/18 Nitroglycerin [Nitrostat] 0.4 mg SL Q5MIN PRN MDD 3x 10/08/18 10/20/18 Warfarin [Coumadin] 2 mg PO MOWE 10/08/18 10/20/18 Warfarin [Coumadin] 4 mg PO SUTUTHFRSA 10/08/18 10/20/18 cloNIDine HCl [Clonidine HCl] 0.3 mg PO TID 10/08/18 10/20/18 traZODone [TraZODone] 50 mg PO 2100 10/08/18 10/20/18 Previous Rx's Medication Instructions Recorded Furosemide [Lasix] 40 mg PO BID 30 Days tab 01/14/15 Allopurinol [Zyloprim 100 MG] 100 mg PO DAILY #30 tablet 06/16/17 Loratadine [Allergy Relief] 10 mg PO DAILY PRN #0 06/16/17 Ondansetron ODT [Zofran ODT] 4 mg SL Q6HR PRN #10 tab.rapdis 02/14/18 Gabapentin [Neurontin] 100 mg PO TID #21 capsule 10/26/18 HYDROcodone/Acet 5/325 mg [[place] 1 tab PO Q6H PRN 7 Days #20 tablet 10/26/18 5-325 mg] Valsartan [Diovan] 320 mg PO DAILY tablet 10/26/18 Allergies Allergy/AdvReac Type Severity Reaction Status Date / Time codeine Allergy Congested Verified 11/27/16 06:45 Penicillins [PCN] AdvReac Congested Verified 11/27/16 06:45 tape AdvReac Itching Uncoded 11/27/16 06:45 All systems ED: reviewed and negative except as stated. 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 Head: atraumatic, normocephalic Eye: normal appearance, PERRL, EOMI, no scleral icterus, no conjunctival injection ENT: mucous membranes moist, normal external ear exam Neck: normal inspection, trachea midline, full ROM Chest: normal inspection, symmetric chest rise Respiratory: Good respiratory effort. Bilateral breath sounds are clear without wheezing, crackles, or rhonchi. Cardiovascular: Regular rate and rhythm. No clicks, rubs, gallops, or murmors. Normal heart sounds. Abdomen: Bowel sounds present normoactive. Abdomen is soft, nondistended, and nontender. No guarding or rebound. No organomegaly noted. Musculoskeletal: Spontaneously moving all extremities. Skin: warm, dry, intact. Neuro: GCS 15. No slurring of speech no facial asymmetry. Patient is answering all questions briskly, properly, without hesitation. Bilateral upper extremity strength 5/5 and equal. Bilateral lower extremity strength 5/5 and right lower extremity and 4/5 and left lower extremity. Sensation light touch intact and equal bilaterally in upper and lower extremity is. No pronator drifts. Nega tive. Nose. Psych: Patient's affect is appropriate for situation. - General Limitations: no limitations General appearance: alert, in no apparent distress Course Course Narrative: EKG dated 10/29/2018 at 16:59 interpreted as sinus rhythm with rate of 76. NE 213, QRS 107, QTC 407. Borderline first-degree AV block. Left axis. Nonspecific ST-T changes. Compared to previous dated 10/20/2018 with NE 194. No acute ischemic changes or comparison. CT head shows no acute intracranial abnormalities. There is remote right frontal infarct. This was also present on MRI from June 2017. Chest x-ray concerning for mild CHF. Patient does have mild pedal edema. She has no cough. CT abdomen and pelvis ordered segment to patient's history of diarrhea. This shows bibasilar consolidation concerning for pneumonia. Given that she is from an ECF will cover for healthcare associated pneumonia with vancomycin, cefepime, azithromycin. Patient has incidental intraluminal lipoma of the ascending colon. Diverticulosis. Serum hematology shows leukocytosis. Patient's hemoglobin is 7.5. This is below her baseline of the 8-9 range. Will type and screen. No melena or hematochezia based on history. Serum chemistry shows elevated creatinine consistent with patient's baseline chronic kidney disease. Urinalysis borderline for UTI. Culture is pending. We covered with cefepime for healthcare associated pneumonia. Patient will be admitted for healthcare associated pneumonia requiring IV antibiotics. I discussed the above with the admitting hospitalist, Dr. Martin, who agrees that the patient for continued evaluation. Abdomen/Pelvis CT 10/29/18 16:53 IMPRESSION: 1. Bibasilar consolidation and block bilateral pleural effusion may be related to pneumonia or sequela from congestive heart failure. 2. Mild cardiomegaly. 3. Small hiatal hernia. 4. Diverticulosis coli without CT evidence of acute diverticulitis. 5. No CT evidence of an acute intra-abdominal or intrapelvic process. 6. Uterine fibroid or fibroids. 7. Calcific atherosclerosis aorta and coronary arteries. 8. Benign intraluminal lipoma ascending colon requires no additional evaluation or follow-up. D/ / Bennie Gonzalez / Bennie Gonzalez Interpreting Provider: Bennie Gonzalez Chest X-Ray 10/29/18 16:53 IMPRESSION: Findings suggest mild congestive heart failure D/ / Valente Laird MD / Valente Laird MD Interpreting Provider: Valente aLird MD Head CT 10/29/18 16:53 IMPRESSION: No acute intracranial abnormality. White matter hypoattenuation described is typical of microvascular ischemic disease or as sequela of dysmyelinating/demyelinating processes. Remote right frontal stroke. Stable lacunar stroke posterior right caudate lobe and left thalamus. D/ / Bennie Gonzalez / Bennie Gonzalez Interpreting Provider: Bennie Gonzalez Vital Signs Temperature 99.5 F 10/29/18 16:56 Pulse Rate 76 10/29/18 16:56 Respiratory Rate 22 10/29/18 16:56 Blood Pressure 182/58 10/29/18 16:56 O2 Sat by Pulse Oximetry 97 10/29/18 16:56 Temperature 99.5 F 10/29/18 16:56 Pulse Rate 78 10/29/18 19:29 Respiratory Rate 22 10/29/18 19:29 Blood Pressure 184/96 10/29/18 19:29 O2 Sat by Pulse Oximetry 98 10/29/18 19:29 Oxygen Delivery Oxygen Delivery Room Air Medical Decision Making - Lab Data Result diagrams: 10/29/18 17:21 10/29/18 17:21 Lab Results 10/29/18 10/29/18 10/29/18 Range/Units 17:21 17:21 17:21 WBC 11.6 H D (4.3-11.1) K/mcL RBC 2.55 L (3.82-4.97) M/mcL Hgb 7.5 L (11.5-15.4) g/dL Hct 24.1 L (35.3-44.9) % MCV 94.5 (83.0-100.0) fL MCH 29.4 (28.0-33.3) pg MCHC 31.1 L (31.6-35.5) g/dL RDW 13.6 (11.5-14.5) % Plt Count 224 (140-400) K/mcL MPV 11.2 (9.4-12.4) fL Immature Gran % 0.5 (0-4) % Seg Neutrophils % 78.5 % Lymphocytes % 6.3 % Monocytes % 14.3 % Eosinophils % 0.3 % Basophils % 0.1 % Neutrophils # 9.1 H (1.6-8.9) K/mcL Lymphocytes # 0.7 (0.6-4.6) K/mcL Monocytes # 1.7 H (0.0-1.3) K/mcL Eosinophils # 0.0 (0.0-0.6) K/mcL Basophils # 0.0 (0.0-0.2) K/mcL Sodium 138 (136-145) mEq/L Potassium 4.0 (3.5-5.1) mEq/L Chloride 100 (98-107) mEq/L Carbon Dioxide 31 H (23-29) mEq/L BUN 38 H (8-23) mg/dL Creatinine 1.69 H (0.60-1.20) mg/dL Est GFR ( Amer) 36 L (> 60) Est GFR (Non-Af Amer) 30 L (> 60) BUN/Creatinine Ratio 22 (6-26) Glucose 105 (70-105) mg/dL Calculated Osmolality 295 (280-300) Lactic Acid 0.7 (0.5-2.2) mmol/L Calcium 8.6 (8.6-10.3) mg/dL Phosphorus 2.7 (2.7-4.5) mg/dL Magnesium 1.7 (1.6-2.6) mg/dL Total Bilirubin 0.3 (0.3-1.0) mg/dL Direct Bilirubin 0.0 (0.0-0.2) mg/dL Indirect Bilirubin 0.3 (0.0-1.2) mg/dL AST 12 L (13-39) Units/L ALT 12 (7-52) Units/L Alkaline Phosphatase 85 (34-104) Units/L Troponin I < 0.03 (< 0.04) ng/mL Serum Total Protein 6.1 L (6.4-8.9) g/dL Albumin 3.3 L (3.5-5.7) g/dL Globulin 2.8 (2.4-3.5) g/dL Albumin/Globulin Ratio 1.2 (1.1-2.2) Lipase 12 (11-82) Units/L Urine Color (Yellow) Urine Clarity (Clear) Urine pH (5.0-8.0) pH Units Ur Specific [place] (1.010-1.025) Urine Protein (Neg-Trace) mg/dL Urine Glucose (UA) (Normal) mg/dL Urine Ketones (Negative) mg/dL Urine Blood (Negative) Urine Nitrite (Negative) Urine Bilirubin (Negative) Urine Urobilinogen (Normal) mg/dL Ur Leukocyte Esterase (Negative) Urine Microscopic RBC (0-3) per hpf Urine Microscopic WBC (0-3) per hpf Ur Squamous Epith Cells (None-Few) per lpf Ur Renal Epithelial Cell (None-Few) per hpf Urine Bacteria (None-Few) per hpf Hyaline Casts (None-Few) per lpf Ur Culture Indicated? (NO) 10/29/18 Range/Units 18:15 WBC (4.3-11.1) K/mcL RBC (3.82-4.97) M/mcL Hgb (11.5-15.4) g/dL Hct (35.3-44.9) % MCV (83.0-100.0) fL MCH (28.0-33.3) pg MCHC (31.6-35.5) g/dL RDW (11.5-14.5) % Plt Count (140-400) K/mcL MPV (9.4-12.4) fL Immature Gran % (0-4) % Seg Neutrophils % % Lymphocytes % % Monocytes % % Eosinophils % % Basophils % % Neutrophils # (1.6-8.9) K/mcL Lymphocytes # (0.6-4.6) K/mcL Monocytes # (0.0-1.3) K/mcL Eosinophils # (0.0-0.6) K/mcL Basophils # (0.0-0.2) K/mcL Sodium (136-145) mEq/L Potassium (3.5-5.1) mEq/L Chloride (98-107) mEq/L Carbon Dioxide (23-29) mEq/L BUN (8-23) mg/dL Creatinine (0.60-1.20) mg/dL Est GFR ( Amer) (> 60) Est GFR (Non-Af Amer) (> 60) BUN/Creatinine Ratio (6-26) Glucose (70-105) mg/dL Calculated Osmolality (280-300) Lactic Acid (0.5-2.2) mmol/L Calcium (8.6-10.3) mg/dL Phosphorus (2.7-4.5) mg/dL Magnesium (1.6-2.6) mg/dL Total Bilirubin (0.3-1.0) mg/dL Direct Bilirubin (0.0-0.2) mg/dL Indirect Bilirubin (0.0-1.2) mg/dL AST (13-39) Units/L ALT (7-52) Units/L Alkaline Phosphatase (34-104) Units/L Troponin I (< 0.04) ng/mL Serum Total Protein (6.4-8.9) g/dL Albumin (3.5-5.7) g/dL Globulin (2.4-3.5) g/dL Albumin/Globulin Ratio (1.1-2.2) Lipase (11-82) Units/L Urine Color Yellow (Yellow) Urine Clarity Cloudy A (Clear) Urine pH 5.0 (5.0-8.0) pH Units Ur Specific [place] 1.019 (1.010-1.025) Urine Protein 100 H (Neg-Trace) mg/dL Urine Glucose (UA) Normal (Normal) mg/dL Urine Ketones Negative (Negative) mg/dL Urine Blood Negative (Negative) Urine Nitrite Negative (Negative) Urine Bilirubin Negative (Negative) Urine Urobilinogen Normal (Normal) mg/dL Ur Leukocyte Esterase Large H (Negative) Urine Microscopic RBC 0-3 (0-3) per hpf Urine Microscopic WBC 5-15 H (0-3) per hpf Ur Squamous Epith Cells Moderate H (None-Few) per lpf Ur Renal Epithelial Cell Few (None-Few) per hpf Urine Bacteria Moderate H (None-Few) per hpf Hyaline Casts Moderate H (None-Few) per lpf Ur Culture Indicated? YES A (NO)
[2018-10-29 17:34] LABS: Basophils % 0.1 %; Eosinophils % 0.3 %; Hematocrit 24.1 % (35.3-44.9); Hemoglobin 7.5 g/dL (11.5-15.4); Immature Granulocytes % 0.5 % (0-4); Lymphocytes # 0.7 K/mcL (0.6-4.6); Lymphocytes % 6.3 %; Mean Corpuscular HGB Conc 31.1 g/dL (31.6-35.5); Mean Corpuscular Hemoglobin 29.4 pg (28.0-33.3); Mean Corpuscular Volume 94.5 fL (83.0-100.0); Mean Platelet Volume 11.2 fL (9.4-12.4); Monocytes # 1.7 K/mcL (0.0-1.3); Monocytes % 14.3 %; Neutrophils # 9.1 K/mcL (1.6-8.9); Platelet Count 224 K/mcL (140-400); Red Blood Count 2.55 M/mcL (3.82-4.97); Red Cell Distribution Width 13.6 % (11.5-14.5); Segmented Neutrophils % 78.5 %
[2018-10-29 17:35] LABS: White Blood Count 11.6 K/mcL (4.3-11.1)
[2018-10-29 17:55] LABS: Alanine Aminotransferase 12 Units/L (7-52); Albumin 3.3 g/dL (3.5-5.7); Albumin/Globulin Ratio 1.2 (1.1-2.2); Alkaline Phosphatase 85 Units/L (34-104); Aspartate Amino Transferase 12 Units/L (13-39); BUN/Creatinine Ratio 22 (6-26); Bilirubin,Indirect 0.3 mg/dL (0.0-1.2); Bilirubin,Total 0.3 mg/dL (0.3-1.0); Blood Urea Nitrogen 38 mg/dL (8-23); Calcium 8.6 mg/dL (8.6-10.3); Carbon Dioxide 31 mEq/L (23-29); Chloride 100 mEq/L (98-107); Globulin 2.8 g/dL (2.4-3.5); Glucose 105 mg/dL (70-105); Lipase 12 Units/L (11-82); Magnesium 1.7 mg/dL (1.6-2.6); Osmolality,Calculated 295 (280-300); Phosphorous 2.7 mg/dL (2.7-4.5); Sodium 138 mEq/L (136-145); Total Protein 6.1 g/dL (6.4-8.9); Troponin I < 0.03 ng/mL (< 0.04); eGFR For African Americans 36 (> 60); eGFR For Non-African Americans 30 (> 60)
[2018-10-29 18:27] LABS: Bilirubin,Urine Negative (Negative); Blood,Urine Negative (Negative); Clarity,Urine Cloudy (Clear); Color,Urine Yellow (Yellow); Glucose,Urine (UA) Normal (Normal); Ketones,Urine Negative (Negative); Leukocyte Esterase,Urine Large (Negative); Nitrite,Urine Negative (Negative); Protein,Urine 100 mg/dL (Neg-Trace); Specific Gravity,Urine 1.019 (1.010-1.025); Urobilinogen,Urine Normal (Normal)
[2018-10-29 18:50] LABS: Hyaline Casts,Urine Moderate per lpf (None-Few)
[2018-10-29 18:51] LABS: Renal Epithelial Cells,Urine Few per hpf (None-Few); Squamous Epithelial Cell,Urine Moderate per lpf (None-Few)
[2018-10-29 18:52] LABS: RBC,Urine 0-3 per hpf (0-3)
[2018-10-29 18:53] LABS: Bacteria,Urine Moderate per hpf (None-Few)
[2018-10-29] MEDS ORDERED: Cefepime HCl 1,000 MG in 0.9 % Sodium Chloride Mini Bag 100 ML IVPB STA (19:44)
[2018-10-29] MEDS ORDERED: Azithromycin 500 MG in 0.9 % Sodium Chloride 250 ML IVPB ONE (19:44)
[2018-10-29] MEDS ORDERED: Cefepime HCl 1,000 MG in Water for inj. (sterile) 10 ML IVP STA (21:57)
[2018-10-29] MEDS ORDERED: *HR* Dextrose 50 % in Water (Syg) 50 ML SYRINGE IVP ONE (22:12)
[2018-10-29] MEDS ORDERED: *HR* Dextrose 50 % in Water (Syg) 50 ML SYRINGE ONE (22:13)
[2018-10-30] MEDS ORDERED: Naloxone 0.4 MG/ML INJ IVP PRN (06:00)
[2018-10-30] MEDS ORDERED: Dextrose Gel 15 GM/37.5 ML TUBE PO PRN ×2 (06:10)
[2018-10-30] MEDS ORDERED: *HR* Dextrose 50 % in Water (Syg) 50 ML SYRINGE IVP PRN (06:10)
[2018-10-30] MEDS ORDERED: D5% in Water 1,000 ML IVC PRN (06:10)
[2018-10-30 06:42] LABS: Hematocrit 22.5 % (35.3-44.9); Hemoglobin 7.1 g/dL (11.5-15.4); Mean Corpuscular HGB Conc 31.6 g/dL (31.6-35.5); Mean Corpuscular Hemoglobin 29.6 pg (28.0-33.3); Mean Corpuscular Volume 93.8 fL (83.0-100.0); Mean Platelet Volume 11.5 fL (9.4-12.4); Platelet Count 201 K/mcL (140-400); Red Cell Distribution Width 13.5 % (11.5-14.5)
[2018-10-30 06:59] LABS: Calcium 8.4 mg/dL (8.6-10.3); Potassium 3.8 mEq/L (3.5-5.1)
--- NOTE | 2018-10-30 07:27 | Internal Med History&Physical ---
Date of Encounter: 10/30/18 Time of Encounter: 05:35 Internal Medicine - H&P: HPI Chief complaint: Pneumonia Admitted From: Emergency Dept Plans for Post Hospital Care: Home History of present illness: Ms. Lala is a 77 year old female Patient presented to the emergency department from a [place] [facility] due to concerns of having fever and possible sepsis. She has been recovering at a [place] [facility] due to recent admission for generalized weakness. She is receiving PT and OT care while at that facility. She has a history of TIAs and has left- sided tingling on her face and extremities, but according to the [place] [facility] staff's is not a new concern. EMS was called and transferred patient to the emergency department. Emergency department vital signs: Temperature 99.5, pulse 76, respiratory rate 22, blood pressure 182/58, oxygen saturation 97% on 2 L CBC: White count 11.6, hemoglobin 7.5, platelets 224 BMP: Creatinine 1.69 which is baseline. Patient has chronic kidney disease stage III. Lactic acid 0.7 Liver function tests unremarkable Initial troponin undetectable Urinalysis large leukocyte esterase, 100 protein moderate bacteria. 5-15 white blood cells and moderate squamous cells. EKG: Sinus rhythm, rate 76, QTc 407ms, no ischemic changes Head CT: No acute intracranial abnormality Chest x-ray showed congestive heart failure Abdomen/pelvis CT: IMPRESSION: 1. Bibasilar consolidation and block bilateral pleural effusion may be related to pneumonia or sequela from congestive heart failure. 2. Mild cardiomegaly. 3. Small hiatal hernia. 4. Diverticulosis coli without CT evidence of acute diverticulitis. 5. No CT evidence of an acute intra-abdominal or intrapelvic process. 6. Uterine fibroid or fibroids. 7. Calcific atherosclerosis aorta and coronary arteries. 8. Benign intraluminal lipoma ascending colon requires no additional evaluation or follow-up. Emergency department obtained blood cultures and urine cultures, she was started on azithromycin, cefepime and vancomycin. She was admitted to the hospital for further evaluation. Upon my assessment, patient is laying in the hospital bed in no acute distress. She denies chest pain , abdominal pain, nausea, vomiting, diarrhea and constipation. She states that she has left sided weakness, but this is not a new complaint. She denies difficulty swallowing. She is DNR/DNI. 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, 3 c-sections - Social History Smoking Status: Never smoker Smokeless Tobacco Status: No Alcohol use: none Drug use: none - Family History Mother Living Status: Hx Family Cardiac Disorders: No Hx Family Respiratory Disorders: Yes (COPD) Hx Family Cancer: Yes (Lung Cancer) Father Living Status: Hx Family Cancer: Yes ("Mouth cancer") Hx Family Endocrine Disorder: Yes (Diabetes) Sister Living Status: Hx Family Cardiac Disorders: No Hx Family Respiratory Disorders: No Hx Family Cancer: Yes (Breast Cancer) Hx Family Endocrine Disorder: Yes (Diabetes) Brother Adopted: No Family Member Ethnicity: Non- Living Status: Hx Family Cardiac Disorders: No Hx Family Respiratory Disorders: No Hx Family Cancer: Yes (Lung Cancer) Hx Family Endocrine Disorder: Yes (Diabetes) Hx Family Neurologic Disorders: Yes (CVA) Internal Medicine - H&P: Meds Magnesium Oxide [Magnesium] 400 mg PO DAILY 11/05/14 [History] Insulin Glargine,Hum.rec.anlog [Lantus Solostar] 17 unit SQ HS 01/09/15 [History] Ropinirole HCl [Requip] 0.5 mg PO HS 01/09/15 [History] Furosemide [Lasix] 40 mg PO BID 30 Days tab 01/14/15 [Rx] Acetaminophen [Pain Reliever] 500 mg PO TID PRN 06/06/17 [History] Fluticasone Propionate Nasal [Flonase] 1 spr NS DAILY 06/06/17 [History] Guaifenesin [Mucinex] 600 mg PO BID PRN 06/06/17 [History] Insulin Glargine,Hum.rec.anlog [Lantus Solostar] 30 unit SQ QAM 06/06/17 [History] Insulin LISPRO [Humalog Kwikpen U-100] 10 unit SQ TIDWM 06/06/17 [History] Lactobacillus Acidophilus [Acidophilus] 1 cap PO BID 06/06/17 [History] Levothyroxine Sodium [Levoxyl] 50 mcg PO DAILY 06/06/17 [History] Liothyronine Sodium [Cytomel] 25 mcg PO DAILY 06/06/17 [History] Montelukast [Singulair] 10 mg PO DAILY 06/06/17 [History] hydrALAZINE [HydrALAZINE] 25 mg PO QID 06/06/17 [History] Allopurinol [Zyloprim 100 MG] 100 mg PO DAILY #30 tablet 06/16/17 [Rx] Loratadine [Allergy Relief] 10 mg PO DAILY PRN #0 06/16/17 [Rx] Ondansetron ODT [Zofran ODT] 4 mg SL Q6HR PRN #10 tab.rapdis 02/14/18 [Rx] Albuterol Sulfate [Proair Hfa] 2 puff IH Q6H PRN 10/08/18 [History] Amlodipine Besylate 10 mg PO DAILY 10/08/18 [History] Atorvastatin Calcium [Lipitor] 80 mg PO HS 10/08/18 [History] Carvedilol [Coreg] 25 mg PO BID 10/08/18 [History] Cholecalciferol (D-3) [Vitamin D] 1,000 unit PO DAILY 10/08/18 [History] Clopidogrel Bisulfate [Plavix] 75 mg PO DAILY 10/08/18 [History] Nitroglycerin [Nitrostat] 0.4 mg SL Q5MIN PRN MDD 3x 10/08/18 [History] Warfarin [Coumadin] 2 mg PO MOWE 10/08/18 [History] Warfarin [Coumadin] 4 mg PO SUTUTHFRSA 10/08/18 [History] cloNIDine HCl [Clonidine HCl] 0.3 mg PO TID 10/08/18 [History] traZODone [TraZODone] 50 mg PO 2100 10/08/18 [History] Gabapentin [Neurontin] 100 mg PO TID #21 capsule 10/26/18 [Rx] HYDROcodone/Acet 5/325 mg [[place] 5-325 mg] 1 tab PO Q6H PRN 7 Days #20 tablet 10/26/18 [Rx] Valsartan [Diovan] 320 mg PO DAILY tablet 10/26/18 [Rx] Allergy/AdvReac Type Severity Reaction Status Date / Time codeine Allergy Congested Verified 09/23/17 06:45 Penicillins [PCN] AdvReac Congested Verified 11/27/16 06:45 tape AdvReac Itching Uncoded 11/27/16 06:45 All Systems PM: A 10-system review of systems was performed and is negative for pertinent findings except as documented above in the HPI. - Constitutional Vitals: Temp Pulse Resp BP Pulse Ox 100.6 F H 84 16 186/62 98 10/30/18 06:32 10/30/18 06:32 10/30/18 06:32 10/30/18 04:18 10/30/18 06:32 General appearance: Present: cooperative, A&O X 3, pleasant, no acute distress, answers questions appropriately Exam: - - Head Head exam: Present: normal inspection - Eye Eye exam: Present: EOMI, normal appearance. Absent: nystagmus - Neck Neck exam general surgery: Present: full ROM. Absent: tenderness - Respiratory Respiratory exam: Present: CTAB, rales. Absent: respiratory distress, rhonchi, wheezes - Cardiovascular Cardiovascular exam: Present: RRR. Absent: diastolic murmur, systolic murmur - GI/Abdominal GI/Abdominal exam: Present: normal bowel sounds, soft. Absent: tenderness - Extremities Exam Extremities exam: Present: warm, radial pulses palpable and symmetrical. Absent: calf tenderness, pedal edema, tenderness Additional comments: Strength equal and symmetrical bilaterally in upper and lower extremities. No left sided weakness. Sensation intact. - Neurological Exam Neurological exam: Present: CN II-XII intact, oriented X3, no focal deficits, strengths equal and symetr throughout. Absent: motor sensory deficit, pronater drift, facial droop, speech deficit - Skin Skin exam: Present: dry, normal color, warm Internal Med - H&P Results - Labs CBC & Chem 7: 10/30/18 06:28 10/30/18 06:28 Labs: Short CBC 10/29/18 10/30/18 Range/Units 17:21 06:28 WBC 11.6 H D 9.0 (4.3-11.1) K/mcL Hgb 7.5 L 7.1 L (11.5-15.4) g/dL Hct 24.1 L 22.5 L (35.3-44.9) % Plt Count 224 201 (140-400) K/mcL Neutrophils # 9.1 H (1.6-8.9) K/mcL BMP 10/29/18 10/30/18 17:21 06:28 Sodium 138 140 Potassium 4.0 3.8 Chloride 100 102 Carbon Dioxide 31 H 32 H BUN 38 H 40 H Creatinine 1.69 H 1.55 H Glucose 105 164 H Calcium 8.6 8.4 L Cardiac Enzymes 10/29/18 Range/Units 17:21 Troponin I < 0.03 (< 0.04) ng/mL Liver Function 10/29/18 Range/Units 17:21 Total Bilirubin 0.3 (0.3-1.0) mg/dL Direct Bilirubin 0.0 (0.0-0.2) mg/dL AST 12 L (13-39) Units/L ALT 12 (7-52) Units/L Alkaline Phosphatase 85 (34-104) Units/L Albumin 3.3 L (3.5-5.7) g/dL Urine 10/29/18 Range/Units 18:15 Urine Color Yellow (Yellow) Urine Clarity Cloudy A (Clear) Urine pH 5.0 (5.0-8.0) pH Units Ur Specific [place] 1.019 (1.010-1.025) Urine Protein 100 H (Neg-Trace) mg/dL Urine Glucose (UA) Normal (Normal) mg/dL - Impressions ITS Impressions Abdomen/Pelvis CT 10/29/18 16:53 IMPRESSION: 1. Bibasilar consolidation and block bilateral pleural effusion may be related to pneumonia or sequela from congestive heart failure. 2. Mild cardiomegaly. 3. Small hiatal hernia. 4. Diverticulosis coli without CT evidence of acute diverticulitis. 5. No CT evidence of an acute intra-abdominal or intrapelvic process. 6. Uterine fibroid or fibroids. 7. Calcific atherosclerosis aorta and coronary arteries. 8. Benign intraluminal lipoma ascending colon requires no additional evaluation or follow-up. D/ / Bennie Gonzalez / Bennie Gonzalez Interpreting Provider: Bennie Gonzalez Chest X-Ray 10/29/18 16:53 IMPRESSION: Findings suggest mild congestive heart failure D/ / Valente Laird MD / Valente Laird MD Interpreting Provider: Valente Laird MD Head CT 10/29/18 16:53 IMPRESSION: No acute intracranial abnormality. White matter hypoattenuation described is typical of microvascular ischemic disease or as sequela of dysmyelinating/demyelinating processes. Remote right frontal stroke. Stable lacunar stroke posterior right caudate lobe and left thalamus. D/ / Bennie Gonzalez / Bennie Gonzalez Interpreting Provider: Bennie Gonzalez - Assessment and Plan (1) Healthcare-associated pneumonia Current Visit: Yes Status: Acute Assessment and plan: As seen on imaging, IMPRESSION: 1. Bibasilar consolidation and block bilateral pleural effusion may be related to pneumonia or sequela from congestive heart failure. 2. Mild cardiomegaly. 3. Small hiatal hernia. 4. Diverticulosis coli without CT evidence of acute diverticulitis. 5. No CT evidence of an acute intra-abdominal or intrapelvic process. 6. Uterine fibroid or fibroids. 7. Calcific atherosclerosis aorta and coronary arteries. 8. Benign intraluminal lipoma ascending colon requires no additional evaluation or follow-up. Patient had blood cultures obtained in the ER. Started on azithromycin, cefepime and vanco in the ER. Continue to monitor for worsening signs of infection Continue IV antibiotics Follow up blood cultures. (2) Anemia Current Visit: No Status: Chronic Assessment and plan: Patient has history of anemia, has been in the 7-8 range for last few months. Patient denies bleeding. Obtain occult blood test Patient typed and screened in the ER Transfuse if indicated. Qualifiers: Anemia type: unspecified type Qualified Code(s): D64.9 - Anemia, unspecified (3) UTI (urinary tract infection) Current Visit: No Status: Acute Assessment and plan: Urine culture obtained, possible UTI. Antibiotics started as patient has pneumonia as well. Follow up urine cultures Continue IV antibiotics. Qualifiers: Urinary tract infection type: acute cystitis Hematuria presence: without hematuria Qualified Code(s): N30.00 - Acute cystitis without hematuria (4) Diabetes Current Visit: No Status: Chronic Assessment and plan: Patient is an insulin dependent diabetic Monitor sugars ACHS Diabetic diet Low dose insulin sliding scale as needed Hold home meds. 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 Stat INR Pharmacy to dose warfarin. Monitor hemoglobin - Time Spent With Patient Total time spent is greater than 50% in coordination of care (as documented) at patient's floor/unit and/or counseling patient: Greater than 35 minutes
[2018-10-30] MEDS ORDERED: Cefepime HCl 1,000 MG in Water for inj. (sterile) 10 ML IVP SCH (08:00)
[2018-10-30] MEDS: Insulin LISPRO 300 UNITS/3 ML VIAL SQ SCH ×4 (08:02→20:38)
[2018-10-30 08:47] LABS: INR 1.9; Prothrombin Time 21.5 Seconds (9.4-12.1)
--- NOTE | 2018-10-30 13:38 | Internal Med Progress Note ---
Hospitalist Progress Note - Encounter Date of Encounter: 10/30/18 Time of Encounter: 11:00 - Subjective Interval History: Ms. Lala is a 77 year old female with a known past medical history of peritoneal a fib, diastolic CHF, hypertension, hyperlipidemia, DM2 and chronic narcotic dependent patient presented to the emergency department from a senior living due to concerns of having fever and possible sepsis. She has been recovering at a senior living due to recent admission for generalized weakness. In the ER her CXR showed mild CHF and cathie bronchial cuffing and thickening. Her CT of Abd and Pelvis showed by bi basilar consolidations concerning for PNA. She was admitted in the hospital and started her on broad-spectrum IV antibiotic Cefepime, Azithromycin and Vancomycin. She denied any CP. She still has some SOB and CALABRESE. - Exam Vitals: Temp Pulse Resp BP Pulse Ox 99.1 F 80 20 189/61 99 10/30/18 11:05 10/30/18 11:05 10/30/18 11:05 10/30/18 11:05 10/30/18 11:05 Exam: Gen: Alert, awake, Oriented to time,place and person Chest: Diminished breath sounds B/L, mild to moderate wheezing, No crackles, No rales Heart: S1S2+ RRR No murmurs Abd: Soft, NT, BS +, No organomegaly Ext: No edema, pulses are palpable, No calf tenderness Neuro : No acute focal neuro deficits noticed Skin: No rash. - Assessment and Plan (1) Sepsis Current Visit: Yes Status: Acute Assessment and Plan: pt meets sepsis criteria with fever, leukocytosis and source of infection as pneumonia improving cont empirical abx blood cx no growth so far (2) Healthcare-associated pneumonia Current Visit: Yes Status: Acute Assessment and Plan: Most likely bacterial PNA will check strep PNA and Legionella ag will check sputum cx so far blood cx - no growth cont broad spec abx Cefepime and Azithromycin Already received 2 doses of Vanc.. d/c Vanc since she is not high risk for MRSA PNA (3) Acute respiratory failure with hypoxia Current Visit: Yes Status: Acute Assessment and Plan: currently on 2 lit O2 try to wean her off the oxygen as she tolerates any frequent bronchodilator therapy (4) UTI (urinary tract infection) Current Visit: No Status: Acute Assessment and Plan: UA is abnormal - concerning for UTI cont empirical abx Cefepime (5) Anemia Current Visit: No Status: Chronic Assessment and Plan: stable Hb cont close monitoring (6) Diabetes Current Visit: No Status: Chronic Assessment and Plan: Cont ADA diet on ISS (7) Chronic diastolic CHF (congestive heart failure) Current Visit: Yes Status: Acute Assessment and Plan: Not in exacerbation resumed all home medications (8) CKD (chronic kidney disease) stage 3, GFR 30-59 ml/min Current Visit: No Status: Acute Assessment and Plan: Stable creatinine at baseline avoid nephrotoxic medications (9) Hypertension Current Visit: No Status: Chronic Assessment and Plan: Fairly controlled since she did receive her home medications. Just resumed all her home medications (10) DVT prophylaxis Current Visit: No Status: Chronic Assessment and Plan: on Coumadin - Time Spent with Patient Total time spent is greater than 50% in coordination of care (as documented) at patient's floor/unit and/or counseling patient: Internal Medicine: Result - Labs CBC & Chem 7: 10/30/18 06:28 10/30/18 06:28 Labs: Short CBC 10/29/18 10/30/18 Range/Units 17:21 06:28 WBC 11.6 H D 9.0 (4.3-11.1) K/mcL Hgb 7.5 L 7.1 L (11.5-15.4) g/dL Hct 24.1 L 22.5 L (35.3-44.9) % Plt Count 224 201 (140-400) K/mcL Neutrophils # 9.1 H (1.6-8.9) K/mcL BMP 10/29/18 10/30/18 17:21 06:28 Sodium 138 140 Potassium 4.0 3.8 Chloride 100 102 Carbon Dioxide 31 H 32 H BUN 38 H 40 H Creatinine 1.69 H 1.55 H Glucose 105 164 H Calcium 8.6 8.4 L Cardiac Enzymes 10/29/18 Range/Units 17:21 Troponin I < 0.03 (< 0.04) ng/mL Liver Function 10/29/18 Range/Units 17:21 Total Bilirubin 0.3 (0.3-1.0) mg/dL Direct Bilirubin 0.0 (0.0-0.2) mg/dL AST 12 L (13-39) Units/L ALT 12 (7-52) Units/L Alkaline Phosphatase 85 (34-104) Units/L Albumin 3.3 L (3.5-5.7) g/dL Urine 10/29/18 Range/Units 18:15 Urine Color Yellow (Yellow) Urine Clarity Cloudy A (Clear) Urine pH 5.0 (5.0-8.0) pH Units Ur Specific [place] 1.019 (1.010-1.025) Urine Protein 100 H (Neg-Trace) mg/dL Urine Glucose (UA) Normal (Normal) mg/dL - ABG Interpretation ABG results: PT/INR, D-dimer PT 21.5 Seconds (9.4-12.1) H 10/30/18 08:21 - Impressions Impressions Abdomen/Pelvis CT 10/29/18 16:53 IMPRESSION: 1. Bibasilar consolidation and block bilateral pleural effusion may be related to pneumonia or sequela from congestive heart failure. 2. Mild cardiomegaly. 3. Small hiatal hernia. 4. Diverticulosis coli without CT evidence of acute diverticulitis. 5. No CT evidence of an acute intra-abdominal or intrapelvic process. 6. Uterine fibroid or fibroids. 7. Calcific atherosclerosis aorta and coronary arteries. 8. Benign intraluminal lipoma ascending colon requires no additional evaluation or follow-up. D/ / Bennie Gonzalez / Bennie Gonzalez Interpreting Provider: Bennie Gonzalez Chest X-Ray 10/29/18 16:53 IMPRESSION: Findings suggest mild congestive heart failure D/ / Valente Laird MD / Valente Laird MD Interpreting Provider: Valente Laird MD Head CT 10/29/18 16:53 IMPRESSION: No acute intracranial abnormality. White matter hypoattenuation described is typical of microvascular ischemic disease or as sequela of dysmyelinating/demyelinating processes. Remote right frontal stroke. Stable lacunar stroke posterior right caudate lobe and left thalamus. D/ / Bennie Gonzalez / Bennie Gonzalez Interpreting Provider: Bennie Gonzalez Consult Discharge Plan - Plan (4) UTI (urinary tract infection) Qualifiers: Urinary tract infection type: acute cystitis Hematuria presence: without hematuria Qualified Code(s): N30.00 - Acute cystitis without hematuria (5) Anemia Qualifiers: Anemia type: unspecified type Qualified Code(s): D64.9 - Anemia, unspecified (6) Diabetes Qualifiers: Diabetes mellitus type: type 2 Diabetes mellitus insurance biller insulin use: with insurance biller use Diabetes mellitus complication status: with hyperglycemia Q ualified Code(s): E11.65 - Type 2 diabetes mellitus with hyperglycemia; Z79.4 - business analytics director (current) use of insulin (9) Hypertension Qualifiers: Hypertension type: essential hypertension Qualified Code(s): I10 - Essential (primary) hypertension
[2018-10-30] MEDS ORDERED: Loratadine 10 MG TABLET PO PRN (14:11)
[2018-10-30] MEDS ORDERED: Nitroglycerin 0.4 MG TAB.SUBL SL PRN (14:11)
[2018-10-30] MEDS: cloNIDine HCl 0.1 MG TABLET PO SCH ×2 (15:50→20:39)
[2018-10-30] MEDS: amLODIPine 5 MG TABLET PO SCH (15:50)
[2018-10-30] MEDS: Furosemide 40 MG TABLET PO SCH ×2 (15:50→15:54)
[2018-10-30] MEDS: Gabapentin 100 MG CAPSULE PO SCH ×2 (15:51→20:39)
[2018-10-30] MEDS: Lisinopril 20 MG TABLET PO SCH (15:51)
[2018-10-30] MEDS: hydrALAZINE 25 MG TABLET PO SCH ×2 (16:56→20:39)
[2018-10-30] MEDS ORDERED: *HR* Warfarin 2 MG TABLET PO ONE (18:00)
[2018-10-30] MEDS ORDERED: Warfarin perPT PO PRN (18:00)
[2018-10-30] MEDS ORDERED: Acetaminophen 325 MG TABLET PO ONE (20:06)
[2018-10-30] MEDS ORDERED: Aminoglycoside Consult 1 EACH MC ONE (20:14)
[2018-10-30] MEDS: traZODone 50 MG TABLET PO SCH (20:39)
[2018-10-30] MEDS: rOPINIRole 0.25 MG TABLET PO SCH (20:39)
[2018-10-30] MEDS: Azithromycin 500 MG in D5% in Water 250 ML IVPB SCH (20:39)
[2018-10-30] MEDS: Lactobacillus 1 EACH CAP.SPRINK PO SCH (20:39)
[2018-10-30] MEDS: Cefepime HCl 1,000 MG in Water for inj. (sterile) 10 ML IVP SCH (20:40)
[2018-10-30] MEDS ORDERED: Ondansetron 4 MG/2 ML VIAL IVP ONE (20:45)
--- NOTE | 2018-10-31 00:22 | Electrocardiograph Report ---
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
[2018-10-31 02:29] LABS: INR 1.7; Prothrombin Time 19.1 Seconds (9.4-12.1)
[2018-10-31] MEDS: Magnesium Oxide 400 MG TABLET PO SCH (07:57)
[2018-10-31] MEDS: Lisinopril 20 MG TABLET PO SCH (07:57)
[2018-10-31] MEDS: Gabapentin 100 MG CAPSULE PO SCH ×3 (07:57→21:24)
[2018-10-31] MEDS: Celecoxib 200 MG CAPSULE PO SCH (07:58)
[2018-10-31] MEDS: Lactobacillus 1 EACH CAP.SPRINK PO SCH ×2 (07:58→23:22)
[2018-10-31] MEDS: cloNIDine HCl 0.1 MG TABLET PO SCH ×3 (07:58→21:25)
[2018-10-31] MEDS: amLODIPine 5 MG TABLET PO SCH (07:58)
[2018-10-31] MEDS: Cholecalciferol (D-3) 1,000 UNIT (25MCG) TABLET PO SCH (07:58)
[2018-10-31] MEDS: Cefepime HCl 1,000 MG in Water for inj. (sterile) 10 ML IVP SCH ×3 (07:58→23:20)
[2018-10-31] MEDS: hydrALAZINE 25 MG TABLET PO SCH ×4 (07:58→21:25)
[2018-10-31] MEDS: Furosemide 40 MG TABLET PO SCH ×2 (07:58→16:15)
[2018-10-31] MEDS: Fluticasone Propionate Nasal 50 MCG/SPRAY BOTTLE NS SCH (08:05)
[2018-10-31] MEDS: Insulin LISPRO 300 UNITS/3 ML VIAL SQ SCH ×4 (08:05→23:22)
[2018-10-31] MEDS ORDERED: Isovue-370 500 ML BOTTLE IVP ONE (11:56)
--- NOTE | 2018-10-31 15:50 | Internal Med Progress Note ---
Hospitalist Progress Note - Encounter Date of Encounter: 10/31/18 Time of Encounter: 11:00 - Subjective Interval History: Patient was seen and examined at bedside. Patient stated she is feeling little better today. She still having moderate shortness of breath and dyspnea on exertion. She also complained about since this morning she started having left side whole body numbness starting from face to the left leg. She woke up with this left side numbness. - Exam Vitals: Temp Pulse Resp BP Pulse Ox 98.7 F 58 14 165/61 95 10/31/18 10:55 10/31/18 10:55 10/31/18 10:55 10/31/18 07:01 10/31/18 10:55 Exam: Gen: Alert, awake, Oriented to time,place and person Chest: Diminished breath sounds B/L, mild to moderate wheezing, No crackles, No rales Heart: S1S2+ RRR No murmurs Abd: Soft, NT, BS +, No organomegaly Ext: No edema, pulses are palpable, No calf tenderness Neuro : WEB CONTENT DIRECTOR II to XII intact.. Normal motor strength in all ext's, no loss of sensation.. No foot drop / hand drop. No speech difficulty Skin: No rash. - Assessment and Plan (1) Left sided numbness Current Visit: Yes Status: Acute Assessment and Plan: Out of the window time for tPA High risk for tPA too since pt is on Coumadin Cont ASA and Statin Ordered CT of Head stat - no ICH noticed Will order Brain MRI Ordered NIHSS cont on tele (2) Sepsis Current Visit: Yes Status: Acute Assessment and Plan: pt met sepsis criteria with fever, leukocytosis and source of infection as pneumonia improving cont empirical abx blood cx no growth so far (3) Healthcare-associated pneumonia Current Visit: Yes Status: Acute Assessment and Plan: Most likely bacterial PNA will check strep PNA and Legionella ag will check sputum cx so far blood cx - no growth cont broad spec abx Cefepime and Azithromycin Already received 2 doses of Vanc.. d/c Vanc since she is not high risk for MRSA PNA (4) Acute respiratory failure with hypoxia Current Visit: Yes Status: Acute Assessment and Plan: currently on 3 lit O2 try to wean her off the oxygen as she tolerates Cont frequent bronchodilator therapy (5) UTI (urinary tract infection) Current Visit: No Status: Acute Assessment and Plan: UA is abnormal - concerning for UTI cont empirical abx Cefepime urine culture showed mixed organisms (6) Anemia Current Visit: No Status: Chronic Assessment and Plan: stable Hb cont close monitoring (7) Diabetes Current Visit: No Status: Chronic Assessment and Plan: Cont ADA diet on ISS (8) Chronic diastolic CHF (congestive heart failure) Current Visit: Yes Status: Acute Assessment and Plan: Not in exacerbation resumed all home medications (9) CKD (chronic kidney disease) stage 3, GFR 30-59 ml/min Current Visit: No Status: Acute Assessment and Plan: Stable creatinine at baseline avoid nephrotoxic medications (10) Hypertension Current Visit: No Status: Chronic Assessment and Plan: Stable with current home medications on IV hydralazine as needed (11) DVT prophylaxis Current Visit: No Status: Chronic Assessment and Plan: on Coumadin - Time Spent with Patient Total time spent is greater than 50% in coordination of care (as documented) at patient's floor/unit and/or counseling patient: Internal Medicine: Result - Labs CBC & Chem 7: 10/30/18 06:28 10/30/18 06:28 - ABG Interpretation ABG results: PT/INR, D-dimer PT 19.1 Seconds (9.4-12.1) H 10/31/18 01:47 - Impressions Impressions Head CT 10/31/18 11:56 IMPRESSION: No evidence of acute intracranial abnormality with no significant change in appearance of head CT when compared to 10/29/2018. D/ 10/31/2018 13:08:51 Ady Benton MD / Emerald Mckenna Interpreting Provider: Ady Benton MD Consult Discharge Plan - Plan Referrals: Aquilino Rivera DO [Primary Care Provider] - (5) UTI (urinary tract infection) Qualifiers: Urinary tract infection type: acute cystitis Hematuria presence: without hematuria Qualified Code(s): N30.00 - Acute cystitis without hematuria (6) Anemia Qualifiers: Anemia type: unspecified type Qualified Code(s): D64.9 - Anemia, unspecified (7) Diabetes Qualifiers: Diabetes mellitus type: type 2 Diabetes mellitus chcf insulin use: with meterman use Diabetes mellitus complication status: with hyperglycemia Qualified Code(s): E11.65 - Type 2 diabetes mellitus with hyperglycemia; 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
[2018-10-31] MEDS ORDERED: *HR* Warfarin 4 MG TABLET PO ONE (18:00)
[2018-10-31] MEDS: rOPINIRole 0.25 MG TABLET PO SCH (21:23)
[2018-10-31] MEDS: traZODone 50 MG TABLET PO SCH (21:24)
[2018-10-31] MEDS: Azithromycin 500 MG in D5% in Water 250 ML IVPB SCH (23:21)
[2018-11-01 05:13] LABS: Hematocrit 21.5 % (35.3-44.9); Hemoglobin 6.5 g/dL (11.5-15.4); Mean Corpuscular HGB Conc 30.2 g/dL (31.6-35.5); Mean Corpuscular Hemoglobin 28.9 pg (28.0-33.3); Mean Corpuscular Volume 95.6 fL (83.0-100.0); Platelet Count 197 K/mcL (140-400); Red Blood Count 2.25 M/mcL (3.82-4.97); Red Cell Distribution Width 13.4 % (11.5-14.5); White Blood Count 5.1 K/mcL (4.3-11.1)
[2018-11-01 05:19] LABS: INR 1.7; Prothrombin Time 19.1 Seconds (9.4-12.1)
[2018-11-01 05:32] LABS: Calcium 8.3 mg/dL (8.6-10.3); Magnesium 1.9 mg/dL (1.6-2.6); Potassium 3.8 mEq/L (3.5-5.1)
[2018-11-01] MEDS: cloNIDine HCl 0.1 MG TABLET PO SCH ×3 (09:09→22:03)
[2018-11-01] MEDS: Cefepime HCl 1,000 MG in Water for inj. (sterile) 10 ML IVP SCH (09:09)
[2018-11-01] MEDS: Celecoxib 200 MG CAPSULE PO SCH (09:10)
[2018-11-01] MEDS: amLODIPine 5 MG TABLET PO SCH (09:10)
[2018-11-01] MEDS: Lactobacillus 1 EACH CAP.SPRINK PO SCH ×2 (09:10→22:02)
[2018-11-01] MEDS: Furosemide 40 MG TABLET PO SCH (09:10)
[2018-11-01] MEDS: hydrALAZINE 25 MG TABLET PO SCH ×3 (09:10→22:03)
[2018-11-01] MEDS: Lisinopril 20 MG TABLET PO SCH (09:10)
[2018-11-01] MEDS: Insulin LISPRO 300 UNITS/3 ML VIAL SQ SCH ×4 (09:11→21:58)
[2018-11-01] MEDS: Gabapentin 100 MG CAPSULE PO SCH ×3 (09:11→22:03)
[2018-11-01] MEDS: Magnesium Oxide 400 MG TABLET PO SCH (09:11)
[2018-11-01] MEDS: Cholecalciferol (D-3) 1,000 UNIT (25MCG) TABLET PO SCH (09:11)
[2018-11-01] MEDS ORDERED: 0.9 % Sodium Chloride 500 ML ONE (10:34)
[2018-11-01] MEDS: Fluticasone Propionate Nasal 50 MCG/SPRAY BOTTLE NS SCH (12:22)
--- NOTE | 2018-11-01 16:43 | Internal Med Progress Note ---
Hospitalist Progress Note - Encounter Date of Encounter: 11/01/18 Time of Encounter: 11:00 - Subjective Interval History: Patient was seen and examined at bedside. She still having moderate shortness of breath and dyspnea on exertion. She denied anymore left side of numbness. However patient is complaining about feeling more weak and lethargic today - Exam Vitals: Temp Pulse Resp BP Pulse Ox 97.4 F L 55 16 150/59 98 11/01/18 15:10 11/01/18 14:55 11/01/18 15:10 11/01/18 15:10 11/01/18 15:10 Exam: Gen: Alert, awake, Oriented to time,place and person looks little pale Chest: Diminished breath sounds B/L, mild to moderate wheezing, No crackles, No rales Heart: S1S2+ RRR No murmurs Abd: Soft, NT, BS +, No organomegaly Ext: No edema, pulses are palpable, No calf tenderness Neuro : FENCE LABORER II to XII intact.. Normal motor strength in all ext's, no loss of sensation.. No foot drop / hand drop. No speech difficulty Skin: No rash. - Assessment and Plan (1) Left sided numbness Current Visit: Yes Status: Acute Assessment and Plan: CT of Head - did not show any acute intracranial abnormality brain MRI came back is negative for infarction Cont ASA and Statin continue on tele patient might have TIA (2) Sepsis Current Visit: Yes Status: Acute Assessment and Plan: pt met sepsis criteria with fever, leukocytosis and source of infection as pneumonia improving cont empirical abx blood cx no growth so far (3) Healthcare-associated pneumonia Current Visit: Yes Status: Acute Assessment and Plan: Most likely bacterial PNA will check strep PNA and Legionella ag sputum cx - P so far blood cx - no growth cont broad spec abx Cefepime and Azithromycin Already received 2 doses of Vanc.. d/c Vanc since she is not high risk for MRSA PNA (4) Acute respiratory failure with hypoxia Current Visit: Yes Status: Acute Assessment and Plan: currently on 2 lit O2 try to wean her off the oxygen as she tolerates Cont frequent bronchodilator therapy (5) UTI (urinary tract infection) Current Visit: No Status: Acute Assessment and Plan: UA is abnormal - concerning for UTI cont empirical abx Cefepime urine culture showed mixed organisms (6) Anemia Current Visit: No Status: Chronic Assessment and Plan: Hb dropped down to 6.5 multifactorial due to CKD + chronic disease will check iron profile will give 2 units of PRBC will check stool hemoccult (7) Diabetes Current Visit: No Status: Chronic Assessment and Plan: Cont ADA diet on ISS (8) Chronic diastolic CHF (congestive heart failure) Current Visit: Yes Status: Acute Assessment and Plan: Not in exacerbation resumed all home medications (9) CKD (chronic kidney disease) stage 3, GFR 30-59 ml/min Current Visit: No Status: Acute Assessment and Plan: Cr slowly trending up held Lasix avoid nephrotoxic medications (10) Hypertension Current Visit: No Status: Chronic Assessment and Plan: Stable with current home medications on IV hydralazine as needed (11) DVT prophylaxis Current Visit: No Status: Chronic Assessment and Plan: on Coumadin - Time Spent with Patient Total time spent is greater than 50% in coordination of care (as documented) at patient's floor/unit and/or counseling patient: Internal Medicine: Result - Labs CBC & Chem 7: 11/01/18 04:38 11/01/18 04:38 Labs: Short CBC 11/01/18 Range/Units 04:38 WBC 5.1 (4.3-11.1) K/mcL Hgb 6.5 L (11.5-15.4) g/dL Hct 21.5 L (35.3-44.9) % Plt Count 197 (140-400) K/mcL BMP 11/01/18 04:38 Sodium 138 Potassium 3.8 Chloride 104 Carbon Dioxide 27 BUN 45 H Creatinine 2.01 H Glucose 228 H Calcium 8.3 L - ABG Interpretation ABG results: PT/INR, D-dimer PT 19.1 Seconds (9.4-12.1) H 11/01/18 04:38 - Impressions Impressions Brain MRI 10/31/18 15:48 IMPRESSION: No acute infarct or other acute intracranial process identified. Chronic ischemic changes as described. D/ / Valente Fernando MD / Valente Fernando MD Interpreting Provider: Valente Fernando MD Consult Discharge Plan - Plan Referrals: Aquilino Rivera, DO [Primary Care Provider] - (5) UTI (urinary tract infection) Qualifiers: Urinary tract infection type: acute cystitis Hematuria presence: without hematuria Qualified Code(s): N30.00 - Acute cystitis without hematuria (6) Anemia Qualifiers: Anemia type: unspecified type Qualified Code(s): D64.9 - Anemia, unspecified (7) Diabetes Qualifiers: Diabetes mellitus type: type 2 Diabetes mellitus joint terminal attack controller insulin use: with joint terminal attack controller use Diabetes mellitus complication status: with hyperglycemia Qualified Code(s): E11.65 - Type 2 diabetes mellitus with hyperglycemia; Z79.4 - meterman (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
[2018-11-01] MEDS ORDERED: *HR* Warfarin 3 MG TABLET PO ONE (18:00)
[2018-11-01] MEDS: Azithromycin 500 MG in D5% in Water 250 ML IVPB SCH (21:57)
[2018-11-01] MEDS: rOPINIRole 0.25 MG TABLET PO SCH (22:02)
[2018-11-01] MEDS: traZODone 50 MG TABLET PO SCH (22:03)
[2018-11-02 01:29] LABS: Hematocrit 27.1 % (35.3-44.9); Mean Corpuscular HGB Conc 32.8 g/dL (31.6-35.5); Mean Corpuscular Hemoglobin 30.4 pg (28.0-33.3); Mean Corpuscular Volume 92.5 fL (83.0-100.0); Mean Platelet Volume 11.9 fL (9.4-12.4); Platelet Count 195 K/mcL (140-400); Red Blood Count 2.93 M/mcL (3.82-4.97); Red Cell Distribution Width 14.1 % (11.5-14.5); White Blood Count 5.5 K/mcL (4.3-11.1)
[2018-11-02 01:40] LABS: INR 1.8
[2018-11-02 01:47] LABS: Calcium 8.4 mg/dL (8.6-10.3); Hemoglobin 8.9 g/dL (11.5-15.4); Magnesium 1.8 mg/dL (1.6-2.6); Potassium 4.3 mEq/L (3.5-5.1)
[2018-11-02] MEDS: Cefepime HCl 1,000 MG in Water for inj. (sterile) 10 ML IVP SCH (08:09)
[2018-11-02] MEDS: Fluticasone Propionate Nasal 50 MCG/SPRAY BOTTLE NS SCH (08:13)
[2018-11-02] MEDS: Cholecalciferol (D-3) 1,000 UNIT (25MCG) TABLET PO SCH (08:14)
[2018-11-02] MEDS: Magnesium Oxide 400 MG TABLET PO SCH (08:14)
[2018-11-02] MEDS: cloNIDine HCl 0.1 MG TABLET PO SCH ×3 (08:14→21:21)
[2018-11-02] MEDS: Lactobacillus 1 EACH CAP.SPRINK PO SCH ×2 (08:15→21:22)
[2018-11-02] MEDS: Lisinopril 20 MG TABLET PO SCH (08:15)
[2018-11-02] MEDS: hydrALAZINE 25 MG TABLET PO SCH ×3 (08:15→21:22)
[2018-11-02] MEDS: Gabapentin 100 MG CAPSULE PO SCH ×3 (08:16→21:22)
[2018-11-02] MEDS: amLODIPine 5 MG TABLET PO SCH (08:16)
[2018-11-02] MEDS: Insulin LISPRO 300 UNITS/3 ML VIAL SQ SCH ×4 (08:20→21:26)
--- NOTE | 2018-11-02 15:32 | Discharge Summary ---
- NOTES TO OUTPATIENT PROVIDER Notes to Outpatient Provider: f/u with PCP in one week. f/u with Nephrology in 1-2 weeks. Please go for lab work CBC and BMP in 3 days. Orders not resulted at time of discharge: Pending orders 10/29/18 17:21 Culture,Blood [BC] Stat 10/30/18 07:47 Occult Blood,Stool [BF] Routine 11/01/18 16:43 Culture,Sputum with Gram Stain [RM] Routine Legionella Antigen [RM] Routine S. Pneumoniae Antigen [RM] Routine Date of Encounter: 11/02/18 Time of Encounter: 15:22 - Discharge Diagnosis (1) Sepsis Priority: Primary Status: Acute Qualifiers: Sepsis type: sepsis due to unspecified organism Sepsis acute organ dysfunction status: unspecified Qualified Code(s): A41.9 - Sepsis, unspecified organism (2) Healthcare-associated pneumonia Priority: Primary Status: Acute (3) Acute respiratory failure with hypoxia Priority: Primary Status: Acute (4) Left sided numbness Priority: Secondary Status: Acute (5) UTI (urinary tract infection) Priority: Secondary Status: Acute Qualifiers: Urinary tract infection type: acute cystitis Hematuria presence: without hematuria Qualified Code(s): N30.00 - Acute cystitis without hematuria (6) Anemia Priority: Secondary Status: Chronic Qualifiers: Anemia type: unspecified type Qualified Code(s): D64.9 - Anemia, unspecified (7) Diabetes Priority: Secondary Status: Chronic Qualifiers: Diabetes mellitus type: type 2 Diabetes mellitus longterm insulin use: with press tender long goods use Diabetes mellitus complication status: with hyperglycemia Qualified Code(s): E11.65 - Type 2 diabetes mellitus with hyperglycemia; Z79.4 - jail (current) use of insulin (8) Chronic diastolic CHF (congestive heart failure) Priority: Secondary Status: Acute (9) CKD (chronic kidney disease) stage 3, GFR 30-59 ml/min Priority: Secondary Status: Acute (10) Hypertension Priority: Secondary Status: Chronic Qualifiers: Hypertension type: essential hypertension Qualified Code(s): I10 - Essential (primary) hypertension (11) DVT prophylaxis Priority: Secondary Status: Chronic (12) Morbid obesity with BMI of 45.0-49.9, adult Priority: Secondary Status: Chronic Hospital course: Ms. Lala is a 77 year old female with a known past medical history of peritoneal a fib, diastolic CHF, hypertension, hyperlipidemia, DM2 and chronic narcotic dependent patient presented to the emergency department from a correction due to concerns of having fever and possible sepsis. She has been recovering at a correction due to recent admission for generalized weakness. In the ER her CXR showed mild CHF and cathie bronchial cuffing and thickening. Her CT of Abd and Pelvis showed by bi basilar consolidations concerning for PNA. She was admitted in the hospital and started her on broad-spectrum IV antibiotic Cefepime, Azithromycin and Vancomycin. She did required 2-3 lit O2 through NC and used CPAP at night time. Her sympotms started improving slowly. Her Vancomycin d/c d after 2 doses. She did c/o Left side numbness 2 days ago, however her stroke work up came back as negative, may pt might have TIA. She does have acute on chronic non blood loss anemia due to CKD and chronic diseases. Her iron panel showed normal Iron leves and decreased transferrin. She was given 2 U PRBC and her Hb improved to 8.9. Pt stated she is feeling better today and back to baseline. She wanted to go to EC in [place] near her daughter's residence. Our SW is arranging for that. So will d/c her to [facility] in stable condition today. - Time Spent with Patient Total time spent providing and/or coordinating discharge services: - Discharge Medications Prescriptions: New Cefdinir [Omnicef] 300 mg PO DAILY #4 capsule Continued Ropinirole HCl [Requip] 0.5 mg PO HS Insulin Glargine,Hum.rec.anlog [Lantus Solostar] 17 unit SQ HS Levothyroxine Sodium [Levoxyl] 50 mcg PO DAILY Montelukast [Singulair] 10 mg PO DAILY Liothyronine Sodium [Cytomel] 25 mcg PO DAILY Insulin LISPRO [Humalog Kwikpen U-100] 10 unit SQ TIDWM Acetaminophen [Pain Reliever] 500 mg PO TID PRN PRN Reason: Pain Fluticasone Propionate Nasal [Flonase] 1 spr NS DAILY Guaifenesin [Mucinex] 600 mg PO BID PRN PRN Reason: Congestion Insulin Glargine,Hum.rec.anlog [Lantus Solostar] 30 unit SQ QAM Lactobacillus Acidophilus [Acidophilus] 1 cap PO BID Ondansetron ODT [Zofran ODT] 4 mg SL Q6HR PRN #10 tab.rapdis PRN Reason: Nausea And Vomiting Albuterol Sulfate [Proair Hfa] 2 puff IH Q6H PRN PRN Reason: Shortness Of Breath Amlodipine Besylate 10 mg PO DAILY Atorvastatin Calcium [Lipitor] 80 mg PO HS Carvedilol [Coreg] 25 mg PO BID Cholecalciferol (D-3) [Vitamin D] 1,000 unit PO DAILY cloNIDine HCl [Clonidine HCl] 0.3 mg PO TID Clopidogrel Bisulfate [Plavix] 75 mg PO DAILY Nitroglycerin [Nitrostat] 0.4 mg SL Q5MIN PRN MDD 3 DOSES PRN Reason: Chest Pain traZODone [TraZODone] 50 mg PO 2100 Warfarin [Coumadin] 2 mg PO MOWE Warfarin [Coumadin] 4 mg PO SUTUTHFRSA Lisinopril [Zestril] 40 mg PO DAILY Potassium Chloride [K-Tab ER] 10 meq PO DAILY Gabapentin [Neurontin] 100 mg PO TID #21 capsule HYDROcodone/Acet 5/325 mg [[place] 5-325 mg] 1 tab PO Q6H PRN 7 Days #20 tablet PRN Reason: Pain Magnesium Oxide [Magnesium] 400 mg PO DAILY Allopurinol [Zyloprim 100 MG] 100 mg PO DAILY #30 tablet Loratadine [Allergy Relief] 10 mg PO DAILY PRN #0 PRN Reason: Allergy Symptoms Changed hydrALAZINE [HydrALAZINE] 50 mg PO TID #0 Furosemide [Lasix] 40 mg PO DAILY 30 Days tab Discontinued Celecoxib [Celebrex] 200 mg PO DAILY Diclofenac Sodium [Voltaren] 1 appl TP TID PRN PRN Reason: Pain Home Medications: Magnesium Oxide [Magnesium] 400 mg PO DAILY 11/05/14 [History] Insulin Glargine,Hum.rec.anlog [Lantus Solostar] 17 unit SQ HS 01/09/15 [History] Ropinirole HCl [Requip] 0.5 mg PO HS 01/09/15 [History] Acetaminophen [Pain Reliever] 500 mg PO TID PRN 06/06/17 [History] Fluticasone Propionate Nasal [Flonase] 1 spr NS DAILY 06/06/17 [History] Guaifenesin [Mucinex] 600 mg PO BID PRN 06/06/17 [History] Insulin Glargine,Hum.rec.anlog [Lantus Solostar] 30 unit SQ QAM 06/06/17 [History] Insulin LISPRO [Humalog Kwikpen U-100] 10 unit SQ TIDWM 06/06/17 [History] Lactobacillus Acidophilus [Acidophilus] 1 cap PO BID 06/06/17 [History] Levothyroxine Sodium [Levoxyl] 50 mcg PO DAILY 06/06/17 [History] Liothyronine Sodium [Cytomel] 25 mcg PO DAILY 06/06/17 [History] Montelukast [Singulair] 10 mg PO DAILY 06/06/17 [History] Allopurinol [Zyloprim 100 MG] 100 mg PO DAILY #30 tablet 06/16/17 [Rx] Loratadine [Allergy Relief] 10 mg PO DAILY PRN #0 06/16/17 [Rx] Ondansetron ODT [Zofran ODT] 4 mg SL Q6HR PRN #10 tab.rapdis 02/14/18 [Rx] Albuterol Sulfate [Proair Hfa] 2 puff IH Q6H PRN 10/08/18 [History] Amlodipine Besylate 10 mg PO DAILY 10/08/18 [History] Atorvastatin Calcium [Lipitor] 80 mg PO HS 10/08/18 [History] Carvedilol [Coreg] 25 mg PO BID 10/08/18 [History] Cholecalciferol (D-3) [Vitamin D] 1,000 unit PO DAILY 10/08/18 [History] Clopidogrel Bisulfate [Plavix] 75 mg PO DAILY 10/08/18 [History] Nitroglycerin [Nitrostat] 0.4 mg SL Q5MIN PRN MDD 3 DOSES 10/08/18 [History] Warfarin [Coumadin] 2 mg PO MOWE 10/08/18 [History] Warfarin [Coumadin] 4 mg PO SUTUTHFRSA 10/08/18 [History] cloNIDine HCl [Clonidine HCl] 0.3 mg PO TID 10/08/18 [History] traZODone [TraZODone] 50 mg PO 2100 10/08/18 [History] Lisinopril [Zestril] 40 mg PO DAILY 10/30/18 [History] Potassium Chloride [K-Tab ER] 10 meq PO DAILY 10/30/18 [History] Cefdinir [Omnicef] 300 mg PO DAILY #4 capsule 11/02/18 [Rx] Furosemide [Lasix] 40 mg PO DAILY 30 Days tab 11/02/18 [Rx] Gabapentin [Neurontin] 100 mg PO TID #21 capsule 11/02/18 [Rx] HYDROcodone/Acet 5/325 mg [[place] 5-325 mg] 1 tab PO Q6H PRN 7 Days #20 tablet 11/02/18 [Rx] hydrALAZINE [HydrALAZINE] 50 mg PO TID #0 11/02/18 [Rx] Allergies/Adverse Reactions: Allergy/AdvReac Type Severity Reaction Status Date / Time codeine Allergy Congested Verified 10/30/18 08:04 Penicillins [PCN] AdvReac Congested Verified 10/30/18 08:04 pholcodine AdvReac See Verified 10/30/18 08:04 Comments tape AdvReac Itching Uncoded 10/30/18 08:04 Date of admission: 10/31/18 16:27 Primary care physician: Aquilino Rivera DO Consults: 10/30/18 11:49 Consult to Nurse Navigator [CONS] Routine Comment: PNEUMONIA 10/31/18 08:39 Consult to Occupational Therapy [CONS] Routine Comment: Evaluate, develop and implement POC Reason for Consult: PLACEMENT TO SNF, NEEDS NEW NOTES FOR REHAB Does patient have active BEDREST order?: No Is patient medically & hemodynamically stable?: Yes Consult to Physical Therapy [CONS] Routine Comment: Evaluate, develop and implement POC Reason for Consult: PLACEMENT TO SNF, NEEDS NEW NOTES FOR REHAB Does patient have active BEDREST order?: No Is patient medically & hemodynamically stable?: Yes 11/02/18 10:57 Consult to Cap Maker [CONS] Routine Reason for SW Consult: SNF PLACEMENT - Constitutional Vitals: Temp Pulse Resp BP Pulse Ox 97.3 F L 60 17 137/53 98 11/02/18 12:13 11/02/18 12:13 11/02/18 12:13 11/02/18 12:13 11/02/18 12:13 General appearance: Present: cooperative, A&O X 3, pleasant, no acute distress, answers questions appropriately Exam: Gen: Alert, awake, Oriented to time,place and person looks little pale Chest: Diminished breath sounds B/L, mild to moderate wheezing, No crackles, No rales Heart: S1S2+ RRR No murmurs Abd: Soft, NT, BS +, No organomegaly Ext: No edema, pulses are palpable, No calf tenderness Neuro : PURCHASE REQUEST EDITOR II to XII intact.. Normal motor strength in all ext's, no loss of sensation.. No foot drop / hand drop. No speech difficulty Skin: No rash. - Patient Status Disposition: Transfer SNF Condition: Good Overall status at discharge: patient is back to baseline - Ambulatory Orders Ambulatory Orders: Basic Metabolic Panel [CHEM] Time Frame: 3 Days, Facility: [facility], Location: Lab Complete Blood Count w/o Diff [HEME] Time Frame: 3 Days, Facility: [facility], Location: Lab - Discharge Instructions Follow Up With: Aquilino Rivera DO [Primary Care Provider] - Forms: ED Satisfaction Letter - Diet and Activity Activity: increase activity as tolerated, wear oxygen at all times (3 lit) Diet: low salt diet
--- NOTE | 2018-11-02 15:35 | Physician Discharge Referral ---
ExtendedCare Referral Info Transfer To: F Provider in Charge after Transfer: PCP Institutional Level of Care: Skilled - Diagnosis (1) Sepsis Status: Acute (2) Healthcare-associated pneumonia Status: Acute (3) Acute respiratory failure with hypoxia Status: Acute (4) Left sided numbness Status: Acute (5) UTI (urinary tract infection) Status: Acute (6) Anemia Status: Chronic (7) Diabetes Status: Chronic (8) Chronic diastolic CHF (congestive heart failure) Status: Acute (9) CKD (chronic kidney disease) stage 3, GFR 30-59 ml/min Status: Acute (10) Hypertension Status: Chronic (11) DVT prophylaxis Status: Chronic (12) Morbid obesity with BMI of 45.0-49.9, adult Status: Chronic - Transfer Medications Prescriptions: Gabapentin [Neurontin] 100 mg PO TID #21 capsule HYDROcodone/Acet 5/325 mg [[place] 5-325 mg] 1 tab PO Q6H PRN 7 Days #20 tablet PRN Reason: Pain Cefdinir [Omnicef] 300 mg PO DAILY #4 capsule Home Medications: Magnesium Oxide [Magnesium] 400 mg PO DAILY 11/05/14 [History] Insulin Glargine,Hum.rec.anlog [Lantus Solostar] 17 unit SQ HS 01/09/15 [History] Ropinirole HCl [Requip] 0.5 mg PO HS 01/09/15 [History] Acetaminophen [Pain Reliever] 500 mg PO TID PRN 06/06/17 [History] Fluticasone Propionate Nasal [Flonase] 1 spr NS DAILY 06/06/17 [History] Guaifenesin [Mucinex] 600 mg PO BID PRN 06/06/17 [History] Insulin Glargine,Hum.rec.anlog [Lantus Solostar] 30 unit SQ QAM 06/06/17 [History] Insulin LISPRO [Humalog Kwikpen U-100] 10 unit SQ TIDWM 06/06/17 [History] Lactobacillus Acidophilus [Acidophilus] 1 cap PO BID 06/06/17 [History] Levothyroxine Sodium [Levoxyl] 50 mcg PO DAILY 06/06/17 [History] Liothyronine Sodium [Cytomel] 25 mcg PO DAILY 06/06/17 [History] Montelukast [Singulair] 10 mg PO DAILY 06/06/17 [History] Allopurinol [Zyloprim 100 MG] 100 mg PO DAILY #30 tablet 06/16/17 [Rx] Loratadine [Allergy Relief] 10 mg PO DAILY PRN #0 06/16/17 [Rx] Ondansetron ODT [Zofran ODT] 4 mg SL Q6HR PRN #10 tab.rapdis 02/14/18 [Rx] Albuterol Sulfate [Proair Hfa] 2 puff IH Q6H PRN 10/08/18 [History] Amlodipine Besylate 10 mg PO DAILY 10/08/18 [History] Atorvastatin Calcium [Lipitor] 80 mg PO HS 10/08/18 [History] Carvedilol [Coreg] 25 mg PO BID 10/08/18 [History] Cholecalciferol (D-3) [Vitamin D] 1,000 unit PO DAILY 10/08/18 [History] Clopidogrel Bisulfate [Plavix] 75 mg PO DAILY 10/08/18 [History] Nitroglycerin [Nitrostat] 0.4 mg SL Q5MIN PRN MDD 3 DOSES 10/08/18 [History] Warfarin [Coumadin] 2 mg PO MOWE 10/08/18 [History] Warfarin [Coumadin] 4 mg PO SUTUTHFRSA 10/08/18 [History] cloNIDine HCl [Clonidine HCl] 0.3 mg PO TID 10/08/18 [History] traZODone [TraZODone] 50 mg PO 2100 10/08/18 [History] Lisinopril [Zestril] 40 mg PO DAILY 10/30/18 [History] Potassium Chloride [K-Tab ER] 10 meq PO DAILY 10/30/18 [History] Cefdinir [Omnicef] 300 mg PO DAILY #4 capsule 11/02/18 [Rx] Furosemide [Lasix] 40 mg PO DAILY 30 Days tab 11/02/18 [Rx] Gabapentin [Neurontin] 100 mg PO TID #21 capsule 11/02/18 [Rx] HYDROcodone/Acet 5/325 mg [[place] 5-325 mg] 1 tab PO Q6H PRN 7 Days #20 tablet 11/02/18 [Rx] hydrALAZINE [HydrALAZINE] 50 mg PO TID #0 11/02/18 [Rx] Allergies/Adverse Reactions: Allergy/AdvReac Type Severity Reaction Status Date / Time codeine Allergy Congested Verified 10/30/18 08:04 Penicillins [PCN] AdvReac Congested Verified 10/30/18 08:04 pholcodine AdvReac See Verified 10/30/18 08:04 Comments tape AdvReac Itching Uncoded 10/30/18 08:04 - Respiratory Orders Smoking Cessation: Smoking cessation has been advised. For more information, call the [place] Tobacco Quit Line at 1-990-VQHV-NOW. CERTIFICATION: I certify that the transfer of the above named patient to an Extended Care Facility is necessary for the continuing treatment of the diagnosis listed. The above information is true and accurate reflection of patient's current condition. Confidential - Redisclosure prohibited without a patient's written consent.
[2018-11-02] MEDS ORDERED: *HR* Warfarin 4 MG TABLET PO ONE (18:00)
[2018-11-02] MEDS: traZODone 50 MG TABLET PO SCH (21:21)
[2018-11-02] MEDS: rOPINIRole 0.25 MG TABLET PO SCH (21:22)
[2018-11-02] MEDS: Azithromycin 500 MG in D5% in Water 250 ML IVPB SCH (21:28)
[2018-11-03 05:20] LABS: INR 2.8; Prothrombin Time 32.1 Seconds (9.4-12.1)
[2018-11-03] MEDS: Cefepime HCl 1,000 MG in Water for inj. (sterile) 10 ML IVP SCH (10:01)
[2018-11-03] MEDS: Insulin LISPRO 300 UNITS/3 ML VIAL SQ SCH ×2 (10:04→12:36)
[2018-11-03] MEDS: Fluticasone Propionate Nasal 50 MCG/SPRAY BOTTLE NS SCH (10:05)
[2018-11-03] MEDS: Gabapentin 100 MG CAPSULE PO SCH (10:06)
[2018-11-03] MEDS: Magnesium Oxide 400 MG TABLET PO SCH (10:06)
[2018-11-03] MEDS: Cholecalciferol (D-3) 1,000 UNIT (25MCG) TABLET PO SCH (10:06)
[2018-11-03] MEDS: hydrALAZINE 25 MG TABLET PO SCH (10:06)
[2018-11-03] MEDS: amLODIPine 5 MG TABLET PO SCH (10:06)
[2018-11-03] MEDS: Lactobacillus 1 EACH CAP.SPRINK PO SCH (10:06)
[2018-11-03] MEDS: Lisinopril 20 MG TABLET PO SCH (10:06)
[2018-11-03] MEDS: cloNIDine HCl 0.1 MG TABLET PO SCH (10:06)
[2018-11-03 11:02] VITALS: BP 118/64
--- NOTE | 2018-11-03 12:57 | Internal Med Progress Note ---
Hospitalist Progress Note - Encounter Date of Encounter: 11/03/18 Time of Encounter: 12:52 - Subjective Interval History: Pt was seen and examined at bed side. She was not able to go to ECF y/d due to some room issues. Pt stated she is feeling better today. Denied any CP / SOB Slept well last night.. No events over night - Exam Vitals: Temp Pulse Resp BP Pulse Ox 98.5 F 72 15 118/64 84 11/03/18 11:11/03/18 11:11/03/18 11:11/03/18 11:11/03/18 11:01 Exam: Gen: Alert, awake, Oriented to time,place and person Chest: Diminished breath sounds B/L, mild to moderate wheezing, No crackles, No rales Heart: S1S2+ RRR No murmurs Abd: Soft, NT, BS +, No organomegaly Ext: No edema, pulses are palpable, No calf tenderness Neuro : WOOD TREATING INSPECTOR II to XII intact.. Normal motor strength in all ext's, no loss of sensation.. No foot drop / hand drop. No speech difficulty Skin: No rash. - Assessment and Plan (1) Sepsis Current Visit: Yes Status: Acute Assessment and Plan: pt met sepsis criteria with fever, leukocytosis and source of infection as pneumonia improved cont empirical abx blood cx no growth so far (2) Healthcare-associated pneumonia Current Visit: Yes Status: Acute Assessment and Plan: Most likely bacterial PNA Strep PNA and Legionella ag are negative so far blood cx - no growth switched to PO Abx Omnicef Medically stable to d/c to ECF today (3) Acute respiratory failure with hypoxia Current Visit: Yes Status: Acute Assessment and Plan: currently on 2 lit O2 try to wean her off the oxygen as she tolerates Cont frequent bronchodilator therapy (4) Left sided numbness Current Visit: Yes Status: Acute Assessment and Plan: CT of Head - did not show any acute intracranial abnormality brain MRI came back is negative for infarction Cont ASA and Statin continue on tele patient might have TIA (5) UTI (urinary tract infection) Current Visit: No Status: Acute Assessment and Plan: UA is abnormal - concerning for UTI urine culture showed mixed organisms on PO Omnicef abx (6) Anemia Current Visit: No Status: Chronic Assessment and Plan: Her anemia is multi factorial due to CKD + chronic disease no signs of blood loss s/p 2 U PRBC improved Hb (7) Diabetes Current Visit: No Status: Chronic Assessment and Plan: Cont ADA diet on ISS (8) Chronic diastolic CHF (congestive heart failure) Current Visit: Yes Status: Acute Assessment and Plan: Not in exacerbation cont home medications (9) CKD (chronic kidney disease) stage 3, GFR 30-59 ml/min Current Visit: No Status: Acute Assessment and Plan: Cr stable at 2.0 held Lasix avoid nephrotoxic medications (10) Hypertension Current Visit: No Status: Chronic Assessment and Plan: Stable with current home medications on IV hydralazine as needed (11) DVT prophylaxis Current Visit: No Status: Chronic Assessment and Plan: on Coumadin (12) Morbid obesity with BMI of 45.0-49.9, adult Current Visit: Yes Status: Chronic - Time Spent with Patient Total time spent is greater than 50% in coordination of care (as documented) at patient's floor/unit and/or counseling patient: Internal Medicine: Result - Labs CBC & Chem 7: 11/02/18 00:35 11/02/18 00:35 - ABG Interpretation ABG results: PT/INR, D-dimer PT 32.1 Seconds (9.4-12.1) H D 11/03/18 04:55 Consult Discharge Plan - Plan Referrals: [facility] [Provider Group] (Appointment has been requested. ) Aquilino Rivear DO [Primary Care Provider] - 11/09/18 9:30 am (Appointment will be with Jyoti Salazar ) Prescriptions: Gabapentin [Neurontin] 100 mg PO TID #21 capsule HYDROcodone/Acet 5/325 mg [[place] 5-325 mg] 1 tab PO Q6H PRN 7 Days #20 tablet PRN Reason: Pain Cefdinir [Omnicef] 300 mg PO DAILY #4 capsule (1) Sepsis Qualifiers: Sepsis type: sepsis due to unspecified organism Sepsis acute organ dysfunction status: unspecified Qualified Code(s): A41.9 - Sepsis, unspecified organism (5) UTI (urinary tract infection) Qualifiers: Urinary tract infection type: acute cystitis Hematuria presence: without hematuria Qualified Code(s): N30.00 - Acute cystitis without hematuria (6) Anemia Qualifiers: Anemia type: unspecified type Qualified Code(s): D64.9 - Anemia, unspecified (7) Diabetes Qualifiers: Diabetes mellitus type: type 2 Diabetes mellitus middle or intermediate school principal insulin use: with middle or intermediate school principal use Diabetes mellitus complication status: with hyperglycemia Qualified Code(s): E11.65 - Type 2 diabetes mellitus with hyperglycemia; Z79.4 - long term care social worker (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
[2018-11-03] MEDS ORDERED: *HR* Warfarin 2 MG TABLET PO ONE (18:00)
== END 2018-11-03 13:42 | DRG 871 ==
LOC: 3BNU 16:47 → EMEROOARM 16:47 → 3BNU 23:47 → SUATTDRO 10-31 16:27
PROVIDERS: ADMIT Family Medicine; ATTEND Family Medicine